=== PATIENT | female | born 1955 | race Caucasian/White ===

== ENCOUNTER 2019-01-17 05:46 | Outpatient (RCR) | payer MEDICARE, MEDICAID, SELFPAY | END 2019-01-20 00:01 | LOC: ONCMED 05:46 | PROVIDERS: Family Provider Nurse Practitioner; Visit Provider Internal Medicine Medical Oncology | DX: D59.1 Other autoimmune hemolytic anemias (principal); I10 Essential (primary) hypertension; E78.5 Hyperlipidemia, unspecified; E11.42 Type 2 diabetes mellitus with diabetic polyneuropathy; K21.9 Gastro-esophageal reflux disease without esophagitis; J44.9 Chronic obstructive pulmonary disease, unspecified; M19.90 Unspecified osteoarthritis, unspecified site; M06.9 Rheumatoid arthritis, unspecified; E05.20 Thyrotoxicosis with toxic multinodular goiter without thyrotoxic crisis or storm; Z79.4 Long term (current) use of insulin; Z79.891 Long term (current) use of opiate analgesic; Z90.81 Acquired absence of spleen; Z86.73 Personal history of transient ischemic attack (TIA), and cerebral infarction without residual deficits; Z85.528 Personal history of other malignant neoplasm of kidney; Z90.5 Acquired absence of kidney; Z92.25 Personal history of immunosuppression therapy | CPT/HCPCS: 36415; 36430; 85025; 86850; 86900; 86901; 86920 ×4; 86922 ×4; 96374; 99214; J1940; J7050; P9016 ×2 ==

== ENCOUNTER → 2019-02-26 10:10 | Outpatient (BNVA) | payer MEDICARE, MEDICAID, SELFPAY | PROVIDERS: Family Provider Nurse Practitioner; PCP Nurse Practitioner; Visit Provider Nurse Practitioner | DX: D59.1 Other autoimmune hemolytic anemias (principal) | CPT/HCPCS: 36415; 85025 ==

== ENCOUNTER 2019-02-27 10:26 | Outpatient (RCR) | payer MEDICARE, MEDICAID, SELFPAY ==
--- NOTE | 2019-03-05 10:40 | ONC FU_ITS ---
Dr. Carrero Patient Follow-Up Note Patient: Miya Narvaez Unit #: [id number]: [id number] Dicatated By: Shawn Carrero M.D.Date of Visit:Feb 27, 2019 Onc Med Follow-up/Prog Note Chief Complaint: Anemia. 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 On 02/13/2018 she presented to the emergency room with severe weakness. She was found to be significantly anemic with CBC showing her hemoglobin low at 7.1 g with hematocrit 20.4%. The red cell indices were macrocytic with MCV 112 and MCH 39. The white blood cell count was elevated at 20,500 and the platelet count was mildly elevated at 411,000. The differential showed 75% neutrophils, 16% lymphocytes, and 7% monocytes. The uncorrected reticulocyte count was 20.6%. Sedimentation rate was greater than 120 mm/hour. Chem profile showed significantly low sodium at 113 mmol/L. The total bilirubin was mildly elevated at 4.1 mg/dL with normal alkaline phosphatase. LDH was elevated at 321/214 U/L. She was transfused 2 units of PRBC. No abnormalities were reported on her type and crossmatch. Serum iron studies show slightly low transferrin saturation at 17.7%. B12 level was normal at 457 pg/mL and folate levels greater than 20.0 ng/mL. Methylmalonic acid level also was normal at 0.23 ???mol/L. Following the transfusion her hemoglobin stabilized at 9.2 g. At that point her sodium level was back up to 130 mmol/L, and she was discharged home. During subsequent follow-up, stool Hemoccult was negative ???3. Repeat CBC on 03/08/2018 showed hemoglobin up to 12.3 g with white blood cell count 8300 and platelet count 260,000. I had seen her initially on 03/28/2018. At that point her hemoglobin had dropped back down to 8.2 g with hematocrit 24%. The red cell indices were macrocytic with MCV 118 and MCH 40.1. The white blood cell count was 16,100 and the platelet count was 334,000. The uncorrected reticulocyte count was 22%. LDH was elevated 388/214 U/L. The total bilirubin was elevated at 3.4 mg/dL with direct bilirubin 0.4 mg/dL. Haptoglobin was low at 10 mg/dL. Sedimentation rate was elevated at 117 mm/h, and the RA titer was high at 599.0 IU/mL. The SELENA was positive for warm reacting IgG auto antibody. She then began steroid therapy with prednisone 40 mg twice a day. Her other medical illnesses include hypertension, hyperlipidemia, type II diabetes with peripheral neuropathy, GERD, COPD, degenerative disease of the spine, and rheumatoid arthritis. She has a history of multinodular goiter and she has had evidence of hyperthyroidism. She has a history of having undergone left nephrectomy for stage I renal cell carcinoma in 2008. She has a history of smoking for 46 years, previously up to 2 1/2 packs of cigarettes daily. Following her hospitalization in January she had cut down to 1 pack per day. INTERIM HISTORY: Her follow-up CBC on 04/04/2017 showed hemoglobin stable at 8.4 g with white blood cell count 15,700 and platelet count 385,000. The reticulocyte count was still significantly elevated at 19.6% and the haptoglobin was still low at 10 mg/dL. LDH level at that point was up to 461 U/L. She continued prednisone 40 mg twice a day. Her blood sugars had become significantly elevated on the prednisone, as expected, and she was started on Levemir 30 U twice a day along with regular insulin per sliding scale. As of 04/17/2018 her hemoglobin was up to 12.0 g and her prednisone dosage was decreased to 20 mg bid. At her followup visit on 04/26/2017 her hemoglobin was normal at 13.8 g. Her prednisone was decreased to 20 mg daily. As she was felt to be a poor candidate for long-term steroid therapy due to her diabetes and because of her underlying rheumatoid arthritis, she was given a 4-week course of treatment with rituximab from 05/09/2018 through 05/29/2018. She tolerated it very well. During subsequent follow-up, her hemoglobin remained adequate, though her laboratory studies did show evidence for ongoing hemolysis. However, during that time she also had increasing intolerance for the prednisone, and she insisted on tapering down the dosage. During subsequent follow-up, there was gradual decline in her hemoglobin/hematocrit levels, and became quite evident that her hemolytic anemia was not going to be controlled adequately with prednisone. I then made arrangements for laparoscopic splenectomy in [place]. She did receive the appropriate vaccinations. The laparoscopic splenectomy was performed in the early part of December. She had no complications with the procedure. During her subsequent follow-up, she had the expected increases in her white blood cell count and platelet count. There was no significant improvement, though, in her hemoglobin/hematocrit levels. As of 01/16/2019 the hemoglobin was stable at 8.3 g. She reported having significant fatigue and shortness of breath, and she also reported having some chest pain. Her repeat CBC with the typenex showed further decline in the hemoglobin to 7.8 g. She was then transfused 2 units PRBC and she restarted steroid therapy with prednisone, initially at 10 mg bid. She did have a good response to prednisone, and it was able to be tapered fairly quickly. Her hemoglobin stabilized at 11 g on prednisone at 10 mg daily. She is seen for a follow-up visit. Her energy is okay, though not as good as it was. She has been on antibiotic therapy for a respiratory infection. Her appetite is down a little due to the antibiotic. She has not had fever. She occasionally has sweating at night. She has not had sore mouth or throat. She still has coughing spells, but it is improving. She has cut down smoking from 2 packs per day to 1/2 pack per day. She has some shortness of breath, mainly with the coughing spells. She does not complain of chest pain. She has had some constipation since the surgery. She has no other GI or complaints. She says her arthritis has been giving her fits, and she also has been having more swelling. She has a little numbness/tingling in her hands. Medications: Acidophilus 1 Tablet Oral daily, Crestor 1 Tablet (of 10 mg) Oral daily, Daily Vitamin 1 Tablet Oral daily, Famotidine 1 Tablet (of 40 mg) Oral b.i.d. PRN, Ferrous Sulfate 1 Tablet (of 325 (65 fe) mg) Oral daily, Fish Oil 1 Capsule (of 1000 mg) Oral daily, Garlic 1 Capsule (of 1000 mg) Oral daily, HumuLIN R 1 (100 Units/mL) Injection t.i.d. PRN, Hydrocodone-Acetaminophen 1 Tablet (of 10-325 mg) Oral q 6 hours PRN, Imdur 1 Tablet (of 30 mg) Tablet SR 24 HR Oral daily, MetFORMIN HCl 1 Tablet (of 500 mg) Oral b.i.d., Metoprolol Succinate ER 1 Tablet (of 50 mg) Tablet SR 24 HR Oral daily, Norvasc 1 Tablet (of 5 mg) Oral daily, predniSONE 1 Tablet (of 5 mg) Oral b.i.d., traZODone HCl 2 Tablet (of 50 mg) Oral daily, Zonisamide 1 Tablet (of 50 mg) Capsule Oral b.i.d. Allergies: CeleBREX and Levemir. Review of Systems: Constitutional - Her energy is decent. She does all of her housework. She is able to do more at home and walk more. Her appetite is okay, but her weight is down. No fever, chills, hot flashes, She has some sweating at night. ECOG score is 1, ENMT - No sinus congestion/drainage. No mouth sores. No sore throat or difficulty swallowing, Hematologic/Lymphatic - She bruises easily, Respiratory - No shortness of breath. She has a cough. No pleuritic pain or hemoptysis, Cardiovascular - No angina pain. No palpitations, Gastrointestinal - No nausea or vomiting. She has occasional heartburn. She has constipation. No blood in the stool or black stools, Genitourinary (F) - No dysuria or hematuria. No urinary frequency. No urgency or incontinence, Musculoskeletal - She has had an increase of pain in her joints, especially in her right knee, Integumentary - No skin complications, Neurologic - No headache or dizziness. She has numbness and tingling in her hands, Psychiatric - No anxiety or depression. No insomnia. Vital Signs: Performed on Feb 27, 2019 10:58 Height - 67.00 in Weight - 174.4 lbs (LOW) BSA - 1.91 sq.m BMI - 27.32 Temperature - 98.2 F (LOW) Pulse - 80 /min Respiration - 22 /min BP - 150/64 mm(hg) (HIGH) O2 Sat - 99 % Pain - 5 Physical Examination: Constitutional - She looks pretty good generally, Eyes - Sclerae nonicteric. Conjunctivae clear, ENMT - No lesions noted in the oral cavity, Hematologic/Lymphatic - No cervical, clavicular, or axillary adenopathy, Respiratory - Lungs are clear with diminished air movement bilaterally, Cardiovascular - Heart rhythm is regular. There is a II/ systolic murmur. There is no gallop or rub noted, Abdomen - Soft. Liver is not enlarged. There is no abdominal mass or ascites noted and there is no inguinal adenopathy, Extremities - No edema, Neurologic - No focal neurologic deficits noted. Lab/Imaging: Her laboratory studies from 02/19/2019 included CBC showing hemoglobin 11.5 g, white blood cell count 19,200, and platelet count 700,000. The red cell indices were macrocytic. Impression: 1. 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 2. She has pre-existing rheumatoid arthritis. 3. She has multinodular goiter with hyperthyroidism. Her other medical illnesses include: 4. Hypertension. 5. Hyperlipidemia. 6. Type II diabetes with peripheral neuropathy. 7. GERD. 8. COPD. 9. Degenerative disease of the spine. 10. She has a history of prior stroke. 11. She underwent left nephrectomy for stage I renal cell carcinoma in 2008. She began steroid therapy with prednisone 40 mg twice a day on 03/29/2018. She has had a good response with her hemoglobin increasing to 12.0 g on 04/17/2018. Her prednisone was then decreased to 20 mg bid. As of her follow-up visit on 04/26/2018 there was further increase in the hemoglobin to 13.8 with haptoglobin normal at 158 mg/dL. Her prednisone was decreased to 20 mg daily. As she was felt to be a poor candidate for long-term steroid therapy and because of her underlying rheumatoid arthritis, she was then given a 4-week course of treatment with rituximab, which she completed on 05/29/2018. She tolerated it well. She had felt better following completion of the rituximab infusions, and her hemoglobin had initially remained stable at 12 g. However, her laboratory studies had shown evidence for ongoing hemolysis. During subsequent follow-up, she had increasing intolerance for the prednisone, and the dosage has been tapered to 5 mg daily. During follow-up there was a progressive decline in her hemoglobin/hematocrit levels, and it became quite evident that her hemolytic anemia was not going to be controlled adequately with a tolerable dose of steroid. She underwent laparoscopic splenectomy in the early part of December. She had no complications with the procedure. During subsequent follow-up there was expected increases in her white blood cell count and platelet count. Her hemoglobin/hematocrit levels, though, continued to decline. As of 01/17/2019 her hemoglobin had dropped to 7.8 g, and her studies were consistent with hemolysis. She was transfused 2 U PRBC and she restarted prednisone at 10 mg twice a day. She has had a good response with her hemoglobin stabilizing at 11 g on 10 mg of prednisone daily. She seems to tolerate that dosage of prednisone with acceptable side effects. Plan: She will continue prednisone 10 mg daily. She will continue her bowel regimen with senna/docusate. I will have her try increasing her trazodone dosage to 100 mg daily, if she continues to have significant issues with insomnia. She is due to have laboratory studies on the of this month. She will be scheduled for a follow-up visit in 5 weeks. Signed By: Shawn Carrero M.D. <<Signature on File>>
== END 2019-03-23 23:59 | disposition home or self-care (01) ==
LOC: ONCMED 10:26
PROVIDERS: Family Provider Nurse Practitioner; PCP Nurse Practitioner; Visit Provider Internal Medicine Medical Oncology
DX: D59.1 Other autoimmune hemolytic anemias (principal); I10 Essential (primary) hypertension; E78.5 Hyperlipidemia, unspecified; E11.42 Type 2 diabetes mellitus with diabetic polyneuropathy; K21.9 Gastro-esophageal reflux disease without esophagitis; J44.9 Chronic obstructive pulmonary disease, unspecified; M19.90 Unspecified osteoarthritis, unspecified site; M06.9 Rheumatoid arthritis, unspecified; F17.210 Nicotine dependence, cigarettes, uncomplicated; E05.00 Thyrotoxicosis with diffuse goiter without thyrotoxic crisis or storm; G47.00 Insomnia, unspecified; Z79.4 Long term (current) use of insulin; Z79.52 Long term (current) use of systemic steroids; Z85.528 Personal history of other malignant neoplasm of kidney; Z90.5 Acquired absence of kidney; Z90.81 Acquired absence of spleen
CPT/HCPCS: 99214

== ENCOUNTER → 2019-03-15 09:45 | Outpatient (BNVA) | payer MEDICARE, MEDICAID, SELFPAY | PROVIDERS: Family Provider Nurse Practitioner; PCP Nurse Practitioner; Visit Provider Nurse Practitioner | DX: E55.9 Vitamin D deficiency, unspecified; D59.1 Other autoimmune hemolytic anemias; I10 Essential (primary) hypertension; J44.9 Chronic obstructive pulmonary disease, unspecified; K57.90 Diverticulosis of intestine, part unspecified, without perforation or abscess without bleeding; E11.40 Type 2 diabetes mellitus with diabetic neuropathy, unspecified; M51.34 Other intervertebral disc degeneration, thoracic region; E11.22 Type 2 diabetes mellitus with diabetic chronic kidney disease | CPT/HCPCS: 80053; 80061; 81003; 82306; 82607; 83036; 83540; 84443; 85025 ==

== ENCOUNTER → 2019-04-02 08:45 | Outpatient (BNVA) | payer MEDICARE, MEDICAID, SELFPAY | PROVIDERS: Family Provider Nurse Practitioner; PCP Nurse Practitioner; Visit Provider Internal Medicine Medical Oncology | DX: D59.1 Other autoimmune hemolytic anemias (principal); D89.9 Disorder involving the immune mechanism, unspecified | CPT/HCPCS: 85025 ==

== ENCOUNTER 2019-04-03 05:52 | Outpatient (RCR) | payer MEDICARE, MEDICAID, SELFPAY ==
--- NOTE | 2019-04-03 19:27 | ONC FU_ITS ---
Dr. Carrero Patient Follow-Up Note Patient: Miya Narvaez Unit #: [id number]: [id number] Dicatated By: Shawn Carrero M.D.Date of Visit:Apr 03, 2019 Onc Med Follow-up/Prog Note Chief Complaint: Autoimmune hemolytic anemia. 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 She has longstanding rheumatoid arthritis. On 02/13/2018 she presented to the emergency room with severe weakness. She was found to be significantly anemic with CBC showing her hemoglobin low at 7.1 g with hematocrit 20.4%. The red cell indices were macrocytic with MCV 112 and MCH 39. The white blood cell count was elevated at 20,500 and the platelet count was mildly elevated at 411,000. The differential showed 75% neutrophils, 16% lymphocytes, and 7% monocytes. The uncorrected reticulocyte count was 20.6%. Sedimentation rate was greater than 120 mm/hour. Chem profile showed significantly low sodium at 113 mmol/L. The total bilirubin was mildly elevated at 4.1 mg/dL with normal alkaline phosphatase. LDH was elevated at 321/214 U/L. She was transfused 2 units of PRBC. No abnormalities were reported on her type and crossmatch. Serum iron studies show slightly low transferrin saturation at 17.7%. B12 level was normal at 457 pg/mL and folate levels greater than 20.0 ng/mL. Methylmalonic acid level also was normal at 0.23 ???mol/L. Following the transfusion her hemoglobin stabilized at 9.2 g. At that point her sodium level was back up to 130 mmol/L, and she was discharged home. During subsequent follow-up, stool Hemoccult was negative ???3. Repeat CBC on 03/08/2018 showed hemoglobin up to 12.3 g with white blood cell count 8300 and platelet count 260,000. I had seen her initially on 03/28/2018. At that point her hemoglobin had dropped back down to 8.2 g with hematocrit 24%. The red cell indices were macrocytic with MCV 118 and MCH 40.1. The white blood cell count was 16,100 and the platelet count was 334,000. The uncorrected reticulocyte count was 22%. LDH was elevated 388/214 U/L. The total bilirubin was elevated at 3.4 mg/dL with direct bilirubin 0.4 mg/dL. Haptoglobin was low at 10 mg/dL. Sedimentation rate was elevated at 117 mm/h, and the RA titer was high at 599.0 IU/mL. The SELENA was positive for warm reacting IgG auto antibody. She then began steroid therapy with prednisone 40 mg twice a day. Her follow-up CBC on 04/04/2017 showed hemoglobin stable at 8.4 g with white blood cell count 15,700 and platelet count 385,000. The reticulocyte count was still significantly elevated at 19.6% and the haptoglobin was still low at 10 mg/dL. LDH level at that point was up to 461 U/L. She continued prednisone 40 mg twice a day. Her blood sugars had become significantly elevated on the prednisone, as expected, and she was started on Levemir 30 U twice a day along with regular insulin per sliding scale. As of 04/17/2018 her hemoglobin was up to 12.0 g and her prednisone dosage was decreased to 20 mg bid. At her followup visit on 04/26/2017 her hemoglobin was normal at 13.8 g. Her prednisone was decreased to 20 mg daily. As she was felt to be a poor candidate for long-term steroid therapy due to her diabetes and because of her underlying rheumatoid arthritis, she was given a 4-week course of treatment with rituximab from 05/09/2018 through 05/29/2018. She tolerated it very well. During subsequent follow-up, her hemoglobin remained adequate, though her laboratory studies did show evidence for ongoing hemolysis. However, during that time she also had increasing intolerance for the prednisone, and she insisted on tapering down the dosage. During subsequent follow-up, there was gradual decline in her hemoglobin/hematocrit levels, and became quite evident that her hemolytic anemia was not going to be controlled adequately with prednisone. I then made arrangements for laparoscopic splenectomy in [place]. She did receive the appropriate vaccinations. The laparoscopic splenectomy was performed in the early part of December 2018. She had no complications with the procedure. During her subsequent follow-up, she had the expected increases in her white blood cell count and platelet count. There was no significant improvement, though, in her hemoglobin/hematocrit levels. As of 01/16/2019 the hemoglobin was stable at 8.3 g. She reported having significant fatigue and shortness of breath, and she also reported having some chest pain. Her repeat CBC with the typenex showed further decline in the hemoglobin to 7.8 g. She was then transfused 2 units PRBC and she restarted steroid therapy with prednisone, initially at 10 mg bid. She did have a good response to prednisone, and it was able to be tapered fairly quickly. Her hemoglobin stabilized at 11 g on prednisone at 10 mg daily. Her other medical illnesses include hypertension, hyperlipidemia, type II diabetes with peripheral neuropathy, GERD, COPD, degenerative disease of the spine, and rheumatoid arthritis. She has a history of multinodular goiter and she has had evidence of hyperthyroidism. She has a history of having undergone left nephrectomy for stage I renal cell carcinoma in 2008. She has a history of smoking for 46 years, previously up to 2 1/2 packs of cigarettes daily. Following her hospitalization in January 2018 she had cut down to 1 pack per day. INTERIM HISTORY: She is seen for a follow-up visit. She has been feeling okay. She says she is tired a lot, but her energy is better now than it was. Her ECOG score is 1. Her appetite is variable. Her sugar fluctuates significantly with the prednisone, and it does tend to get pretty high at times. She does not have fever or night sweats. She says her breathing tends to be rough in the mornings. She has chronic cough and she is still smoking 1 to 2 packs of cigarettes daily. She tends to get chest pain and heartburn when her blood sugar gets really high. She has ongoing problems with constipation, but some of that may just be related to her iron supplement. She has no complaints. Her joint pain has been controlled reasonably well on the low-dose prednisone, though she does have flareups of pain every now and then. She does not complain of headache or dizziness. She has numbness/tingling in her feet. Medications: Acidophilus 1 Tablet Oral daily, Crestor 1 Tablet (of 10 mg) Oral daily, Daily Vitamin 1 Tablet Oral daily, Famotidine 1 Tablet (of 40 mg) Oral b.i.d. PRN, Fish Oil 1 Capsule (of 1000 mg) Oral daily, Folic Acid 1 (1 mg) Tablet Oral daily, Garlic 1 Capsule (of 1000 mg) Oral daily, HumuLIN R 1 (100 Units/mL) Injection t.i.d. PRN, Hydrocodone-Acetaminophen 1 Tablet (of 10-325 mg) Oral q 6 hours PRN, Imdur 1 Tablet (of 30 mg) Tablet SR 24 HR Oral daily, MetFORMIN HCl 1 Tablet (of 500 mg) Oral b.i.d., Metoprolol Succinate ER 1 Tablet (of 50 mg) Tablet SR 24 HR Oral daily, Norvasc 1 Tablet (of 5 mg) Oral daily, predniSONE 1 Tablet (of 5 mg) Oral b.i.d., traZODone HCl 2 Tablet (of 50 mg) Oral daily, Zonisamide 1 Tablet (of 50 mg) Capsule Oral b.i.d. Allergies: CeleBREX and Levemir. Review of Systems: Constitutional - She is tired a lot, but her energy is better than it was. She does light work at home. Her appetite comes and goes, but her weight is stable. No fever, chills, hot flashes, or night sweats. ECOG score is 1, ENMT - No sinus congestion/drainage. No mouth sores. No sore throat or difficulty swallowing, Hematologic/Lymphatic - She bruises easily, Respiratory - She has shortness of breath with activity. She has a cough. No pleuritic pain or hemoptysis. She continues to smoke 1-2 packs a day, Cardiovascular - She has chest pain and heartburn if her blood sugar gets too high. No palpitations, Gastrointestinal - No nausea or vomiting. No diarrhea or constipation. No blood in the stool or black stools, Genitourinary (F) - No dysuria or hematuria. No urinary frequency. No urgency or incontinence, Musculoskeletal - She has had a couple episodes of severe pain, Integumentary - No skin complications, Neurologic - She has headaches when her blood sugar is high. No dizziness. No numbness/paresthesias or other focal neurologic symptoms, Psychiatric - No anxiety or depression. No insomnia. Vital Signs: Performed on Apr 03, 2019 10:30 Height - 67.00 in Weight - 174.8 lbs (HIGH) BSA - 1.91 sq.m BMI - 27.38 Temperature - 98.3 F (LOW) Pulse - 72 /min Respiration - 24 /min BP - 146/63 mm(hg) (HIGH) O2 Sat - 100 % Pain - 5 Physical Examination: Constitutional - She looks pretty good generally, Eyes - Sclerae nonicteric. Conjunctivae clear, ENMT - No lesions noted in the oral cavity, Hematologic/Lymphatic - No cervical, clavicular, or axillary adenopathy, Respiratory - Lungs are clear with diminished air movement bilaterally, Cardiovascular - Heart rhythm is regular. There is a II/ systolic murmur. There is no gallop or rub noted, Abdomen - Soft. There is mild tenderness in the epigastric area. Liver is not enlarged. There is no abdominal mass or ascites noted and there is no inguinal adenopathy, Extremities - No edema. There are scattered purpuric lesions on the arms, Neurologic - No focal neurologic deficits noted. Lab/Imaging: Test performed on Apr 02, 2019 08:45 WBC 14.3 10^9/L RBC 3.20 10^12/L HGB 11.3 g/dL HCT 33.7 % MCV 105.3 fl MCH 35.4 pg MCHC 33.6 g/dL RDW 15.4 % Platelet Count 515 10^9/L MPV 6.8 fL Neutrophils (Gran) 9.8 10^9/L Lymphocytes 4.0 10^9/L Monocytes 0.4 10^9/L Manual Lymphocytes 28.3 % Manual Monocytes 2.9 % Test performed on Mar 15, 2019 10:49 Iron, Total 68 mcg/dL TSH 0.01 uU/mL Hemoglobin A1C 4.0 % Test performed on Mar 15, 2019 10:42 Vitamin B12 353 pg/mL Cholesterol, Total 123 mg/dL Glucose 90 mg/dL Vitamin D (25-Hydroxy) 27 ng/mL BUN 11 mg/dL HDL Cholesterol 52 mg/dL Creatinine 0.7 mg/dL LDL Cholesterol 49 mg/dL Cr Clearance (Est) 110.87 mL/min VLDL Cholesterol 22 mg/dL Triglycerides 111 mg/dL Sodium 139 mmol/L Potassium 4.4 mmol/L Chloride 103 mmol/L CO2 24 mmol/L Calcium 11.0 mg/dL Protein, Total 6.2 g/dL Albumin 4.7 g/dL Globulin 1.5 g/dL Bilirubin, Total 2.1 mg/dL Alkaline Phosphatase 116 IU/L AST (SGOT) 23 IU/L ALT (SGPT) 15 IU/L Ua Color Yellow Ua Appearance Clear Ua Specific Arthur 1.015 Ua pH 5.5 Ua Protein Negative Ua Glucose Normal Ua Ketones Negative Ua Blood Negative Ua Leuk Esterase Negative Ua Nitrites Negative Ua Bilirubin Negative Ua Urobilinogen 0.2 Impression: 1. 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 2. She has pre-existing rheumatoid arthritis. 3. She has multinodular goiter with hyperthyroidism. Her other medical illnesses include: 4. Hypertension. 5. Hyperlipidemia. 6. Type II diabetes with peripheral neuropathy. 7. GERD. 8. COPD. 9. Degenerative disease of the spine. 10. She has a history of prior stroke. 11. She underwent left nephrectomy for stage I renal cell carcinoma in 2008. She began steroid therapy with prednisone 40 mg twice a day on 03/29/2018. She has had a good response with her hemoglobin increasing to 12.0 g on 04/17/2018. Her prednisone was then decreased to 20 mg bid. As of her follow-up visit on 04/26/2018 there was further increase in the hemoglobin to 13.8 with haptoglobin normal at 158 mg/dL. Her prednisone was decreased to 20 mg daily. As she was felt to be a poor candidate for long-term steroid therapy and because of her underlying rheumatoid arthritis, she was then given a 4-week course of treatment with rituximab, which she completed on 05/29/2018. She tolerated it well. She had felt better following completion of the rituximab infusions, and her hemoglobin had initially remained stable at 12 g. However, her laboratory studies had shown evidence for ongoing hemolysis. During subsequent follow-up, she had increasing intolerance for the prednisone, and the dosage has been tapered to 5 mg daily. During follow-up there was a progressive decline in her hemoglobin/hematocrit levels, and it became quite evident that her hemolytic anemia was not going to be controlled adequately with a tolerable dose of steroid. She underwent laparoscopic splenectomy in the early part of December 2018. She had no complications with the procedure. During subsequent follow-up there was expected increases in her white blood cell count and platelet count. Her hemoglobin/hematocrit levels, though, continued to decline. As of 01/17/2019 her hemoglobin had dropped to 7.8 g, and her studies were consistent with hemolysis. She was transfused 2 U PRBC and she restarted prednisone at 10 mg twice a day. She has had a good response with her hemoglobin stabilizing at 11 g on 10 mg of prednisone daily. During follow-up she has had some difficulty managing the diabetes with the steroid therapy. It appears almost certain that the hemolysis is affecting the hemoglobin A1c result, so that it is not accurately reflecting her diabetes control. Her rheumatoid arthritis seems to be managed adequately with the low-dose prednisone, and thus far her hemoglobin has remained adequate at 11 g, though she does have evidence of ongoing hemolysis. Plan: She will continue prednisone and I will now have her try tapering the dosage to 10 mg alternating with 5 mg daily. She is advised to stop her iron supplement, but she will continue folic acid 1 mg daily. Her blood counts will be monitored monthly. I will see her again in 3 months, or sooner as needed. Signed By: Shawn Carrero M.D. <<Signature on File>>
== END 2019-04-21 23:59 | disposition home or self-care (01) ==
LOC: ONCMED 05:52
PROVIDERS: Family Provider Nurse Practitioner; PCP Nurse Practitioner; Visit Provider Internal Medicine Medical Oncology
DX: D59.1 Other autoimmune hemolytic anemias (principal); M06.9 Rheumatoid arthritis, unspecified; I10 Essential (primary) hypertension; E78.5 Hyperlipidemia, unspecified; E11.42 Type 2 diabetes mellitus with diabetic polyneuropathy; K21.9 Gastro-esophageal reflux disease without esophagitis; J44.9 Chronic obstructive pulmonary disease, unspecified; M19.90 Unspecified osteoarthritis, unspecified site; F17.210 Nicotine dependence, cigarettes, uncomplicated; E04.2 Nontoxic multinodular goiter; Z79.891 Long term (current) use of opiate analgesic; Z79.84 Long term (current) use of oral hypoglycemic drugs; Z79.52 Long term (current) use of systemic steroids; Z79.899 Other long term (current) drug therapy; Z90.81 Acquired absence of spleen; Z85.528 Personal history of other malignant neoplasm of kidney; Z86.73 Personal history of transient ischemic attack (TIA), and cerebral infarction without residual deficits; Z90.5 Acquired absence of kidney
CPT/HCPCS: 99214

== ENCOUNTER → 2019-05-01 08:45 | Outpatient (BNVA) | payer MEDICARE, MEDICAID, SELFPAY | PROVIDERS: Family Provider Nurse Practitioner; PCP Nurse Practitioner; Visit Provider Internal Medicine Medical Oncology | DX: D59.1 Other autoimmune hemolytic anemias (principal); E03.8 Other specified hypothyroidism | CPT/HCPCS: 80053; 83010; 83540; 83550; 83615; 84439; 84443; 85025; 85045; 85651 ==

== ENCOUNTER 2019-05-07 15:07 | Outpatient (CLI) | payer MEDICARE, MEDICAID, SELFPAY ==
--- NOTE | 2019-05-11 15:02 | ONC FU_ITS ---
Dr. Carrero Patient Follow-Up Note Patient: Miya Narvaez Unit #: [id number]: 1955 Dicatated By: Shawn Carrero M.D.Date of Visit:May 07, 2019 Onc Med Follow-up/Prog Note Chief Complaint: Autoimmune hemolytic anemia. 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 She has longstanding rheumatoid arthritis. On 02/13/2018 she presented to the emergency room with severe weakness. She was found to be significantly anemic with CBC showing her hemoglobin low at 7.1 g with hematocrit 20.4%. The red cell indices were macrocytic with MCV 112 and MCH 39. The white blood cell count was elevated at 20,500 and the platelet count was mildly elevated at 411,000. The differential showed 75% neutrophils, 16% lymphocytes, and 7% monocytes. The uncorrected reticulocyte count was 20.6%. Sedimentation rate was greater than 120 mm/hour. Chem profile showed significantly low sodium at 113 mmol/L. The total bilirubin was mildly elevated at 4.1 mg/dL with normal alkaline phosphatase. LDH was elevated at 321/214 U/L. She was transfused 2 units of PRBC. No abnormalities were reported on her type and crossmatch. Serum iron studies show slightly low transferrin saturation at 17.7%. B12 level was normal at 457 pg/mL and folate levels greater than 20.0 ng/mL. Methylmalonic acid level also was normal at 0.23 ???mol/L. Following the transfusion her hemoglobin stabilized at 9.2 g. At that point her sodium level was back up to 130 mmol/L, and she was discharged home. During subsequent follow-up, stool Hemoccult was negative ???3. Repeat CBC on 03/08/2018 showed hemoglobin up to 12.3 g with white blood cell count 8300 and platelet count 260,000. I had seen her initially on 03/28/2018. At that point her hemoglobin had dropped back down to 8.2 g with hematocrit 24%. The red cell indices were macrocytic with MCV 118 and MCH 40.1. The white blood cell count was 16,100 and the platelet count was 334,000. The uncorrected reticulocyte count was 22%. LDH was elevated 388/214 U/L. The total bilirubin was elevated at 3.4 mg/dL with direct bilirubin 0.4 mg/dL. Haptoglobin was low at 10 mg/dL. Sedimentation rate was elevated at 117 mm/h, and the RA titer was high at 599.0 IU/mL. The SELENA was positive for warm reacting IgG auto antibody. She then began steroid therapy with prednisone 40 mg twice a day. Her follow-up CBC on 04/04/2017 showed hemoglobin stable at 8.4 g with white blood cell count 15,700 and platelet count 385,000. The reticulocyte count was still significantly elevated at 19.6% and the haptoglobin was still low at 10 mg/dL. LDH level at that point was up to 461 U/L. She continued prednisone 40 mg twice a day. Her blood sugars had become significantly elevated on the prednisone, as expected, and she was started on Levemir 30 U twice a day along with regular insulin per sliding scale. As of 04/17/2018 her hemoglobin was up to 12.0 g and her prednisone dosage was decreased to 20 mg bid. At her followup visit on 04/26/2017 her hemoglobin was normal at 13.8 g. Her prednisone was decreased to 20 mg daily. As she was felt to be a poor candidate for long-term steroid therapy due to her diabetes and because of her underlying rheumatoid arthritis, she was given a 4-week course of treatment with rituximab from 05/09/2018 through 05/29/2018. She tolerated it very well. During subsequent follow-up, her hemoglobin remained adequate, though her laboratory studies did show evidence for ongoing hemolysis. However, during that time she also had increasing intolerance for the prednisone, and she insisted on tapering down the dosage. During subsequent follow-up, there was gradual decline in her hemoglobin/hematocrit levels, and became quite evident that her hemolytic anemia was not going to be controlled adequately with prednisone. I then made arrangements for laparoscopic splenectomy in [place]. She did receive the appropriate vaccinations. The laparoscopic splenectomy was performed in the early part of December 2018. She had no complications with the procedure. During her subsequent follow-up, she had the expected increases in her white blood cell count and platelet count. There was no significant improvement, though, in her hemoglobin/hematocrit levels. As of 01/16/2019 the hemoglobin was stable at 8.3 g. She reported having significant fatigue and shortness of breath, and she also reported having some chest pain. Her repeat CBC with the typenex showed further decline in the hemoglobin to 7.8 g. She was then transfused 2 units PRBC and she restarted steroid therapy with prednisone, initially at 10 mg bid. She did have a good response to prednisone, and it was able to be tapered fairly quickly. Her hemoglobin stabilized at 11 g on prednisone at 10 mg daily. Her other medical illnesses include hypertension, hyperlipidemia, type II diabetes with peripheral neuropathy, GERD, COPD, degenerative disease of the spine, and rheumatoid arthritis. She has a history of multinodular goiter and she has had evidence of hyperthyroidism. She has a history of having undergone left nephrectomy for stage I renal cell carcinoma in 2008. She has a history of smoking for 46 years, previously up to 2 1/2 packs of cigarettes daily. Following her hospitalization in January 2018 she had cut down to 1 pack per day. INTERIM HISTORY: During subsequent follow-up, she had continued prednisone 10 mg. As of her visit on 04/03/2019 her hemoglobin was stable at 11.3 g, and at that point I had her try alternating 10 and 5 mg daily. She is seen for a follow-up visit. She says she feels like crap. She has no energy and no appetite. Her activity is very limited. ECOG score is 2. Her weight is down a couple of pounds. She has not had fever or night sweats. She says she feels cold all the time. She also complains that her legs hurt. She has some joint pain, but more off and on. She has shortness of breath with activity and she also ports having some cough. She does not complain of chest pain. She has a little bit of heartburn. Bowel function is better, but still off and on. She has frequent urination with urgency and with some incontinence. She does not complain of headache or dizziness. She has some numbness/tingling in her hands. Medications: Acidophilus 1 Tablet Oral daily, Crestor 1 Tablet (of 10 mg) Oral daily, Daily Vitamin 1 Tablet Oral daily, Famotidine 1 Tablet (of 40 mg) Oral b.i.d. PRN, Fish Oil 1 Capsule (of 1000 mg) Oral daily, Folic Acid 1 (1 mg) Tablet Oral daily, Garlic 1 Capsule (of 1000 mg) Oral daily, HumuLIN R 1 (100 Units/mL) Injection t.i.d. PRN, Hydrocodone-Acetaminophen 1 Tablet (of 10-325 mg) Oral q 6 hours PRN, Imdur 1 Tablet (of 30 mg) Tablet SR 24 HR Oral daily, MetFORMIN HCl 1 Tablet (of 500 mg) Oral b.i.d., Metoprolol Succinate ER 1 Tablet (of 50 mg) Tablet SR 24 HR Oral daily, Norvasc 1 Tablet (of 5 mg) Oral daily, predniSONE 1 Tablet (of 5 mg) Oral daily on Every Other Day, predniSONE 1 Tablet (of 5 mg) Oral b.i.d. on Every Other Day, traZODone HCl 1 Tablet (of 50 mg) Oral daily, Zonisamide 1 Tablet (of 50 mg) Capsule Oral b.i.d. Allergies: CeleBREX and Levemir. Review of Systems: Constitutional - She feels like crap. She has no energy and no appetite. Her weight is down a couple of pounds. No fever, chills, hot flashes, or night sweats. ECOG score is 1, ENMT - She has allergy related sinus symptoms. No mouth sores. No sore throat or difficulty swallowing, Hematologic/Lymphatic - She bruises easily, Respiratory - She has shortness of breath with activity. She has a cough. No pleuritic pain or hemoptysis, Cardiovascular - No angina pain. No palpitations, Gastrointestinal - No nausea or vomiting. She has a little bit of heartburn. Her bowels are off and on. No blood in the stool or black stools, Genitourinary (F) - No dysuria or hematuria. She has urinary frequency with urgency and with some incontinence, Musculoskeletal - She complains that her legs hurt and she has joint pain off and on, Integumentary - No skin complications, Neurologic - No headache or dizziness. She has numbness/tingling in her hands, Psychiatric - No anxiety or depression. She has difficulty sleeping. Vital Signs: Performed on May 07, 2019 15:17 Height - 67.00 in Weight - 172 lbs (LOW) BSA - 1.90 sq.m BMI - 26.94 Temperature - 98.3 F (LOW) Pulse - 91 /min Respiration - 16 /min BP - 149/66 mm(hg) (HIGH) O2 Sat - 98 % Pain - 5 Physical Examination: Constitutional - She does not appear acutely ill, Eyes - Sclerae nonicteric. Conjunctivae clear, ENMT - No lesions noted in the oral cavity, Neck - She has an obvious goiter, Hematologic/Lymphatic - No cervical, clavicular, or axillary adenopathy, Respiratory - Lungs are clear with diminished air movement bilaterally, Cardiovascular - Heart rhythm is regular. There is a II/ systolic murmur. There is no gallop or rub noted, Abdomen - Soft. Liver is not enlarged. There is no abdominal mass or ascites noted and there is no inguinal adenopathy, Extremities - No edema. There are scattered purpuric lesions on the arms, Neurologic - No focal neurologic deficits noted. Lab/Imaging: CBC shows hemoglobin 9.7 g, white blood cell count 17,100, and platelet count 666,000. The red cell indices are macrocytic with MCV 118 and MCH 36.7. The haptoglobin level is low at 10.0 mg/L. Total bilirubin is mildly elevated at 2.1 mg/dL and the LDH level is elevated at 366/214 U/L. Impression: 1. 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 2. She has pre-existing rheumatoid arthritis. 3. She has multinodular goiter with hyperthyroidism. Her other medical illnesses include: 4. Hypertension. 5. Hyperlipidemia. 6. Type II diabetes with peripheral neuropathy. 7. GERD. 8. COPD. 9. Degenerative disease of the spine. 10. She has a history of prior stroke. 11. She underwent left nephrectomy for stage I renal cell carcinoma in 2008. She began steroid therapy with prednisone 40 mg twice a day on 03/29/2018. She has had a good response with her hemoglobin increasing to 12.0 g on 04/17/2018. Her prednisone was then decreased to 20 mg bid. As of her follow-up visit on 04/26/2018 there was further increase in the hemoglobin to 13.8 with haptoglobin normal at 158 mg/dL. Her prednisone was decreased to 20 mg daily. As she was felt to be a poor candidate for long-term steroid therapy and because of her underlying rheumatoid arthritis, she was then given a 4-week course of treatment with rituximab, which she completed on 05/29/2018. She tolerated it well. She had felt better following completion of the rituximab infusions, and her hemoglobin had initially remained stable at 12 g. However, her laboratory studies had shown evidence for ongoing hemolysis. During subsequent follow-up, she had increasing intolerance for the prednisone, and the dosage has been tapered to 5 mg daily. During follow-up there was a progressive decline in her hemoglobin/hematocrit levels, and it became quite evident that her hemolytic anemia was not going to be controlled adequately with a tolerable dose of steroid. She underwent laparoscopic splenectomy in the early part of December 2018. She had no complications with the procedure. During subsequent follow-up there was expected increases in her white blood cell count and platelet count. Her hemoglobin/hematocrit levels, though, continued to decline. As of 01/17/2019 her hemoglobin had dropped to 7.8 g, and her studies were consistent with hemolysis. She was transfused 2 U PRBC and she restarted prednisone at 10 mg twice a day. She has had a good response with her hemoglobin stabilizing at 11 g on 10 mg of prednisone daily. During follow-up she has had some difficulty managing the diabetes with the steroid therapy. As of her followup visit on 04/03/2019 her hemoglobin had remained adequate at 11 g, though she still had evidence of ongoing hemolysis. At that point I had her try decreasing the prednisone dosage to 10 mg alternating with 5 mg daily. She has since then been feeling a lot worse, and her hemoglobin has dropped to 9.7 g. Plan: She will increase prednisone back up to 20 mg daily. I will see her back in 2 weeks. If she is responding, I will then try tapering the prednisone more gradually. I also may consider trying another course of rituximab, as it also would potentially benefit the rheumatoid arthritis. Signed By: Shawn Carrero M.D. <<Signature on File>>
== END 2019-05-07 15:08 | disposition home or self-care (01) ==
LOC: ONCMED 15:07
PROVIDERS: Family Provider Nurse Practitioner; PCP Nurse Practitioner; Visit Provider Internal Medicine Medical Oncology
DX: D59.1 Other autoimmune hemolytic anemias (principal); M06.9 Rheumatoid arthritis, unspecified; I10 Essential (primary) hypertension; E78.5 Hyperlipidemia, unspecified; E11.42 Type 2 diabetes mellitus with diabetic polyneuropathy; K21.9 Gastro-esophageal reflux disease without esophagitis; J44.9 Chronic obstructive pulmonary disease, unspecified; F17.210 Nicotine dependence, cigarettes, uncomplicated; E04.2 Nontoxic multinodular goiter; Z79.891 Long term (current) use of opiate analgesic; Z79.899 Other long term (current) drug therapy; Z79.84 Long term (current) use of oral hypoglycemic drugs; Z90.81 Acquired absence of spleen; Z90.5 Acquired absence of kidney; Z86.73 Personal history of transient ischemic attack (TIA), and cerebral infarction without residual deficits
CPT/HCPCS: 99214

== ENCOUNTER 2019-05-21 08:49 | Outpatient (CLI) | payer MEDICARE, MEDICAID, SELFPAY ==
[2019-05-21 09:15] LABS: Basophils % 0.1 %; Eosinophils # 0.1 10^3/uL (0.0-0.8); Eosinophils % 0.3 %; Hematocrit 37.2 % (37.0-47.0); Hemoglobin 12.1 g/dL (11.5-15.3); Lymphocytes # 2.6 10^3/uL (0.8-4.8); Lymphocytes % 17.6 %; Mean Corpuscular HGB Conc 32.5 g/dL (30.0-36.0); Mean Corpuscular Hemoglobin 37.3 pg (28.0-34.0); Mean Corpuscular Volume 114.8 fL (81-99); Mean Platelet Volume 9.1 fL (7.4-10.4); Monocytes # 1.2 10^3/uL (0.2-0.9); Monocytes % 8.2 %; Neutrophils % 73.1 %; Nucleated Red Blood Cells # 0.1 /100WBC; Nucleated Red Blood Cells % 0.5 %; Platelet Count 567 10^3/cmm (130-400); Red Blood Count 3.24 10^6/uL (4.1-5.3)
[2019-05-21 09:36] LABS: Alanine Aminotransferase 14 U/L (0-33); Albumin Level 4.6 g/dL (3.5-5.2); Alkaline Phosphatase 104 IU/L (35-105); Anion Gap 16.1 (5-19); Aspartate Amino Transferase 22 U/L (0-32); Blood Urea Nitrogen 13 mg/dL (8-23); Calcium 10.3 mg/dL (8.5-10.5); Carbon Dioxide 23 mmol/L (22-29); Chloride 100 mmol/L (98-107); Globulin 2.4 g/dL (1.3-4.6); Glomerular Filtration Rate 72.7 mL/min (90-130); Glucose 133 mg/dL (65-115); Lactate Dehydrogenase 312 U/L (135-214); Osmolality Calculated 278 mOsm/kg (285-295); Potassium 4.1 mmol/L (3.5-5.1); Sodium 135 mmol/L (136-145); Total Bilirubin 2.1 mg/dL (0.15-1.2)
--- NOTE | 2019-05-24 20:16 | ONC FU_ITS ---
Dr. Carrero Patient Follow-Up Note Patient: Miya Narvaez Unit #: [id number]: 1955 Dicatated By: Shawn Carrero M.D.Date of Visit:May 21, 2019 Onc Med Follow-up/Prog Note Chief Complaint: Autoimmune hemolytic anemia. 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 She has longstanding rheumatoid arthritis. On 02/13/2018 she presented to the emergency room with severe weakness. She was found to be significantly anemic with CBC showing her hemoglobin low at 7.1 g with hematocrit 20.4%. The red cell indices were macrocytic with MCV 112 and MCH 39. The white blood cell count was elevated at 20,500 and the platelet count was mildly elevated at 411,000. The differential showed 75% neutrophils, 16% lymphocytes, and 7% monocytes. The uncorrected reticulocyte count was 20.6%. Sedimentation rate was greater than 120 mm/hour. Chem profile showed significantly low sodium at 113 mmol/L. The total bilirubin was mildly elevated at 4.1 mg/dL with normal alkaline phosphatase. LDH was elevated at 321/214 U/L. She was transfused 2 units of PRBC. No abnormalities were reported on her type and crossmatch. Serum iron studies show slightly low transferrin saturation at 17.7%. B12 level was normal at 457 pg/mL and folate levels greater than 20.0 ng/mL. Methylmalonic acid level also was normal at 0.23 ???mol/L. Following the transfusion her hemoglobin stabilized at 9.2 g. At that point her sodium level was back up to 130 mmol/L, and she was discharged home. During subsequent follow-up, stool Hemoccult was negative ???3. Repeat CBC on 03/08/2018 showed hemoglobin up to 12.3 g with white blood cell count 8300 and platelet count 260,000. I had seen her initially on 03/28/2018. At that point her hemoglobin had dropped back down to 8.2 g with hematocrit 24%. The red cell indices were macrocytic with MCV 118 and MCH 40.1. The white blood cell count was 16,100 and the platelet count was 334,000. The uncorrected reticulocyte count was 22%. LDH was elevated 388/214 U/L. The total bilirubin was elevated at 3.4 mg/dL with direct bilirubin 0.4 mg/dL. Haptoglobin was low at 10 mg/dL. Sedimentation rate was elevated at 117 mm/h, and the RA titer was high at 599.0 IU/mL. The SELENA was positive for warm reacting IgG auto antibody. She then began steroid therapy with prednisone 40 mg twice a day. Her follow-up CBC on 04/04/2017 showed hemoglobin stable at 8.4 g with white blood cell count 15,700 and platelet count 385,000. The reticulocyte count was still significantly elevated at 19.6% and the haptoglobin was still low at 10 mg/dL. LDH level at that point was up to 461 U/L. She continued prednisone 40 mg twice a day. Her blood sugars had become significantly elevated on the prednisone, as expected, and she was started on Levemir 30 U twice a day along with regular insulin per sliding scale. As of 04/17/2018 her hemoglobin was up to 12.0 g and her prednisone dosage was decreased to 20 mg bid. At her followup visit on 04/26/2017 her hemoglobin was normal at 13.8 g. Her prednisone was decreased to 20 mg daily. As she was felt to be a poor candidate for long-term steroid therapy due to her diabetes and because of her underlying rheumatoid arthritis, she was given a 4-week course of treatment with rituximab from 05/09/2018 through 05/29/2018. She tolerated it very well. During subsequent follow-up, her hemoglobin remained adequate, though her laboratory studies did show evidence for ongoing hemolysis. However, during that time she also had increasing intolerance for the prednisone, and she insisted on tapering down the dosage. During subsequent follow-up, there was gradual decline in her hemoglobin/hematocrit levels, and became quite evident that her hemolytic anemia was not going to be controlled adequately with prednisone. I then made arrangements for laparoscopic splenectomy in [place]. She did receive the appropriate vaccinations. The laparoscopic splenectomy was performed in the early part of December 2018. She had no complications with the procedure. During her subsequent follow-up, she had the expected increases in her white blood cell count and platelet count. There was no significant improvement, though, in her hemoglobin/hematocrit levels. As of 01/16/2019 the hemoglobin was stable at 8.3 g. She reported having significant fatigue and shortness of breath, and she also reported having some chest pain. Her repeat CBC with the typenex showed further decline in the hemoglobin to 7.8 g. She was then transfused 2 units PRBC and she restarted steroid therapy with prednisone, initially at 10 mg bid. She did have a good response to prednisone, and it was able to be tapered fairly quickly. Her hemoglobin stabilized at 11 g on prednisone at 10 mg daily. Her other medical illnesses include hypertension, hyperlipidemia, type II diabetes with peripheral neuropathy, GERD, COPD, degenerative disease of the spine, and rheumatoid arthritis. She has a history of multinodular goiter and she has had evidence of hyperthyroidism. She has a history of having undergone left nephrectomy for stage I renal cell carcinoma in 2008. She has a history of smoking for 46 years, previously up to 2 1/2 packs of cigarettes daily. Following her hospitalization in January 2018 she had cut down to 1 pack per day. INTERIM HISTORY: She had then continued prednisone 10 mg. As of her visit on 04/03/2019 her hemoglobin was stable at 11.3 g, and at that point I had her try alternating 10 and 5 mg daily. However, as of her follow-up visit on 05/07/2019 her hemoglobin had dropped significantly, to 9.7 g. She was noticeably symptomatic with it. Her prednisone was increased to 20 mg daily. She is seen for a follow-up visit. She has been feeling better with the higher dose of prednisone, though she says her blood sugars have been crazy. She also complains that her rheumatoid arthritis is started to flareup again. She also has a lot of muscle aches. Her energy, though, is better. ECOG score is 1. She says her appetite is not very good. She has not had fever. She has had a little bit of night sweating this past week. She has been having a lot of allergy related sinus symptoms. She has some shortness of breath, but her breathing also is better. She has a morning cough. She has not been having chest pain. She has no GI or complaints other than frequent urination. She does not complain of headache or dizziness. She has some numbness/tingling in her hands. Medications: Acidophilus 1 Tablet Oral daily, Crestor 1 Tablet (of 10 mg) Oral daily, Daily Vitamin 1 Tablet Oral daily, Famotidine 1 Tablet (of 40 mg) Oral b.i.d. PRN, Fish Oil 1 Capsule (of 1000 mg) Oral daily, Folic Acid 1 (1 mg) Tablet Oral daily, Garlic 1 Capsule (of 1000 mg) Oral daily, HumuLIN R 1 (100 Units/mL) Injection t.i.d. PRN, Hydrocodone-Acetaminophen 1 Tablet (of 10-325 mg) Oral q 6 hours PRN, Imdur 1 Tablet (of 30 mg) Tablet SR 24 HR Oral daily, MetFORMIN HCl 1 Tablet (of 500 mg) Oral b.i.d., Metoprolol Succinate ER 1 Tablet (of 50 mg) Tablet SR 24 HR Oral daily, Norvasc 1 Tablet (of 5 mg) Oral daily, predniSONE 1 Tablet (of 20 mg) Oral b.i.d., traZODone HCl 1 Tablet (of 50 mg) Oral daily, Zonisamide 1 Tablet (of 50 mg) Capsule Oral b.i.d. Allergies: CeleBREX and Levemir. Review of Systems: Constitutional - Her energy level is low but she is able to do some light housework. Her appetite is poor but she is able to eat. Her weight is down a few pounds. No fever, chills, or hot flashes. She has had a few night sweats. ECOG score is 1, ENMT - She has chronic allergies. No mouth sores. No sore throat or difficulty swallowing, Hematologic/Lymphatic - No abnormal bruising or bleeding, Respiratory - No shortness of breath. No cough. No pleuritic pain or hemoptysis, Cardiovascular - No angina pain. No palpitations, Gastrointestinal - No nausea or vomiting. No heartburn or acid reflux. No diarrhea or constipation. No blood in the stool or black stools, Genitourinary (F) - No dysuria or hematuria. She has urinary frequency. No urgency or incontinence, Musculoskeletal - No joint or bone pain, Integumentary - No skin complicatins, Neurologic - No headache or dizziness. She is constant tingling to her hands, Psychiatric - No anxiety or depression. She has insomnia. Vital Signs: Performed on May 21, 2019 10:36 Height - 67.00 in Weight - 168.2 lbs (LOW) BSA - 1.88 sq.m BMI - 26.34 Temperature - 98.1 F (LOW) Pulse - 59 /min (LOW) Respiration - 20 /min BP - 146/60 mm(hg) (HIGH) O2 Sat - 100 % Pain - 5 Physical Examination: Constitutional - She looks pretty good generally, Eyes - Sclerae nonicteric. Conjunctivae clear, ENMT - No lesions noted in the oral cavity, Hematologic/Lymphatic - No cervical, clavicular, or axillary adenopathy, Respiratory - Lungs are clear with some decrease in air movement bilaterally, Cardiovascular - Heart rhythm is regular. There is a II/ systolic murmur. There is no gallop or rub noted, Abdomen - Soft. Liver is not enlarged. There is no abdominal mass or ascites noted and there is no inguinal adenopathy, Extremities - No edema, Neurologic - No focal neurologic deficits noted. Lab/Imaging: Test performed on May 21, 2019 08:55 LDH (Total) 312 U/L Sodium 135 mmol/L Potassium 4.1 mmol/L Chloride 100 mmol/L CO2 23 mmol/L Anion Gap 16.1 BUN 13 mg/dL Creatinine 0.8 mg/dL Cr Clearance (Est) 97.0100 mL/min eGFR 72.7 mL/min Glucose 133 mg/dL Calcium 10.3 mg/dL Protein, Total 7.0 g/dL Albumin 4.6 g/dL Globulin 2.4 g/dL Bilirubin, Total 2.1 mg/dL ALT (SGPT) 14 U/L AST (SGOT) 22 U/L Alkaline Phosphatase 104 IU/L WBC 15.0 10 3/uL RBC 3.24 10 6/uL HGB 12.1 g/dL HCT 37.2 % MCV 114.8 fL MCH 37.3 pg MCHC 32.5 g/dL RDW 16.0 % Platelet Count 567 10 3/cmm MPV 9.1 fL Neutrophils 11.0 10 3/uL Lymphocytes 2.6 10 3/uL Monocytes 1.2 10 3/uL Eosinophils 0.1 10 3/uL Basophils 0.0 10 3/uL Neutrophil % 73.1 % Lymphocyte % 17.6 % Monocyte % 8.2 % Eosinophil % 0.3 % Basophils % 0.1 % Impression: 1. 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 2. She has pre-existing rheumatoid arthritis. 3. She has multinodular goiter with hyperthyroidism. Her other medical illnesses include: 4. Hypertension. 5. Hyperlipidemia. 6. Type II diabetes with peripheral neuropathy. 7. GERD. 8. COPD. 9. Degenerative disease of the spine. 10. She has a history of prior stroke. 11. She underwent left nephrectomy for stage I renal cell carcinoma in 2008. She began steroid therapy with prednisone 40 mg twice a day on 03/29/2018. She has had a good response with her hemoglobin increasing to 12.0 g on 04/17/2018. Her prednisone was then decreased to 20 mg bid. As of her follow-up visit on 04/26/2018 there was further increase in the hemoglobin to 13.8 with haptoglobin normal at 158 mg/dL. Her prednisone was decreased to 20 mg daily. As she was felt to be a poor candidate for long-term steroid therapy and because of her underlying rheumatoid arthritis, she was then given a 4-week course of treatment with rituximab, which she completed on 05/29/2018. She tolerated it well. She had felt better following completion of the rituximab infusions, and her hemoglobin had initially remained stable at 12 g. However, her laboratory studies had shown evidence for ongoing hemolysis. During subsequent follow-up, she had increasing intolerance for the prednisone, and the dosage has been tapered to 5 mg daily. During follow-up there was a progressive decline in her hemoglobin/hematocrit levels, and it became quite evident that her hemolytic anemia was not going to be controlled adequately with a tolerable dose of steroid. She underwent laparoscopic splenectomy in the early part of December 2018. She had no complications with the procedure. During subsequent follow-up there was expected increases in her white blood cell count and platelet count. Her hemoglobin/hematocrit levels, though, continued to decline. As of 01/17/2019 her hemoglobin had dropped to 7.8 g, and her studies were consistent with hemolysis. She was transfused 2 U PRBC and she restarted prednisone at 10 mg twice a day. She has had a good response with her hemoglobin stabilizing at 11 g on 10 mg of prednisone daily. During follow-up she has had some difficulty managing the diabetes with the steroid therapy. As of her followup visit on 04/03/2019 her hemoglobin had remained adequate at 11 g, though she still had evidence of ongoing hemolysis. At that point I had her try decreasing the prednisone dosage to 10 mg alternating with 5 mg daily. At her follow-up visit on 05/07/2019 she was feeling a lot worse, and her hemoglobin had dropped to 9.7 g. She then increased her prednisone to 20 mg daily. She has had a good clinical response, but she does complain that her blood sugars have been going crazy. She also has been having more symptoms with her rheumatoid arthritis. Plan: She will reduce the prednisone to 10 mg daily. She will be given a prescription for loratadine for her allergy related sinus symptoms. I will now look into the possibility of retreating her with rituximab, as it is unlikely that her hemolysis will be controlled at a tolerable dose of prednisone. Signed By: Shawn Carrero M.D. <<Signature on File>>
== END 2019-05-21 08:50 | disposition home or self-care (01) ==
LOC: ONCMED 08:50
PROVIDERS: Family Provider Nurse Practitioner; PCP Nurse Practitioner; Visit Provider Internal Medicine Medical Oncology
DX: D59.1 Other autoimmune hemolytic anemias (principal); E11.42 Type 2 diabetes mellitus with diabetic polyneuropathy; M06.9 Rheumatoid arthritis, unspecified; E05.20 Thyrotoxicosis with toxic multinodular goiter without thyrotoxic crisis or storm; Z79.52 Long term (current) use of systemic steroids; I10 Essential (primary) hypertension; E78.5 Hyperlipidemia, unspecified; K21.9 Gastro-esophageal reflux disease without esophagitis; J44.9 Chronic obstructive pulmonary disease, unspecified; J30.89 Other allergic rhinitis; R68.89 Other general symptoms and signs; Z86.73 Personal history of transient ischemic attack (TIA), and cerebral infarction without residual deficits; Z85.528 Personal history of other malignant neoplasm of kidney; Z90.5 Acquired absence of kidney; Z90.81 Acquired absence of spleen; Z79.4 Long term (current) use of insulin
CPT/HCPCS: 36415; 80053; 83010; 83615; 85025; 85045; 99214

== ENCOUNTER 2019-06-21 06:47 | Outpatient (RCR) | payer MEDICARE, MEDICAID, SELFPAY ==
[2019-06-07] MEDS: acetaminophen 325 mg Tablet 650 MG PO (09:40)
[2019-06-07] MEDS: sodium chloride 0.9% 250 ML IV (09:40)
[2019-06-07 09:43] LABS: Basophils % 0.2 %; Eosinophils # 0.1 10^3/uL (0.0-0.8); Eosinophils % 0.4 %; Hematocrit 35.7 % (37.0-47.0); Lymphocytes # 5.5 10^3/uL (0.8-4.8); Lymphocytes % 32.5 %; Mean Corpuscular HGB Conc 33.6 g/dL (30.0-36.0); Mean Corpuscular Hemoglobin 36.9 pg (28.0-34.0); Mean Corpuscular Volume 109.8 fL (81-99); Mean Platelet Volume 8.9 fL (7.4-10.4); Monocytes # 1.6 10^3/uL (0.2-0.9); Monocytes % 9.3 %; Neutrophils # 9.6 10^3/uL (1.8-7.7); Neutrophils % 56.5 %; Nucleated Red Blood Cells # 0.2 /100WBC; Nucleated Red Blood Cells % 0.9 %; Platelet Count 574 10^3/cmm (130-400); Red Blood Count 3.25 10^6/uL (4.1-5.3); Red Cell Distribution Width 15.4 % (12.1-15.1)
[2019-06-07 09:59] LABS: Alanine Aminotransferase 7 U/L (0-33); Albumin Level 4.4 g/dL (3.5-5.2); Alkaline Phosphatase 100 IU/L (35-105); Aspartate Amino Transferase 22 U/L (0-32); Blood Urea Nitrogen 10 mg/dL (8-23); Calcium 10.8 mg/dL (8.5-10.5); Carbon Dioxide 22 mmol/L (22-29); Chloride 99 mmol/L (98-107); Globulin 3.1 g/dL (1.3-4.6); Glomerular Filtration Rate 101.3 mL/min (90-130); Glucose 109 mg/dL (65-115); Lactate Dehydrogenase 283 U/L (135-214); Osmolality Calculated 277 mOsm/kg (285-295); Sodium 135 mmol/L (136-145); Total Bilirubin 2.3 mg/dL (0.15-1.2); Total Protein 7.5 g/dL (6.6-8.7)
[2019-06-13 19:31] LABS: Basophils % 0.2 %; Eosinophils # 0.1 10^3/uL (0.0-0.8); Eosinophils % 0.4 %; Hematocrit 32.8 % (37.0-47.0); Hemoglobin 10.3 g/dL (11.5-15.3); Lymphocytes # 4.3 10^3/uL (0.8-4.8); Lymphocytes % 25.6 %; Mean Corpuscular HGB Conc 31.4 g/dL (30.0-36.0); Mean Corpuscular Hemoglobin 36.8 pg (28.0-34.0); Mean Corpuscular Volume 117.1 fL (81-99); Mean Platelet Volume 9.7 fL (7.4-10.4); Monocytes # 1.4 10^3/uL (0.2-0.9); Monocytes % 8.6 %; Neutrophils # 10.7 10^3/uL (1.8-7.7); Neutrophils % 64.1 %; Nucleated Red Blood Cells # 0.2 /100WBC; Nucleated Red Blood Cells % 1.1 %; Platelet Count 569 10^3/cmm (130-400); Red Cell Distribution Width 18.2 % (12.1-15.1); White Blood Count 16.6 10^3/uL (4.0-10.0)
[2019-06-13 20:05] LABS: Alanine Aminotransferase 10 U/L (0-33); Albumin Level 4.1 g/dL (3.5-5.2); Alkaline Phosphatase 104 IU/L (35-105); Anion Gap 17.9 (5-19); Aspartate Amino Transferase 24 U/L (0-32); Blood Urea Nitrogen 10 mg/dL (8-23); Calcium 10.2 mg/dL (8.5-10.5); Carbon Dioxide 22 mmol/L (22-29); Chloride 101 mmol/L (98-107); Globulin 2.9 g/dL (1.3-4.6); Glomerular Filtration Rate 72.7 mL/min (90-130); Glucose 72 mg/dL (65-115); Osmolality Calculated 279 mOsm/kg (285-295); Potassium 3.9 mmol/L (3.5-5.1); Sodium 137 mmol/L (136-145); Total Bilirubin 1.8 mg/dL (0.15-1.2)
[2019-06-14] MEDS: acetaminophen 325 mg Tablet 650 MG PO (08:30)
--- NOTE | 2019-06-16 08:34 | ONC FU_ITS ---
Dr. Carrero Patient Follow-Up Note Patient: Miya Narvaez Unit #: [id number]: [id number] Dicatated By: Shawn Carrero M.D.Date of Visit:Jun 14, 2019 Onc Med Follow-up/Prog Note Chief Complaint: Autoimmune hemolytic anemia. 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 She has longstanding rheumatoid arthritis. On 02/13/2018 she presented to the emergency room with severe weakness. She was found to be significantly anemic with CBC showing her hemoglobin low at 7.1 g with hematocrit 20.4%. The red cell indices were macrocytic with MCV 112 and MCH 39. The white blood cell count was elevated at 20,500 and the platelet count was mildly elevated at 411,000. The differential showed 75% neutrophils, 16% lymphocytes, and 7% monocytes. The uncorrected reticulocyte count was 20.6%. Sedimentation rate was greater than 120 mm/hour. Chem profile showed significantly low sodium at 113 mmol/L. The total bilirubin was mildly elevated at 4.1 mg/dL with normal alkaline phosphatase. LDH was elevated at 321/214 U/L. She was transfused 2 units of PRBC. No abnormalities were reported on her type and crossmatch. Serum iron studies show slightly low transferrin saturation at 17.7%. B12 level was normal at 457 pg/mL and folate levels greater than 20.0 ng/mL. Methylmalonic acid level also was normal at 0.23 ???mol/L. Following the transfusion her hemoglobin stabilized at 9.2 g. At that point her sodium level was back up to 130 mmol/L, and she was discharged home. During subsequent follow-up, stool Hemoccult was negative ???3. Repeat CBC on 03/08/2018 showed hemoglobin up to 12.3 g with white blood cell count 8300 and platelet count 260,000. I had seen her initially on 03/28/2018. At that point her hemoglobin had dropped back down to 8.2 g with hematocrit 24%. The red cell indices were macrocytic with MCV 118 and MCH 40.1. The white blood cell count was 16,100 and the platelet count was 334,000. The uncorrected reticulocyte count was 22%. LDH was elevated 388/214 U/L. The total bilirubin was elevated at 3.4 mg/dL with direct bilirubin 0.4 mg/dL. Haptoglobin was low at 10 mg/dL. Sedimentation rate was elevated at 117 mm/h, and the RA titer was high at 599.0 IU/mL. The SELENA was positive for warm reacting IgG auto antibody. She then began steroid therapy with prednisone 40 mg twice a day. Her follow-up CBC on 04/04/2017 showed hemoglobin stable at 8.4 g with white blood cell count 15,700 and platelet count 385,000. The reticulocyte count was still significantly elevated at 19.6% and the haptoglobin was still low at 10 mg/dL. LDH level at that point was up to 461 U/L. She continued prednisone 40 mg twice a day. Her blood sugars had become significantly elevated on the prednisone, as expected, and she was started on Levemir 30 U twice a day along with regular insulin per sliding scale. As of 04/17/2018 her hemoglobin was up to 12.0 g and her prednisone dosage was decreased to 20 mg bid. At her followup visit on 04/26/2017 her hemoglobin was normal at 13.8 g. Her prednisone was decreased to 20 mg daily. As she was felt to be a poor candidate for long-term steroid therapy due to her diabetes and because of her underlying rheumatoid arthritis, she was given a 4-week course of treatment with rituximab from 05/09/2018 through 05/29/2018. She tolerated it very well. During subsequent follow-up, her hemoglobin remained adequate, though her laboratory studies did show evidence for ongoing hemolysis. However, during that time she also had increasing intolerance for the prednisone, and she insisted on tapering down the dosage. During subsequent follow-up, there was gradual decline in her hemoglobin/hematocrit levels, and became quite evident that her hemolytic anemia was not going to be controlled adequately with prednisone. I then made arrangements for laparoscopic splenectomy in [place]. She did receive the appropriate vaccinations. The laparoscopic splenectomy was performed in the early part of December 2018. She had no complications with the procedure. During her subsequent follow-up, she had the expected increases in her white blood cell count and platelet count. There was no significant improvement, though, in her hemoglobin/hematocrit levels. As of 01/16/2019 the hemoglobin was stable at 8.3 g. She reported having significant fatigue and shortness of breath, and she also reported having some chest pain. Her repeat CBC with the typenex showed further decline in the hemoglobin to 7.8 g. She was then transfused 2 units PRBC and she restarted steroid therapy with prednisone, initially at 10 mg bid. She did have a good response to prednisone, and it was able to be tapered fairly quickly. Her hemoglobin stabilized at 11 g on prednisone at 10 mg daily. Her other medical illnesses include hypertension, hyperlipidemia, type II diabetes with peripheral neuropathy, GERD, COPD, degenerative disease of the spine, and rheumatoid arthritis. She has a history of multinodular goiter and she has had evidence of hyperthyroidism. She has a history of having undergone left nephrectomy for stage I renal cell carcinoma in 2008. She has a history of smoking for 46 years, previously up to 2 1/2 packs of cigarettes daily. Following her hospitalization in January 2018 she had cut down to 1 pack per day. INTERIM HISTORY: She had continued prednisone at 10 mg daily. As of her visit on 04/03/2019 her hemoglobin was stable at 11.3 g, and at that point I had her try alternating 10 and 5 mg daily. However, as of her follow-up visit on 05/07/2019 her hemoglobin had dropped significantly, to 9.7 g. She was noticeably symptomatic with it. Her prednisone was increased to 20 mg daily. She again did show response to the higher dose steroid. However, as it had become clear that she was not going to be able to tolerate long-term higher dose steroid therapy, I opted to retreat her with a 4-week course of rituximab. She began her week 1 treatment on 06/07/2019. She tolerated it without adverse effects. She is seen for a scheduled visit. She has been feeling pretty good generally. As noted, she had no adverse effects from the rituximab infusion last week. She did reduce her prednisone back to 10 mg daily. Her energy is somewhat variable, but she is still doing light work. ECOG score is 1. Her appetite is better than it was. She has not had fever. She does have some sweating at night. She has had no mouth sores. She is short of breath at times. She always has cough. She has occasional chest pain, mainly when her blood sugar gets real high. She still has a lot of heartburn. She has no other GI complaints. Her bladder function is better than it was, but she still has some pressure all the time. She says her joints have been doing really good lately. She does not complain of headache or dizziness. She has chronic neuropathy. Medications: Acidophilus 1 Tablet Oral daily, Crestor 1 Tablet (of 10 mg) Oral daily, Daily Vitamin 1 Tablet Oral daily, Famotidine 1 Tablet (of 40 mg) Oral b.i.d. PRN, Fish Oil 1 Capsule (of 1000 mg) Oral daily, Folic Acid 1 (1 mg) Tablet Oral daily, Garlic 1 Capsule (of 1000 mg) Oral daily, HumuLIN R 1 (100 Units/mL) Injection t.i.d. PRN, Hydrocodone-Acetaminophen 1 Tablet (of 10-325 mg) Oral q 6 hours PRN, Imdur 1 Tablet (of 30 mg) Tablet SR 24 HR Oral daily, MetFORMIN HCl 1 Tablet (of 500 mg) Oral b.i.d., Metoprolol Succinate ER 1 Tablet (of 50 mg) Tablet SR 24 HR Oral daily, Norvasc 1 Tablet (of 5 mg) Oral daily, predniSONE 1 Tablet (of 20 mg) Oral b.i.d., traZODone HCl 1 Tablet (of 50 mg) Oral daily, Zonisamide 1 Tablet (of 50 mg) Capsule Oral b.i.d. Allergies: CeleBREX and Levemir. Review of Systems: Constitutional - Her energy level is okay. Her appetite comes and goes. Her weight is stable. No fever or chills. She has hot flashes. No night sweats. ECOG score is 1, ENMT - No sinus congestion/drainage. No mouth sores. No sore throat or difficulty swallowing, Hematologic/Lymphatic - She bruises easily, Respiratory - She gets shortness of breath with activity. She has a chronic smokers cough. No pleuritic pain or hemoptysis, Cardiovascular - No angina pain. No palpitations, Gastrointestinal - No nausea or vomiting. Her heartburn is managed with famotidine. No diarrhea or constipation. No blood in the stool or black stools, Genitourinary (F) - No dysuria or hematuria. She was having urinary frequency with urgency, but now resolved. No incontinence, Musculoskeletal - Her joint pain has improved, Integumentary - No skin complications, Neurologic - No headache or dizziness. She has chronic numbness and tingling in her hands, unchanged, Psychiatric - Her anxiety or depression is adequately managed. No insomnia. Vital Signs: Performed on Jun 14, 2019 14:44 Height - 67.00 in Temperature - 97 F (LOW) Pulse - 84 /min Respiration - 18 /min BP - 148/78 mm(hg) (HIGH) O2 Sat - 98 % Pain - 0 Fatigue - 0 Performed on Jun 14, 2019 08:50 Height - 67.00 in Weight - 172.2 lbs (HIGH) BSA - 1.90 sq.m BMI - 26.97 Temperature - 98.4 F Pulse - 82 /min Respiration - 20 /min BP - 148/71 mm(hg) (HIGH) O2 Sat - 100 % Pain - 4 Physical Examination: Constitutional - She looks pretty good generally, Eyes - Sclerae nonicteric. Conjunctivae clear, ENMT - No lesions noted in the oral cavity, Hematologic/Lymphatic - No cervical, clavicular, or axillary adenopathy, Respiratory - Lungs are clear with some decrease in air movement bilaterally, Cardiovascular - Heart rhythm is regular. There is a II/ systolic murmur. There is no gallop or rub noted, Abdomen - Soft. Liver is not enlarged. There is no abdominal mass or ascites noted and there is no inguinal adenopathy, Extremities - No edema. There are scattered purpuric lesions, Neurologic - No focal neurologic deficits noted. Lab/Imaging: Test performed on Jun 13, 2019 13:44 Sodium 137 mmol/L Potassium 3.9 mmol/L Chloride 101 mmol/L CO2 22 mmol/L Anion Gap 17.9 BUN 10 mg/dL Creatinine 0.8 mg/dL Cr Clearance (Est) 87.8200 mL/min eGFR 72.7 mL/min Glucose 72 mg/dL Calcium 10.2 mg/dL Protein, Total 7.0 g/dL Albumin 4.1 g/dL Globulin 2.9 g/dL Bilirubin, Total 1.8 mg/dL ALT (SGPT) 10 U/L AST (SGOT) 24 U/L Alkaline Phosphatase 104 IU/L WBC 16.6 10 3/uL RBC 2.80 10 6/uL HGB 10.3 g/dL HCT 32.8 % MCV 117.1 fL MCH 36.8 pg MCHC 31.4 g/dL RDW 18.2 % Platelet Count 569 10 3/cmm MPV 9.7 fL Neutrophils 10.7 10 3/uL Lymphocytes 4.3 10 3/uL Monocytes 1.4 10 3/uL Eosinophils 0.1 10 3/uL Basophils 0.0 10 3/uL Neutrophil % 64.1 % Lymphocyte % 25.6 % Monocyte % 8.6 % Eosinophil % 0.4 % Basophils % 0.2 % Impression: 1. 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 2. She has pre-existing rheumatoid arthritis. 3. She has multinodular goiter with hyperthyroidism. Her other medical illnesses include: 4. Hypertension. 5. Hyperlipidemia. 6. Type II diabetes with peripheral neuropathy. 7. GERD. 8. COPD. 9. Degenerative disease of the spine. 10. She has a history of prior stroke. 11. She underwent left nephrectomy for stage I renal cell carcinoma in 2008. She began steroid therapy with prednisone 40 mg twice a day on 03/29/2018. She has had a good response with her hemoglobin increasing to 12.0 g on 04/17/2018. Her prednisone was then decreased to 20 mg bid. As of her follow-up visit on 04/26/2018 there was further increase in the hemoglobin to 13.8 with haptoglobin normal at 158 mg/dL. Her prednisone was decreased to 20 mg daily. As she was felt to be a poor candidate for long-term steroid therapy and because of her underlying rheumatoid arthritis, she was then given a 4-week course of treatment with rituximab, which she completed on 05/29/2018. She tolerated it well. She had felt better following completion of the rituximab infusions, and her hemoglobin had initially remained stable at 12 g. However, her laboratory studies had shown evidence for ongoing hemolysis. During subsequent follow-up, she had increasing intolerance for the prednisone, and the dosage has been tapered to 5 mg daily. During follow-up there was a progressive decline in her hemoglobin/hematocrit levels, and it became quite evident that her hemolytic anemia was not going to be controlled adequately with a tolerable dose of steroid. She underwent laparoscopic splenectomy in the early part of December 2018. She had no complications with the procedure. During subsequent follow-up there was expected increases in her white blood cell count and platelet count. Her hemoglobin/hematocrit levels, though, continued to decline. As of 01/17/2019 her hemoglobin had dropped to 7.8 g, and her studies were consistent with hemolysis. She was transfused 2 U PRBC and she restarted prednisone at 10 mg twice a day. She has had a good response with her hemoglobin stabilizing at 11 g on 10 mg of prednisone daily. During follow-up she has had some difficulty managing the diabetes with the steroid therapy. As of her followup visit on 04/03/2019 her hemoglobin had remained adequate at 11 g, though she still had evidence of ongoing hemolysis. At that point I had her try decreasing the prednisone dosage to 10 mg alternating with 5 mg daily. At her follow-up visit on 05/07/2019 she was feeling a lot worse, and her hemoglobin had dropped to 9.7 g. She then increased her prednisone to 20 mg daily. She has had a good clinical response, but she does complain that her blood sugars have been going crazy. She also has been having more symptoms with her rheumatoid arthritis. Plan: She will continue with her week 2 rituximab at 375 mg/m??? by IV infusion. She will continue prednisone 10 mg daily. She returns in 1 week. Signed By: Shawn Carrero M.D. <<Signature on File>>
[2019-06-21] MEDS: acetaminophen 325 mg Tablet 650 MG PO (08:30)
[2019-06-21] MEDS: sodium chloride 0.9% 250 ML IV (08:30)
[2019-06-21 08:32] LABS: Basophils % 0.3 %; Eosinophils % 0.2 %; Hematocrit 37.8 % (37.0-47.0); Hemoglobin 12.4 g/dL (11.5-15.3); Lymphocytes # 3.2 10^3/uL (0.8-4.8); Lymphocytes % 20.3 %; Mean Corpuscular HGB Conc 32.8 g/dL (30.0-36.0); Mean Corpuscular Hemoglobin 36.6 pg (28.0-34.0); Mean Corpuscular Volume 111.5 fL (81-99); Mean Platelet Volume 9.5 fL (7.4-10.4); Monocytes # 1.5 10^3/uL (0.2-0.9); Monocytes % 9.4 %; Neutrophils # 10.8 10^3/uL (1.8-7.7); Neutrophils % 68.7 %; Nucleated Red Blood Cells # 0.2 /100WBC; Nucleated Red Blood Cells % 1.3 %; Platelet Count 578 10^3/cmm (130-400); Red Blood Count 3.39 10^6/uL (4.1-5.3); Red Cell Distribution Width 17.1 % (12.1-15.1); White Blood Count 15.7 10^3/uL (4.0-10.0)
== END 2019-06-21 23:59 | disposition home or self-care (01) ==
LOC: ONCMED 06:47
PROVIDERS: Internal Medicine Hematology & Oncology; Family Provider Nurse Practitioner; PCP Nurse Practitioner; Visit Provider Internal Medicine Medical Oncology
DX: D59.1 Other autoimmune hemolytic anemias (principal); M06.9 Rheumatoid arthritis, unspecified; E11.42 Type 2 diabetes mellitus with diabetic polyneuropathy; K21.9 Gastro-esophageal reflux disease without esophagitis; J44.9 Chronic obstructive pulmonary disease, unspecified; E05.90 Thyrotoxicosis, unspecified without thyrotoxic crisis or storm; Z85.528 Personal history of other malignant neoplasm of kidney; Z90.5 Acquired absence of kidney; Z79.4 Long term (current) use of insulin; Z79.52 Long term (current) use of systemic steroids; Z79.899 Other long term (current) drug therapy
CPT/HCPCS: 80053; 83615; 85025; 96367; 96413; 96415; 99214; J1200; J7040; J7050; J9312

== ENCOUNTER 2019-06-28 06:42 | Outpatient (RCR) | payer MEDICARE, MEDICAID, SELFPAY ==
[2019-06-27 17:33] LABS: Basophils # 0.1 10^3/uL (0.0-0.1); Basophils % 0.3 %; Eosinophils # 0.1 10^3/uL (0.0-0.8); Eosinophils % 0.3 %; Hemoglobin 10.7 g/dL (11.5-15.3); Lymphocytes # 4.7 10^3/uL (0.8-4.8); Lymphocytes % 25.7 %; Mean Corpuscular HGB Conc 31.5 g/dL (30.0-36.0); Mean Corpuscular Hemoglobin 37.3 pg (28.0-34.0); Mean Corpuscular Volume 118.5 fL (81-99); Mean Platelet Volume 9.9 fL (7.4-10.4); Monocytes # 1.6 10^3/uL (0.2-0.9); Monocytes % 8.7 %; Neutrophils # 11.8 10^3/uL (1.8-7.7); Neutrophils % 63.9 %; Nucleated Red Blood Cells # 0.2 /100WBC; Nucleated Red Blood Cells % 1.3 %; Platelet Count 578 10^3/cmm (130-400); Red Blood Count 2.87 10^6/uL (4.1-5.3); Red Cell Distribution Width 18.5 % (12.1-15.1); White Blood Count 18.4 10^3/uL (4.0-10.0)
[2019-06-27 18:28] LABS: Slide Review Slide Review Perform
[2019-06-27 19:45] LABS: Alanine Aminotransferase 12 U/L (0-33); Albumin Level 4.1 g/dL (3.5-5.2); Alkaline Phosphatase 115 IU/L (35-105); Anion Gap 15.8 (5-19); Aspartate Amino Transferase 21 U/L (0-32); Blood Urea Nitrogen 12 mg/dL (8-23); Calcium 9.8 mg/dL (8.5-10.5); Carbon Dioxide 25 mmol/L (22-29); Chloride 99 mmol/L (98-107); Free T4 Free Thyroxine 1.47 ng/dL (0.82-1.77); Globulin 2.5 g/dL (1.3-4.6); Glomerular Filtration Rate 72.7 mL/min (90-130); Glucose 126 mg/dL (65-115); Lactate Dehydrogenase 345 U/L (135-214); Osmolality Calculated 280 mOsm/kg (285-295); Potassium 3.8 mmol/L (3.5-5.1); Sodium 136 mmol/L (136-145); Thyroid Stimulating Hormone 0.01 uIU/mL (0.27-4.20); Total Bilirubin 1.7 mg/dL (0.15-1.2); Total Protein 6.6 g/dL (6.6-8.7)
[2019-06-28] MEDS: acetaminophen 325 mg Tablet 650 MG PO (16:38)
[2019-06-28] MEDS: sodium chloride 0.9% 500 ML 75 ML IV (16:42)
--- NOTE | 2019-07-01 11:06 | ONC FU_ITS ---
Dr. Carrero Patient Follow-Up Note Patient: Miya Narvaez Unit #: [id number]: [id number] Dicatated By: Shawn Carrero M.D.Date of Visit:June 28, 2019 Onc Med Follow-up/Prog Note Chief Complaint: Autoimmune hemolytic anemia. 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 She has longstanding rheumatoid arthritis. On 02/13/2018 she presented to the emergency room with severe weakness. She was found to be significantly anemic with CBC showing her hemoglobin low at 7.1 g with hematocrit 20.4%. The red cell indices were macrocytic with MCV 112 and MCH 39. The white blood cell count was elevated at 20,500 and the platelet count was mildly elevated at 411,000. The differential showed 75% neutrophils, 16% lymphocytes, and 7% monocytes. The uncorrected reticulocyte count was 20.6%. Sedimentation rate was greater than 120 mm/hour. Chem profile showed significantly low sodium at 113 mmol/L. The total bilirubin was mildly elevated at 4.1 mg/dL with normal alkaline phosphatase. LDH was elevated at 321/214 U/L. She was transfused 2 units of PRBC. No abnormalities were reported on her type and crossmatch. Serum iron studies show slightly low transferrin saturation at 17.7%. B12 level was normal at 457 pg/mL and folate levels greater than 20.0 ng/mL. Methylmalonic acid level also was normal at 0.23 ???mol/L. Following the transfusion her hemoglobin stabilized at 9.2 g. At that point her sodium level was back up to 130 mmol/L, and she was discharged home. During subsequent follow-up, stool Hemoccult was negative ???3. Repeat CBC on 03/08/2018 showed hemoglobin up to 12.3 g with white blood cell count 8300 and platelet count 260,000. I had seen her initially on 03/28/2018. At that point her hemoglobin had dropped back down to 8.2 g with hematocrit 24%. The red cell indices were macrocytic with MCV 118 and MCH 40.1. The white blood cell count was 16,100 and the platelet count was 334,000. The uncorrected reticulocyte count was 22%. LDH was elevated 388/214 U/L. The total bilirubin was elevated at 3.4 mg/dL with direct bilirubin 0.4 mg/dL. Haptoglobin was low at 10 mg/dL. Sedimentation rate was elevated at 117 mm/h, and the RA titer was high at 599.0 IU/mL. The SELENA was positive for warm reacting IgG auto antibody. She then began steroid therapy with prednisone 40 mg twice a day. Her follow-up CBC on 04/04/2017 showed hemoglobin stable at 8.4 g with white blood cell count 15,700 and platelet count 385,000. The reticulocyte count was still significantly elevated at 19.6% and the haptoglobin was still low at 10 mg/dL. LDH level at that point was up to 461 U/L. She continued prednisone 40 mg twice a day. Her blood sugars had become significantly elevated on the prednisone, as expected, and she was started on Levemir 30 U twice a day along with regular insulin per sliding scale. As of 04/17/2018 her hemoglobin was up to 12.0 g and her prednisone dosage was decreased to 20 mg bid. At her followup visit on 04/26/2017 her hemoglobin was normal at 13.8 g. Her prednisone was decreased to 20 mg daily. As she was felt to be a poor candidate for long-term steroid therapy due to her diabetes and because of her underlying rheumatoid arthritis, she was given a 4-week course of treatment with rituximab from 05/09/2018 through 05/29/2018. She tolerated it very well. During subsequent follow-up, her hemoglobin remained adequate, though her laboratory studies did show evidence for ongoing hemolysis. However, during that time she also had increasing intolerance for the prednisone, and she insisted on tapering down the dosage. During subsequent follow-up, there was gradual decline in her hemoglobin/hematocrit levels, and became quite evident that her hemolytic anemia was not going to be controlled adequately with prednisone. I then made arrangements for laparoscopic splenectomy in [place]. She did receive the appropriate vaccinations. The laparoscopic splenectomy was performed in the early part of December 2018. She had no complications with the procedure. During her subsequent follow-up, she had the expected increases in her white blood cell count and platelet count. There was no significant improvement, though, in her hemoglobin/hematocrit levels. As of 01/16/2019 the hemoglobin was stable at 8.3 g. She reported having significant fatigue and shortness of breath, and she also reported having some chest pain. Her repeat CBC with the typenex showed further decline in the hemoglobin to 7.8 g. She was then transfused 2 units PRBC and she restarted steroid therapy with prednisone, initially at 10 mg bid. She did have a good response to prednisone, and it was able to be tapered fairly quickly. Her hemoglobin stabilized at 11 g on prednisone at 10 mg daily. Her other medical illnesses include hypertension, hyperlipidemia, type II diabetes with peripheral neuropathy, GERD, COPD, degenerative disease of the spine, and rheumatoid arthritis. She has a history of multinodular goiter and she has had evidence of hyperthyroidism. She has a history of having undergone left nephrectomy for stage I renal cell carcinoma in 2008. She has a history of smoking for 46 years, previously up to 2 1/2 packs of cigarettes daily. Following her hospitalization in January 2018 she had cut down to 1 pack per day. INTERIM HISTORY: She had continued prednisone at 10 mg daily. As of her visit on 04/03/2019 her hemoglobin was stable at 11.3 g, and at that point I had her try alternating 10 and 5 mg daily. However, as of her follow-up visit on 05/07/2019 her hemoglobin had dropped significantly, to 9.7 g. She was noticeably symptomatic with it. Her prednisone was increased to 20 mg daily. She again did show response to the higher dose steroid. However, as it had become clear that she was not going to be able to tolerate long-term higher dose steroid therapy, I opted to retreat her with a 4-week course of rituximab. She began her week 1 treatment on 06/07/2019. She tolerated it without adverse effects. She continued with week 2 rituximab on 06/14/2019 and with week 3 on 06/21/2019. She is seen for a scheduled visit. She has been feeling okay, though she continues to complain that she has no energy. She is able to do light work. ECOG score is 1. Appetite is variable. She has not had any fever and lately she has not been having night sweating. Her joint pain has improved since she started back on the Rituxan. She has shortness of breath at times, but her breathing is mostly pretty good. She does have chronic cough, and she continues to smoke. She has chest pain when her blood sugar is high. She has nausea occasionally. She has acid reflux symptoms on a daily basis, despite taking Pepcid. Her bowels are not as regular, but they are adequate. She has urinary frequency and urgency. Her neuropathy does not seem to be as bad lately. Medications: Acidophilus 1 Tablet Oral daily, Crestor 1 Tablet (of 10 mg) Oral daily, Daily Vitamin 1 Tablet Oral daily, Famotidine 1 Tablet (of 40 mg) Oral b.i.d. PRN, Fish Oil 1 Capsule (of 1000 mg) Oral daily, Folic Acid 1 (1 mg) Tablet Oral daily, Garlic 1 Capsule (of 1000 mg) Oral daily, HumuLIN R 1 (100 Units/mL) Injection t.i.d. PRN, Hydrocodone-Acetaminophen 1 Tablet (of 10-325 mg) Oral q 6 hours PRN, Imdur 1 Tablet (of 30 mg) Tablet SR 24 HR Oral daily, MetFORMIN HCl 1 Tablet (of 500 mg) Oral b.i.d., Metoprolol Succinate ER 1 Tablet (of 50 mg) Tablet SR 24 HR Oral daily, Norvasc 1 Tablet (of 5 mg) Oral daily, predniSONE 1 Tablet (of 20 mg) Oral b.i.d., traZODone HCl 1 Tablet (of 50 mg) Oral daily, Zonisamide 1 Tablet (of 50 mg) Capsule Oral b.i.d. Allergies: CeleBREX and Levemir. Review of Systems: Constitutional - She has generally been feeling okay. She has no energy. S he is doing light work around the house. Her appetite is good and weight is down a few pounds. No fever, chills, hot flashes, or night sweats. ECOG score is 1, ENMT - No sinus congestion/drainage. No mouth sores. No sore throat or difficulty swallowing, Hematologic/Lymphatic - She bruises easily, Respiratory - She gets short of breath with exertion. She has a chronic smokers cough. No pleuritic pain or hemoptysis, Cardiovascular - No angina pain. No palpitations, Gastrointestinal - No nausea or vomiting. She has heartburn daily despite taking Pepcid. No diarrhea or constipation. No blood in the stool or black stools, Genitourinary (F) - No dysuria or hematuria. She has urinary frequency with urgency. No incontinence, Musculoskeletal - Her joint pain has improved with the Rituxan, Integumentary - No skin complications, Neurologic - No headache or dizziness. Her neuropathy has improved somewhat, Psychiatric - No anxiety or depression. She does not sleep well. Vital Signs: Performed on June 28, 2019 08:00 Height - 67.00 in Weight - 168.9 lbs (LOW) BSA - 1.88 sq.m BMI - 26.45 Temperature - 97.5 F (LOW) Pulse - 96 /min Respiration - 18 /min BP - 178/64 mm(hg) (HIGH) O2 Sat - 97 % Pain - 4 Physical Examination: Constitutional - She looks pretty good generally, Eyes - Sclerae nonicteric. Conjunctivae clear, ENMT - No lesions noted in the oral cavity, Hematologic/Lymphatic - No cervical, clavicular, or axillary adenopathy, Respiratory - Lungs are clear with diminished air movement bilaterally, Cardiovascular - Heart rhythm is regular. There is a II/ systolic murmur. There is no gallop or rub noted, Abdomen - Soft. Liver is not enlarged. There is no abdominal mass or ascites noted and there is no inguinal adenopathy, Extremities - No edema, Neurologic - No focal neurologic deficits noted. Lab/Imaging: Test performed on June 27, 2019 13:40 LDH (Total) 345 U/L Sodium 136 mmol/L T3, Free 3.0 PG/ML T4, Free 1.47 ng/dL TSH 0.01 uIU/mL Potassium 3.8 mmol/L Chloride 99 mmol/L CO2 25 mmol/L Anion Gap 15.8 BUN 12 mg/dL Creatinine 0.8 mg/dL Cr Clearance (Est) 87.8200 mL/min eGFR 72.7 mL/min Glucose 126 mg/dL Calcium 9.8 mg/dL Protein, Total 6.6 g/dL Albumin 4.1 g/dL Globulin 2.5 g/dL Bilirubin, Total 1.7 mg/dL ALT (SGPT) 12 U/L AST (SGOT) 21 U/L Alkaline Phosphatase 115 IU/L WBC 18.4 10 3/uL RBC 2.87 10 6/uL HGB 10.7 g/dL HCT 34.0 % MCV 118.5 fL MCH 37.3 pg MCHC 31.5 g/dL RDW 18.5 % Platelet Count 578 10 3/cmm MPV 9.9 fL Neutrophils 11.8 10 3/uL Lymphocytes 4.7 10 3/uL Monocytes 1.6 10 3/uL Eosinophils 0.1 10 3/uL Basophils 0.1 10 3/uL Neutrophil % 63.9 % Lymphocyte % 25.7 % Monocyte % 8.7 % Eosinophil % 0.3 % Basophils % 0.3 % CBC Slide Review Slide Review Perform SLIDE REVIEW AGREES WITH AUTO DIFF. Impression: 1. 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 2. She has pre-existing rheumatoid arthritis. 3. She has multinodular goiter with hyperthyroidism. Her other medical illnesses include: 4. Hypertension. 5. Hyperlipidemia. 6. Type II diabetes with peripheral neuropathy. 7. GERD. 8. COPD. 9. Degenerative disease of the spine. 10. She has a history of prior stroke. 11. She underwent left nephrectomy for stage I renal cell carcinoma in 2008. She began steroid therapy with prednisone 40 mg twice a day on 03/29/2018. She has had a good response with her hemoglobin increasing to 12.0 g on 04/17/2018. Her prednisone was then decreased to 20 mg bid. As of her follow-up visit on 04/26/2018 there was further increase in the hemoglobin to 13.8 with haptoglobin normal at 158 mg/dL. Her prednisone was decreased to 20 mg daily. As she was felt to be a poor candidate for long-term steroid therapy and because of her underlying rheumatoid arthritis, she was then given a 4-week course of treatment with rituximab, which she completed on 05/29/2018. She tolerated it well. She had felt better following completion of the rituximab infusions, and her hemoglobin had initially remained stable at 12 g. However, her laboratory studies had shown evidence for ongoing hemolysis. During subsequent follow-up, she had increasing intolerance for the prednisone, and the dosage has been tapered to 5 mg daily. During follow-up there was a progressive decline in her hemoglobin/hematocrit levels, and it became quite evident that her hemolytic anemia was not going to be controlled adequately with a tolerable dose of steroid. She underwent laparoscopic splenectomy in the early part of December 2018. She had no complications with the procedure. During subsequent follow-up there was expected increases in her white blood cell count and platelet count. Her hemoglobin/hematocrit levels, though, continued to decline. As of 01/17/2019 her hemoglobin had dropped to 7.8 g, and her studies were consistent with hemolysis. She was transfused 2 U PRBC and she restarted prednisone at 10 mg twice a day. She has had a good response with her hemoglobin stabilizing at 11 g on 10 mg of prednisone daily. During follow-up she has had some difficulty managing the diabetes with the steroid therapy. As of her followup visit on 04/03/2019 her hemoglobin had remained adequate at 11 g, though she still had evidence of ongoing hemolysis. At that point I had her try decreasing the prednisone dosage to 10 mg alternating with 5 mg daily. At her follow-up visit on 05/07/2019 she was feeling a lot worse, and her hemoglobin had dropped to 9.7 g. She then increased her prednisone to 20 mg daily. She had a good clinical response, but she continued to tolerate the steroid therapy poorly due to the underlying diabetes. As such, I did opt to retreat her with rituximab beginning on 06/07/2019. She has been tolerating the treatment well, but thus far she does not appear to be showing a significant response. Plan: She will continue with her week 4 rituximab at 375 mg/m??? by IV infusion. She will continue prednisone 10 mg daily. She will be scheduled for a follow-up visit in 1 month. In the meantime, she will be given a prescription for Protonix 40 mg daily for the acid reflux. She will stop the Pepcid. Signed By: Shawn Carrero M.D. <<Signature on File>>
== END 2019-07-22 23:59 | disposition home or self-care (01) ==
LOC: ONCMED 06:42
PROVIDERS: PCP Nurse Practitioner; Visit Provider Internal Medicine Medical Oncology
DX: Z51.12 Encounter for antineoplastic immunotherapy (principal); D59.1 Other autoimmune hemolytic anemias; M06.9 Rheumatoid arthritis, unspecified; E05.20 Thyrotoxicosis with toxic multinodular goiter without thyrotoxic crisis or storm; I10 Essential (primary) hypertension; E78.5 Hyperlipidemia, unspecified; E11.42 Type 2 diabetes mellitus with diabetic polyneuropathy; K21.9 Gastro-esophageal reflux disease without esophagitis; J44.9 Chronic obstructive pulmonary disease, unspecified; G31.89 Other specified degenerative diseases of nervous system; Z86.73 Personal history of transient ischemic attack (TIA), and cerebral infarction without residual deficits; Z90.5 Acquired absence of kidney; Z79.52 Long term (current) use of systemic steroids; Z79.899 Other long term (current) drug therapy
CPT/HCPCS: 80053; 83010; 83615; 84439; 84443; 84481; 85025; 85045; 96375; 96413; 96415; 99214; J1200; J7040; J9312

== ENCOUNTER → 2019-07-18 10:21 | Outpatient (BNVA) | payer MEDICARE, MEDICAID, SELFPAY | PROVIDERS: PCP Nurse Practitioner; Visit Provider Internal Medicine Rheumatology | DX: M05.79 Rheumatoid arthritis with rheumatoid factor of multiple sites without organ or systems involvement (principal); Z79.899 Other long term (current) drug therapy; I10 Essential (primary) hypertension; D59.1 Other autoimmune hemolytic anemias; F17.210 Nicotine dependence, cigarettes, uncomplicated; Z79.52 Long term (current) use of systemic steroids; M15.9 Polyosteoarthritis, unspecified; J44.9 Chronic obstructive pulmonary disease, unspecified | CPT/HCPCS: 99214 ==

== ENCOUNTER → 2019-07-27 08:10 | Outpatient (BNVA) | payer MEDICARE, MEDICAID, SELFPAY | PROVIDERS: PCP Nurse Practitioner; Visit Provider Internal Medicine Medical Oncology | DX: D59.1 Other autoimmune hemolytic anemias (principal); D89.9 Disorder involving the immune mechanism, unspecified; E11.9 Type 2 diabetes mellitus without complications; I10 Essential (primary) hypertension; M05.79 Rheumatoid arthritis with rheumatoid factor of multiple sites without organ or systems involvement | CPT/HCPCS: 80053; 83010; 83615; 85025; 85045; 85651 ==

== ENCOUNTER 2019-07-31 07:20 | Outpatient (RCR) | payer MEDICARE, MEDICAID, SELFPAY ==
--- NOTE | 2019-08-04 09:40 | ONC FU_ITS ---
Dr. Carrero Patient Follow-Up Note Patient: Miya Narvaez Unit #: [id number]: 1955 Dicatated By: Shawn Carrero M.D.Date of Visit:Jul 31, 2019 Onc Med Follow-up/Prog Note Chief Complaint: Autoimmune hemolytic anemia. 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 She has longstanding rheumatoid arthritis. On 02/13/2018 she presented to the emergency room with severe weakness. She was found to be significantly anemic with CBC showing her hemoglobin low at 7.1 g with hematocrit 20.4%. The red cell indices were macrocytic with MCV 112 and MCH 39. The white blood cell count was elevated at 20,500 and the platelet count was mildly elevated at 411,000. The differential showed 75% neutrophils, 16% lymphocytes, and 7% monocytes. The uncorrected reticulocyte count was 20.6%. Sedimentation rate was greater than 120 mm/hour. Chem profile showed significantly low sodium at 113 mmol/L. The total bilirubin was mildly elevated at 4.1 mg/dL with normal alkaline phosphatase. LDH was elevated at 321/214 U/L. She was transfused 2 units of PRBC. No abnormalities were reported on her type and crossmatch. Serum iron studies show slightly low transferrin saturation at 17.7%. B12 level was normal at 457 pg/mL and folate levels greater than 20.0 ng/mL. Methylmalonic acid level also was normal at 0.23 ???mol/L. Following the transfusion her hemoglobin stabilized at 9.2 g. At that point her sodium level was back up to 130 mmol/L, and she was discharged home. During subsequent follow-up, stool Hemoccult was negative ???3. Repeat CBC on 03/08/2018 showed hemoglobin up to 12.3 g with white blood cell count 8300 and platelet count 260,000. I had seen her initially on 03/28/2018. At that point her hemoglobin had dropped back down to 8.2 g with hematocrit 24%. The red cell indices were macrocytic with MCV 118 and MCH 40.1. The white blood cell count was 16,100 and the platelet count was 334,000. The uncorrected reticulocyte count was 22%. LDH was elevated 388/214 U/L. The total bilirubin was elevated at 3.4 mg/dL with direct bilirubin 0.4 mg/dL. Haptoglobin was low at 10 mg/dL. Sedimentation rate was elevated at 117 mm/h, and the RA titer was high at 599.0 IU/mL. The SELENA was positive for warm reacting IgG auto antibody. She then began steroid therapy with prednisone 40 mg twice a day. Her follow-up CBC on 04/04/2017 showed hemoglobin stable at 8.4 g with white blood cell count 15,700 and platelet count 385,000. The reticulocyte count was still significantly elevated at 19.6% and the haptoglobin was still low at 10 mg/dL. LDH level at that point was up to 461 U/L. She continued prednisone 40 mg twice a day. Her blood sugars had become significantly elevated on the prednisone, as expected, and she was started on Levemir 30 U twice a day along with regular insulin per sliding scale. As of 04/17/2018 her hemoglobin was up to 12.0 g and her prednisone dosage was decreased to 20 mg bid. At her followup visit on 04/26/2017 her hemoglobin was normal at 13.8 g. Her prednisone was decreased to 20 mg daily. As she was felt to be a poor candidate for long-term steroid therapy due to her diabetes and because of her underlying rheumatoid arthritis, she was given a 4-week course of treatment with rituximab from 05/09/2018 through 05/29/2018. She tolerated it very well. During subsequent follow-up, her hemoglobin remained adequate, though her laboratory studies did show evidence for ongoing hemolysis. However, during that time she also had increasing intolerance for the prednisone, and she insisted on tapering down the dosage. During subsequent follow-up, there was gradual decline in her hemoglobin/hematocrit levels, and became quite evident that her hemolytic anemia was not going to be controlled adequately with prednisone. I then made arrangements for laparoscopic splenectomy in [place]. She did receive the appropriate vaccinations. The laparoscopic splenectomy was performed in the early part of December 2018. She had no complications with the procedure. During her subsequent follow-up, she had the expected increases in her white blood cell count and platelet count. There was no significant improvement, though, in her hemoglobin/hematocrit levels. As of 01/16/2019 the hemoglobin was stable at 8.3 g. She reported having significant fatigue and shortness of breath, and she also reported having some chest pain. Her repeat CBC with the typenex showed further decline in the hemoglobin to 7.8 g. She was then transfused 2 units PRBC and she restarted steroid therapy with prednisone, initially at 10 mg bid. She did have a good response to prednisone, and it was able to be tapered fairly quickly. Her hemoglobin stabilized at 11 g on prednisone at 10 mg daily. Her other medical illnesses include hypertension, hyperlipidemia, type II diabetes with peripheral neuropathy, GERD, COPD, degenerative disease of the spine, and rheumatoid arthritis. She has a history of multinodular goiter and she has had evidence of hyperthyroidism. She has a history of having undergone left nephrectomy for stage I renal cell carcinoma in 2008. She has a history of smoking for 46 years, previously up to 2 1/2 packs of cigarettes daily. Following her hospitalization in January 2018 she had cut down to 1 pack per day. INTERIM HISTORY: She had continued prednisone at 10 mg daily. As of her visit on 04/03/2019 her hemoglobin was stable at 11.3 g, and at that point I had her try alternating 10 and 5 mg daily. However, as of her follow-up visit on 05/07/2019 her hemoglobin had dropped significantly, to 9.7 g. She was noticeably symptomatic with it. Her prednisone was increased to 20 mg daily. She again did show response to the higher dose steroid. However, as it had become clear that she was not going to be able to tolerate long-term higher dose steroid therapy, I opted to retreat her with a 4-week course of rituximab. She began her week 1 treatment on 06/07/2019. She tolerated it without adverse effects. She continued with week 2 rituximab on 06/14/2019, with week 3 on 06/21/2019, and with week 4 on 06/28/2019. She tolerated it well. She is seen for a follow-up visit. She complains that she is tired and that she has no energy. She has still doing light work at home, and she also recently has been having to care for her grandchildren. Her ECOG score is 1. Her appetite is not good, and she says everything tastes like cardboard. Her weight, though, is up a few pounds. She does not have fever. She says her night sweating is better. Her main complaint is that her arthritis is giving her more problems, especially her left knee. Her breathing is not real good. She has chronic cough. She sometimes brings up clear sputum with it. She does not complain of chest pain. She has had some pain in her left lower quadrant area, which she attributes to gas. Her bowel function has been okay. She has no other GI complaints. She has some urinary frequency and urgency. She has had some headaches, which she attributes to stress. She tends to get dizzy when she is looking up. She has numbness/tingling in her hands. Medications: Acidophilus 1 Tablet Oral daily, Crestor 1 Tablet (of 10 mg) Oral daily, Daily Vitamin 1 Tablet Oral daily, Fish Oil 1 Capsule (of 1000 mg) Oral daily, Folic Acid 1 (1 mg) Tablet Oral daily, Garlic 1 Capsule (of 1000 mg) Oral daily, HumuLIN R 1 (100 Units/mL) Injection t.i.d. PRN, Hydrocodone-Acetaminophen 1 Tablet (of 10-325 mg) Oral q 6 hours PRN, Imdur 1 Tablet (of 30 mg) Tablet SR 24 HR Oral daily, MetFORMIN HCl 1 Tablet (of 500 mg) Oral b.i.d., Metoprolol Succinate ER 1 Tablet (of 50 mg) Tablet SR 24 HR Oral daily, Norvasc 1 Tablet (of 5 mg) Oral daily, predniSONE 1 Tablet (of 20 mg) Oral b.i.d., Protonix 1 Tablet (of 40 mg) Tablet, enteric coated Oral daily, traZODone HCl 1 Tablet (of 50 mg) Oral daily, Zonisamide 1 Tablet (of 50 mg) Capsule Oral b.i.d. Allergies: CeleBREX and Levemir. Review of Systems: Constitutional - She generally feels okay, though her energy is low. She does light housework and recently she has been having to care for her grandchildren. Her appetite has decreased, but her weight is up a few pounds. No fever, night sweats, or hot flashes. ECOG score is 1, ENMT - No sinus congestion/drainage. No mouth sores. No sore throat or difficulty swallowing, Hematologic/Lymphatic - She bruises easily, Respiratory - She has shortness of breath. She has chronic cough that occasional produces clear phlegm. No pleuritic pain or hemoptysis, Cardiovascular - No angina pain. No palpitations, Gastrointestinal - No nausea or vomiting. Her heartburn is better managed with Prilosec. No diarrhea or constipation. No blood in the stool or black stools, Genitourinary (F) - No dysuria or hematuria. She has urinary frequency with urgency. No incontinence, Musculoskeletal - She has an increase in her arthritis pain, especially in her left knee, Integumentary - No skin complications, Neurologic - She is having increased headaches, which she believes is stress related. She has occasional dizziness. She has chronic numbness and tingling in her hands. No other focal neurologic symptoms, Psychiatric - No anxiety or depression. She is sleeping better with the trazodone. Vital Signs: Performed on Jul 31, 2019 12:27 Height - 67.00 in Weight - 170.6 lbs (HIGH) BSA - 1.89 sq.m BMI - 26.72 Temperature - 98.2 F (LOW) Pulse - 78 /min Respiration - 24 /min BP - 156/70 mm(hg) (HIGH) O2 Sat - 98 % Pain - 8 Physical Examination: Constitutional - She looks pretty good generally, Eyes - Sclerae nonicteric. Conjunctivae clear, ENMT - No lesions noted in the oral cavity, Hematologic/Lymphatic - No cervical, clavicular, or axillary adenopathy, Respiratory - Lungs are clear with diminished air movement bilaterally, Cardiovascular - Heart rhythm is regular. There is a II/ systolic murmur. There is no gallop or rub noted, Abdomen - Soft. Liver is not enlarged. There is no abdominal mass or ascites noted and there is no inguinal adenopathy, Extremities - No edema. There is some mild swelling around the left knee joint, and it is a little warm to touch, Neurologic - No focal neurologic deficits noted. Lab/Imaging: CBC shows hemoglobin 11.7 g with hematocrit 37.1%. The red cell indices are macrocytic. The white blood cell count is 17,200 and the platelet count is 625,000. The uncorrected reticulocyte count is 10%. Comprehensive metabolic profile shows slightly elevated total bilirubin at 1.5 mg/dL. LDH is mildly elevated at 285/214 U/L. Haptoglobin is low at 10.0 mg/L. Sed rate is significantly elevated at 77 mm/hour. Impression: 1. 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 2. She has pre-existing rheumatoid arthritis. 3. She has multinodular goiter with hyperthyroidism. Her other medical illnesses include: 4. Hypertension. 5. Hyperlipidemia. 6. Type II diabetes with peripheral neuropathy. 7. GERD. 8. COPD. 9. Degenerative disease of the spine. 10. She has a history of prior stroke. 11. She underwent left nephrectomy for stage I renal cell carcinoma in 2008. She began steroid therapy with prednisone 40 mg twice a day on 03/29/2018. She has had a good response with her hemoglobin increasing to 12.0 g on 04/17/2018. Her prednisone was then decreased to 20 mg bid. As of her follow-up visit on 04/26/2018 there was further increase in the hemoglobin to 13.8 with haptoglobin normal at 158 mg/dL. Her prednisone was decreased to 20 mg daily. As she was felt to be a poor candidate for long-term steroid therapy and because of her underlying rheumatoid arthritis, she was then given a 4-week course of treatment with rituximab, which she completed on 05/29/2018. She tolerated it well. She had felt better following completion of the rituximab infusions, and her hemoglobin had initially remained stable at 12 g. However, her laboratory studies had shown evidence for ongoing hemolysis. During subsequent follow-up, she had increasing intolerance for the prednisone, and the dosage has been tapered to 5 mg daily. During follow-up there was a progressive decline in her hemoglobin/hematocrit levels, and it became quite evident that her hemolytic anemia was not going to be controlled adequately with a tolerable dose of steroid. She underwent laparoscopic splenectomy in the early part of December 2018. She had no complications with the procedure. During subsequent follow-up there was expected increases in her white blood cell count and platelet count. Her hemoglobin/hematocrit levels, though, continued to decline. As of 01/17/2019 her hemoglobin had dropped to 7.8 g, and her studies were consistent with hemolysis. She was transfused 2 U PRBC and she restarted prednisone at 10 mg twice a day. She has had a good response with her hemoglobin stabilizing at 11 g on 10 mg of prednisone daily. During follow-up she has had some difficulty managing the diabetes with the steroid therapy. As of her followup visit on 04/03/2019 her hemoglobin had remained adequate at 11 g, though she still had evidence of ongoing hemolysis. At that point I had her try decreasing the prednisone dosage to 10 mg alternating with 5 mg daily. At her follow-up visit on 05/07/2019 she was feeling a lot worse, and her hemoglobin had dropped to 9.7 g. She then increased her prednisone to 20 mg daily. She had a good clinical response, but she continued to tolerate the steroid therapy poorly due to the underlying diabetes. As such, she was given a second course of therapy with 4 weekly infusions of rituximab, which she completed on 06/28/2019. She tolerated it well. However, she does not appear to have had any significant response, as she continues to have laboratory evidence of hemolysis and she continues to require steroid therapy to maintain her hemoglobin/hematocrit levels. Plan: As long as her blood count remains adequate she will now just continue steroid therapy with prednisone 10 mg daily. I will see her again in 1 month. Signed By: Shawn Carrero M.D. <<Signature on File>>
== END 2019-08-21 23:59 | disposition home or self-care (01) ==
LOC: ONCMED 07:20
PROVIDERS: PCP Nurse Practitioner; Visit Provider Internal Medicine Medical Oncology
DX: D59.1 Other autoimmune hemolytic anemias (principal); M06.9 Rheumatoid arthritis, unspecified; E04.2 Nontoxic multinodular goiter; I10 Essential (primary) hypertension; E78.5 Hyperlipidemia, unspecified; E11.42 Type 2 diabetes mellitus with diabetic polyneuropathy; K21.9 Gastro-esophageal reflux disease without esophagitis; J44.9 Chronic obstructive pulmonary disease, unspecified; M47.9 Spondylosis, unspecified; Z86.73 Personal history of transient ischemic attack (TIA), and cerebral infarction without residual deficits; Z90.5 Acquired absence of kidney; Z79.52 Long term (current) use of systemic steroids
CPT/HCPCS: 99214

== ENCOUNTER → 2019-08-30 08:13 | Outpatient (BNVA) | payer MEDICARE, MEDICAID, SELFPAY | PROVIDERS: PCP Nurse Practitioner; Visit Provider Internal Medicine Medical Oncology | DX: M05.79 Rheumatoid arthritis with rheumatoid factor of multiple sites without organ or systems involvement (principal); L40.50 Arthropathic psoriasis, unspecified; D59.1 Other autoimmune hemolytic anemias | CPT/HCPCS: 80053; 83010; 83615; 85025; 85045; 85651; 86431 ==

== ENCOUNTER 2019-09-03 07:12 | Outpatient (RCR) | payer MEDICARE, MEDICAID, SELFPAY ==
--- NOTE | 2019-09-07 13:59 | ONC FU_ITS ---
Dr. Carrero Patient Follow-Up Note Patient: Miya Narvaez Unit #: [id number]: [id number] Dicatated By: Shawn Carrero M.D.Date of Visit:Sep 03, 2019 Onc Med Follow-up/Prog Note Chief Complaint: Autoimmune hemolytic anemia. 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 She has longstanding rheumatoid arthritis. On 02/13/2018 she presented to the emergency room with severe weakness. She was found to be significantly anemic with CBC showing her hemoglobin low at 7.1 g with hematocrit 20.4%. The red cell indices were macrocytic with MCV 112 and MCH 39. The white blood cell count was elevated at 20,500 and the platelet count was mildly elevated at 411,000. The differential showed 75% neutrophils, 16% lymphocytes, and 7% monocytes. The uncorrected reticulocyte count was 20.6%. Sedimentation rate was greater than 120 mm/hour. Chem profile showed significantly low sodium at 113 mmol/L. The total bilirubin was mildly elevated at 4.1 mg/dL with normal alkaline phosphatase. LDH was elevated at 321/214 U/L. She was transfused 2 units of PRBC. No abnormalities were reported on her type and crossmatch. Serum iron studies show slightly low transferrin saturation at 17.7%. B12 level was normal at 457 pg/mL and folate levels greater than 20.0 ng/mL. Methylmalonic acid level also was normal at 0.23 ???mol/L. Following the transfusion her hemoglobin stabilized at 9.2 g. At that point her sodium level was back up to 130 mmol/L, and she was discharged home. During subsequent follow-up, stool Hemoccult was negative ???3. Repeat CBC on 03/08/2018 showed hemoglobin up to 12.3 g with white blood cell count 8300 and platelet count 260,000. I had seen her initially on 03/28/2018. At that point her hemoglobin had dropped back down to 8.2 g with hematocrit 24%. The red cell indices were macrocytic with MCV 118 and MCH 40.1. The white blood cell count was 16,100 and the platelet count was 334,000. The uncorrected reticulocyte count was 22%. LDH was elevated 388/214 U/L. The total bilirubin was elevated at 3.4 mg/dL with direct bilirubin 0.4 mg/dL. Haptoglobin was low at 10 mg/dL. Sedimentation rate was elevated at 117 mm/h, and the RA titer was high at 599.0 IU/mL. The SELNEA was positive for warm reacting IgG auto antibody. She then began steroid therapy with prednisone 40 mg twice a day. Her follow-up CBC on 04/04/2017 showed hemoglobin stable at 8.4 g with white blood cell count 15,700 and platelet count 385,000. The reticulocyte count was still significantly elevated at 19.6% and the haptoglobin was still low at 10 mg/dL. LDH level at that point was up to 461 U/L. She continued prednisone 40 mg twice a day. Her blood sugars had become significantly elevated on the prednisone, as expected, and she was started on Levemir 30 U twice a day along with regular insulin per sliding scale. As of 04/17/2018 her hemoglobin was up to 12.0 g and her prednisone dosage was decreased to 20 mg bid. At her followup visit on 04/26/2017 her hemoglobin was normal at 13.8 g. Her prednisone was decreased to 20 mg daily. As she was felt to be a poor candidate for long-term steroid therapy due to her diabetes and because of her underlying rheumatoid arthritis, she was given a 4-week course of treatment with rituximab from 05/09/2018 through 05/29/2018. She tolerated it very well. During subsequent follow-up, her hemoglobin remained adequate, though her laboratory studies did show evidence for ongoing hemolysis. However, during that time she also had increasing intolerance for the prednisone, and she insisted on tapering down the dosage. During subsequent follow-up, there was gradual decline in her hemoglobin/hematocrit levels, and became quite evident that her hemolytic anemia was not going to be controlled adequately with prednisone. I then made arrangements for laparoscopic splenectomy in [place]. She did receive the appropriate vaccinations. The laparoscopic splenectomy was performed in the early part of December 2018. She had no complications with the procedure. During her subsequent follow-up, she had the expected increases in her white blood cell count and platelet count. There was no significant improvement, though, in her hemoglobin/hematocrit levels. As of 01/16/2019 the hemoglobin was stable at 8.3 g. She reported having significant fatigue and shortness of breath, and she also reported having some chest pain. Her repeat CBC with the typenex showed further decline in the hemoglobin to 7.8 g. She was then transfused 2 units PRBC and she restarted steroid therapy with prednisone, initially at 10 mg bid. She did have a good response to prednisone, and it was able to be tapered fairly quickly. Her hemoglobin stabilized at 11 g on prednisone at 10 mg daily. Her other medical illnesses include hypertension, hyperlipidemia, type II diabetes with peripheral neuropathy, GERD, COPD, degenerative disease of the spine, and rheumatoid arthritis. She has a history of multinodular goiter and she has had evidence of hyperthyroidism. She has a history of having undergone left nephrectomy for stage I renal cell carcinoma in 2008. She has a history of smoking for 46 years, previously up to 2 1/2 packs of cigarettes daily. Following her hospitalization in January 2018 she had cut down to 1 pack per day. INTERIM HISTORY: She had continued prednisone at 10 mg daily. As of her visit on 04/03/2019 her hemoglobin was stable at 11.3 g, and at that point I had her try alternating 10 and 5 mg daily. However, as of her follow-up visit on 05/07/2019 her hemoglobin had dropped significantly, to 9.7 g. She was noticeably symptomatic with it. Her prednisone was increased to 20 mg daily. She again did show response to the higher dose steroid. However, as it had become clear that she was not going to be able to tolerate long-term higher dose steroid therapy, I opted to retreat her with a 4-week course of rituximab. She began her week 1 treatment on 06/07/2019. She tolerated it without adverse effects. She continued with week 2 rituximab on 06/14/2019, with week 3 on 06/21/2019, and with week 4 on 06/28/2019. She tolerated it well. She then continued her prednisone at 10 mg daily. She is seen for a follow-up visit. She has been feeling pretty good generally. She says her energy is fair. She is doing light work. ECOG score is 1. Her appetite is variable. She has had gradual weight loss over the past year, but recently it has been stable. She does not have fever or night sweats. She says her breathing is been pretty good except for the hot weather. She always has cough. She does not complain of chest pain. She clearly has no GI or complaints. She says her acid reflux is better now. She still has joint pain with her rheumatoid arthritis, but it has improved somewhat with the rituximab. She has occasional headache. She does not complain of dizziness. She has some numbness/tingling in her hands. Medications: Acidophilus 1 Tablet Oral daily, Crestor 1 Tablet (of 10 mg) Oral daily, Daily Vitamin 1 Tablet Oral daily, Fish Oil 1 Capsule (of 1000 mg) Oral daily, Folic Acid 1 (1 mg) Tablet Oral daily, Garlic 1 Capsule (of 1000 mg) Oral daily, HumuLIN R 1 (100 Units/mL) Injection t.i.d. PRN, Hydrocodone-Acetaminophen 1 Tablet (of 10-325 mg) Oral q 6 hours PRN, Imdur 1 Tablet (of 30 mg) Tablet SR 24 HR Oral daily, MetFORMIN HCl 1 Tablet (of 500 mg) Oral b.i.d., Metoprolol Succinate ER 1 Tablet (of 50 mg) Tablet SR 24 HR Oral daily, Norvasc 1 Tablet (of 5 mg) Oral daily, predniSONE 1 Tablet (of 20 mg) Oral b.i.d., Protonix 1 Tablet (of 40 mg) Tablet, enteric coated Oral daily, traZODone HCl 1 Tablet (of 50 mg) Oral daily, Zonisamide 1 Tablet (of 50 mg) Capsule Oral b.i.d. Allergies: CeleBREX and Levemir. Review of Systems: Constitutional - Her energy is fair. She is doing light work. Appetite is variable. She has had weight loss over the past year, though recently it has been stable. No fever, night sweats, or hot flashes. ECOG score is 1, ENMT - No sinus congestion/drainage. No mouth sores. No sore throat or difficulty swallowing, Hematologic/Lymphatic - She has easy bruising, Respiratory - Breathing is pretty good except for the hot weather. She always has cough. No pleuritic pain or hemoptysis, Cardiovascular - No angina pain. No palpitations, Gastrointestinal - No nausea or vomiting. Her acid reflux is better. No diarrhea or constipation. No blood in the stool or black stools, Genitourinary (F) - No dysuria or hematuria. No urinary frequency. No urgency or incontinence, Musculoskeletal - He still has joint pain, but it has improved somewhat this past month, Integumentary - No skin rash, Neurologic - She occasionally has headache. No dizziness. She has numbness/tingling in her hands. No other focal neurologic symptoms, Psychiatric - No anxiety or depression. No insomnia. Vital Signs: Performed on Sep 03, 2019 13:31 Height - 67.00 in Weight - 170.0 lbs (LOW) BSA - 1.89 sq.m BMI - 26.63 Temperature - 98.6 F Pulse - 79 /min Respiration - 20 /min BP - 143/62 mm(hg) (HIGH) O2 Sat - 98 % Pain - 4 Physical Examination: Constitutional - She looks pretty good generally, Eyes - Sclerae nonicteric. Conjunctivae clear, ENMT - No lesions noted in the oral cavity, Hematologic/Lymphatic - No cervical, clavicular, or axillary adenopathy, Respiratory - Lungs are clear with diminished air movement bilaterally, Cardiovascular - Heart rhythm is regular. There is a II/ systolic murmur. There is no gallop or rub noted, Abdomen - Soft. Liver is not enlarged. There is no abdominal mass or ascites noted and there is no inguinal adenopathy, Extremities - No edema, Neurologic - No focal neurologic deficits noted. Lab/Imaging: CBC shows hemoglobin 12.2 g with hematocrit 38.1%. The red cell indices are macrocytic. The white blood cell count is 15,200 and the platelet count is 557,000. Sed rate is down to 10 mm/h. Haptoglobin is still low at 10.0 mg/L with total bilirubin 1.3 mg/dL and LDH level 258/214 U/L. Impression: 1. 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 2. She has pre-existing rheumatoid arthritis. 3. She has multinodular goiter with hyperthyroidism. Her other medical illnesses include: 4. Hypertension. 5. Hyperlipidemia. 6. Type II diabetes with peripheral neuropathy. 7. GERD. 8. COPD. 9. Degenerative disease of the spine. 10. She has a history of prior stroke. 11. She underwent left nephrectomy for stage I renal cell carcinoma in 2008. She began steroid therapy with prednisone 40 mg twice a day on 03/29/2018. She has had a good response with her hemoglobin increasing to 12.0 g on 04/17/2018. Her prednisone was then decreased to 20 mg bid. As of her follow-up visit on 04/26/2018 there was further increase in the hemoglobin to 13.8 with haptoglobin normal at 158 mg/dL. Her prednisone was decreased to 20 mg daily. As she was felt to be a poor candidate for long-term steroid therapy and because of her underlying rheumatoid arthritis, she was then given a 4-week course of treatment with rituximab, which she completed on 05/29/2018. She tolerated it well. She had felt better following completion of the rituximab infusions, and her hemoglobin had initially remained stable at 12 g. However, her laboratory studies had shown evidence for ongoing hemolysis. During subsequent follow-up, she had increasing intolerance for the prednisone, and the dosage has been tapered to 5 mg daily. During follow-up there was a progressive decline in her hemoglobin/hematocrit levels, and it became quite evident that her hemolytic anemia was not going to be controlled adequately with a tolerable dose of steroid. She underwent laparoscopic splenectomy in the early part of December 2018. She had no complications with the procedure. During subsequent follow-up there was expected increases in her white blood cell count and platelet count. Her hemoglobin/hematocrit levels, though, continued to decline. As of 01/17/2019 her hemoglobin had dropped to 7.8 g, and her studies were consistent with hemolysis. She was transfused 2 U PRBC and she restarted prednisone at 10 mg twice a day. She has had a good response with her hemoglobin stabilizing at 11 g on 10 mg of prednisone daily. During follow-up she has had some difficulty managing the diabetes with the steroid therapy. As of her followup visit on 04/03/2019 her hemoglobin had remained adequate at 11 g, though she still had evidence of ongoing hemolysis. At that point I had her try decreasing the prednisone dosage to 10 mg alternating with 5 mg daily. At her follow-up visit on 05/07/2019 she was feeling a lot worse, and her hemoglobin had dropped to 9.7 g. She then increased her prednisone to 20 mg daily. She had a good clinical response, but she continued to tolerate the steroid therapy poorly due to the underlying diabetes. As such, she was given a second course of treatment with 4 weekly infusions of rituximab, which she completed on 06/28/2019. She tolerated it well. Since then she has had some symptomatic improvement and there has been some increase in her hemoglobin/hematocrit levels, though she still has evidence of ongoing hemolysis on 10 mg of prednisone daily. Plan: She will continue prednisone 10 mg daily. Blood counts will be monitored monthly. I will see her again in 3 months, or sooner as needed. Signed By: Shawn Carrero M.D. <<Signature on File>>
== END 2019-09-21 23:59 | disposition home or self-care (01) ==
LOC: ONCMED 07:12
PROVIDERS: PCP Nurse Practitioner; Visit Provider Internal Medicine Medical Oncology
DX: D59.1 Other autoimmune hemolytic anemias (principal); J44.9 Chronic obstructive pulmonary disease, unspecified; K21.9 Gastro-esophageal reflux disease without esophagitis; E78.5 Hyperlipidemia, unspecified; I10 Essential (primary) hypertension; E05.90 Thyrotoxicosis, unspecified without thyrotoxic crisis or storm; E11.9 Type 2 diabetes mellitus without complications
CPT/HCPCS: 99214

== ENCOUNTER → 2019-10-09 08:12 | Outpatient (BNVA) | payer MEDICARE, MEDICAID, SELFPAY | PROVIDERS: PCP Nurse Practitioner; Visit Provider Internal Medicine Medical Oncology | DX: D59.1 Other autoimmune hemolytic anemias (principal) | CPT/HCPCS: 85007; 85025 ==

== ENCOUNTER → 2019-11-06 08:34 | Outpatient (BNVA) | payer MEDICARE, MEDICAID, SELFPAY | PROVIDERS: PCP Nurse Practitioner; Visit Provider Internal Medicine Medical Oncology | DX: D59.1 Other autoimmune hemolytic anemias (principal) | CPT/HCPCS: 85025 ==

== ENCOUNTER → 2019-12-10 08:39 | Outpatient (BNVA) | payer MEDICARE, MEDICAID, SELFPAY | PROVIDERS: PCP Nurse Practitioner; Visit Provider Internal Medicine Medical Oncology | DX: D89.9 Disorder involving the immune mechanism, unspecified (principal); D59.19 Other autoimmune hemolytic anemia | CPT/HCPCS: 80053; 83010; 83615; 85025; 85045; 85651 ==

== ENCOUNTER 2019-12-12 15:09 | Outpatient (CLI) | payer MEDICARE, MEDICAID, SELFPAY ==
--- NOTE | 2019-12-16 17:09 | ONC FU_ITS ---
Dr. Carrero Patient Follow-Up Note Patient: Miya Narvaez Unit #: [id number]: 1955 Dicatated By: Shawn Carrero M.D.Date of Visit:Dec 12, 2019 Onc Med Follow-up/Prog Note Chief Complaint: Autoimmune hemolytic anemia. 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 She has longstanding rheumatoid arthritis. On 02/13/2018 she presented to the emergency room with severe weakness. She was found to be significantly anemic with CBC showing her hemoglobin low at 7.1 g with hematocrit 20.4%. The red cell indices were macrocytic with MCV 112 and MCH 39. The white blood cell count was elevated at 20,500 and the platelet count was mildly elevated at 411,000. The differential showed 75% neutrophils, 16% lymphocytes, and 7% monocytes. The uncorrected reticulocyte count was 20.6%. Sedimentation rate was greater than 120 mm/hour. Chem profile showed significantly low sodium at 113 mmol/L. The total bilirubin was mildly elevated at 4.1 mg/dL with normal alkaline phosphatase. LDH was elevated at 321/214 U/L. She was transfused 2 units of PRBC. No abnormalities were reported on her type and crossmatch. Serum iron studies show slightly low transferrin saturation at 17.7%. B12 level was normal at 457 pg/mL and folate levels greater than 20.0 ng/mL. Methylmalonic acid level also was normal at 0.23 ???mol/L. Following the transfusion her hemoglobin stabilized at 9.2 g. At that point her sodium level was back up to 130 mmol/L, and she was discharged home. During subsequent follow-up, stool Hemoccult was negative ???3. Repeat CBC on 03/08/2018 showed hemoglobin up to 12.3 g with white blood cell count 8300 and platelet count 260,000. I had seen her initially on 03/28/2018. At that point her hemoglobin had dropped back down to 8.2 g with hematocrit 24%. The red cell indices were macrocytic with MCV 118 and MCH 40.1. The white blood cell count was 16,100 and the platelet count was 334,000. The uncorrected reticulocyte count was 22%. LDH was elevated 388/214 U/L. The total bilirubin was elevated at 3.4 mg/dL with direct bilirubin 0.4 mg/dL. Haptoglobin was low at 10 mg/dL. Sedimentation rate was elevated at 117 mm/h, and the RA titer was high at 599.0 IU/mL. The SELENA was positive for warm reacting IgG auto antibody. She then began steroid therapy with prednisone 40 mg twice a day. Her follow-up CBC on 04/04/2017 showed hemoglobin stable at 8.4 g with white blood cell count 15,700 and platelet count 385,000. The reticulocyte count was still significantly elevated at 19.6% and the haptoglobin was still low at 10 mg/dL. LDH level at that point was up to 461 U/L. She continued prednisone 40 mg twice a day. Her blood sugars had become significantly elevated on the prednisone, as expected, and she was started on Levemir 30 U twice a day along with regular insulin per sliding scale. As of 04/17/2018 her hemoglobin was up to 12.0 g and her prednisone dosage was decreased to 20 mg bid. At her followup visit on 04/26/2017 her hemoglobin was normal at 13.8 g. Her prednisone was decreased to 20 mg daily. As she was felt to be a poor candidate for long-term steroid therapy due to her diabetes and because of her underlying rheumatoid arthritis, she was given a 4-week course of treatment with rituximab from 05/09/2018 through 05/29/2018. She tolerated it very well. During subsequent follow-up, her hemoglobin remained adequate, though her laboratory studies did show evidence for ongoing hemolysis. However, during that time she also had increasing intolerance for the prednisone, and she insisted on tapering down the dosage. During subsequent follow-up, there was gradual decline in her hemoglobin/hematocrit levels, and became quite evident that her hemolytic anemia was not going to be controlled adequately with prednisone. I then made arrangements for laparoscopic splenectomy in [place]. She did receive the appropriate vaccinations. The laparoscopic splenectomy was performed in the early part of December 2018. She had no complications with the procedure. During her subsequent follow-up, she had the expected increases in her white blood cell count and platelet count. There was no significant improvement, though, in her hemoglobin/hematocrit levels. As of 01/16/2019 the hemoglobin was stable at 8.3 g. She reported having significant fatigue and shortness of breath, and she also reported having some chest pain. Her repeat CBC with the typenex showed further decline in the hemoglobin to 7.8 g. She was then transfused 2 units PRBC and she restarted steroid therapy with prednisone, initially at 10 mg bid. She did have a good response to prednisone, and it was able to be tapered fairly quickly. Her hemoglobin stabilized at 11 g on prednisone at 10 mg daily. Her other medical illnesses include hypertension, hyperlipidemia, type II diabetes with peripheral neuropathy, GERD, COPD, degenerative disease of the spine, and rheumatoid arthritis. She has a history of multinodular goiter and she has had evidence of hyperthyroidism. She has a history of having undergone left nephrectomy for stage I renal cell carcinoma in 2008. She has a history of smoking for 46 years, previously up to 2 1/2 packs of cigarettes daily. Following her hospitalization in January 2018 she had cut down to 1 pack per day. INTERIM HISTORY: She had continued prednisone at 10 mg daily. As of her visit on 04/03/2019 her hemoglobin was stable at 11.3 g, and at that point I had her try alternating 10 and 5 mg daily. However, as of her follow-up visit on 05/07/2019 her hemoglobin had dropped significantly, to 9.7 g. She was noticeably symptomatic with it. Her prednisone was increased to 20 mg daily. She again did show response to the higher dose steroid. However, as it had become clear that she was not going to be able to tolerate long-term higher dose steroid therapy, I opted to retreat her with a 4-week course of rituximab. She began her week 1 treatment on 06/07/2019. She tolerated it without adverse effects. She continued with week 2 rituximab on 06/14/2019, with week 3 on 06/21/2019, and with week 4 on 06/28/2019. She tolerated it well. She then continued her prednisone at 10 mg daily. She is seen for a follow-up visit. Is been feeling pretty good, though she still complains that she has no energy and she also complains that nothing tastes good. She is able to do light work. Her ECOG score is 1. Her weight is stable. She has no fever or night sweats. Her breathing has not been as good lately. She has chronic cough. She does not complain of chest pain. She has been having a lot of heartburn. She has frequent urination, and she has some urgency/incontinence. Her arthritis pain has not been bothering her as much lately. She has occasional headache. She has a little bit of numbness in her hands. Medications: Acidophilus 1 Tablet Oral daily, Crestor 1 Tablet (of 10 mg) Oral daily, Daily Vitamin 1 Tablet Oral daily, Fish Oil 1 Capsule (of 1000 mg) Oral daily, Folic Acid 1 (1 mg) Tablet Oral daily, Garlic 1 Capsule (of 1000 mg) Oral daily, HumuLIN R 1 (100 Units/mL) Injection t.i.d. PRN, Hydrocodone-Acetaminophen 1 Tablet (of 10-325 mg) Oral q 6 hours PRN, Imdur 1 Tablet (of 30 mg) Tablet SR 24 HR Oral daily, MetFORMIN HCl 1 Tablet (of 500 mg) Oral b.i.d., Metoprolol Succinate ER 1 Tablet (of 50 mg) Tablet SR 24 HR Oral daily, Norvasc 1 Tablet (of 5 mg) Oral daily, predniSONE 1 Tablet (of 20 mg) Oral b.i.d., Protonix 1 Tablet (of 40 mg) Tablet, enteric coated Oral daily, traZODone HCl 1 Tablet (of 50 mg) Oral daily, Zonisamide 1 Tablet (of 50 mg) Capsule Oral b.i.d. Allergies: CeleBREX and Levemir. Review of Systems: Constitutional - She complains that she has no energy. She is doing light work. Appetite is not good. She complains that nothing tastes good. Her weight is stable. She has no fever or night sweats. ECOG score is 1, ENMT - She recently has had sinus congestion/drainage. No mouth sores. No sore throat or difficulty swallowing, Hematologic/Lymphatic - She has easy bruising, Respiratory - She has shortness of breath. She has cough. No pleuritic pain or hemoptysis, Cardiovascular - No angina pain. No palpitations, Gastrointestinal - No nausea or vomiting. She has been having a lot of heartburn. No diarrhea or constipation. No blood in the stool or black stools, Genitourinary (F) - No dysuria or hematuria. She has urinary frequency and she has some urgency/incontinence, Musculoskeletal - Her arthritis pain has not been as bad lately, Integumentary - No skin rash, Neurologic - She occasionally has headache. She has dizziness when her blood pressure is low. She has a little bit of numbness in her hands. No other focal neurologic symptoms, Psychiatric - Her anxiety/depression is adequetely managed. She has difficulty sleeping. Vital Signs: Performed on Dec 12, 2019 15:17 Height - 67.00 in Weight - 169.8 lbs (LOW) BSA - 1.89 sq.m BMI - 26.59 Temperature - 98.6 F Pulse - 94 /min Respiration - 22 /min BP - 159/73 mm(hg) (HIGH) O2 Sat - 98 % Pain - 5 Physical Examination: Constitutional - She looks pretty good generally, Eyes - Sclerae nonicteric. Conjunctivae clear, ENMT - No lesions noted in the oral cavity, Hematologic/Lymphatic - No cervical, clavicular, or axillary adenopathy, Respiratory - Lungs are clear with diminished air movement bilaterally, Cardiovascular - Heart rhythm is regular. There is a II/ systolic murmur. There is no gallop or rub noted, Abdomen - Soft. Liver is not enlarged. There is no abdominal mass or ascites noted and there is no inguinal adenopathy, Extremities - No edema, Neurologic - No focal neurologic deficits noted. Lab/Imaging: Test performed on Dec 10, 2019 16:10 WBC 15.9 10^9/L RBC 3.54 10^12/L HGB 12.4 g/dL HCT 38 % MCV 107.3 fl MCH 35 pg MCHC 32.6 g/dL RDW 15 % Platelet Count 495 10^9/L Neutrophils (Gran) 10.5 10^9/L Lymphocytes 4 10^9/L Monocytes 1.2 10^9/L Eosinophils 0 10^9/L Basophils 0 10^9/L Impression: 1. 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 2. She has pre-existing rheumatoid arthritis. 3. She has multinodular goiter with hyperthyroidism. Her other medical illnesses include: 4. Hypertension. 5. Hyperlipidemia. 6. Type II diabetes with peripheral neuropathy. 7. GERD. 8. COPD. 9. Degenerative disease of the spine. 10. She has a history of prior stroke. 11. She underwent left nephrectomy for stage I renal cell carcinoma in 2008. She began steroid therapy with prednisone 40 mg twice a day on 03/29/2018. She has had a good response with her hemoglobin increasing to 12.0 g on 04/17/2018. Her prednisone was then decreased to 20 mg bid. As of her follow-up visit on 04/26/2018 there was further increase in the hemoglobin to 13.8 with haptoglobin normal at 158 mg/dL. Her prednisone was decreased to 20 mg daily. As she was felt to be a poor candidate for long-term steroid therapy and because of her underlying rheumatoid arthritis, she was then given a 4-week course of treatment with rituximab, which she completed on 05/29/2018. She tolerated it well. She had felt better following completion of the rituximab infusions, and her hemoglobin had initially remained stable at 12 g. However, her laboratory studies had shown evidence for ongoing hemolysis. During subsequent follow-up, she had increasing intolerance for the prednisone, and the dosage has been tapered to 5 mg daily. During follow-up there was a progressive decline in her hemoglobin/hematocrit levels, and it became quite evident that her hemolytic anemia was not going to be controlled adequately with a tolerable dose of steroid. She underwent laparoscopic splenectomy in the early part of December 2018. She had no complications with the procedure. During subsequent follow-up there was expected increases in her white blood cell count and platelet count. Her hemoglobin/hematocrit levels, though, continued to decline. As of 01/17/2019 her hemoglobin had dropped to 7.8 g, and her studies were consistent with hemolysis. She was transfused 2 U PRBC and she restarted prednisone at 10 mg twice a day. She has had a good response with her hemoglobin stabilizing at 11 g on 10 mg of prednisone daily. During follow-up she has had some difficulty managing the diabetes with the steroid therapy. As of her followup visit on 04/03/2019 her hemoglobin had remained adequate at 11 g, though she still had evidence of ongoing hemolysis. At that point I had her try decreasing the prednisone dosage to 10 mg alternating with 5 mg daily. At her follow-up visit on 05/07/2019 she was feeling a lot worse, and her hemoglobin had dropped to 9.7 g. She then increased her prednisone to 20 mg daily. She had a good clinical response, but she continued to tolerate the steroid therapy poorly due to the underlying diabetes. As such, she was given a second course of treatment with 4 weekly infusions of rituximab, which she completed on 06/28/2019. She tolerated it well. During follow-up she has continued to have significant fatigue. Her laboratory studies show evidence of ongoing hemolysis, but she is compensating adequately with the prednisone dose to 10 mg daily. Her rheumatoid arthritis pain also seems adequately managed, at least for the time being. Plan: She continue prednisones 10 mg daily. She will be given a flu shot. I will see her again in 3 months. Signed By: Shawn Carrero M.D. <<Signature on File>>
== END 2019-12-12 15:10 | disposition home or self-care (01) ==
LOC: ONCMED 15:14
PROVIDERS: PCP Nurse Practitioner; Visit Provider Internal Medicine Medical Oncology
DX: D59.11 Warm autoimmune hemolytic anemia (principal); M06.9 Rheumatoid arthritis, unspecified; E04.2 Nontoxic multinodular goiter; E05.90 Thyrotoxicosis, unspecified without thyrotoxic crisis or storm; I10 Essential (primary) hypertension; E78.5 Hyperlipidemia, unspecified; E11.42 Type 2 diabetes mellitus with diabetic polyneuropathy; K21.9 Gastro-esophageal reflux disease without esophagitis; J44.9 Chronic obstructive pulmonary disease, unspecified; M47.9 Spondylosis, unspecified; Z86.73 Personal history of transient ischemic attack (TIA), and cerebral infarction without residual deficits; Z90.5 Acquired absence of kidney; Z79.52 Long term (current) use of systemic steroids; Z23 Encounter for immunization
CPT/HCPCS: 90471; 90686; 99214

== ENCOUNTER → 2020-03-11 08:47 | Outpatient (BNVA) | payer MEDICARE, MEDICAID, SELFPAY | PROVIDERS: PCP Nurse Practitioner; Visit Provider Nurse Practitioner | DX: I10 Essential (primary) hypertension (principal); J44.9 Chronic obstructive pulmonary disease, unspecified; E11.22 Type 2 diabetes mellitus with diabetic chronic kidney disease; E11.40 Type 2 diabetes mellitus with diabetic neuropathy, unspecified; G47.00 Insomnia, unspecified; M51.34 Other intervertebral disc degeneration, thoracic region | CPT/HCPCS: 80053; 81000; 82043; 83010; 83615; 85025; 85045; 85651 ==

== ENCOUNTER 2020-03-12 11:03 | Outpatient (CLI) | payer MEDICARE, MEDICAID, SELFPAY ==
--- NOTE | 2020-03-12 14:29 | ONC FU_ITS ---
[facility] Patient Note Patient: Miya Narvaez Unit #: [id number]: 1955 Dictated By: Harsh HardingDate of Visit: Mar 12, 2020 Onc MED Follow-Up/Prog Note Chief Complaint: Autoimmune hemolytic anemia. 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 She has longstanding rheumatoid arthritis. On 02/13/2018 she presented to the emergency room with severe weakness. She was found to be significantly anemic with CBC showing her hemoglobin low at 7.1 g with hematocrit 20.4%. The red cell indices were macrocytic with MCV 112 and MCH 39. The white blood cell count was elevated at 20,500 and the platelet count was mildly elevated at 411,000. The differential showed 75% neutrophils, 16% lymphocytes, and 7% monocytes. The uncorrected reticulocyte count was 20.6%. Sedimentation rate was greater than 120 mm/hour. Chem profile showed significantly low sodium at 113 mmol/L. The total bilirubin was mildly elevated at 4.1 mg/dL with normal alkaline phosphatase. LDH was elevated at 321/214 U/L. She was transfused 2 units of PRBC. No abnormalities were reported on her type and crossmatch. Serum iron studies show slightly low transferrin saturation at 17.7%. B12 level was normal at 457 pg/mL and folate levels greater than 20.0 ng/mL. Methylmalonic acid level also was normal at 0.23 ???mol/L. Following the transfusion her hemoglobin stabilized at 9.2 g. At that point her sodium level was back up to 130 mmol/L, and she was discharged home. During subsequent follow-up, stool Hemoccult was negative ???3. Repeat CBC on 03/08/2018 showed hemoglobin up to 12.3 g with white blood cell count 8300 and platelet count 260,000. Dr Carrero had seen her initially on 03/28/2018. At that point her hemoglobin had dropped back down to 8.2 g with hematocrit 24%. The red cell indices were macrocytic with MCV 118 and MCH 40.1. The white blood cell count was 16,100 and the platelet count was 334,000. The uncorrected reticulocyte count was 22%. LDH was elevated 388/214 U/L. The total bilirubin was elevated at 3.4 mg/dL with direct bilirubin 0.4 mg/dL. Haptoglobin was low at 10 mg/dL. Sedimentation rate was elevated at 117 mm/h, and the RA titer was high at 599.0 IU/mL. The SELENA was positive for warm reacting IgG auto antibody. She then began steroid therapy with prednisone 40 mg twice a day. Her follow-up CBC on 04/04/2017 showed hemoglobin stable at 8.4 g with white blood cell count 15,700 and platelet count 385,000. The reticulocyte count was still significantly elevated at 19.6% and the haptoglobin was still low at 10 mg/dL. LDH level at that point was up to 461 U/L. She continued prednisone 40 mg twice a day. Her blood sugars had become significantly elevated on the prednisone, as expected, and she was started on Levemir 30 U twice a day along with regular insulin per sliding scale. As of 04/17/2018 her hemoglobin was up to 12.0 g and her prednisone dosage was decreased to 20 mg bid. At her followup visit on 04/26/2017 her hemoglobin was normal at 13.8 g. Her prednisone was decreased to 20 mg daily. As she was felt to be a poor candidate for long-term steroid therapy due to her diabetes and because of her underlying rheumatoid arthritis, she was given a 4-week course of treatment with rituximab from 05/09/2018 through 05/29/2018. She tolerated it very well. During subsequent follow-up, her hemoglobin remained adequate, though her laboratory studies did show evidence for ongoing hemolysis. However, during that time she also had increasing intolerance for the prednisone, and she insisted on tapering down the dosage. During subsequent follow-up, there was gradual decline in her hemoglobin/hematocrit levels, and became quite evident that her hemolytic anemia was not going to be controlled adequately with prednisone. Dr Carrero then made arrangements for laparoscopic splenectomy in [place]. She did receive the appropriate vaccinations. The laparoscopic splenectomy was performed in the early part of December 2018. She had no complications with the procedure. During her subsequent follow-up, she had the expected increases in her white blood cell count and platelet count. There was no significant improvement, though, in her hemoglobin/hematocrit levels. As of 01/16/2019 the hemoglobin was stable at 8.3 g. She reported having significant fatigue and shortness of breath, and she also reported having some chest pain. Her repeat CBC with the typenex showed further decline in the hemoglobin to 7.8 g. She was then transfused 2 units PRBC and she restarted steroid therapy with prednisone, initially at 10 mg bid. She did have a good response to prednisone, and it was able to be tapered fairly quickly. Her hemoglobin stabilized at 11 g on prednisone at 10 mg daily. Her other medical illnesses include hypertension, hyperlipidemia, type II diabetes with peripheral neuropathy, GERD, COPD, degenerative disease of the spine, and rheumatoid arthritis. She has a history of multinodular goiter and she has had evidence of hyperthyroidism. She has a history of having undergone left nephrectomy for stage I renal cell carcinoma in 2008. She has a history of smoking for 46 years, previously up to 2 1/2 packs of cigarettes daily. Following her hospitalization in January 2018 she had cut down to 1 pack per day. INTERIM HISTORY: She had continued prednisone at 10 mg daily. As of her visit on 04/03/2019 her hemoglobin was stable at 11.3 g, and at that point Dr Carrero had her try alternating 10 and 5 mg daily. However, as of her follow-up visit on 05/07/2019 her hemoglobin had dropped significantly, to 9.7 g. She was noticeably symptomatic with it. Her prednisone was increased to 20 mg daily. She again did show response to the higher dose steroid. However, as it had become clear that she was not going to be able to tolerate long-term higher dose steroid therapy, Dr Carrero opted to retreat her with a 4-week course of rituximab. She began her week 1 treatment on 06/07/2019. She tolerated it without adverse effects. She continued with week 2 rituximab on 06/14/2019, with week 3 on 06/21/2019, and with week 4 on 06/28/2019. She tolerated it well. She then continued her prednisone at 10 mg daily. Ms Narvaez is here today for followup. She states she feels good overall and is doing good . She states her joint/bone/muscle pain is stable on the Prednisone 10 mg daily. She denies any worsening fatigue. Her appetite is good and states her energy is stable overall. She denies any fever or chills or signs of infection. She denies any know COVID exposure or known disease or pending testing. She denies any shortness of breath, chest pain or palpitations. She has been active around her home. She denies any bowel or bladder concerns. She states she starting taking her Prednisone at bedtime with the stomach pill because her blood sugar was running too high during the day. She states that since changing the timing of her Prednisone and watching her diet, her blood sugar during the day has been really good and has been low at times . She is having some gastritis symptoms but states if she watches her diet and uses Tums/Rolaids occassionally and stays on her PPI twice daily, it is ok . She states she has tried different Stomach pills and they do not work as well as what I am on now . She does not want to change to dose. Our medication list states she is on Protonix 40 mg and she states she is taking it twice a day. Her ECOG is 0. We did discuss the COVID vaccine and she states she in not interested at this time given all the complications she has had with various medications and reactions. She did not have any obvious adverse reaction to her flu vaccine in November 2019. She states she will just wait and see how well it is tolerated in other patients. She was advised that we support her decision but would support her decision to pursue immunization if she desired. I agree with her concern for possible adverse reaction as she has had complications from severe medications in the past. She states if there is a possible unusual side effect, I usually see it . Past Medical History: Chronic obstructive pulmonary disease Degenerative disease of the spine Gastroesophageal reflux disease History of latent tuberculosis History of renal cancer Hyperlipidemia Hypertension Hyperthyroidism Peripheral neuropathy Rheumatoid arthritis Stroke Thyroid nodule Type II diabetes Past Surgical History: Hysterectomy without oophorectomy Splenectomy Tubal ligation LFlu Vaccine formula in 2019 Left radical nephrectomy for stage I renal cell carcinoma in 2008 Allergies: CeleBREX and Levemir. Medications: Acidophilus 1 Tablet Oral daily Crestor 1 Tablet (of 10 mg) Oral daily Daily Vitamin 1 Tablet Oral daily Fish Oil 1 Capsule (of 1000 mg) Oral daily Folic Acid 1 (1 mg) Tablet Oral daily Garlic 1 Capsule (of 1000 mg) Oral daily HumuLIN R 1 (100 Units/mL) Injection t.i.d. PRN Hydrocodone-Acetaminophen 1 Tablet (of 10-325 mg) Oral q 6 hours PRN Imdur 1 Tablet (of 30 mg) Tablet SR 24 HR Oral daily MetFORMIN HCl 1 Tablet (of 500 mg) Oral b.i.d. Metoprolol Succinate ER 1 Tablet (of 50 mg) Tablet SR 24 HR Oral daily Norvasc 1 Tablet (of 5 mg) Oral daily predniSONE 1 Tablet (of 10 mg) Oral daily Protonix 1 Tablet (of 40 mg) Tablet, enteric coated Oral daily traZODone HCl 2 Tablet (of 50 mg) Oral daily Zonisamide 1 Tablet (of 50 mg) Capsule Oral b.i.d. Family History: Ms. Narvaez's mother at age 76: Alzheimer's Disease. Ms. Narvaez's father at age 60: post operative complication. Ms. Narvaze has 2 brothers: 2 alive. Ms. Narvaez's first brother's hyperthyroidism. Another brother's oral cancer. She has 1 sister who is alive. Father had colon cancer and at age 60 with complications from cancer surgery. Mother with Alzheimer's dementia at age 76. Her maternal grandmother had breast cancer. A brother has been treated for oral cancer. Social History: Ms. Narvaez is single and she is a disabled. She is a daily smoker who has smoked 1.0 pack/day for 47 years. She has no history of drinking. She has indicated exposure to the following products: cigarettes. She has a history of smoking for 46 years, previously up to 2 1/2 packs of cigarettes daily. Since her recent hospitalization she has cut down to about 1 pack per day. She does not drink alcohol. Review Of Symptoms: Constitutional Denies fevers, chills, night sweats, excessive fatigue or weight loss. Allergic/Immunologic No reactions. Eyes Denies significant visual changes. No diplopia. No amaurosis. ENMT Denies changes in hearing, sore throat, mouth sores, difficulty or changes in swallowing ability. Hematologic/Lymphatic Denies new easy bruising or bleeding. She has chronic purpura due to Prednisone. The patient denies any tender or palpable lymph nodes. Respiratory Denies dyspnea on exertion, chest pain, or hemoptysis. Denies orthopnea. Cough as above. Cardiovascular Denies anginal chest pain, palpitations or orthopnea. Gastrointestinal Denies nausea, vomiting, diarrhea, GI bleeding, or constipation. Denies change in bowel habits and/or stool color, no heartburn or early satiety. Genitourinary (F) No hematuria, hesitancy, incontinence, vaginal bleeding, discharge or other problems with urination. Musculoskeletal Denies joint pain, swelling or redness. No decreased range of motion. Integumentary Denies chronic rashes, inflammation, ulcerations or skin changes. Neurologic Denies headache, blurred vision, and no areas of focal weakness or numbness. Normal gait. No sensory problems. Psychiatric Denies insomnia, depression, florence or mood swings. Vital Signs: Performed on Mar 12, 2020 11:24 Height - 67.00 in Weight - 170.8 lbs (HIGH) BSA - 1.89 sq.m BMI - 26.75 Temperature - 98.2 F (LOW) Pulse - 82 /min Respiration - 17 /min BP - 159/63 mm(hg) (HIGH) O2 Sat - 96 % Pain - 3,1 - No physically strenuous activity, but ambulatory and able to carry out light or sedentary work (e.g. office work, light house work). (ECOG) Physical Examination: Constitutional Alert, oriented, no acute distress. Skin pink, warm and dry. Head Normocephalic; atraumatic. Eyes Conjunctivae and sclerae are clear and without icterus. Pupils are reactive and equal. Neck Supple without masses or thyromegaly. No jugular venous distension. Hematologic/Lymphatic No petechiae or purpura. No tender or palpable lymph nodes in the cervical or supraclavicular areas. Respiratory Lungs are clear to auscultation without rhonchi or wheezing. Cardiovascular Regular rate and rhythm of heart without murmurs,clicks, gallops or rubs. Back/Spine Non-tender to palpation. Extremities No visible deformities, no cyanosis, clubbing or edema. Musculoskeletal No tenderness or swelling, normal range of motion without obvious weakness. Integumentary No rashes or lesions. Neurologic No sensory or motor deficits, normal cerebellar function, normal gait. Psychiatric Alert and oriented times three. Coherent speech. Verbalizes understanding of our discussions today. Laboratory:Test performed on Mar 11, 2020 08:47 Glucose 84 mg/dL LDH, Total 236 IU/L BUN 17 mg/dL Creatinine 0.7 mg/dL Cr Clearance (Est) 99.08 mL/min Sodium 139 mmol/L Potassium 4.3 mmol/L Chloride 102 mmol/L CO2 27 mmol/L Calcium 10.0 mg/dL Protein, Total 6.6 g/dL Albumin 4.2 g/dL Globulin 2.4 g/dL Bilirubin, Total 0.9 mg/dL Alkaline Phosphatase 119 IU/L AST (SGOT) 20 IU/L ALT (SGPT) 12 IU/L Haptoglobin 84.0 mg/dL Sed Rate 26 mm/hr Reticulocyte Count 5.5200 % WBC 16.6 10^9/L RBC 3.98 10^12/L HGB 13.8 g/dL HCT 40.9 % MCV 102.8 fl MCH 34.7 pg MCHC 33.7 g/dL RDW 15.2 % Platelet Count 445 10^9/L MPV 10.6 fL Neutrophils (Gran) 10.39 10^9/L Lymphocytes 4.5 10^9/L Monocytes 1.5 10^9/L Eosinophils 0.1 10^9/L Basophils 0.1 10^9/L Manual Lymphocytes 27.0 % Manual Monocytes 9.3 % Manual Eosinophils 0.4 % Manual Basophils 0.3 % Impression: 1. 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 2. She has pre-existing rheumatoid arthritis. 3. She has multinodular goiter with hyperthyroidism. Her other medical illnesses include: 4. Hypertension. 5. Hyperlipidemia. 6. Type II diabetes with peripheral neuropathy. 7. GERD. 8. COPD. 9. Degenerative disease of the spine. 10. She has a history of prior stroke. 11. She underwent left nephrectomy for stage I renal cell carcinoma in 2008. She began steroid therapy with prednisone 40 mg twice a day on 03/29/2018. She has had a good response with her hemoglobin increasing to 12.0 g on 04/17/2018. Her prednisone was then decreased to 20 mg bid. As of her follow-up visit on 04/26/2018 there was further increase in the hemoglobin to 13.8 with haptoglobin normal at 158 mg/dL. Her prednisone was decreased to 20 mg daily. As she was felt to be a poor candidate for long-term steroid therapy and because of her underlying rheumatoid arthritis, she was then given a 4-week course of treatment with rituximab, which she completed on 05/29/2018. She tolerated it well. She had felt better following completion of the rituximab infusions, and her hemoglobin had initially remained stable at 12 g. However, her laboratory studies had shown evidence for ongoing hemolysis. During subsequent follow-up, she had increasing intolerance for the prednisone, and the dosage has been tapered to 5 mg daily. During follow-up there was a progressive decline in her hemoglobin/hematocrit levels, and it became quite evident that her hemolytic anemia was not going to be controlled adequately with a tolerable dose of steroid. She underwent laparoscopic splenectomy in the early part of December 2018. She had no complications with the procedure. During subsequent follow-up there was expected increases in her white blood cell count and platelet count. Her hemoglobin/hematocrit levels, though, continued to decline. As of 01/17/2019 her hemoglobin had dropped to 7.8 g, and her studies were consistent with hemolysis. She was transfused 2 U PRBC and she restarted prednisone at 10 mg twice a day. She has had a good response with her hemoglobin stabilizing at 11 g on 10 mg of prednisone daily. During follow-up she has had some difficulty managing the diabetes with the steroid therapy. As of her followup visit on 04/03/2019 her hemoglobin had remained adequate at 11 g, though she still had evidence of ongoing hemolysis. At that point I had her try decreasing the prednisone dosage to 10 mg alternating with 5 mg daily. At her follow-up visit on 05/07/2019 she was feeling a lot worse, and her hemoglobin had dropped to 9.7 g. She then increased her prednisone to 20 mg daily. She had a good clinical response, but she continued to tolerate the steroid therapy poorly due to the underlying diabetes. As such, she was given a second course of treatment with 4 weekly infusions of rituximab, which she completed on 06/28/2019. She tolerated it well. During follow-up she has continued to have significant fatigue. Her laboratory studies show evidence of ongoing hemolysis, but she is compensating adequately with the prednisone dose to 10 mg daily. Her rheumatoid arthritis pain also seems adequately managed, at least for the time being. Plan: PROBLEMS ADDRESSED TODAY: 1. Autoimmune hemolytic anemia A. Continue Prednisone 10 mg daily, suggested to continue taking at hs with Protonix but adding a small snack to see if this will help with gastritis symptoms. B. Labs from 03/11/2020 were reviewed in detail and discussed with Ms Narvaez and a copy was given to her. WBC 16.6, HGB 13.8, platelets 445,000 and ANC 10,390. creatinine 0.7, LFTs normal, LDH 236. sed rate 26, haptoglobin 84 and retic count was 5.52 (0.5-3.0). Her retic % was 5.79 on 12/10/2019 and 14.65 on 05/11/2019. C. Plan for followup in 3 months with repeat CBC, CMP, retic, sed rate and haptoglobin. 2. Hyperthyroidism A. Continue current plan of care-observation B. recheck TSH in 3 months. 3. Vitamin D deficiency-prior history A. Continue OTC vitamin D replacement-she is unsure what she is taking. B. Vitamin D level at followup in 3 months. C. Consider dexa scan in future of monitoring of low term steroid use, vitamin D deficiency and degeneratvie disease of the spine and hx of hyperthyroidism. 4. Refill Prednisone and Folic Acid to [facility] today. 5. Ms Narvaez was instructed to call us in the interim if questions or problems arise. Signed By: Harsh Harding-, AOCNP Shawn Carrero MD <<Signature on File>>
== END 2020-03-12 11:04 | disposition home or self-care (01) ==
LOC: ONCMED 11:06
PROVIDERS: PCP Nurse Practitioner; Visit Provider Nurse Practitioner
DX: D59.10 Autoimmune hemolytic anemia, unspecified (principal); E55.9 Vitamin D deficiency, unspecified; F17.210 Nicotine dependence, cigarettes, uncomplicated; K29.70 Gastritis, unspecified, without bleeding; E05.90 Thyrotoxicosis, unspecified without thyrotoxic crisis or storm; Z79.52 Long term (current) use of systemic steroids
CPT/HCPCS: 99214

== ENCOUNTER → 2020-06-19 08:28 | Outpatient (BNVA) | payer MEDICARE, MEDICAID, SELFPAY | PROVIDERS: PCP Nurse Practitioner; Visit Provider Internal Medicine Medical Oncology | DX: M05.79 Rheumatoid arthritis with rheumatoid factor of multiple sites without organ or systems involvement (principal); E55.9 Vitamin D deficiency, unspecified; D89.9 Disorder involving the immune mechanism, unspecified; I10 Essential (primary) hypertension | CPT/HCPCS: 80053; 82306; 83010; 84443; 85025; 85045; 85651 ==

== ENCOUNTER 2020-06-24 14:10 | Outpatient (CLI) | payer MEDICARE, MEDICAID, SELFPAY ==
--- NOTE | 2020-06-28 10:49 | ONC FU_ITS ---
Dr. Carrero Patient Follow-Up Note Patient: Miya Narvaez Unit #: [id number]: 1955 Dicatated By: Shawn Carerro M.D.Date of Visit:June 24, 2020 Onc Med Follow-up/Prog Note Chief Complaint: Autoimmune hemolytic anemia. 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 She has longstanding rheumatoid arthritis. On 02/13/2018 she presented to the emergency room with severe weakness. She was found to be significantly anemic with CBC showing her hemoglobin low at 7.1 g with hematocrit 20.4%. The red cell indices were macrocytic with MCV 112 and MCH 39. The white blood cell count was elevated at 20,500 and the platelet count was mildly elevated at 411,000. The differential showed 75% neutrophils, 16% lymphocytes, and 7% monocytes. The uncorrected reticulocyte count was 20.6%. Sedimentation rate was greater than 120 mm/hour. Chem profile showed significantly low sodium at 113 mmol/L. The total bilirubin was mildly elevated at 4.1 mg/dL with normal alkaline phosphatase. LDH was elevated at 321/214 U/L. She was transfused 2 units of PRBC. No abnormalities were reported on her type and crossmatch. Serum iron studies show slightly low transferrin saturation at 17.7%. B12 level was normal at 457 pg/mL and folate levels greater than 20.0 ng/mL. Methylmalonic acid level also was normal at 0.23 ???mol/L. Following the transfusion her hemoglobin stabilized at 9.2 g. At that point her sodium level was back up to 130 mmol/L, and she was discharged home. During subsequent follow-up, stool Hemoccult was negative ???3. Repeat CBC on 03/08/2018 showed hemoglobin up to 12.3 g with white blood cell count 8300 and platelet count 260,000. I had seen her initially on 03/28/2018. At that point her hemoglobin had dropped back down to 8.2 g with hematocrit 24%. The red cell indices were macrocytic with MCV 118 and MCH 40.1. The white blood cell count was 16,100 and the platelet count was 334,000. The uncorrected reticulocyte count was 22%. LDH was elevated 388/214 U/L. The total bilirubin was elevated at 3.4 mg/dL with direct bilirubin 0.4 mg/dL. Haptoglobin was low at 10 mg/dL. Sedimentation rate was elevated at 117 mm/h, and the RA titer was high at 599.0 IU/mL. The SELENA was positive for warm reacting IgG auto antibody. She then began steroid therapy with prednisone 40 mg twice a day. Her follow-up CBC on 04/04/2017 showed hemoglobin stable at 8.4 g with white blood cell count 15,700 and platelet count 385,000. The reticulocyte count was still significantly elevated at 19.6% and the haptoglobin was still low at 10 mg/dL. LDH level at that point was up to 461 U/L. She continued prednisone 40 mg twice a day. Her blood sugars had become significantly elevated on the prednisone, as expected, and she was started on Levemir 30 U twice a day along with regular insulin per sliding scale. As of 04/17/2018 her hemoglobin was up to 12.0 g and her prednisone dosage was decreased to 20 mg bid. At her followup visit on 04/26/2017 her hemoglobin was normal at 13.8 g. Her prednisone was decreased to 20 mg daily. As she was felt to be a poor candidate for long-term steroid therapy due to her diabetes and because of her underlying rheumatoid arthritis, she was given a 4-week course of treatment with rituximab from 05/09/2018 through 05/29/2018. She tolerated it very well. During subsequent follow-up, her hemoglobin remained adequate, though her laboratory studies did show evidence for ongoing hemolysis. However, during that time she also had increasing intolerance for the prednisone, and she insisted on tapering down the dosage. During subsequent follow-up, there was gradual decline in her hemoglobin/hematocrit levels, and became quite evident that her hemolytic anemia was not going to be controlled adequately with prednisone. I then made arrangements for laparoscopic splenectomy in [place]. She did receive the appropriate vaccinations. The laparoscopic splenectomy was performed in the early part of December 2018. She had no complications with the procedure. During her subsequent follow-up, she had the expected increases in her white blood cell count and platelet count. There was no significant improvement, though, in her hemoglobin/hematocrit levels. As of 01/16/2019 the hemoglobin was stable at 8.3 g. She reported having significant fatigue and shortness of breath, and she also reported having some chest pain. Her repeat CBC with the typenex showed further decline in the hemoglobin to 7.8 g. She was then transfused 2 units PRBC and she restarted steroid therapy with prednisone, initially at 10 mg bid. She did have a good response to prednisone, and it was able to be tapered fairly quickly. Her hemoglobin stabilized at 11 g on prednisone at 10 mg daily. Her other medical illnesses include hypertension, hyperlipidemia, type II diabetes with peripheral neuropathy, GERD, COPD, degenerative disease of the spine, and rheumatoid arthritis. She has a history of multinodular goiter and she has had evidence of hyperthyroidism. She has a history of having undergone left nephrectomy for stage I renal cell carcinoma in 2008. She has a history of smoking for 46 years, previously up to 2 1/2 packs of cigarettes daily. Following her hospitalization in January 2018 she had cut down to 1 pack per day. INTERIM HISTORY: She had continued prednisone at 10 mg daily. As of her visit on 04/03/2019 her hemoglobin was stable at 11.3 g, and at that point I had her try alternating 10 and 5 mg daily. However, as of her follow-up visit on 05/07/2019 her hemoglobin had dropped significantly, to 9.7 g. She was noticeably symptomatic with it. Her prednisone was increased to 20 mg daily. She again did show response to the higher dose steroid. However, as it had become clear that she was not going to be able to tolerate long-term higher dose steroid therapy, I opted to retreat her with a 4-week course of rituximab. She began her week 1 treatment on 06/07/2019. She tolerated it without adverse effects. She continued with week 2 rituximab on 06/14/2019, with week 3 on 06/21/2019, and with week 4 on 06/28/2019. She tolerated it well. She then continued her prednisone at 10 mg daily. She is seen for a follow-up visit. She says she has been feeling awful tired lately. She is able to do light work. ECOG score is 1. She says her appetite is crappy and that she makes herself eat. Her weight, though, has been stable. Her blood sugar has been up and down. She had fever associated with a stomach bug a couple of weeks ago. She sometimes has sweating at night. She has allergy related sinus symptoms and she has chronic cough. She has shortness of breath with activity. She is still smoking 1 to `1-1/2 packs of cigarettes daily. She does not complain of chest pain. She has no GI complaints other than persistent heartburn/acid reflux. She has urinary frequency with some urgency/incontinence. Her joint pain has been worse lately with the rainy weather. She also complains of having a lot of muscle spasms. Recently she has been having some headaches in the afternoon. She has numbness/tingling in her hands. Medications: Acidophilus 1 Tablet Oral daily, Crestor 1 Tablet (of 10 mg) Oral daily, Daily Vitamin 1 Tablet Oral daily, Fish Oil 1 Capsule (of 1000 mg) Oral daily, Folic Acid 1 (1 mg) Tablet Oral daily, Garlic 1 Capsule (of 1000 mg) Oral daily, HumuLIN R 1 (100 Units/mL) Injection t.i.d. PRN, Hydrocodone-Acetaminophen 1 Tablet (of 10-325 mg) Oral q 6 hours PRN, Imdur 1 Tablet (of 30 mg) Tablet SR 24 HR Oral daily, MetFORMIN HCl 1 Tablet (of 500 mg) Oral b.i.d., Metoprolol Succinate ER 1 Tablet (of 50 mg) Tablet SR 24 HR Oral daily, Norvasc 1 Tablet (of 5 mg) Oral daily, predniSONE 1 Tablet (of 10 mg) Oral daily, Protonix 1 Tablet (of 40 mg) Tablet, enteric coated Oral daily, traZODone HCl 2 Tablet (of 50 mg) Oral daily, Zonisamide 1 Tablet (of 50 mg) Capsule Oral b.i.d. Allergies: CeleBREX and Levemir. Vital Signs: Performed on June 24, 2020 14:37 Height - 67.00 in Weight - 172 lbs (HIGH) BSA - 1.90 sq.m BMI - 26.94 Temperature - 98.9 F (HIGH) Pulse - 88 /min Respiration - 17 /min BP - 147/76 mm(hg) (HIGH) O2 Sat - 96 % Pain - 7 Physical Examination: Constitutional - She looks pretty good generally, Eyes - Sclerae nonicteric. Conjunctivae clear, ENMT - No lesions noted in the oral cavity, Hematologic/Lymphatic - No cervical, clavicular, or axillary adenopathy, Respiratory - Lungs are clear with diminished air movement bilaterally, Cardiovascular - Heart rhythm is regular. There is a II/ systolic murmur. There is no gallop or rub noted, Abdomen - Soft. Liver is not enlarged. There is no abdominal mass or ascites noted and there is no inguinal adenopathy, Extremities - No edema. She has extensive purpura, Neurologic - No focal neurologic deficits noted. Lab/Imaging: Test performed on Jun 19, 2020 08:28 Sodium 138 mmol/L TSH 0.01 uIU/mL Vitamin D (25-Hydroxy), Total 33 ng/mL Potassium 4.6 mmol/L Chloride 102 mmol/L CO2 25 mmol/L Anion Gap 15.6 BUN 18 mg/dL Creatinine 0.7 mg/dL Cr Clearance (Est) 99.08 mL/min eGFR 84.5 mL/min Glucose 99 mg/dL Osmolality - Calculated 288 mOsm/kg Calcium 9.9 mg/dL Protein, Total 6.1 g/dL Albumin 4.0 g/dL Globulin 2.1 g/dL Bilirubin, Total 0.5 mg/dL ALT (SGPT) 13 Units/L AST (SGOT) 17 Units/L Alkaline Phosphatase 116 IU/L ESR (Sed Rate) 62 mm/hr Haptoglobin 139.0 mg/dL Retic Count % 4.5 % WBC 18.7 10^3/uL RBC 4.14 10^6/uL HGB 13.9 g/dL HCT 420 % MCV 101.4 fl MCH 33.6 pg MCHC 33.1 g/dL RDW 15.3 % Platelet Count 565 10^3/uL MPV 10.1 fl Neutrophils 12.55 10^3/uL Lymphocytes 4.5 10^3/uL Monocytes 1.4 10^3/uL Eosinophils 0.1 10^3/uL Basophils 0.1 10^3/uL Neutrophil % 67.2 % Lymphocyte % 23.8 % Monocyte % 7.3 % Eosinophil % 0.3 % Basophils % 0.3 % NRBC 0.0 /100 WBC NRBC % 0.2 % Problem List: 1. Autoimmune hemolytic anemia due to a warm reacting IgG autoantibody. 2. She has pre-existing rheumatoid arthritis. 3. She has multinodular goiter with hyperthyroidism. 4. Hypertension. 5. Hyperlipidemia. 6. Type II diabetes with peripheral neuropathy. 7. GERD. 8. COPD. 9. Degenerative disease of the spine. 10. She has a history of prior stroke. 11. She underwent left nephrectomy for stage I renal cell carcinoma in 2008. 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 She initially had a good response to steroid therapy. As she was felt to be a poor candidate for long-term steroid therapy and because of her underlying rheumatoid arthritis, she was then given a 4-week course of treatment with rituximab, which she completed on 05/29/2018. She tolerated it well. She had felt better following completion of the rituximab infusions, and her hemoglobin had initially remained stable at 12 g. However, her laboratory studies had shown evidence for ongoing hemolysis. During follow-up, she had increasing intolerance for the prednisone, and she became overtly anemic again with the prednisone dosage tapered to 5 mg daily. She then underwent laparoscopic splenectomy in the early part of December 2018. She had no complications with the procedure. During subsequent follow-up there was expected increases in her white blood cell count and platelet count. Her hemoglobin/hematocrit levels, though, continued to decline. As of 01/17/2019 her hemoglobin had dropped to 7.8 g, and her studies were consistent with hemolysis. She was transfused 2 U PRBC and she restarted prednisone at 10 mg twice a day. She has had a good response with her hemoglobin stabilizing at 11 g on 10 mg of prednisone daily. She was worsening of her anemia with attempts to taper the dosage below 10 mg daily, and she was given a second course of treatment with 4 weekly infusions of rituximab, which she completed on 06/28/2019. She tolerated it well. During follow-up her hemoglobin has remained adequate with the prednisone continued at 10 mg daily. She has continued to complain of fatigue and she also has extensive steroid related purpura. Her overall clinical status, though, appears stable. At this point I will again have her try tapering the prednisone dosage to 10 mg alternating with 5 mg daily. Her blood count will be monitored monthly. I will see her again in 6 months, or sooner as needed. Signed By: Shawn Carrero M.D. <<Signature on File>>
== END 2020-06-24 14:11 | disposition home or self-care (01) ==
LOC: ONCMED 14:12
PROVIDERS: PCP Nurse Practitioner; Visit Provider Internal Medicine Medical Oncology
DX: D59.10 Autoimmune hemolytic anemia, unspecified (principal); M06.9 Rheumatoid arthritis, unspecified; E04.2 Nontoxic multinodular goiter; E05.00 Thyrotoxicosis with diffuse goiter without thyrotoxic crisis or storm; I10 Essential (primary) hypertension; E78.5 Hyperlipidemia, unspecified; E11.42 Type 2 diabetes mellitus with diabetic polyneuropathy; K21.9 Gastro-esophageal reflux disease without esophagitis; J44.9 Chronic obstructive pulmonary disease, unspecified; M47.9 Spondylosis, unspecified; Z86.73 Personal history of transient ischemic attack (TIA), and cerebral infarction without residual deficits; Z79.899 Other long term (current) drug therapy
CPT/HCPCS: 99214

== ENCOUNTER → 2020-08-08 09:07 | Outpatient (BNVA) | payer MEDICARE, MEDICAID, SELFPAY | PROVIDERS: PCP Nurse Practitioner; Visit Provider Nurse Practitioner | DX: D89.9 Disorder involving the immune mechanism, unspecified (principal); E05.90 Thyrotoxicosis, unspecified without thyrotoxic crisis or storm; J44.9 Chronic obstructive pulmonary disease, unspecified | CPT/HCPCS: 80053; 83735; 85025; 85651 ==

== ENCOUNTER → 2020-10-02 08:03 | Outpatient (BNVA) | payer MEDICARE, MEDICAID, SELFPAY | PROVIDERS: PCP Nurse Practitioner; Visit Provider Internal Medicine Medical Oncology | DX: D59.19 Other autoimmune hemolytic anemia (principal); E05.90 Thyrotoxicosis, unspecified without thyrotoxic crisis or storm; E55.9 Vitamin D deficiency, unspecified; I10 Essential (primary) hypertension; E11.9 Type 2 diabetes mellitus without complications | CPT/HCPCS: 80053; 80061; 82306; 83036; 84443; 85025 ==

== ENCOUNTER → 2020-12-26 08:13 | Outpatient (BNVA) | payer MEDICARE, MEDICAID, SELFPAY | PROVIDERS: PCP Nurse Practitioner; Visit Provider Nurse Practitioner | DX: E11.9 Type 2 diabetes mellitus without complications (principal); E05.90 Thyrotoxicosis, unspecified without thyrotoxic crisis or storm | CPT/HCPCS: 80053; 81000; 84443 ==

== ENCOUNTER 2021-01-07 12:15 | Outpatient (CLI) | payer MEDICARE, MEDICAID, SELFPAY ==
[2021-01-07 13:23] LABS: Basophils % 0.3 %; Eosinophils # 0.1 10^3/uL (0.0-0.8); Eosinophils % 0.6 %; Hematocrit 35.6 % (37.0-47.0); Hemoglobin 12.1 g/dL (11.5-15.3); Lymphocytes # 6.2 10^3/uL (0.8-4.8); Lymphocytes % 39.4 %; Mean Corpuscular Hemoglobin 34.9 pg (28.0-34.0); Mean Corpuscular Volume 102.6 fl (81-99); Monocytes # 1.5 10^3/uL (0.2-0.9); Monocytes % 9.7 %; Neutrophils # 7.81 10^3/uL (1.8-7.7); Neutrophils % 49.4 %; Nucleated Red Blood Cells % 0.1 %; Platelet Count 434 10^3/cmm (130-400); Red Blood Count 3.47 10^6/uL (4.1-5.3); Red Cell Distribution Width 15.4 % (12.1-15.1); Reticulocyte % 5.2 % (0.5-2.0); White Blood Count 15.8 10^3/uL (4.0-10.0)
[2021-01-07 13:39] LABS: Alanine Aminotransferase 10 U/L (0-33); Albumin Level 3.9 g/dL (3.5-5.2); Alkaline Phosphatase 103 IU/L (35-105); Anion Gap 15.4 (5-19); Aspartate Amino Transferase 16 U/L (0-32); Blood Urea Nitrogen 11 mg/dL (8-23); Calcium 8.9 mg/dL (8.5-10.5); Carbon Dioxide 24 mmol/L (22-29); Chloride 103 mmol/L (98-107); Globulin 2.6 g/dL (1.3-4.6); Glomerular Filtration Rate 84.2 mL/min (90-130); Glucose 74 mg/dL (65-115); Lactate Dehydrogenase 220 U/L (135-214); Osmolality Calculated 286 mOsm/kg (285-295); Potassium 3.4 mmol/L (3.5-5.1); Sodium 139 mmol/L (136-145); Total Protein 6.5 g/dL (6.6-8.7)
[2021-01-09 14:03] LABS: Erythrocyte Sedimentation Rate 29 mm/hr (0-15)
--- NOTE | 2021-01-10 16:43 | ONC FU_ITS ---
Dr. Carrero Patient Follow-Up Note Patient: Miya Narvaez Unit #: [id number]: 1955 Dicatated By: Shawn Carrero M.D.Date of Visit:Jan 07, 2021 Onc Med Follow-up/Prog Note Chief Complaint: Autoimmune hemolytic anemia. 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 She has longstanding rheumatoid arthritis. On 02/13/2018 she presented to the emergency room with severe weakness. She was found to be significantly anemic with CBC showing her hemoglobin low at 7.1 g with hematocrit 20.4%. The red cell indices were macrocytic with MCV 112 and MCH 39. The white blood cell count was elevated at 20,500 and the platelet count was mildly elevated at 411,000. The differential showed 75% neutrophils, 16% lymphocytes, and 7% monocytes. The uncorrected reticulocyte count was 20.6%. Sedimentation rate was greater than 120 mm/hour. Chem profile showed significantly low sodium at 113 mmol/L. The total bilirubin was mildly elevated at 4.1 mg/dL with normal alkaline phosphatase. LDH was elevated at 321/214 U/L. She was transfused 2 units of PRBC. No abnormalities were reported on her type and crossmatch. Serum iron studies show slightly low transferrin saturation at 17.7%. B12 level was normal at 457 pg/mL and folate levels greater than 20.0 ng/mL. Methylmalonic acid level also was normal at 0.23 ???mol/L. Following the transfusion her hemoglobin stabilized at 9.2 g. At that point her sodium level was back up to 130 mmol/L, and she was discharged home. During subsequent follow-up, stool Hemoccult was negative ???3. Repeat CBC on 03/08/2018 showed hemoglobin up to 12.3 g with white blood cell count 8300 and platelet count 260,000. I had seen her initially on 03/28/2018. At that point her hemoglobin had dropped back down to 8.2 g with hematocrit 24%. The red cell indices were macrocytic with MCV 118 and MCH 40.1. The white blood cell count was 16,100 and the platelet count was 334,000. The uncorrected reticulocyte count was 22%. LDH was elevated 388/214 U/L. The total bilirubin was elevated at 3.4 mg/dL with direct bilirubin 0.4 mg/dL. Haptoglobin was low at 10 mg/dL. Sedimentation rate was elevated at 117 mm/h, and the RA titer was high at 599.0 IU/mL. The SELENA was positive for warm reacting IgG auto antibody. She then began steroid therapy with prednisone 40 mg twice a day. Her follow-up CBC on 04/04/2017 showed hemoglobin stable at 8.4 g with white blood cell count 15,700 and platelet count 385,000. The reticulocyte count was still significantly elevated at 19.6% and the haptoglobin was still low at 10 mg/dL. LDH level at that point was up to 461 U/L. She continued prednisone 40 mg twice a day. Her blood sugars had become significantly elevated on the prednisone, as expected, and she was started on Levemir 30 U twice a day along with regular insulin per sliding scale. As of 04/17/2018 her hemoglobin was up to 12.0 g and her prednisone dosage was decreased to 20 mg bid. At her followup visit on 04/26/2017 her hemoglobin was normal at 13.8 g. Her prednisone was decreased to 20 mg daily. As she was felt to be a poor candidate for long-term steroid therapy due to her diabetes and because of her underlying rheumatoid arthritis, she was given a 4-week course of treatment with rituximab from 05/09/2018 through 05/29/2018. She tolerated it very well. During subsequent follow-up, her hemoglobin remained adequate, though her laboratory studies did show evidence for ongoing hemolysis. However, during that time she also had increasing intolerance for the prednisone, and she insisted on tapering down the dosage. During subsequent follow-up, there was gradual decline in her hemoglobin/hematocrit levels, and became quite evident that her hemolytic anemia was not going to be controlled adequately with prednisone. I then made arrangements for laparoscopic splenectomy in [place]. She did receive the appropriate vaccinations. The laparoscopic splenectomy was performed in the early part of December 2018. She had no complications with the procedure. During her subsequent follow-up, she had the expected increases in her white blood cell count and platelet count. There was no significant improvement, though, in her hemoglobin/hematocrit levels. As of 01/16/2019 the hemoglobin was stable at 8.3 g. She reported having significant fatigue and shortness of breath, and she also reported having some chest pain. Her repeat CBC with the typenex showed further decline in the hemoglobin to 7.8 g. She was then transfused 2 units PRBC and she restarted steroid therapy with prednisone, initially at 10 mg bid. She did have a good response to prednisone, and it was able to be tapered fairly quickly. Her hemoglobin stabilized at 11 g on prednisone at 10 mg daily. As of her visit on 04/03/2019 her hemoglobin was stable at 11.3 g, and at that point I had her try alternating 10 and 5 mg daily. However, as of her follow-up visit on 05/07/2019 her hemoglobin had dropped significantly, to 9.7 g. She was noticeably symptomatic with it. Her prednisone was increased to 20 mg daily. She again did show response to the higher dose steroid. However, as it had become clear that she was not going to be able to tolerate long-term higher dose steroid therapy, I opted to retreat her with a 4-week course of rituximab. She began her week 1 treatment on 06/07/2019. She tolerated it without adverse effects. She continued with week 2 rituximab on 06/14/2019, with week 3 on 06/21/2019, and with week 4 on 06/28/2019. She tolerated it well. She then continued her prednisone at 10 mg daily. Her other medical illnesses include hypertension, hyperlipidemia, type II diabetes with peripheral neuropathy, GERD, COPD, degenerative disease of the spine, and rheumatoid arthritis. She has a history of multinodular goiter and she has had evidence of hyperthyroidism. She has a history of having undergone left nephrectomy for stage I renal cell carcinoma in 2008. She has a history of smoking for 46 years, previously up to 2 1/2 packs of cigarettes daily. Following her hospitalization in January 2018 she had cut down to 1 pack per day. INTERIM HISTORY: As of her follow-up visit on 06/24/2020 her hemoglobin her hemoglobin was up to 13 g. We discussed the possibility of tapering her prednisone again, but she opted to continue at 10 mg daily. As of 10/02/2020 her hemoglobin remained adequate at 11.9 g. She is seen for a follow-up visit. She continues to complain that she does not have energy, though some days she does feel pretty good. She is able to do light work. ECOG score is 1. She also complains that nothing tastes good, but she has gained weight. She does not have fever or night sweats. Her other main complaint is that her arthritis has been giving her a lot of trouble. She indicates that it did get better for a while after her last course of rituximab. She has some shortness of breath, but she says her breathing is not bad. She always has cough. She does not complain of chest pain. She does have some acid reflux. Bowel function has been fairly good. She has frequent urination. She does not complain of headache. She does tend to have lightheadedness with changes in her blood sugar. She has no numbness/paresthesia or other focal neurologic symptoms. Medications: Acidophilus 1 Tablet Oral daily, Crestor 1 Tablet (of 10 mg) Oral daily, Daily Vitamin 1 Tablet Oral daily, Fish Oil 1 Capsule (of 1000 mg) Oral daily, Folic Acid 1 (1 mg) Tablet Oral daily, Garlic 1 Capsule (of 1000 mg) Oral daily, HumuLIN R 1 (100 Units/mL) Injection t.i.d. PRN, Hydrocodone-Acetaminophen 1 Tablet (of 10-325 mg) Oral q 6 hours PRN, Imdur 1 Tablet (of 30 mg) Tablet SR 24 HR Oral daily, MetFORMIN HCl 1 Tablet (of 500 mg) Oral b.i.d., Metoprolol Succinate ER 1 Tablet (of 50 mg) Tablet SR 24 HR Oral daily, Norvasc 1 Tablet (of 5 mg) Oral daily, predniSONE 1 Tablet (of 10 mg) Oral daily, Protonix 1 Tablet (of 40 mg) Tablet, enteric coated Oral daily, traZODone HCl 2 Tablet (of 50 mg) Oral daily, Zonisamide 1 Tablet (of 50 mg) Capsule Oral b.i.d. Allergies: CeleBREX and Levemir. Vital Signs: Performed on Jan 07, 2021 14:55 Height - 67.00 in Weight - 180 lbs (HIGH) BSA - 1.93 sq.m BMI - 28.19 Temperature - 98.6 F Pulse - 53 /min (LOW) Respiration - 18 /min BP - 153/73 mm(hg) (HIGH) O2 Sat - 97 % Pain - 5 Fatigue - 8 Physical Examination: Constitutional - She looks pretty good generally, Eyes - Sclerae nonicteric. Conjunctivae clear, ENMT - No lesions noted in the oral cavity, Hematologic/Lymphatic - No cervical, clavicular, or axillary adenopathy, Respiratory - Lungs are clear with diminished air movement bilaterally, Cardiovascular - Heart rhythm is regular. There is a II/ systolic murmur. There is no gallop or rub noted, Abdomen - Soft. Liver is not enlarged. There is no abdominal mass or ascites noted and there is no inguinal adenopathy, Extremities - No edema. She has extensive purpura, Neurologic - No focal neurologic deficits noted. Lab/Imaging: Test performed on Jan 07, 2021 12:36 LDH (Total) 220 U/L Sodium 139 mmol/L Potassium 3.4 mmol/L Chloride 103 mmol/L CO2 24 mmol/L Anion Gap 15.4 BUN 11 mg/dL Creatinine 0.7 mg/dL Cr Clearance (Est) 104.65 mL/min eGFR 84.2 mL/min Glucose 74 mg/dL Osmolality - Calculated 286 mOsm/kg Calcium 8.9 mg/dL Protein, Total 6.5 g/dL Albumin 3.9 g/dL Globulin 2.6 g/dL Bilirubin, Total 1.0 mg/dL ALT (SGPT) 10 U/L AST (SGOT) 16 U/L Alkaline Phosphatase 103 IU/L ESR (Sed Rate) 29 mm/hr Retic Count % 5.2 % WBC 15.8 10 3/uL RBC 3.47 10 6/uL HGB 12.1 g/dL HCT 35.6 % MCV 102.6 fl MCH 34.9 pg MCHC 34.0 g/dL RDW 15.4 % Platelet Count 434 10 3/cmm MPV 10.0 fL Neutrophils 7.81 10 3/uL Lymphocytes 6.2 10 3/uL Monocytes 1.5 10 3/uL Eosinophils 0.1 10 3/uL Basophils 0.0 10 3/uL Neutrophil % 49.4 % Lymphocyte % 39.4 % Monocyte % 9.7 % Eosinophil % 0.6 % Basophils % 0.3 % NRBC % 0.1 % Problem List: 1. Autoimmune hemolytic anemia due to a warm reacting IgG autoantibody. 2. She has pre-existing rheumatoid arthritis. 3. She has multinodular goiter with hyperthyroidism. 4. Hypertension. 5. Hyperlipidemia. 6. Type II diabetes with peripheral neuropathy. 7. GERD. 8. COPD. 9. Degenerative disease of the spine. 10. She has a history of prior stroke. 11. She underwent left nephrectomy for stage I renal cell carcinoma in 2008. 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 She initially had a good response to steroid therapy. As she was felt to be a poor candidate for long-term steroid therapy and because of her underlying rheumatoid arthritis, she was then given a 4-week course of treatment with rituximab, which she completed on 05/29/2018. She tolerated it well. She had felt better following completion of the rituximab infusions, and her hemoglobin had initially remained stable at 12 g. However, her laboratory studies had shown evidence for ongoing hemolysis. During follow-up, she had increasing intolerance for the prednisone, and she became overtly anemic again with the prednisone dosage tapered to 5 mg daily. She then underwent laparoscopic splenectomy in the early part of December 2018. She had no complications with the procedure. During subsequent follow-up there was expected increases in her white blood cell count and platelet count. Her hemoglobin/hematocrit levels, though, continued to decline. As of 01/17/2019 her hemoglobin had dropped to 7.8 g, and her studies were consistent with hemolysis. She was transfused 2 U PRBC and she restarted prednisone at 10 mg twice a day. She has had a good response with her hemoglobin stabilizing at 11 g on 10 mg of prednisone daily. She had worsening of her anemia with attempts to taper the prednisone dosage below 10 mg daily, and she was given a second course of treatment with 4 weekly infusions of rituximab, which she completed on 06/28/2019. She tolerated it well. Her hemoglobin then remained adequate with the prednisone continued at 10 mg daily. Thus far during follow-up her hemoglobin has remained adequate, currently at 12.1 g. She continues to complain that she has no energy, and she has significant purpura associated with the steroid therapy. Since her last visit, she has had significant worsening of her rheumatoid arthritis pain. As she noted improvement in her RA following her course of rituximab in 2019, she is given the option to have further immunosuppressive therapy with Truxima per the standard RA protocol, but that will be subject to verification of insurance coverage. She will, in any case, continue the prednisone at 10 mg daily, and she will be scheduled for 6-month interval follow-up. Signed By: Shawn Carrero M.D. <<Signature on File>>
== END 2021-01-07 12:16 | disposition home or self-care (01) ==
LOC: ONCMED 12:16
PROVIDERS: PCP Nurse Practitioner; Visit Provider Internal Medicine Medical Oncology
DX: D59.19 Other autoimmune hemolytic anemia (principal); M06.9 Rheumatoid arthritis, unspecified; E04.2 Nontoxic multinodular goiter; E05.00 Thyrotoxicosis with diffuse goiter without thyrotoxic crisis or storm; I10 Essential (primary) hypertension; E78.5 Hyperlipidemia, unspecified; E11.42 Type 2 diabetes mellitus with diabetic polyneuropathy; K21.9 Gastro-esophageal reflux disease without esophagitis; E11.59 Type 2 diabetes mellitus with other circulatory complications; I25.10 Atherosclerotic heart disease of native coronary artery without angina pectoris; M47.9 Spondylosis, unspecified; Z86.73 Personal history of transient ischemic attack (TIA), and cerebral infarction without residual deficits; Z85.528 Personal history of other malignant neoplasm of kidney; Z90.5 Acquired absence of kidney
CPT/HCPCS: 36415; 80053; 83010; 83615; 85025; 85045; 85651; 99214

== ENCOUNTER 2021-01-20 08:49 | Outpatient (CLI) | payer MEDICARE, MEDICAID, SELFPAY ==
[2021-01-20] MEDS: sodium chloride 0.9% 500 ML 75 ML IV (09:35)
[2021-01-20] MEDS: acetaminophen 325 mg Tablet 650 MG PO (09:35)
[2021-01-20] MEDS: diphenhydrAMINE 50 mg/mL SDV 1mL 25 MG IVP (09:37)
== END 2021-01-20 08:50 | disposition home or self-care (01) ==
PROVIDERS: PCP Nurse Practitioner; Visit Provider Internal Medicine Medical Oncology
DX: Z51.12 Encounter for antineoplastic immunotherapy (principal); D59.10 Autoimmune hemolytic anemia, unspecified
CPT/HCPCS: 96375; 96413; 96415; J1200; J2930; J7040; Q5115

== ENCOUNTER 2021-02-03 08:52 | Outpatient (CLI) | payer MEDICARE, MEDICAID, SELFPAY ==
[2021-02-03] MEDS: sodium chloride 0.9% 500 ML 100 ML IV (09:25)
[2021-02-03] MEDS: acetaminophen 325 mg Tablet 650 MG PO (09:25)
[2021-02-03] MEDS: diphenhydrAMINE 50 mg/mL SDV 1mL 25 MG IVP (09:30)
== END 2021-02-03 08:53 | disposition home or self-care (01) ==
LOC: ONCMED 08:54
PROVIDERS: PCP Nurse Practitioner; Visit Provider Nurse Practitioner
DX: Z51.12 Encounter for antineoplastic immunotherapy (principal); D59.10 Autoimmune hemolytic anemia, unspecified; J44.9 Chronic obstructive pulmonary disease, unspecified; E11.9 Type 2 diabetes mellitus without complications; I10 Essential (primary) hypertension; E55.9 Vitamin D deficiency, unspecified; E05.90 Thyrotoxicosis, unspecified without thyrotoxic crisis or storm; Z79.899 Other long term (current) drug therapy
CPT/HCPCS: 96375; 96413; 96415; J1200; J2930; J7040; Q5115

== ENCOUNTER → 2021-04-13 08:19 | Outpatient (BNVA) | payer MEDICARE, MEDICAID, SELFPAY | PROVIDERS: PCP Nurse Practitioner; Visit Provider Internal Medicine Medical Oncology | DX: E05.90 Thyrotoxicosis, unspecified without thyrotoxic crisis or storm (principal); I10 Essential (primary) hypertension; E11.9 Type 2 diabetes mellitus without complications | CPT/HCPCS: 80053; 80061; 83010; 83615; 84443; 85025; 85045 ==

== ENCOUNTER 2021-04-24 10:13 | Outpatient (CLI) | payer MEDICARE, MEDICAID, SELFPAY | END 2021-04-24 10:14 | disposition home or self-care (01) | LOC: ONCMED 04-29 09:27 | PROVIDERS: PCP Nurse Practitioner; Visit Provider Internal Medicine Medical Oncology | DX: D59.11 Warm autoimmune hemolytic anemia (principal); J44.9 Chronic obstructive pulmonary disease, unspecified; K21.9 Gastro-esophageal reflux disease without esophagitis; E78.5 Hyperlipidemia, unspecified; I10 Essential (primary) hypertension; E05.90 Thyrotoxicosis, unspecified without thyrotoxic crisis or storm; E11.9 Type 2 diabetes mellitus without complications; Z79.899 Other long term (current) drug therapy; Z86.73 Personal history of transient ischemic attack (TIA), and cerebral infarction without residual deficits; Z85.528 Personal history of other malignant neoplasm of kidney | CPT/HCPCS: 99214 ==

== ENCOUNTER 2021-08-11 11:17 | Oncology outpatient (recurring) (ONCR) | payer MEDICARE, MEDICAID, SELFPAY ==
[2021-07-29 10:13] VITALS: BMI 27.2
[2021-07-29 10:59] LABS: Alanine Aminotransferase 12 U/L (0-33); Alkaline Phosphatase 117 IU/L (35-105); Anion Gap 14.3 (5-19); Aspartate Amino Transferase 20 U/L (0-32); Basophils % 0.3 %; Blood Urea Nitrogen 9 mg/dL (8-23); Calcium 9.2 mg/dL (8.5-10.5); Carbon Dioxide 20 mmol/L (22-29); Chloride 106 mmol/L (98-107); Eosinophils # 0.1 10^3/uL (0.0-0.8); Eosinophils % 0.7 %; Globulin 2.8 g/dL (1.3-4.6); Glomerular Filtration Rate 100.3 mL/min (90-130); Glucose 138 mg/dL (65-115); Hematocrit 37.5 % (37.0-47.0); Lactate Dehydrogenase 216 U/L (135-214); Lymphocytes # 3.8 10^3/uL (0.8-4.8); Lymphocytes % 31.6 %; Mean Corpuscular HGB Conc 34.7 g/dL (30.0-36.0); Mean Corpuscular Hemoglobin 33.3 pg (28.0-34.0); Mean Corpuscular Volume 96.2 fl (81-99); Mean Platelet Volume 10.1 fL (7.4-10.4); Monocytes # 1.9 10^3/uL (0.2-0.9); Monocytes % 15.8 %; Neutrophils # 6.18 10^3/uL (1.8-7.7); Neutrophils % 51.1 %; Nucleated Red Blood Cells % 0.2 %; Osmolality Calculated 285 mOsm/kg (285-295); Platelet Count 410 10^3/cmm (130-400); Potassium 3.3 mmol/L (3.5-5.1); Red Cell Distribution Width 15.8 % (12.1-15.1); Sodium 137 mmol/L (136-145); Thyroid Stimulating Hormone 1.46 uIU/mL (0.27-4.20); Total Bilirubin 0.9 mg/dL (0.15-1.2); Total Protein 6.8 g/dL (6.6-8.7); White Blood Count 12.1 10^3/uL (4.0-10.0)
[2021-07-29 11:05] LABS: Erythrocyte Sedimentation Rate 10 mm/hr (0-15)
[2021-07-29] MEDS: sodium chloride 0.9% 250 ML 75 ML IV (12:39)
[2021-07-29] MEDS: acetaminophen 325 mg Tablet 650 MG PO (12:46)
[2021-07-29] MEDS: diphenhydrAMINE 50 mg/mL SDV 1mL 25 MG IVP (12:48)
[2021-07-29] MEDS: rituximab-abbs 1,000 MG in sodium chloride 0.9% 500 ML 60 MG IV (13:03)
[2021-07-29 13:09] VITALS: BP 155/71; PULSE 73; RESP 16; TEMP 36.3
[2021-07-29 13:39] VITALS: BP 133/66; PULSE 70; RESP 16; TEMP 36.4
[2021-07-29 14:09] VITALS: BP 145/65; PULSE 74; RESP 16; TEMP 36.1; O2SAT 98
[2021-07-29 16:36] VITALS: BP 176/81; PULSE 78; RESP 18; TEMP 36.3; O2SAT 98
[2021-08-11 09:18] VITALS: BMI 27.1
[2021-08-11] MEDS: sodium chloride 0.9% 250 ML 75 ML IV (09:56)
[2021-08-11 10:00] VITALS: BMI 27.1
[2021-08-11] MEDS: acetaminophen 325 mg Tablet 650 MG PO (10:01)
[2021-08-11] MEDS: diphenhydrAMINE 50 mg/mL SDV 1mL 25 MG IVP (10:02)
[2021-08-11 10:45] VITALS: BP 129/57; PULSE 75; RESP 18; TEMP 36.2; O2SAT 92
[2021-08-11] MEDS: rituximab-abbs 1,000 MG in sodium chloride 0.9% 500 ML 60 MG IV (10:45)
[2021-08-11 11:15] VITALS: BP 122/64; PULSE 77; RESP 18; TEMP 36.2; O2SAT 93
[2021-08-11 11:50] VITALS: BP 144/70; PULSE 69; RESP 18; TEMP 36.7; O2SAT 93
[2021-08-11 12:23] VITALS: BP 147/74; PULSE 66; RESP 18; TEMP 36.1; O2SAT 96
[2021-08-11 14:25] VITALS: BP 154/66; PULSE 72; RESP 18; TEMP 36.6; O2SAT 96
== END 2021-08-20 23:59 | disposition home or self-care (01) ==
PROVIDERS: Internal Medicine Medical Oncology; PCP Nurse Practitioner; Visit Provider Nurse Practitioner Family
DX: M05.79 Rheumatoid arthritis with rheumatoid factor of multiple sites without organ or systems involvement (principal)
CPT/HCPCS: 80053; 83010; 83615; 84443; 85025; 85651; 96365; 96366; 96375; 96413; 96415; 99214; J1200; J2920; J7040; J7050; Q5115

== ENCOUNTER → 2021-11-16 08:05 | Outpatient (BNVA) | payer MEDICARE, MEDICAID, SELFPAY | PROVIDERS: PCP Nurse Practitioner; Visit Provider Internal Medicine Medical Oncology | DX: M05.79 Rheumatoid arthritis with rheumatoid factor of multiple sites without organ or systems involvement (principal) | CPT/HCPCS: 80053; 85025 ==

== ENCOUNTER 2021-11-17 14:05 | Oncology outpatient (recurring) (ONCR) | payer MEDICARE, MEDICAID, SELFPAY | END 2021-11-20 23:59 | disposition home or self-care (01) | PROVIDERS: PCP Nurse Practitioner; Visit Provider Nurse Practitioner Family | DX: D59.11 Warm autoimmune hemolytic anemia; M05.79 Rheumatoid arthritis with rheumatoid factor of multiple sites without organ or systems involvement; F17.210 Nicotine dependence, cigarettes, uncomplicated; Z79.52 Long term (current) use of systemic steroids; Z79.899 Other long term (current) drug therapy | CPT/HCPCS: 99214 ==

== ENCOUNTER 2021-12-08 12:16 | Outpatient (CLI) | payer MEDICARE, MEDICAID, SELFPAY ==
--- NOTE | 2021-12-08 13:00 | XR_ITS ---
WS: [id number] SCREENING DEXA SCAN [facility] CLINICAL INFORMATION: Surveillance COMPARISON: None. FINDINGS: The L1-L4 bone mineral density measures 1.220 g/cm2. This corresponds to a T score score of 0.3 and Z score of 1.4. Left femoral neck bone mineral density measures 0.950 g/cm2. This corresponds to a T score of -0.5 an d Z score of 0.4. Right femoral neck bone mineral density measures 0.940 g/cm2. This corresponds to a T score -0.5of an d Z score of 0.3. Mean femoral neck bone mineral density measures 0.945 g/cm2. This corresponds to a T score of -0.5 an d Z score of 0.3. XR/XR DEXA axial skeleton* [id number] IMPRESSION: Normal bone mineralization. Patient's FRAX calculated 10 year probability for major osteoporotic fracture i s 32.9 % and osteoporotic hip fracture is 9.7%.
== END 2021-12-08 12:17 | disposition home or self-care (01) ==
LOC: RAD 12:17
PROVIDERS: PCP Nurse Practitioner; Visit Provider Internal Medicine Medical Oncology
DX: Z79.899 Other long term (current) drug therapy (principal); Z79.52 Long term (current) use of systemic steroids
CPT/HCPCS: 77080

== ENCOUNTER → 2022-01-19 08:46 | Outpatient (BNVA) | payer MEDICARE, MEDICAID, SELFPAY | PROVIDERS: PCP Nurse Practitioner; Visit Provider Nurse Practitioner | DX: E11.40 Type 2 diabetes mellitus with diabetic neuropathy, unspecified (principal); E05.90 Thyrotoxicosis, unspecified without thyrotoxic crisis or storm | CPT/HCPCS: 80053; 80061; 83036; 84443 ==

== ENCOUNTER 2022-03-12 11:58 | Emergency (ER) | payer MEDICARE, MEDICAID, SELFPAY ==
[2022-03-12 12:03] VITALS: BP 218/86; PULSE 90; RESP 18; TEMP 36.7; O2SAT 95
--- NOTE | 2022-03-12 12:10 | W.ED.GENADLT ---
HPI - General Adult General: Chief complaint: General Medical Stated complaint: High bloodpressure Time Seen by Provider: 03/12/22 12:10 History of Present Illness: Ms. Narvaez is a 66-year-old lady with history of hypertension, hyperlipidemia, thyroid disorder, COPD, RA, diabetes presenting to the emergency department due to high blood pressure. She reports a history of high blood pressure and has been dealing with increasing blood pressure over the number of months for unclear reason. She has been compliant with her medication regimen and follows with PCP. She has had increase of her medications and despite this has noticed increased blood pressure. With her high blood pressure she occasionally notices headaches and chest discomfort as well as generalized malaise. Intensity symptoms is mild to moderate when present and intermittent in consistency. Denies any increased stress, caffeine intake, [id number] medications, or other known provoking factors. No other specific changes in health, exacerbating, or alleviating factors identified. Onset (ago): week(s) Location: head Severity: mild and moderate Quality: aching Relieving factors: none Exacerbating factors: none Associated symptoms: Reports headache(s) and malaise Review of Systems General: Reports: 10 or more systems reviewed and unremarkable except in HPI and below Const: Reports: malaise Neuro: Reports: headache(s) PFS ED PFSH: Medical History Autoimmune hemolytic anemia CKD (chronic kidney disease) stage 2, GFR 60-89 ml/min COPD, moderate Degenerative joint disease of spine Diverticulosis Dyslipidemia Essential (primary) hypertension GERD (gastroesophageal reflux disease) High risk medication use Hyperthyroidism Insomnia Latent tuberculosis by blood test Neuropathy, diabetic Osteoarthritis Peripheral arterial disease Personal history of nicotine dependence Seropositive rheumatoid arthritis of multiple joints Type 2 diabetes mellitus Vitamin D deficiency Surgical History H/O total hysterectomy without BSO History of colonoscopy 2018 [facility] [place] History of left radical nephrectomy stage I renal cell carcinoma 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, 2018 at [place], [place] History of tubal ligation Family History Father Cancer Diabetes Hyperlipidemia Hypertension Grandmother Diabetes Hyperlipidemia Brother Thyroid disease Denies family history of Rheumatoid arthritis Lupus Social History Smoking and tobacco status: current every day smoker Smoking risk assessment/counseling performed?: No Alcohol intake: unknown Desire information about alcohol rehabilitation?: No Counseling given: No Desire information about substance/drug rehabilitation?: No Counseling given: No Adopted: No Caregiver/support person: No Lives independently: Yes Household members: other Housing: House Marital status: Single Number of children: 4 service: No Current occupational status: unemployed History of recent travel: No Current gender identity: Female Physical Exam Const: COMMON NORMALS: alert GENERAL APPEARANCE: cooperative and well developed HENMT: COMMON NORMALS: normocephalic and atraumatic HEAD & SCALP: normocephalic and atraumatic Eye: COMMON NORMALS: conjunctivae normal CONJUNCTIVA: Yes conjunctivae normal SCLERA: sclerae normal Neck/C-Spine: COMMON NORMALS: supple GENERAL: Yes trachea midline Resp: COMMON NORMALS: clear to auscultation bilaterally EFFORT & INSPECTION: Yes able to speak in complete sentences AUSCULTATION: clear to auscultation bilaterally Cardio: COMMON NORMALS: regular rate and regular rhythm RATE: regular rate RHYTHM: regular rhythm GI: COMMON NORMALS: Soft to palpation PALPATION: Yes Soft to palpation and No Tenderness to palpation present (GI) Extremity: GENERAL: Yes normal exam except as noted and No edema Neuro: COMMON NORMALS: moves all extremities SENSORIUM/ORIENTATION: Yes alert and No Orientation impaired Psych: COMMON NORMALS: mental status grossly normal and Normal thought process present THOUGHT PROCESS: Normal thought process present Course Vital Signs: Vital signs: Vital Signs Temperature 98.1 F 03/12/22 12:03 Pulse Rate 81 03/12/22 14:59 Respiratory Rate 14 03/12/22 14:59 Blood Pressure 167/85 03/12/22 14:59 Pulse Oximetry 98 03/12/22 14:59 Oxygen Delivery Me thod 03/12/22 14:59 MDM - General Adult Medical Decision Making 66-year-old lady presenting due to high blood pressure. No evidence of significant endorgan dysfunction on clinical exam. Patient is nontoxic in appearance EKG notable for sinus rhythm with left axis deviation and right bundle branch block, no STEMI. Similar repeat during ED course Labs with leukocytosis which appears chronic for the patient, normal hemoglobin and platelet count. No significant metabolic abnormalities or evidence of end organ dysfunction. Negative range 2-hour delta troponin. Possible UTI however in the absence of symptoms this is more likely asymptomatic bacteriuria. Chest x-ray with no lobar consolidation, mild increased pulmonary vascularity, no pneumothorax. Patient treated with potassium replenishment and medications with improvement in blood pressure. Plan to adjust patient's blood pressure medication in the outpatient setting and refer for strict follow-up. Most likely etiology of patient's symptoms is hypertension uncontrolled with underlying hypertension. The results of ED evaluation were discussed with the patient including prescriptions and/or symptomatic cares (if applicable) including appropriate and responsible use, followup plan, and return precautions. The patient verbalized understanding and felt safe for discharge. Medical Records I reviewed the patient's medical records. Lab Data I reviewed the patient's lab results. 03/12/22 12:47 03/12/22 12:47 Radiology Impressions Chest X-Ray 03/12/22 12:24 IMPRESSION: Increased pulmonary markings. Likely related to mild fluid overload or pneumonitis. Laboratory Results WBC 16.7 10^3/uL (4.0-10.0) H 03/12/22 12:47 RBC 4.40 10^6/uL (4.1-5.3) 03/12/22 12:47 Hgb 14.4 g/dL (11.5-15.3) 03/12/22 12:47 Hct 42.3 % (37.0-47.0) 03/12/22 12:47 MCV 96.1 fl (81-99) 03/12/22 12:47 MCH 32.7 pg (28.0-34.0) 03/12/22 12:47 MCHC 34.0 g/dL (30.0-36.0) 03/12/22 12:47 RDW 14.4 % (12.1-15.1) 03/12/22 12:47 Plt Count 355 10^3/cmm (130-400) 03/12/22 12:47 MPV 9.6 fL (7.4-10.4) 03/12/22 12:47 Neut % (Auto) 57.0 % 03/12/22 12:47 Lymph % (Auto) 33.8 % 03/12/22 12:47 Andrews % (Auto) 7.8 % 03/12/22 12:47 Eos % (Auto) 0.8 % 03/12/22 12:47 Baso % (Auto) 0.2 % 03/12/22 12:47 Neut # (Auto) 9.53 10^3/uL (1.8-7.7) H 03/12/22 12:47 Lymph # (Auto) 5.6 10^3/uL (0.8-4.8) H 03/12/22 12:47 Andrews # (Auto) 1.3 10^3/uL (0.2-0.9) H 03/12/22 12:47 Eos # (Auto) 0.1 10^3/uL (0.0-0.8) 03/12/22 12:47 Baso # (Auto) 0.0 10^3/uL (0.0-0.1) 03/12/22 12:47 Nucleated RBC % (auto) 0 % 03/12/22 12:47 Nucleated RBCs # 0.0 /100WBC 03/12/22 12:47 Sodium 138 mmol/L (136-145) 03/12/22 12:47 Potassium 3.4 mmol/L (3.5-5.1) L 03/12/22 12:47 Chloride 103 mmol/L (98-107) 03/12/22 12:47 Carbon Dioxide 23 mmol/L (22-29) 03/12/22 12:47 Anion Gap 15.4 (5-19) 03/12/22 12:47 BUN 13 mg/dL (8-23) 03/12/22 12:47 Creatinine 0.8 mg/dL (0.5-0.9) 03/12/22 12:47 GFR Calculation 72.0 mL/min (90-130) L 03/12/22 12:47 Glucose 105 mg/dL (65-115) 03/12/22 12:47 Calculated Osmolality 286 mOsm/kg (285-295) 03/12/22 12:47 Calcium 9.9 mg/dL (8.5-10.5) 03/12/22 12:47 Total Bilirubin 0.7 mg/dL (0.15-1.2) 03/12/22 12:47 AST 16 U/L (0-32) 03/12/22 12:47 ALT 11 U/L (0-33) 03/12/22 12:47 Alkaline Phosphatase 110 U/L (35-105) H 03/12/22 12:47 Troponin T Baseline 9 ng/L (0-10) 03/12/22 12:47 Troponin T 120 Minute 10.25 ng/L (0-10) H 03/12/22 14:37 Delta Troponin T 1.25 ABS# (0-10) 03/12/22 14:37 NT-Pro-B Natriuret Pep 88 pg/mL (0-125) 03/12/22 12:47 Total Protein 7.2 g/dL (6.6-8.7) 03/12/22 12:47 Albumin 4.2 g/dL (3.5-5.2) 03/12/22 12:47 Globulin 3.0 g/dL (1.3-4.6) 03/12/22 12:47 TSH 2.94 uIU/mL (0.27-4.20) 03/12/22 12:47 Urine Color Yellow (Yellow) 03/12/22 15:54 Urine Appearance Cloudy (CLEAR) A 03/12/22 15:54 Urine pH 6 (5-7) 03/12/22 15:54 Ur Specific [place] 1.010 (1.005-1.030) 03/12/22 15:54 Urine Protein Neg (Negative) 03/12/22 15:54 Urine Glucose (UA) Norm (Normal) 03/12/22 15:54 Urine Ketones Negative (Negative) 03/12/22 15:54 Urine Blood 2+ (Negative) H 03/12/22 15:54 Urine Nitrate Negative (Negative) 03/12/22 15:54 Urine Bilirubin Neg (Negative) 03/12/22 15:54 Urine Urobilinogen Norm mg/dL (Negative) 03/12/22 15:54 Ur Leukocyte Esterase 2+ (Negative) H 03/12/22 15:54 Urine RBC 15-25 /hpf (0-2) H 03/12/22 15:54 Urine WBC 25-40 /hpf (0-5) H 03/12/22 15:54 Ur Squamous Epith Cells 0-4 /hpf (0-5) H 03/12/22 15:54 Amorphous Sediment Not Reportable 03/12/22 15:54 Urine Bacteria 1+ /hpf (NONE) H 03/12/22 15:54 Discharge Plan Discharge Patient Disposition: Home Clinical Impression: Hypertension Condition: Stable Prescriptions: Discontinued amlodipine [Norvasc] 5 mg tablet 5 mg PO QDAY Qty: 30 1RF valsartan [Diovan] 80 mg tablet 80 mg PO DAILY Qty: 30 1RF No Action hydrocodone-acetaminophen 10-325 mg tablet 1 tab PO Q6H PRN (Reason: Pain) (DME) OneTouch Ultra Blue Test Strip Strip See Rx Instructions .ROUTE .MEDSUPPLY Qty: 100 5RF Rx Instructions: check 2 times day (DME) insulin syringe-needle U-100 0.3 mL 31 gauge x 5/16 syringe See Rx Instructions .ROUTE .MEDSUPPLY Qty: 100 5RF Rx Instructions: As directed folic acid 1 mg tablet 1 mg PO DAILY olopatadine [Pataday Once Daily Relief] 0.2 % drops 1 drp ophthalmic (eye) DAILY PRN (Reason: itching) Qty: 2.5 2RF valsartan-hydrochlorothiazide [Diovan HCT] 320-12.5 mg tablet 1 tab PO DAILY Qty: 30 0RF amlodipine 10 mg tablet 10 mg PO .at bedtime Qty: 30 0RF methimazole 5 mg tablet 5 mg PO DAILY Qty: 30 2RF metformin 500 mg tablet extended release 24 hr 1,000 mg PO DAILY Qty: 60 2RF isosorbide mononitrate 30 mg tablet extended release 24 hr 30 mg PO QDAY Qty: 30 2RF albuterol sulfate [ProAir HFA] 90 mcg/actuation HFA aerosol inhaler 2 inh INHALATION Q6H PRN (Reason: shortness of breath or wheezing) Qty: 18 2RF metoprolol succinate 50 mg tablet extended release 24 hr 50 mg PO QDAY Qty: 30 2RF pantoprazole [Protonix] 40 mg tablet,delayed release (DR/EC) 40 mg PO DAILY Qty: 30 2RF Crestor 10 mg tablet 10 mg PO QPM Qty: 30 2RF trazodone 100 mg tablet 100 mg PO BEDTIME Qty: 30 2RF zonisamide 50 mg capsule 50 mg PO BID Qty: 60 2RF amoxicillin 500 mg capsule 500 mg PO TID prednisone 5 mg tablet 5 mg PO EVERY OTHER DAY Fish Oil 1,000 mg (120 mg-180 mg) Capsule 1 cap PO DAILY prednisone 5 mg tablet 10 mg PO EVERY OTHER DAY Humulin R Regular U-100 Insuln 100 unit/mL solution See Rx Instructions SUBCUT TID PRN (Reason: BLOOD SUGAR) Rx Instructions: 5-20 units SUBCUT three times daily; garlic 500 mg Capsule 500 mg PO DAILY [place] Women[facility] Mature 8 mg iron-400 mcg-300 mcg Tablet 1 tab PO DAILY Discharge Orders: Discharge ED (Routine); Ordered 03/12/22 Ordered By: Reno Paiz Referrals: Juan Marino, CLIENT TECHNICAL PROFESSIONAL-C [Primary Care Provider] - Discharge Diet: Usual diet Discharge Activity: Increase activity as tolerated Patient Instructions: Hypertension (ED) Activity Restrictions/Additional Instructions: Thank you for visiting the emergency department. You were seen and evaluated for high blood pressure and associated symptoms. We are pleased that you had improvement in treatment. I will adjust your medication as discussed and refer you for cardiology follow-up. Return to the emergency department for uncontrolled symptoms or anything else that you are concerned about a feel needs emergency department evaluation. Coding Level of Care Code ED Fourdrinier Operator for Giulia Fwd Exam Comprehensive
--- NOTE | 2022-03-12 12:24 | XR_ITS ---
WS: [id number] PORTABLE CHEST HISTORY: cp, htn COMPARISON: 07/27/2018 Hyperinflated lungs with changes of emphysema. Increase in the reticulations in the mid and lower magdiel g manjarrez. No dense consolidation. No pleural effusion or pneumothorax. Cardiac size: Normal. Mediastinum/Aorta: Mild atherosclerosis aorta. Osteopenia. XR/XR chest 1V portable 40630 IMPRESSION: Increased pulmonary markings. Likely related to mild fluid overload or pneumoni tis.
--- NOTE | 2022-03-12 12:24 | ECG_ITS ---
[facility] Test Date: 2022-03-12 Pat Name: Maria Dolores Narvaez Department: Room: Gender: Female Transport Coordinator: : 1955 Requested By: Reno Paiz Order Number: [id number] Tamara MD: Michel Lincoln M.D. Measurements Intervals [place] Rate: 75 P: 52 VA: 181 QRS: -29 QRSD: 137 T: 42 QT: 417 QTc: 466 Interpretive Statements SINUS RHYTHM RIGHT BUNDLE BRANCH BLOCK [120+ ms QRS DURATION, UPRIGHT V1, 40+ ms S IN I/aVL/V4/V5/V6] PROBABLE SEPTAL MYOCARDIAL INFARCTION , OF INDETERMINATE AGE [35 ms Q WAVE IN V1/V2] Compared to ECG 07/27/2018 12:01:51 Myocardial infarct finding now present Sinus tachycardia no longer present Electronically Signed On 03-12-2022 14:37:39 PSYCHOLOGIST PRIVATE PRACTICE by Michel Lincoln M.D. [id number]
[2022-03-12 13:00] LABS: Basophils % 0.2 %; Eosinophils # 0.1 10^3/uL (0.0-0.8); Eosinophils % 0.8 %; Hematocrit 42.3 % (37.0-47.0); Hemoglobin 14.4 g/dL (11.5-15.3); Lymphocytes # 5.6 10^3/uL (0.8-4.8); Lymphocytes % 33.8 %; Mean Corpuscular Hemoglobin 32.7 pg (28.0-34.0); Mean Corpuscular Volume 96.1 fl (81-99); Mean Platelet Volume 9.6 fL (7.4-10.4); Monocytes # 1.3 10^3/uL (0.2-0.9); Monocytes % 7.8 %; Neutrophils # 9.53 10^3/uL (1.8-7.7); Nucleated Red Blood Cells % 0 %; Platelet Count 355 10^3/cmm (130-400); Red Cell Distribution Width 14.4 % (12.1-15.1); White Blood Count 16.7 10^3/uL (4.0-10.0)
[2022-03-12 13:24] LABS: Troponin(5th) Baseline 9 ng/L (0-10)
[2022-03-12 13:33] LABS: Alanine Aminotransferase 11 U/L (0-33); Albumin Level 4.2 g/dL (3.5-5.2); Alkaline Phosphatase 110 U/L (35-105); Anion Gap 15.4 (5-19); Aspartate Amino Transferase 16 U/L (0-32); Blood Urea Nitrogen 13 mg/dL (8-23); Calcium 9.9 mg/dL (8.5-10.5); Carbon Dioxide 23 mmol/L (22-29); Chloride 103 mmol/L (98-107); Glucose 105 mg/dL (65-115); NT Pro B Type Natriuretic Pept 88 pg/mL (0-125); Osmolality Calculated 286 mOsm/kg (285-295); Potassium 3.4 mmol/L (3.5-5.1); Sodium 138 mmol/L (136-145); Thyroid Stimulating Hormone 2.94 uIU/mL (0.27-4.20); Total Bilirubin 0.7 mg/dL (0.15-1.2); Total Protein 7.2 g/dL (6.6-8.7)
[2022-03-12] MEDS: labetalol 5 mg/mL SDV 20mL 10 MG IVP (13:37)
[2022-03-12 14:04] VITALS: BP 161/93; PULSE 78; RESP 16; O2SAT 97
--- NOTE | 2022-03-12 14:24 | ECG_ITS ---
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 Measurements Intervals [place] Rate: 71 P: 53 [place]: 170 QRS: -23 QRSD: 144 T: 44 QT: 423 QTc: 460 Interpretive Statements SINUS RHYTHM RIGHT BUNDLE BRANCH BLOCK [120+ ms QRS DURATION, UPRIGHT V1, 40+ ms S IN I/aVL/V4/V5/V6] SEPTAL MYOCARDIAL INFARCTION , OF INDETERMINATE AGE [40+ ms Q WAVE IN V1/V2] Compared to ECG 03/12/2022 12:36:53 No significant changes Electronically Signed On 03-12-2022 14:40:29 INSPECTOR PACKER by Michel Lincoln M.D. [id number]
[2022-03-12] MEDS: potassium chloride ER 20 mEq Tablet 40 MEQ PO (14:25)
[2022-03-12 14:59] VITALS: BP 167/85; PULSE 81; RESP 14; O2SAT 98
[2022-03-12 15:10] LABS: Troponin 5 2HR 10.25 ng/L (0-10)
[2022-03-12 15:11] LABS: Troponin 5 2HR Delta 1.25 ABS# (0-10)
[2022-03-12] MEDS: amlodipine 5 mg Tablet PO (16:14)
[2022-03-12 17:04] LABS: Glucose Urine UA Norm (Normal); Ketones Urine Negative (Negative); Protein Urine Neg (Negative); Urine Appearance Cloudy (CLEAR); Urine Color Yellow (Yellow); pH Urine 6 (5-7)
[2022-03-12 17:05] LABS: Add Urine Microscopic? YES; Bilirubin Urine Neg (Negative); Blood Urine 2+ (Negative); Leukocyte Esterase Urine 2+ (Negative); Nitrate Urine Negative (Negative); Urobilinogen Urine Norm (Negative)
[2022-03-12 17:07] LABS: Bacteria Urine 1+ /hpf; RBC Urine 15-25 /hpf (0-2); Squamous Epithelial Cell Urine 0-4 /hpf (0-5); WBC Urine 25-40 /hpf (0-5)
[2022-03-12 17:08] LABS: Add Urine Culture? Yes
--- NOTE | 2022-03-15 11:10 | DCPLANNER ---
Addendum entered by Luz Cisneros 05/04/22 17:39: this appointment was rescheduled Addendum entered by Luz Cisneros 03/18/22 11:41: Patient has a follow up appointment scheduled for Saturday, April 23, 2022 at 10:[address] Javed at [facility]. Clinic will call patient with appointment information. Original Note: it risk and assurance senior manager had message to schedule a follow up appointment for patient with cardiology. it risk and assurance senior manager sent patients information to the front office staff at [facility]. Patients information will be printed and reviewed. Clinic will call patient with appointment information.
== END 2022-03-12 16:20 | disposition home or self-care (01) ==
PROVIDERS: Emergency Provider Emergency Medicine; PCP Nurse Practitioner
DX: I12.9 Hypertensive chronic kidney disease with stage 1 through stage 4 chronic kidney disease, or unspecified chronic kidney disease (principal); Z79.4 Long term (current) use of insulin; F17.210 Nicotine dependence, cigarettes, uncomplicated; Z90.5 Acquired absence of kidney; E11.22 Type 2 diabetes mellitus with diabetic chronic kidney disease; N18.2 Chronic kidney disease, stage 2 (mild); J44.9 Chronic obstructive pulmonary disease, unspecified; E78.5 Hyperlipidemia, unspecified
CPT/HCPCS: 71045; 80053; 81001; 83880; 84443; 84484; 85025; 87086; 93005; 96374; 99285; J3490

== ENCOUNTER → 2022-03-15 11:48 | Outpatient (BNVA) | payer MEDICARE, MEDICAID, SELFPAY | PROVIDERS: PCP Nurse Practitioner; Visit Provider Nurse Practitioner | DX: I10 Essential (primary) hypertension (principal) | CPT/HCPCS: 80053; 84443 ==

== ENCOUNTER → 2022-05-25 13:54 | Outpatient (BNVA) | payer MEDICARE, MEDICAID, SELFPAY | PROVIDERS: PCP Nurse Practitioner; Visit Provider Nurse Practitioner | DX: J44.9 Chronic obstructive pulmonary disease, unspecified (principal); I10 Essential (primary) hypertension; E11.9 Type 2 diabetes mellitus without complications; E05.90 Thyrotoxicosis, unspecified without thyrotoxic crisis or storm; D89.9 Disorder involving the immune mechanism, unspecified; E78.5 Hyperlipidemia, unspecified; G47.00 Insomnia, unspecified; M51.34 Other intervertebral disc degeneration, thoracic region | CPT/HCPCS: 80053; 83010; 83615; 84443; 85025; 85045; 85651 ==

== ENCOUNTER → 2022-05-31 10:42 | Outpatient (BNVA) | payer MEDICARE, MEDICAID, SELFPAY | PROVIDERS: PCP Nurse Practitioner; Visit Provider Internal Medicine Cardiovascular Disease | DX: I10 Essential (primary) hypertension (principal); Z79.52 Long term (current) use of systemic steroids; E78.5 Hyperlipidemia, unspecified; E11.9 Type 2 diabetes mellitus without complications; E05.90 Thyrotoxicosis, unspecified without thyrotoxic crisis or storm; F17.200 Nicotine dependence, unspecified, uncomplicated; Z79.4 Long term (current) use of insulin | CPT/HCPCS: 99204 ==

== ENCOUNTER 2022-06-21 08:07 | Outpatient (CLI) | payer MEDICARE, MEDICAID, SELFPAY ==
--- NOTE | 2022-06-21 08:15 | USCV_ITS ---
Maria Dolores Narvaez Age: 66 Gender: F : 1955 Exam Date: 06/21/2022 08:47 Ordering Phys: Nara Cantu MD ([email or web address]) Technologist: CT Exam Location: [facility] [place] Indication: Aortic Velocity @ SMA (cm/s) 125 RIGHT KIDNEY LEFT KIDNEY Velocity (cm/s) Velocity (cm/s) Sys/Lockett Sys/Lockett Resistive Index Resistive Index 228.4 / 59.3 0.74 Proximal Renal Artery / 129.7 / 28.4 0.78 Mid Renal Artery / 94.6 / 25.9 0.73 Distal Renal Artery / 207.9 / 34.7 0.83 Hilar / 84.6 / 29.1 0.66 Upper Pole / 50.8 / 14.6 0.71 Mid Pole / 43.1 / 17.4 0.60 Lower Pole / 1.80 Renal Aortic Ratio Accleration Index (cm/sec2) 2388.0 Hilar 0 1016.0 Upper Pole 0 759.00 Mid Pole 758.00 Lower Pole FINDINGS No prior study for comparison. Prior CT 07/27/18 reviewed Left nephrectomy. Right kidney normal size. Moderate elevation of velocity origin right renal artery with increased diastolic velocity also. Normal upstroke of waveform. CONCLUSIONS Recommend CTA renal arteries to evauate elevated right renal artery velocity. Left nephrectomy. Dr. Diane Mckee DO (Electronically Signed) Final Date: 21 Jun 2022 12:45 S
== END 2022-06-21 08:08 | disposition home or self-care (01) ==
LOC: RAD 08:10
PROVIDERS: PCP Nurse Practitioner; Visit Provider Internal Medicine Cardiovascular Disease
DX: I10 Essential (primary) hypertension (principal); Z90.5 Acquired absence of kidney
CPT/HCPCS: 93975; 99204

== ENCOUNTER 2022-07-01 09:17 | Emergency (ER) | payer MEDICARE, MEDICAID, SELFPAY ==
[2022-07-01 09:19] VITALS: BP 185/68; PULSE 84; RESP 18; TEMP 36.7; O2SAT 95
--- NOTE | 2022-07-01 09:28 | XR_ITS ---
WS: [id number] Chest with left rib detail, 3 views, 07/01/2022 Clinical Data: rib pain after fall Comparison: Portable chest, 03/12/2022 Findings: The lungs show no nodules, masses, or effusions. The heart is normal. No pneumonia or pneumothorax is seen. The aortic arch shows mild calcification. The ribs are intact. No rib fractures seen. No subcutaneous emphysema is present. There are surgical clips in the left upper quadrant. XR/XR ribs LT mn 3V w CXR1V [id number] Impression: Negative chest with left rib detail.
[2022-07-01 09:29] VITALS: BP 181/82; PULSE 74; RESP 16; O2SAT 97
--- NOTE | 2022-07-01 09:29 | ECG_ITS ---
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 Measurements Intervals [place] Rate: 71 P: 59 AL: 176 QRS: 14 QRSD: 130 T: 46 QT: 398 QTc: 435 Interpretive Statements SINUS RHYTHM RIGHT BUNDLE BRANCH BLOCK [120+ ms QRS DURATION, UPRIGHT V1, 40+ ms S IN I/aVL/V4/V5/V6] Compared to ECG 03/12/2022 14:29:20 Myocardial infarct finding no longer present Electronically Signed On 07-01-2022 14:02:05 CDT by Doug Byers M.D. [id number]
--- NOTE | 2022-07-01 09:39 | ED_ITS ---
HPI - Fall General: Chief Complaint: Fall Stated Complaint: fall, rib pain Time Seen by Provider: 07/01/22 09:39 Source: patient Mode of arrival: ambulatory History of Present Illness: 66-year-old female comes in complaining of anterior rib pain. She fell 5 days ago landed on her left anterior chest wall had rib pain there she is been coughing frequently since then has moderate productive sputum. She has not had any hemoptysis. When she gets a coughing fit she gets short of breath lightheaded and dizzy. As she has been coughing more the rib pain seems to be extending now it is affecting both sides of her chest. She has pain when she takes a deep breath and she moves in with palpation. No radiation of pain to the neck or arms. MD complaint: fall Fall from: standing Place fall occurred: home Loss of consciousness: None Prolonged down time: no Context: tripped/slipped Location of injury: chest Associated symptoms-after fall: Denies abdominal pain or chest pain Review of Systems Const: Denies: fever(s), chills, body aches, change in appetite, fatigue or malaise ENMT: Denies: throat pain, ear or mastoid pain, nasal discharge or nasal congestion Card: Denies: chest pain, edema, dyspnea on exertion or orthopnea Resp: Denies: dyspnea, productive cough or non-productive cough GI: Denies: abdominal pain, nausea, vomiting, hematemesis, coffee ground emesis, diarrhea, constipation, bloating, hematochezia or melena : Denies: flank pain, difficulty voiding, dysuria, urinary frequency or urinary urgency Skin/Breast: Denies: rash or pruritus PFSH ED PFSH: Medical History Autoimmune hemolytic anemia CKD (chronic kidney disease) stage 2, GFR 60-89 ml/min COPD, moderate Degenerative joint disease of spine Diverticulosis Dyslipidemia Essential (primary) hypertension GERD (gastroesophageal reflux disease) High risk medication use Hyperthyroidism Insomnia Latent tuberculosis by blood test Neuropathy, diabetic Osteoarthritis Peripheral arterial disease Personal history of nicotine dependence Seropositive rheumatoid arthritis of multiple joints Type 2 diabetes mellitus Vitamin D deficiency Surgical History H/O total hysterectomy without BSO History of colonoscopy 2019 [facility] [place] History of left radical nephrectomy stage I renal cell carcinoma 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, 2018 at [place], [place] History of tubal ligation Family History Father Cancer Diabetes Hyperlipidemia Hypertension Grandmother Diabetes Hyperlipidemia Brother Thyroid disease Denies family history of Rheumatoid arthritis Lupus Social History Smoking and tobacco status: current every day smoker Smoking risk assessment/counseling performed?: No Alcohol intake: unknown Desire information about alcohol rehabilitation?: No Counseling given: No Substance/Drug Use: unknown Desire information about substance/drug rehabilitation?: No Counseling given: No Adopted: No Caregiver/support person: No Lives independently: Yes Household members: other Housing: House Marital status: Single Number of children: 4 service: No Current occupational status: unemployed Do you think of yourself as: Straight/Heterosexual Current gender identity: Female Physical Exam Const: GENERAL APPEARANCE: cooperative and comfortable ORIENTATION/CONSCIOUSNESS: Yes awake, Yes oriented to person, Yes oriented to place and Yes oriented to time HENMT: COMMON NORMALS: normocephalic, atraumatic and hearing grossly normal bilaterally HEAD & SCALP: normocephalic and atraumatic Resp: COMMON NORMALS: normal respiratory effort, No retractions, No use of accessory muscles and clear to auscultation bilaterally AUSCULTATION: clear to auscultation bilaterally Cardio: COMMON NORMALS: regular rate, regular rhythm and No murmurs present (Cardio) RATE: regular rate RHYTHM: regular rhythm GI: COMMON NORMALS: Soft to palpation and No hepatosplenomegaly present AUSCULTATION: Yes normoactive bowel sounds PALPATION: Yes Soft to palpation, No Tenderness to palpation present (GI), No Guarding due to palpation present (GI) and Yes No hepatosplenomegaly present Extremity: COMMON NORMALS: normal to inspection, capillary refill normal, no clubbing, cyanosis or edema, no calf tenderness and no pedal edema Neuro: SENSORIUM/ORIENTATION: Yes oriented to person, Yes oriented to place and Yes oriented to time Skin: COMMON NORMALS: no rashes or lesions noted GENERAL SKIN EXAM: no rashes or lesions noted Course Vital Signs: Vital signs: Vital Signs Temperature 98.0 F 07/01/22 09:19 Pulse Rate 63 07/01/22 12:42 Respiratory Rate 14 07/01/22 12:42 Blood Pressure 139/66 07/01/22 12:42 Pulse Oximetry 94 07/01/22 12:42 Oxygen Delivery Me thod Nasal Cannula 07/01/22 12:42 Oxygen Flow Rate 2 07/01/22 12:42 MDM - Fall Medical Decision Making Has been musculoskeletal in nature from the fall I think this is also complicated her COPD we will discharge her home on steroids anti-inflammatories aggressive use of albuterol and recheck with primary care doctor if not improving Medical Records I reviewed the patient's medical records. Lab Data I reviewed the patient's lab results. 07/01/22 11:17 07/01/22 11:17 Radiology Impressions Ribs X-Ray 07/01/22 09:28 Impression: Negative chest with left rib detail. Laboratory Results WBC 15.0 10^3/uL (4.0-10.0) H 07/01/22 11:17 RBC 4.18 10^6/uL (4.1-5.3) 07/01/22 11:17 Hgb 13.6 g/dL (11.5-15.3) 07/01/22 11:17 Hct 41.1 % (37.0-47.0) 07/01/22 11:17 MCV 98.3 fl (81-99) 07/01/22 11:17 MCH 32.5 pg (28.0-34.0) 07/01/22 11:17 MCHC 33.1 g/dL (30.0-36.0) 07/01/22 11:17 RDW 14.8 % (12.1-15.1) 07/01/22 11:17 Plt Count 371 10^3/cmm (130-400) 07/01/22 11:17 MPV 10.1 fL (7.4-10.4) 07/01/22 11:17 Neut % (Auto) 61.7 % 07/01/22 11:17 Lymph % (Auto) 27.2 % 07/01/22 11:17 [place] % (Auto) 9.2 % 07/01/22 11:17 Eos % (Auto) 1.1 % 07/01/22 11:17 Baso % (Auto) 0.3 % 07/01/22 11:17 Neut # (Auto) 9.28 10^3/uL (1.8-7.7) H 07/01/22 11:17 Lymph # (Auto) 4.1 10^3/uL (0.8-4.8) 07/01/22 11:17 [place] # (Auto) 1.4 10^3/uL (0.2-0.9) H 07/01/22 11:17 Eos # (Auto) 0.2 10^3/uL (0.0-0.8) 07/01/22 11:17 Baso # (Auto) 0.0 10^3/uL (0.0-0.1) 07/01/22 11:17 Nucleated RBC % (auto) 0 % 07/01/22 11:17 Nucleated RBCs # 0.0 /100WBC 07/01/22 11:17 Sodium 132 mmol/L (136-145) L 07/01/22 11:17 Potassium 3.6 mmol/L (3.5-5.1) 07/01/22 11:17 Chloride 96 mmol/L (98-107) L 07/01/22 11:17 Carbon Dioxide 23 mmol/L (22-29) 07/01/22 11:17 Anion Gap 16.6 (5-19) 07/01/22 11:17 BUN 12 mg/dL (8-23) 07/01/22 11:17 Creatinine 0.7 mg/dL (0.5-0.9) 07/01/22 11:17 GFR Calculation 84.0 mL/min (90-130) L 07/01/22 11:17 Glucose 191 mg/dL (65-115) H 07/01/22 11:17 Calculated Osmolality 279 mOsm/kg (285-295) L 07/01/22 11:17 Calcium 9.3 mg/dL (8.5-10.5) 07/01/22 11:17 Total Bilirubin 0.6 mg/dL (0.15-1.2) 07/01/22 11:17 AST 16 U/L (0-32) 07/01/22 11:17 ALT 8 U/L (0-33) 07/01/22 11:17 Alkaline Phosphatase 91 U/L (35-105) 07/01/22 11:17 Total Protein 6.8 g/dL (6.6-8.7) 07/01/22 11:17 Albumin 4.0 g/dL (3.5-5.2) 07/01/22 11:17 Globulin 2.8 g/dL (1.3-4.6) 07/01/22 11:17 Urine Color Colorless (Yellow) 07/01/22 11:20 Urine Appearance Clear (CLEAR) 07/01/22 11:20 Urine pH 5 (5-7) 07/01/22 11:20 Ur Specific [place] 1.015 (1.005-1.030) 07/01/22 11:20 Urine Protein Neg (Negative) 07/01/22 11:20 Urine Glucose (UA) Norm (Normal) 07/01/22 11:20 Urine Ketones Negative (Negative) 07/01/22 11:20 Urine Blood Neg (Negative) 07/01/22 11:20 Urine Nitrate Negative (Negative) 07/01/22 11:20 Urine Bilirubin Neg (Negative) 07/01/22 11:20 Urine Urobilinogen Neg mg/dL (Negative) 07/01/22 11:20 Ur Leukocyte Esterase Negative (Negative) 07/01/22 11:20 Discharge Plan Discharge Patient Disposition: Home Clinical Impression: Chest wall pain, COPD exacerbation Condition: Stable Prescriptions: New prednisone 20 mg tablet 20 mg PO TID Qty: 15 0RF Rx Instructions: 1 p.o. 3 times daily x3 days, 1 p.o. twice daily x2 days, 1 p.o. daily x2 days diclofenac sodium 75 mg tablet,delayed release (DR/EC) 75 mg PO Q12H PRN (Reason: pain) Qty: 20 0RF albuterol sulfate 90 mcg/actuation HFA aerosol inhaler 2 inh INHALATION Q4H PRN (Reason: shortness of breath or wheezing) Qty: 18 0RF Held prednisone 5 mg tablet 5 mg PO EVERY OTHER DAY Qty: 30 3RF No Action hydrocodone-acetaminophen 10-325 mg tablet 1 tab PO Q6H PRN (Reason: Pain) (DME) OneTouch Ultra Blue Test Strip Strip See Rx Instructions .ROUTE .MEDSUPPLY Qty: 100 5RF Rx Instructions: check 2 times day (DME) insulin syringe-needle U-100 0.3 mL 31 gauge x 5/16 syringe See Rx Instructions .ROUTE .MEDSUPPLY Qty: 100 5RF Rx Instructions: As directed folic acid 1 mg tablet 1 mg PO DAILY olopatadine [Pataday Once Daily Relief] 0.2 % drops 1 drp ophthalmic (eye) DAILY PRN (Reason: itching) Qty: 2.5 2RF isosorbide dinitrate 30 mg tablet 30 mg PO BID Qty: 90 3RF Rx Instructions: allow nitrate-free interval of 12-14 hrs per 24-hr period albuterol sulfate [ProAir HFA] 90 mcg/actuation HFA aerosol inhaler 2 inh INHALATION Q6H PRN (Reason: shortness of breath or wheezing) Qty: 18 2RF methimazole 5 mg tablet 5 mg PO DAILY Qty: 30 2RF pantoprazole [Protonix] 40 mg tablet,delayed release (DR/EC) 40 mg PO DAILY Qty: 30 2RF Crestor 10 mg tablet 10 mg PO QPM Qty: 30 2RF trazodone 100 mg tablet 100 mg PO BEDTIME Qty: 30 2RF valsartan-hydrochlorothiazide [Diovan HCT] 320-12.5 mg tablet 1 tab PO DAILY Qty: 30 2RF zonisamide 50 mg capsule 50 mg PO BID Qty: 60 2RF prednisone 5 mg tablet 10 mg PO EVERY OTHER DAY Qty: 30 3RF omega 7-bzz-yma-fish oil [Fish Oil] 1,000 mg (120 mg-180 mg) Capsule 1 cap PO DAILY Humulin R Regular U-100 Insuln 100 unit/mL solution See Rx Instructions SUBCUT TID PRN (Reason: BLOOD SUGAR) Rx Instructions: 5-20 units SUBCUT three times daily; garlic 500 mg Capsule 500 mg PO DAILY [place] [facility] Mature 8 mg iron-400 mcg-300 mcg Tablet 1 tab PO DAILY metoprolol succinate 100 mg tablet extended release 24 hr 100 mg PO DAILY amlodipine 10 mg tablet 10 mg PO BEDTIME metformin 500 mg tablet extended release 24 hr 500 mg PO BID Discharge Orders: Discharge ED (Routine); Ordered 07/01/22 Ordered By: S[place]ail [place] Referrals: Juan Marino, GARRICKC [Primary Care Provider] - Patient Instructions: Opioid Safety, Pain Management Activity Restrictions/Additional Instructions: You are seen today for acute chest wall pain and exacerbation of your COPD recommend use diclofenac as needed steroid taper and aggressive use of albuterol 2 puffs every 4-6 hours as needed if not improving follow-up with primary care doctor. Coding Level of Care Code ED Inpatient Pharmacist for Giulia Read
[2022-07-01 10:05] VITALS: RESP 14; O2SAT 95
[2022-07-01] MEDS: ondansetron 2 mg/ML SDV 2 mL 4 MG IVP (10:05)
[2022-07-01] MEDS: FUROsemide 10 mg/mL SDV 4mL 40 MG IVP (10:05)
[2022-07-01] MEDS: morphine 4 mg/mL SDV 1 mL IVP (10:05)
[2022-07-01 11:22] LABS: Basophils % 0.3 %; Eosinophils # 0.2 10^3/uL (0.0-0.8); Eosinophils % 1.1 %; Hematocrit 41.1 % (37.0-47.0); Hemoglobin 13.6 g/dL (11.5-15.3); Lymphocytes # 4.1 10^3/uL (0.8-4.8); Lymphocytes % 27.2 %; Mean Corpuscular HGB Conc 33.1 g/dL (30.0-36.0); Mean Corpuscular Hemoglobin 32.5 pg (28.0-34.0); Mean Corpuscular Volume 98.3 fl (81-99); Mean Platelet Volume 10.1 fL (7.4-10.4); Monocytes # 1.4 10^3/uL (0.2-0.9); Monocytes % 9.2 %; Neutrophils # 9.28 10^3/uL (1.8-7.7); Neutrophils % 61.7 %; Nucleated Red Blood Cells % 0 %; Platelet Count 371 10^3/cmm (130-400); Red Blood Count 4.18 10^6/uL (4.1-5.3); Red Cell Distribution Width 14.8 % (12.1-15.1)
[2022-07-01 11:36] LABS: Add Urine Microscopic? NO; Charge for UA Resulting for Rev
[2022-07-01 11:39] LABS: Alanine Aminotransferase 8 U/L (0-33); Alkaline Phosphatase 91 U/L (35-105); Aspartate Amino Transferase 16 U/L (0-32); Blood Urea Nitrogen 12 mg/dL (8-23); Calcium 9.3 mg/dL (8.5-10.5); Carbon Dioxide 23 mmol/L (22-29); Chloride 96 mmol/L (98-107); Globulin 2.8 g/dL (1.3-4.6); Glucose 191 mg/dL (65-115); Osmolality Calculated 279 mOsm/kg (285-295); Sodium 132 mmol/L (136-145); Total Bilirubin 0.6 mg/dL (0.15-1.2); Total Protein 6.8 g/dL (6.6-8.7)
[2022-07-01 11:46] LABS: Anion Gap 16.6 (5-19); Potassium 3.6 mmol/L (3.5-5.1)
[2022-07-01 12:15] LABS: Bilirubin Urine Neg (Negative); Blood Urine Neg (Negative); Glucose Urine UA Norm (Normal); Ketones Urine Negative (Negative); Leukocyte Esterase Urine Negative (Negative); Nitrate Urine Negative (Negative); Protein Urine Neg (Negative); Specific Gravity, Urine 1.015 (1.005-1.030); Urine Appearance Clear (CLEAR); Urine Color Colorless (Yellow); Urobilinogen Urine Neg (Negative); pH Urine 5 (5-7)
[2022-07-01 12:42] VITALS: BP 139/66; PULSE 63; RESP 14; O2SAT 94
== END 2022-07-01 13:30 | disposition home or self-care (01) ==
PROVIDERS: Emergency Provider Family Medicine; PCP Nurse Practitioner
DX: R07.89 Other chest pain (principal); J44.1 Chronic obstructive pulmonary disease with (acute) exacerbation; Z79.84 Long term (current) use of oral hypoglycemic drugs; Z79.4 Long term (current) use of insulin; F17.210 Nicotine dependence, cigarettes, uncomplicated; I12.9 Hypertensive chronic kidney disease with stage 1 through stage 4 chronic kidney disease, or unspecified chronic kidney disease; E11.22 Type 2 diabetes mellitus with diabetic chronic kidney disease; N18.2 Chronic kidney disease, stage 2 (mild); E78.5 Hyperlipidemia, unspecified
CPT/HCPCS: 71101; 80053; 81003; 85025; 93005; 96374; 96375; 99285; J1940; J2270; J2405

== ENCOUNTER 2022-07-22 10:03 | Outpatient (CLI) | payer MEDICARE, MEDICAID, SELFPAY ==
--- NOTE | 2022-07-22 10:19 | MM_ITS ---
WS: [id number] BILATERAL SCREENING DIGITAL TOMOSYNTHESIS MAMMOGRAM WITH CAD HISTORY: Z12.39 - Encounter for other screening for malignant neoplasm... COMPARISON: None available. Bilateral CC and MLO views with tomosynthesis and synthetic mammography submitted. Computer aided det ection analyzed. Breast composition: There are scattered areas of fibroglandular density. No suspicious masses, microc alcifications or architectural distortion. Benign calcifications in each breast. MM/[id number] IMPRESSION: BI-RADS: 2-Benign FOLLOW UP: 1 Year Follow-up
== END 2022-07-22 10:04 | disposition home or self-care (01) ==
PROVIDERS: PCP Nurse Practitioner; Visit Provider Nurse Practitioner
DX: Z12.31 Encounter for screening mammogram for malignant neoplasm of breast (principal)
CPT/HCPCS: 77063; 77067

== ENCOUNTER → 2022-09-02 08:31 | Outpatient (BNVA) | payer MEDICARE, MEDICAID, SELFPAY | PROVIDERS: PCP Nurse Practitioner; Visit Provider Internal Medicine Medical Oncology | DX: E05.90 Thyrotoxicosis, unspecified without thyrotoxic crisis or storm (principal); D59.19 Other autoimmune hemolytic anemia | CPT/HCPCS: 80053; 83010; 83615; 84443; 85025; 85651 ==

== ENCOUNTER 2022-09-06 14:29 | Oncology outpatient (recurring) (ONCR) | payer MEDICARE, MEDICAID, SELFPAY | END 2022-09-20 23:59 | disposition home or self-care (01) | PROVIDERS: PCP Nurse Practitioner; Visit Provider Internal Medicine Medical Oncology | DX: M05.79 Rheumatoid arthritis with rheumatoid factor of multiple sites without organ or systems involvement (principal); D59.10 Autoimmune hemolytic anemia, unspecified | CPT/HCPCS: 99214 ==

== ENCOUNTER → 2022-12-06 07:57 | Outpatient (BNVA) | payer MEDICARE, MEDICAID, SELFPAY | PROVIDERS: PCP Nurse Practitioner; Visit Provider Nurse Practitioner | DX: E11.9 Type 2 diabetes mellitus without complications (principal); E05.90 Thyrotoxicosis, unspecified without thyrotoxic crisis or storm | CPT/HCPCS: 80053; 83036; 83615; 84443; 85025 ==

== ENCOUNTER 2022-12-09 09:19 | Oncology outpatient (recurring) (ONCR) | payer MEDICARE, MEDICAID, SELFPAY ==
[2022-12-09] MEDS: sodium chloride 0.9% 1,000 ML 999 ML IV (10:46)
[2022-12-09 10:56] LABS: Basophils % 0.2 %; Eosinophils % 0.2 %; Hematocrit 32.2 % (36-47); Lymphocytes # 2.7 10^3/uL (0.8-4.8); Lymphocytes % 15.8 %; Mean Corpuscular Hemoglobin 32.6 pg (27-33); Mean Corpuscular Volume 90.4 fl (85-98); Mean Platelet Volume 9.3 fL (7.4-10.4); Monocytes # 1.6 10^3/uL (0.2-0.9); Monocytes % 9.3 %; Neutrophils # 12.82 10^3/uL (1.8-7.7); Neutrophils % 73.8 %; Nucleated Red Blood Cells % 0 %; Platelet Count 369 10^3/cmm (157-399); Red Blood Count 3.56 10^6/uL (3.85-5.65); Red Cell Distribution Width 12.9 % (12.1-15.1); White Blood Count 17.37 10^3/uL (3.29-11.43)
[2022-12-09 11:15] LABS: Alanine Aminotransferase 8 U/L (0-33); Albumin Level 4.3 g/dL (3.5-5.2); Alkaline Phosphatase 86 U/L (35-105); Anion Gap 18.3 (5-19); Aspartate Amino Transferase 16 U/L (0-32); Blood Urea Nitrogen 33 mg/dL (8-23); Calcium 9.6 mg/dL (8.5-10.5); Carbon Dioxide 21 mmol/L (22-29); Chloride 88 mmol/L (98-107); Globulin 2.6 g/dL (1.3-4.6); Glomerular Filtration Rate 26.4 mL/min (90-130); Glucose 120 mg/dL (65-115); Osmolality Calculated 264 mOsm/kg (285-295); Potassium 4.3 mmol/L (3.5-5.1); Sodium 123 mmol/L (136-145); Total Bilirubin 1.1 mg/dL (0.15-1.2); Total Protein 6.9 g/dL (6.6-8.7)
[2022-12-09 13:02] VITALS: BP 162/65; PULSE 82; RESP 16; TEMP 37.2; O2SAT 97
--- NOTE | 2022-12-09 13:50 | PC.NURSE ---
report called to Zulema on med surg @ [id number]. pt escorted to main registration
== END 2022-12-21 23:59 | disposition home or self-care (01) ==
PROVIDERS: PCP Nurse Practitioner; Visit Provider Internal Medicine Medical Oncology
DX: D59.10 Autoimmune hemolytic anemia, unspecified (principal); M05.79 Rheumatoid arthritis with rheumatoid factor of multiple sites without organ or systems involvement; R19.7 Diarrhea, unspecified; Z79.899 Other long term (current) drug therapy
CPT/HCPCS: 80053; 85025; 96360; 96361; 99214; J7030

== ENCOUNTER 2022-12-09 13:13 | Inpatient (IN) | payer MEDICARE, MEDICAID, SELFPAY ==
--- NOTE | 2022-12-09 13:19 | XR_ITS ---
WS: [id number] Portable AP upright chest, 12/09/2022 Clinical Data: leukocytosis Comparison: PA chest, 07/01/2022 Findings: No nodules, masses or effusions are seen. The heart is normal. The pulmonary vascularity is not increased. No pneumonia or pneumothorax is seen. The aortic arch and descending thoracic aorta s hows mild tortuosity. Impression: Atherosclerosis.
--- NOTE | 2022-12-09 13:19 | PM.HP ---
Documented by User: Xochitl Blair 12/09/22 14:27 Providers/Chief Complaint Admitting Physician: Dain Hunter MD Primary Care Provider: BELINDA Castro Chief Complaint: 264 / Cancer / Renal Failure History of Present Illness Maria Dolores Narvaez is a 67 year old female who was admitted from her appointment with Dr. Carrero for treatment of her rheumatoid arthritis and concominant autoimmune hemolytic anemia. These are currently being managed with rituximab treatments (was not received today) and low dose prednisone, which is alternated with 10 mg one day and 5 mg the next. She was admitted to the floor due to significant diarrhea for 2 months, which she describes as voluminous, watery stools 6-10 times per day. She also reportedly passed out last night, which was not witnessed by anyone. She has been trying to use Imodium for diarrhea, but it helps minimally. No recent medications have been added to her regimen, and the only changes that have been made in the last few months are increases in her antihypertensives. She also endorses muscle spasms in her legs, but no pain associated. Pt also reports nausea and vomiting, but this does not occur everyday. Her appetite has also been low but has not noticed any significant weight changes at this time. She has no recent illnesses or sick contacts, no fevers, no chest pain or palpitations, no blood in stool. Pt has some shortness of breath at times secondary to her COPD. She states she has smoked for approximately 50 years, around 1.5 ppd, and was able to quit once for 5 years before starting again after her passed. Currently, she lives alone. During her appointment with Dr. Carrero, he did not seem to think she was in active hemolysis per his note as her Hct/Hgb labs are stable and LDH/bilirubin were normal. She was given an IV fluid bolus prior to transfer. Labs were drawn and she was found to have worsening kidney function and low sodium of 123. Review of Systems General: Reports: 10 or more systems reviewed and unremarkable except in HPI and below Const: Reports: change in appetite (decreased appetite. ); Denies: fever(s), chills or change in weight Card: Denies: chest pain, palpitations or swelling of feet/ankles Resp: Reports: dyspnea GI: Reports: nausea, vomiting and diarrhea; Denies: abdominal pain, hematemesis or hematochezia : Reports: difficulty voiding (difficulty initiating urination) and oliguria; Denies: dysuria Skin/Breast: Denies: rash Neuro: Denies: headache(s) Medications/Allergies Home Medications Medication Instructions Recorded Confirmed Last Taken Type hydrocodone 10 mg-acetaminophen 1 tab PO Q6H PRN Pain 03/15/19 12/09/22 07/01/22 History 325 mg tablet folic acid 1 mg tablet 1 mg PO DAILY 09/10/19 12/09/22 07/01/22 History blood sugar diagnostic #100 ea 12/26/20 12/09/22 Unknown Rx insulin syringe-needle U-100 0.3 #100 ea 07/06/21 12/09/22 Unknown Rx mL 31 gauge x 07/06 olopatadine 0.2 % eye drops 1 drp ophthalmic (eye) DAILY PRN 01/19/22 12/09/22 03/10/22 Rx (Pataday Once Daily Relief) itching #2.5 mL garlic 500 mg capsule 500 mg PO DAILY 03/12/22 12/09/22 07/01/22 History [id number]-[id number]-[id number] 8 mg-folic 400 1 tab PO DAILY 03/12/22 12/09/22 07/01/22 History mcg-K 50 mcg-lutein 300 mcg tablet ([facility] Mature) omega 8-bvo-jwi-fish oil 1,000 mg 1 cap PO DAILY 03/12/22 12/09/22 07/01/22 History (120 mg-180 mg) capsule (Fish Oil) insulin regular human 100 unit/mL See Rx Instructions SUBCUT TID PRN 08/17/22 12/09/22 Unknown Rx injection solution (Humulin R BLOOD SUGAR #10 mL Regular U-100 Insulin) isosorbide dinitrate 30 mg tablet 30 mg PO BID #90 tabs 10/27/22 12/09/22 Unknown Rx prednisone 5 mg tablet See Rx Instructions .Route 10/27/22 12/09/22 Unknown Rx .COMPLEX #45 tabs albuterol sulfate 90 mcg/actuation 2 inh inhalation Q6H PRN shortness 11/10/22 12/09/22 Unknown Rx aerosol inhaler (ProAir HFA) of breath or wheezing #18 grams amlodipine 10 mg tablet 10 mg PO BEDTIME #30 tabs 11/10/22 12/09/22 Unknown Rx metformin 500 mg tablet,extended 500 mg PO BID #60 tabs 11/10/22 12/09/22 Unknown Rx release 24 hr methimazole 5 mg tablet 5 mg PO DAILY #30 tabs 11/10/22 12/09/22 Unknown Rx metoprolol succinate 100 mg 100 mg PO DAILY #30 tabs 11/10/22 12/09/22 Unknown Rx tablet,extended release 24 hr pantoprazole 40 mg tablet,delayed 40 mg PO DAILY #30 tabs 11/10/22 12/09/22 Unknown Rx release (Protonix) rosuvastatin 10 mg tablet (Crestor) 10 mg PO QPM #30 tabs 11/10/22 12/09/22 Unknown Rx trazodone 100 mg tablet 100 mg PO BEDTIME #30 tabs 11/10/22 12/09/22 Unknown Rx valsartan 320 1 tab PO DAILY #30 tabs 11/10/22 12/09/22 Unknown Rx mg-hydrochlorothiazide 12.5 mg tablet (Diovan HCT) zonisamide 50 mg capsule 50 mg PO BID #60 caps 11/10/22 12/09/22 Unknown Rx Allergies Allergy/AdvReac Type Severity Reaction Status Date / Time celecoxib [From Celebrex] Allergy Unknown Verified 12/09/22 09:58 insulin detemir Allergy RASH Verified 12/09/22 09:58 [From Levemir U-100 Insulin] PFSH Acute PFSH: Medical History (Updated 12/09/22 @ 14:17 by Dain Hunter MD) Autoimmune hemolytic anemia CKD (chronic kidney disease) stage 2, GFR 60-89 ml/min COPD, moderate Degenerative joint disease of spine Diverticulosis Dyslipidemia Essential (primary) hypertension GERD (gastroesophageal reflux disease) High risk medication use Hyperthyroidism Insomnia Latent tuberculosis by blood test Neuropathy, diabetic Osteoarthritis Peripheral arterial disease Personal history of nicotine dependence Seropositive rheumatoid arthritis of multiple joints Type 2 diabetes mellitus Vitamin D deficiency Surgical History (Updated 12/09/22 @ 13:36 by Dain Hunter MD) H/O total hysterectomy without BSO History of colonoscopy 2018 [facility] History of left radical nephrectomy stage I renal cell carcinoma 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, [place] History of tubal ligation Family History Father Cancer Diabetes Hyperlipidemia Hypertension Grandmother Diabetes Hyperlipidemia Brother Thyroid disease Denies family history of Rheumatoid arthritis Lupus Social History Smoking and tobacco/nicotine status: current every day tobacco/nicotine user cigarettes Packs smoked per day: 1.5 Years cigarettes smoked: 50 [ Other cigarette details: between 1 to 2 packs daily] Alcohol intake: never Substance/Drug Use: never Adopted: No Caregiver/support person: No Lives independently: Yes Household members: other Housing: House Marital status: Single Number of children: 4 service: No Current occupational status: unemployed Do you think of yourself as: Straight/Heterosexual Current gender identity: Female Physical Exam Narrative: General: pt is an alert, cooperative, conversant pt breathing comfortably on room air. HEENT: atraumatic, normocephalic. Neck: supple, goiter present, no lymphadenopathy. Cardiac: regular rate, rhythm. No murmurs appreciated at this time. Respiratory: wheezing best heard in lung bases bilaterally. Equal chest rise. Abdomen: normoactive bowel sounds in all 4 quadrants. Mild tenderness to palpation in lower abdomen. : deferred. Extremities: 2+ pulses bilaterally in upper and lower extremities. No edema. Skin: no bruising, cyanosis, rash on visible skin. Neuro: CN intact. No focal neuro deficits appreciated. Data Other Labs: Magnesium low at 1.6 CK ordered. TSH from 12/06/22 normal. Protein/albumin normal. LFTs normal C. diff PCR ordered. Stool cultures ordered. UA ordered CXR ordered. CT abdomen/pelvis ordered. Monitor count 17.37, hemoglobin 11.6, platelet count 3 69,000. Sodium 123, potassium 4.3, chloride 88, bicarb 21, BUN 33, creatinine 1.9, glucose 120 A&P Assessment and plan (1) Hyponatremia: Pt given IV bolus in heme/onc clinic. Will start maintenence fluids. Pt with sodium of 123 in clinic. Will recheck sodium after fluids are began. Recheck Na+ every four hours. BMP daily. (2) Acute kidney injury: Pt with worsened kidney function possibly secondary to dehydration. UA ordered. CK ordered. CT abdomen/pelvis ordered. Will start on fluids. Hold medications contributing to kidney dysfunction. BMP daily. (3) Diarrhea: Pt with significant watery, large volume stools for 2 months. Will start fluids to treat any dehydration associated. C. difficile cultures ordered as pt is high risk for infection secondary to immunosuppression with prednisone therapy. Stool cultures ordered. CT abdomen/pelvis ordered to assess for other contributing factor causing diarrhea. Monitor electrolytes with BMP daily. (4) Seropositive rheumatoid arthritis of multiple joints: Pt currently receives alternating doses of prednisone. 10 mg one day, 5 the next. Continue regimen while in hospital. (5) Autoimmune hemolytic anemia: See problem 4 for rheumatoid arthritis. (6) Type 2 diabetes mellitus: Pt currently receives metformin for DM. Will hold as it can contribute to diarrhea and secondary to worsening kidney function. Can start sliding scale insulin and daily insulin at lower dose secondary to kidney dysfunction. (7) Hyperthyroidism: Continue methimazole therapy for hyperthyroidism. TSH on 12/06 showed TSH of 1.77. (8) History of total splenectomy: Pt at higher risk for infection secondary to splenectomy. (9) COPD, moderate: Continue at home therapies for COPD. (10) Hypomagnesemia: Pt to receive IVFs. Supplement magnesium as this may contribute to muscle aches. Coding Level of Care Code 68632 Diagnoses Hyponatremia E87.1 Acute kidney injury N17.9 Diarrhea R19.7 Seropositive rheumatoid arthritis of multiple joints M05.79 Autoimmune hemolytic anemia D59.1 Type 2 diabetes mellitus E11.9 Hyperthyroidism E05.90 History of total splenectomy Z90.81 COPD, moderate J44.9 Hypomagnesemia E83.42 Time Spent (min) 51 Documented by User: Dain Hunter MD 12/09/22 14:34 Providers/Chief Complaint Chief Complaint: 264 / Cancer / Renal Failure History of Present Illness Mraia Dolores Narvaez is a 67 year old female who was admitted from her appointment with Dr. Carrero for treatment of her rheumatoid arthritis and concominant autoimmune hemolytic anemia. These are currently being managed with rituximab treatments (was not received today) and low dose prednisone, which is alternated with 10 mg one day and 5 mg the next. She was admitted to the floor due to significant diarrhea for 2 months, which she describes as voluminous, watery stools 6-10 times per day. She also reportedly passed out last night, which was not witnessed by anyone. She has been trying to use Imodium for diarrhea, but it helps minimally. No recent medications have been added to her regimen, and the only changes that have been made in the last few months are increases in her antihypertensives. She also endorses muscle spasms in her legs, but no pain associated. Pt also reports nausea and vomiting, but this does not occur everyday. Her appetite has also been low but has not noticed any significant weight changes at this time. She has no recent illnesses or sick contacts, no fevers, no chest pain or palpitations, no blood in stool. Pt has some shortness of breath at times secondary to her COPD. She states she has smoked for approximately 50 years, around 1.5 ppd, and was able to quit once for 5 years before starting again after her passed. Currently, she lives alone. During her appointment with Dr. Carrero, he did not seem to think she was in active hemolysis per his note as her Hct/Hgb labs are stable and LDH/bilirubin were normal. She was given an IV fluid bolus prior to transfer. Labs were drawn and she was found to have worsening kidney function and low sodium of 123. Patient was seen in conjunction with medical student and documentation performed this way as well. Patient has only 1 kidney. Medications/Allergies Home Medications Medication Instructions Recorded Confirmed Last Taken Type hydrocodone 10 mg-acetaminophen 1 tab PO Q6H PRN Pain 03/15/19 12/09/22 07/01/22 History 325 mg tablet folic acid 1 mg tablet 1 mg PO DAILY 09/10/19 12/09/22 07/01/22 History blood sugar diagnostic #100 ea 12/26/20 12/09/22 Unknown Rx insulin syringe-needle U-100 0.3 #100 ea 07/06/21 12/09/22 Unknown Rx mL 31 gauge x 07/06 olopatadine 0.2 % eye drops 1 drp ophthalmic (eye) DAILY PRN 01/19/22 12/09/22 03/10/22 Rx (Pataday Once Daily Relief) itching #2.5 mL garlic 500 mg capsule 500 mg PO DAILY 03/12/22 12/09/2223 History xhemguwq-emkz-xbrc 8 mg-folic 400 1 tab PO DAILY 03/12/22 12/09/22 07/01/22 History mcg-K 50 mcg-lutein 300 mcg tablet ([employer] Mature) omega 6-wtp-rwa-fish oil 1,000 mg 1 cap PO DAILY 03/12/22 12/09/22 07/01/22 History (120 mg-180 mg) capsule (Fish Oil) insulin regular human 100 unit/mL See Rx Instructions SUBCUT TID PRN 08/17/22 12/09/22 Unknown Rx injection solution (Humulin R BLOOD SUGAR #10 mL Regular U-100 Insulin) isosorbide dinitrate 30 mg tablet 30 mg PO BID #90 tabs 10/27/22 12/09/22 Unknown Rx prednisone 5 mg tablet See Rx Instructions .Route 10/27/22 12/09/22 Unknown Rx .COMPLEX #45 tabs albuterol sulfate 90 mcg/actuation 2 inh inhalation Q6H PRN shortness 11/10/22 12/09/22 Unknown Rx aerosol inhaler (ProAir HFA) of breath or wheezing #18 grams amlodipine 10 mg tablet 10 mg PO BEDTIME #30 tabs 11/10/22 12/09/22 Unknown Rx metformin 500 mg tablet,extended 500 mg PO BID #60 tabs 11/10/22 12/09/22 Unknown Rx release 24 hr methimazole 5 mg tablet 5 mg PO DAILY #30 tabs 11/10/22 12/09/22 Unknown Rx metoprolol succinate 100 mg 100 mg PO DAILY #30 tabs 11/10/22 12/09/22 Unknown Rx tablet,extended release 24 hr pantoprazole 40 mg tablet,delayed 40 mg PO DAILY #30 tabs 11/10/22 12/09/22 Unknown Rx release (Protonix) rosuvastatin 10 mg tablet (Crestor) 10 mg PO QPM #30 tabs 11/10/22 12/09/22 Unknown Rx trazodone 100 mg tablet 100 mg PO BEDTIME #30 tabs 11/10/22 12/09/22 Unknown Rx valsartan 320 1 tab PO DAILY #30 tabs 11/10/22 12/09/22 Unknown Rx mg-hydrochlorothiazide 12.5 mg tablet (Diovan HCT) zonisamide 50 mg capsule 50 mg PO BID #60 caps 11/10/22 12/09/22 Unknown Rx Allergies Allergy/AdvReac Type Severity Reaction Status Date / Time celecoxib [From Celebrex] Allergy Unknown Verified 12/09/22 09:58 insulin detemir Allergy RASH Verified 12/09/22 09:58 [From Levemir U-100 Insulin] PFSH Acute PFSH: Medical History (Updated 12/09/22 @ 14:17 by Dain Hunter MD) Autoimmune hemolytic anemia CKD (chronic kidney disease) stage 2, GFR 60-89 ml/min COPD, moderate Degenerative joint disease of spine Diverticulosis Dyslipidemia Essential (primary) hypertension GERD (gastroesophageal reflux disease) High risk medication use Hyperthyroidism Insomnia Latent tuberculosis by blood test Neuropathy, diabetic Osteoarthritis Peripheral arterial disease Personal history of nicotine dependence Seropositive rheumatoid arthritis of multiple joints Type 2 diabetes mellitus Vitamin D deficiency Surgical History (Updated 12/09/22 @ 13:36 by Dain Hunter MD) H/O total hysterectomy without BSO [place] [facility] [place] of left radical nephrectomy stage I renal cell carcinoma 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, 2018 at [place], [place] History of tubal ligation Family History Father Cancer Diabetes Hyperlipidemia Hypertension Grandmother Diabetes Hyperlipidemia Brother Thyroid disease Denies family history of Rheumatoid arthritis Lupus Social History Smoking and tobacco/nicotine status: current every day tobacco/nicotine user cigarettes Packs smoked per day: 1.5 Years cigarettes smoked: 50 [ Other cigarette details: between 1 to 2 packs daily] Alcohol intake: never Substance/Drug Use: never Adopted: No Caregiver/support person: No Lives independently: Yes Household members: other Housing: House Marital status: Single Number of children: 4 service: No Current occupational status: unemployed Do you think of yourself as: Straight/Heterosexual Current gender identity: Female Data Other Labs: Magnesium pending CK ordered. TSH from 12/06/22 normal. Protein/albumin normal. LFTs normal C. diff PCR ordered. Stool cultures ordered. UA ordered CXR ordered by my read demonstrates some interstitial markings in the lower lobes, normal cardiac silhouette CT abdomen/pelvis ordered. Monitor count 17.37, hemoglobin 11.6, platelet count 3 69,000. Sodium 123, potassium 4.3, chloride 88, bicarb 21, BUN 33, creatinine 1.9, glucose 120 A&P Assessment and plan (1) Hyponatremia: Pt given IV bolus in heme/onc clinic. Will start maintenence fluids. Pt with sodium of 123 in clinic. Will recheck sodium after fluids are began. Recheck Na+ every four hours after IV fluids been initiated BMP daily. Random cortisol ordered, and normal (2) Acute kidney injury: Pt with worsened kidney function possibly secondary to dehydration. UA ordered. CK ordered. CT abdomen/pelvis ordered. Will start on fluids. Hold medications contributing to kidney dysfunction. BMP daily. Bladder scan while awaiting testing (3) Diarrhea: Pt with significant watery, large volume stools for 2 months. Will start fluids to treat any dehydration associated. C. difficile cultures ordered as pt is high risk for infection secondary to immunosuppression with prednisone therapy. Stool cultures ordered. CT abdomen/pelvis ordered to assess for other contributing factor causing diarrhea. She does have some discomfort in her lower abdomen Monitor electrolytes with BMP daily. Check urinalysis with micro, culture if appropriate (4) Seropositive rheumatoid arthritis of multiple joints: Pt currently receives alternating doses of prednisone. 10 mg one day, 5 the next. While in the hospital increase prednisone to 10 mg twice daily (5) Autoimmune hemolytic anemia: (6) Type 2 diabetes mellitus: (7) Hyperthyroidism: (8) History of total splenectomy: Pt at higher risk for infection secondary to splenectomy. Low threshold to draw blood cultures, and start antibiotics if any evidence of bacterial infection is noted (9) COPD, moderate: (10) Hypomagnesemia: IV magnesium will be administered. This could have contributed to the patient's muscle cramps. Plan Patient reported an episode of syncope to us. We will place her on telemetry, although this is likely secondary to dehydration. Other medical problems as outlined in past medical history SCDs for DVT prophylaxis along with heparin Full code Attestations Medical Necessity Statement*: Will require greater than 2 midnight stays for significant hyponatremia requiring close monitoring, exploration of diarrhea, treatment of acute kidney injury. She will need intensive electrolyte monitoring while on IV fluids secondary to her significant hyponatremia. Diagnoses Hyponatremia E87.1 Acute kidney injury N17.9 Diarrhea R19.7 Seropositive rheumatoid arthritis of multiple joints M05.79 Autoimmune hemolytic anemia D59.1 Type 2 diabetes mellitus E11.9 Hyperthyroidism E05.90 History of total splenectomy Z90.81 COPD, moderate J44.9 Hypomagnesemia E83.42 Time Spent (min) 51
--- NOTE | 2022-12-09 13:53 | CTR_ITS ---
PROCEDURE INFORMATION: Exam: CT Abdomen And Pelvis Without Contrast Exam date and time: 12/09/2022 5:55 PM Age: 67 years old Clinical indication: Abdominal pain; Generalized; Prior surgery; Surgery date: 6+ months; Surgery type: Nephrectomy. Hysterectomy; Patient HX: Diffuse abd pain with diarrhea. History of renal cancer. ; Additional info: Abdominal pain, diarrhea TECHNIQUE: Imaging protocol: Computed tomography of the abdomen and pelvis without contrast. Radiation optimization: All CT scans at this facility use at least one of these dose optimization techniques: automated exposure control; mA and/or kV adjustment per patient size (includes targeted exams where dose is matched to clinical indication); or iterative reconstruction. REPORTING DATA: Count of CT and Cardiac NM exams in prior 12 months: This patient has received 0 known CTs and 0 known cardiac nuclear medicine studies in the 12 months prior to the current study. COMPARISON: CT abdomen pelvis w con* [id number] 07/27/2018 11:38 AM RADIATION DOSE METRICS: Total DLP (mGy-cm): 792.13 FINDINGS: Lungs: Emphysematous changes. Liver: Normal. No mass. Gallbladder and bile ducts: Normal. No calcified stones. No ductal dilation. Pancreas: Normal. No ductal dilation. Spleen: Normal. No splenomegaly. Adrenal glands: Normal. No mass. Kidneys and ureters: Left kidney is absent. Stomach and bowel: Diverticulosis without diverticulitis. Mildly prominent fluid in the small bowel and colon may reflect an enterocolitis. Appendix: No evidence of appendicitis. Intraperitoneal space: Unremarkable. No free air. No significant fluid collection. Vasculature: Fusiform infrarenal abdominal aortic aneurysm measuring approximately 2.1 cm with calcified atherosclerotic plaque. Lymph nodes: Unremarkable. No enlarged lymph nodes. Urinary bladder: Unremarkable as visualized. Reproductive: Unremarkable as visualized. Bones/joints: Unremarkable. No acute fracture. Soft tissues: Unremarkable. CT/CT abdomen pelvis wo con [id number] IMPRESSION: 1. Negative for acute inflammatory process in the abdomen or pelvis. 2. Emphysematous changes. 3. Left kidney is absent. 4. Diverticulosis without diverticulitis. 5. Mildly prominent fluid in the small bowel and colon may reflect an enterocolitis. 6. Fusiform infrarenal abdominal aortic aneurysm measuring approximately 2.1 cm with calcified atherosclerotic plaque.
[2022-12-09 14:04] LABS: Cortisol Random 19.25 ug/dL (2.47-19.5); Creatine Phosphokinase 65 U/L (26-192); Magnesium 1.6 mg/dL (1.7-2.3)
[2022-12-09 15:13] VITALS: BMI 28.0
[2022-12-09 15:43] VITALS: BP 152/63; PULSE 69; RESP 16; TEMP 36.6; O2SAT 96
[2022-12-09] MEDS: magnesium sulfate premix 2 GM/50 ML PIGGYBACK IV (15:58)
[2022-12-09] MEDS: sodium chloride 0.9% 1,000 ML 100 ML IV (16:06)
[2022-12-09 16:22] VITALS: PULSE 69; RESP 17; O2SAT 94
[2022-12-09 16:58] LABS: Glucose Point of Care 161 mg/dL (70-110)
[2022-12-09] MEDS: insulin lispro 100 unit/1 mL SUBCUT (18:38)
[2022-12-09] MEDS: pantoprazole DR 40 mg Tablet PO (18:39)
[2022-12-09] MEDS: predniSONE 10 mg Tablet PO (18:39)
[2022-12-09] MEDS: isosorbide dinitrate 20 mg Tablet 30 MG PO (18:39)
[2022-12-09 19:17] LABS: Add Urine Microscopic? NO; Charge for UA Resulting for Rev
[2022-12-09 19:19] LABS: Urine Appearance Clear (CLEAR); Urine Color Yellow (Yellow); pH Urine 6 (5-7)
[2022-12-09 19:20] LABS: Bilirubin Urine Neg (Negative); Blood Urine Neg (Negative); Glucose Urine UA 2+ (Normal); Ketones Urine Negative (Negative); Leukocyte Esterase Urine Negative (Negative); Nitrate Urine Negative (Negative); Protein Urine Neg (Negative); Urobilinogen Urine Norm (Negative)
[2022-12-09 19:52] LABS: Anion Gap 14.1 (5-19); Blood Urea Nitrogen 31 mg/dL (8-23); Calcium 9.7 mg/dL (8.5-10.5); Carbon Dioxide 22 mmol/L (22-29); Chloride 93 mmol/L (98-107); Glomerular Filtration Rate 30.1 mL/min (90-130); Glucose 130 mg/dL (65-115); Osmolality Calculated 268 mOsm/kg (285-295); Potassium 4.1 mmol/L (3.5-5.1); Sodium 125 mmol/L (136-145)
[2022-12-09 20:35] VITALS: BP 134/62; PULSE 73; RESP 19; TEMP 36.8; O2SAT 93
[2022-12-09] MEDS: trazodone 100 mg Tablet PO (20:59)
[2022-12-09 21:00] VITALS: PULSE 68; RESP 18; O2SAT 96
[2022-12-09] MEDS: ipratropium-albuterol 3 mL Neb INHALATION (21:03)
[2022-12-09] MEDS: budesonide 0.5 mg/2 mL Neb INHALATION (21:03)
[2022-12-09 21:09] VITALS: PULSE 72
[2022-12-09 21:16] LABS: Glucose Point of Care 135 mg/dL (70-110)
[2022-12-09 22:00] VITALS: PULSE 67
[2022-12-10] VITALS (14 sets, daily range): BP systolic 138–189; BP diastolic 52–75; PULSE 64–89; RESP 15–18; TEMP 36.5–36.7; O2SAT 95–98
[2022-12-10 00:13] LABS: Anion Gap 16.7 (5-19); Blood Urea Nitrogen 33 mg/dL (8-23); Calcium 9.1 mg/dL (8.5-10.5); Carbon Dioxide 20 mmol/L (22-29); Chloride 94 mmol/L (98-107); Glomerular Filtration Rate 28.2 mL/min (90-130); Glucose 142 mg/dL (65-115); Osmolality Calculated 272 mOsm/kg (285-295); Potassium 4.7 mmol/L (3.5-5.1); Sodium 126 mmol/L (136-145)
[2022-12-10] MEDS: sodium chloride 0.9% 1,000 ML 100 ML IV ×2 (02:29→15:15)
[2022-12-10 05:23] LABS: Basophils % 0.1 %; Hematocrit 31.1 % (36-47); Lymphocytes # 2.1 10^3/uL (0.8-4.8); Lymphocytes % 15.2 %; Mean Corpuscular Hemoglobin 32.2 pg (27-33); Mean Corpuscular Volume 91.7 fl (85-98); Mean Platelet Volume 9.2 fL (7.4-10.4); Monocytes # 1.5 10^3/uL (0.2-0.9); Monocytes % 10.4 %; Neutrophils # 10.41 10^3/uL (1.8-7.7); Neutrophils % 73.7 %; Nucleated Red Blood Cells % 0 %; Platelet Count 378 10^3/cmm (157-399); Red Blood Count 3.39 10^6/uL (3.85-5.65); Red Cell Distribution Width 12.8 % (12.1-15.1)
[2022-12-10 05:42] LABS: Alanine Aminotransferase 9 U/L (0-33); Albumin Level 3.9 g/dL (3.5-5.2); Alkaline Phosphatase 111 U/L (35-105); Anion Gap 15.7 (5-19); Aspartate Amino Transferase 14 U/L (0-32); Blood Urea Nitrogen 29 mg/dL (8-23); Calcium 9.5 mg/dL (8.5-10.5); Carbon Dioxide 21 mmol/L (22-29); Chloride 98 mmol/L (98-107); Globulin 2.5 g/dL (1.3-4.6); Glomerular Filtration Rate 34.7 mL/min (90-130); Glucose 106 mg/dL (65-115); Osmolality Calculated 276 mOsm/kg (285-295); Potassium 4.7 mmol/L (3.5-5.1); Sodium 130 mmol/L (136-145); Total Protein 6.4 g/dL (6.6-8.7)
[2022-12-10 05:43] LABS: Creatinine Clr Calc Pharmacy 40.4407
[2022-12-10 06:43] LABS: Glucose Point of Care 99 mg/dL (70-110)
[2022-12-10 08:35] LABS: Magnesium 2.1 mg/dL (1.7-2.3)
--- NOTE | 2022-12-10 08:40 | PM.PN ---
Subjective Subjective: Maria Dolores reports she feels little bit better. She would like a nicotine patch. No abdominal pain. Still having some loose stool. C. difficile is pending. Medications: Reviewed: Yes Vitals/I&O/Wt Last Vital Signs Temp 97.7 F 12/10/22 07:43 Pulse 70 12/10/22 07:43 Resp 16 12/10/22 07:43 BP 189/63 12/10/22 07:43 Pulse Ox 97 12/10/22 07:43 O2 Del Method Room Air 12/10/22 07:43 12/09/22 12/10/22 12/10/22 22:59 06:59 14:59 Intake Total 290 / 290 1000 / 1290 Balance 290 / 290 1000 / 1290 Weight last 48 hrs Weight 81.193 kg Physical Exam Narrative: General no distress Neck: supple, goiter present, no lymphadenopathy. Cardiac: regular rate, rhythm. No murmurs appreciated at this time. Respiratory: wheezing best heard in lung bases bilaterally. Equal chest rise. Good air movement Abdomen: Soft with positive bowel sounds n. Extremities: 2+ pulses bilaterally in upper and lower extremities. No edema. Data 12/10/22 05:15 12/10/22 05:15 A&P Assessment and plan (1) Hyponatremia: Sodium has improved from 1 23-1 30 with IV fluids. Reduce IV fluids, recheck sodium tomorrow BMP daily. Random cortisol was normal, TSH recently normal (2) Acute kidney injury: Pt with worsened kidney function possibly secondary to dehydration. UA without any concerns CK normal CT abdomen pelvis demonstrated no obstruction. This was done without contrast. There was a little bit of fluid in the bowel. She has improved with IV fluids Note that she only has 1 kidney Avoid renal toxic medications BMP daily. Renal function is improving (3) Diarrhea: Pt with significant watery, large volume stools for 2 months. C. difficile and stool cultures are pending Initiate Lomotil, C. difficile is thought to be low likelihood. CT was not enlightening Rituxan is currently being held, metformin discontinued (4) Seropositive rheumatoid arthritis of multiple joints: Pt currently receives alternating doses of prednisone. 10 mg one day, 5 the next. While in the hospital this was increased to prednisone to 10 mg twice daily (5) Autoimmune hemolytic anemia: See problem 4 for rheumatoid arthritis. (6) Type 2 diabetes mellitus: Pt currently receives metformin for DM. Will hold as it can contribute to diarrhea and secondary to worsening kidney function. Continue sliding scale insulin (7) Hyperthyroidism: Continue methimazole therapy for hyperthyroidism. TSH on 12/06 showed TSH of 1.77. (8) History of total splenectomy: Pt at higher risk for infection secondary to splenectomy. Low threshold to draw blood cultures, and start antibiotics if any evidence of bacterial infection is noted. No antibiotics have been started at this time. (9) COPD, moderate: Continue at home therapies for COPD. (10) Hypomagnesemia: IV magnesium will be administered. This could have contributed to the patient's muscle cramps. Repeat magnesium level today. This was done and 2.1, normal Plan Patient reported an episode of syncope to us. We will place her on telemetry, although this is likely secondary to dehydration. Currently no evidence of arrhythmia Hypertension. Add amlodipine back Other medical problems as outlined in past medical history SCDs for DVT prophylaxis along with heparin Full code Attestations Medical Necessity Statement*: Needs continued hospital stay for close monitoring of acute kidney injury, hyponatremia, diarrhea with pending C. difficile. Possible discharge tomorrow. Diagnoses Hyponatremia E87.1 Acute kidney injury N17.9 Diarrhea R19.7 Seropositive rheumatoid arthritis of multiple joints M05.79 Autoimmune hemolytic anemia D59.1 Type 2 diabetes mellitus E11.9 Hyperthyroidism E05.90 History of total splenectomy Z90.81 COPD, moderate J44.9 Hypomagnesemia E83.42 Time Spent (min) 24
[2022-12-10] MEDS: budesonide 0.5 mg/2 mL Neb INHALATION ×2 (08:58→20:33)
[2022-12-10] MEDS: isosorbide dinitrate 20 mg Tablet 30 MG PO ×2 (09:09→17:15)
[2022-12-10] MEDS: diphenoxylate/atropine Tablet 1 TAB PO (09:10)
[2022-12-10] MEDS: pantoprazole DR 40 mg Tablet PO ×2 (09:10→17:13)
[2022-12-10] MEDS: methIMAzole 5 MG Tablet PO (09:11)
[2022-12-10] MEDS: amlodipine 10 mg Tablet PO (09:11)
[2022-12-10] MEDS: predniSONE 10 mg Tablet PO ×2 (09:16→17:13)
[2022-12-10] MEDS: nicotine 21 mg Patch 1 PATCH TRANSDERMA (09:18)
--- NOTE | 2022-12-10 09:26 | PC.CHAP ---
Pastoral Care Encounter/Spiritual Assessment Type of Contact [] Declined pharmacy operations manager visit [] Patient/Family/Request visit [] Outpatient visit [] Follow-up visit [] Physician referral [] Code/Alert [x] Routine visit [] Staff referral [] Actively dying [] Patient sleeping [] Family support [] [] Out of room [] Palliative care [] [] Receiving care in room [] Pre-surgical visit [] Trauma [] Long length of stay [] ICU visit [] Other: Relational/Emotional Strength [x] Patient feels connected with others/family/visitors/staff [] Distress [] Loneliness/isolation [] Abandonment Spirituality of Patient [x] Person of Estrella [] Attends Taoist of their Estrella [x] Believes in Prayer [] Reads Bible or Mandaen materials [] There are Spiritual issues to be addressed [place] Interventions [x] Prayer [x] Active listening [] Non-anxious presence [x] Spiritual/emotional support [] Crisis/trauma care [] Spiritual counseling [] Bereavement support [] Provided bereavement packet [] Provided Bible/devotional materials [] Provided toy/stuffed animal, coloring book to patient or family member [] Provided Communion [] Anointing/[place] [] Salvation [x] Completed spiritual assessment [] Other: Impact on Illness or Injury [] Angry [] Fearful [] Anxious [] Often cries [] Exhaustion [] Unable to work [] Unable to attend caodaism [] Unable to walk/stand [] Unable to read [] Unable to drive [] Unable to eat/drink [] Unable to sleep [] Unable to be with family [] Patient intubated [] Other: Summary Time spent with patient 5 min
[2022-12-10] MEDS: metoprolol succinate ER (24 HR) 100 mg Tablet PO (09:39)
[2022-12-10 11:41] LABS: Glucose Point of Care 132 mg/dL (70-110)
--- NOTE | 2022-12-10 13:02 | PC.SOCIAL ---
Pg 2 IMM Explained to pt Pg 2 IMM. No questions voiced. Provided pt a copy. Initialed, dated, & timed a copy & placed in chart.
[2022-12-10 16:54] LABS: Glucose Point of Care 140 mg/dL (70-110)
[2022-12-10] MEDS: trazodone 100 mg Tablet PO (20:03)
[2022-12-10 20:42] LABS: Glucose Point of Care 166 mg/dL (70-110)
[2022-12-10] MEDS: insulin lispro 100 unit/1 mL SUBCUT (20:59)
[2022-12-11] VITALS (14 sets, daily range): BP systolic 152–191; BP diastolic 63–89; PULSE 59–73; RESP 15–18; TEMP 36.4–36.7; O2SAT 95–98
--- NOTE | 2022-12-11 01:32 | PC.NURSE ---
Addendum entered by Alma Rosa Lundberg RN 12/11/22 01:34: Notified that c-diff is still pending. Original Note: Dr. Lindsey notified that patient received one time dose of Lomotil during day shift and that patient states it helped temporarily. Patient states she has had 7 BMs so far during my shift and states she can't sleep because of it. Lomotil x1 ordered.
[2022-12-11 04:35] LABS: Basophils % 0.1 %; Eosinophils % 0.1 %; Hematocrit 29.9 % (36-47); Lymphocytes # 2.8 10^3/uL (0.8-4.8); Lymphocytes % 20.6 %; Mean Corpuscular HGB Conc 33.1 g/dL (30-55); Mean Corpuscular Hemoglobin 31.4 pg (27-33); Mean Corpuscular Volume 94.9 fl (85-98); Mean Platelet Volume 9.6 fL (7.4-10.4); Monocytes # 2.1 10^3/uL (0.2-0.9); Monocytes % 15.1 %; Neutrophils # 8.69 10^3/uL (1.8-7.7); Neutrophils % 63.7 %; Nucleated Red Blood Cells % 0 %; Platelet Count 379 10^3/cmm (157-399); Red Blood Count 3.15 10^6/uL (3.85-5.65); Red Cell Distribution Width 13.2 % (12.1-15.1); White Blood Count 13.67 10^3/uL (3.29-11.43)
[2022-12-11 05:06] LABS: Alanine Aminotransferase 7 U/L (0-33); Albumin Level 3.5 g/dL (3.5-5.2); Alkaline Phosphatase 121 U/L (35-105); Anion Gap 12.7 (5-19); Aspartate Amino Transferase 13 U/L (0-32); Blood Urea Nitrogen 26 mg/dL (8-23); Calcium 9.2 mg/dL (8.5-10.5); Carbon Dioxide 22 mmol/L (22-29); Chloride 101 mmol/L (98-107); Globulin 2.6 g/dL (1.3-4.6); Glomerular Filtration Rate 37.6 mL/min (90-130); Glucose 124 mg/dL (65-115); Magnesium 1.8 mg/dL (1.7-2.3); Osmolality Calculated 278 mOsm/kg (285-295); Potassium 4.7 mmol/L (3.5-5.1); Sodium 131 mmol/L (136-145); Total Bilirubin 0.5 mg/dL (0.15-1.2); Total Protein 6.1 g/dL (6.6-8.7)
[2022-12-11 06:45] LABS: Glucose Point of Care 107 mg/dL (70-110)
--- NOTE | 2022-12-11 08:10 | P.DS_ITS ---
Discharge Providers Date of Admission: 12/09/22 13:13 Date of Discharge: December 11, 2022 Attending Provider at Admission: Dain Hunter MD Attending Provider at Discharge: Dain Hunter MD Primary Care Provider: BELINDA Castro Diagnoses at Discharge Discharge Diagnosis (1) Hyponatremia: Status: Acute (2) Acute kidney injury: Status: Acute (3) Diarrhea: Status: Acute (4) Seropositive rheumatoid arthritis of multiple joints: Status: Acute (5) Autoimmune hemolytic anemia: Status: Chronic (6) Type 2 diabetes mellitus: Status: Acute (7) Hyperthyroidism: Status: Acute (8) History of total splenectomy: Status: Acute Permanent problem details: December 28, 2018 at [place], [place] (9) COPD, moderate: Status: Chronic (10) Hypomagnesemia: Status: Acute Reason for Visit Reason for Visit: 264 / Cancer / Renal Failure Discharge Data Studies Completed and Pending Completed Studies During Hospitalization Category Date Time Status CT abdomen pelvis wo con [id number] Routine Cat Scan 12/09/22 13:53 Completed XR chest 1V portable [id number] Routine Exams 12/09/22 13:19 Completed Pending at discharge Category Date Time Status Clostridium Difficile PCR Routine Lab 12/09/22 18:00 Received Stool Culture - Enteric [Salmonella / Shigella / Campy] Lab 12/09/22 18:00 Received Routine Radiology Impressions Abdomen/Pelvis CT 12/09/22 13:53 IMPRESSION: 1. Negative for acute inflammatory process in the abdomen or pelvis. 2. Emphysematous changes. 3. Left kidney is absent. 4. Diverticulosis without diverticulitis. 5. Mildly prominent fluid in the small bowel and colon may reflect an enterocolitis. 6. Fusiform infrarenal abdominal aortic aneurysm measuring approximately 2.1 cm with calcified atherosclerotic plaque. Laboratory Results WBC 13.67 10^3/uL (3.29-11.43) H 12/11/22 04:10 RBC 3.15 10^6/uL (3.85-5.65) L 12/11/22 04:10 Hgb 9.90 g/dL (11.27-16.99) L 12/11/22 04:10 Hct 29.9 % (36-47) L 12/11/22 04:10 MCV 94.9 fl (85-98) 12/11/22 04:10 MCH 31.4 pg (27-33) 12/11/22 04:10 MCHC 33.1 g/dL (30-55) D 12/11/22 04:10 RDW 13.2 % (12.1-15.1) 12/11/22 04:10 Plt Count 379 10^3/cmm (157-399) 12/11/22 04:10 MPV 9.6 fL (7.4-10.4) 12/11/22 04:10 Neut % (Auto) 63.7 % 12/11/22 04:10 Lymph % (Auto) 20.6 % 12/11/22 04:10 [place] % (Auto) 15.1 % 12/11/22 04:10 Eos % (Auto) 0.1 % 12/11/22 04:10 Baso % (Auto) 0.1 % 12/11/22 04:10 Neut # (Auto) 8.69 10^3/uL (1.8-7.7) H 12/11/22 04:10 Lymph # (Auto) 2.8 10^3/uL (0.8-4.8) 12/11/22 04:10 [place] # (Auto) 2.1 10^3/uL (0.2-0.9) H 12/11/22 04:10 Eos # (Auto) 0.0 10^3/uL (0.0-0.8) 12/11/22 04:10 Baso # (Auto) 0.0 10^3/uL (0.0-0.1) 12/11/22 04:10 Nucleated RBC % (auto) 0 % 12/11/22 04:10 Nucleated RBCs # 0.0 /100WBC 12/11/22 04:10 Sodium 131 mmol/L (136-145) L 12/11/22 04:10 Potassium 4.7 mmol/L (3.5-5.1) 12/11/22 04:10 Chloride 101 mmol/L (98-107) 12/11/22 04:10 Carbon Dioxide 22 mmol/L (22-29) 12/11/22 04:10 Anion Gap 12.7 (5-19) 12/11/22 04:10 BUN 26 mg/dL (8-23) H 12/11/22 04:10 Creatinine 1.4 mg/dL (0.5-0.9) H 12/11/22 04:10 GFR Calculation 37.6 mL/min (90-130) L 12/11/22 04:10 Glucose 124 mg/dL (65-115) H 12/11/22 04:10 POC Glucose 107 mg/dL (70-110) 12/11/22 06:35 Calculated Osmolality 278 mOsm/kg (285-295) L 12/11/22 04:10 Calcium 9.2 mg/dL (8.5-10.5) 12/11/22 04:10 Magnesium 1.8 mg/dL (1.7-2.3) 12/11/22 04:10 Total Bilirubin 0.5 mg/dL (0.15-1.2) 12/11/22 04:10 AST 13 U/L (0-32) 12/11/22 04:10 ALT 7 U/L (0-33) 12/11/22 04:10 Alkaline Phosphatase 121 U/L (35-105) H 12/11/22 04:10 Creatine Kinase 65 U/L (26-192) 12/09/22 10:48 Creatine Kinase Cancelled 12/09/22 10:48 Total Protein 6.1 g/dL (6.6-8.7) L 12/11/22 04:10 Albumin 3.5 g/dL (3.5-5.2) 12/11/22 04:10 Globulin 2.6 g/dL (1.3-4.6) 12/11/22 04:10 Random Cortisol 19.25 ug/dL (2.47-19.5) 12/09/22 10:48 Urine Color Yellow (Yellow) 12/09/22 18:00 Urine Appearance Clear (CLEAR) 12/09/22 18:00 Urine pH 6 (5-7) 12/09/22 18:00 Ur Specific [place] 1.010 (1.005-1.030) 12/09/22 18:00 Urine Protein Neg (Negative) 12/09/22 18:00 Urine Glucose (UA) 2+ (Normal) H 12/09/22 18:00 Urine Ketones Negative (Negative) 12/09/22 18:00 Urine Blood Neg (Negative) 12/09/22 18:00 Urine Nitrate Negative (Negative) 12/09/22 18:00 Urine Bilirubin Neg (Negative) 12/09/22 18:00 Urine Urobilinogen Norm mg/dL (Negative) 12/09/22 18:00 Ur Leukocyte Esterase Negative (Negative) 12/09/22 18:00 Vitals Last Vital Signs Temp 97.5 F L 12/11/22 07:45 Pulse 63 12/11/22 07:45 Resp 17 12/11/22 07:45 BP 170/63 12/11/22 07:45 Pulse Ox 96 12/11/22 07:45 O2 Del Method Room Air 12/11/22 07:45 Discharge Plan Discharge Patient Disposition: Home Condition: Stable Prescriptions: No Action hydrocodone-acetaminophen 10-325 mg tablet 1 tab PO Q6H PRN (Reason: Pain) (DME) OneTouch Ultra Blue Test Strip Strip See Rx Instructions .ROUTE .MEDSUPPLY Qty: 100 5RF Rx Instructions: check 2 times day (DME) insulin syringe-needle U-100 0.3 mL 31 gauge x 5/16 syringe See Rx Instructions .ROUTE .MEDSUPPLY Qty: 100 5RF Rx Instructions: As directed folic acid 1 mg tablet 1 mg PO DAILY Humulin R Regular U-100 Insuln 100 unit/mL solution See Rx Instructions SUBCUT TID PRN (Reason: BLOOD SUGAR) Qty: 10 0RF Rx Instructions: 5-20 units SUBCUT three times daily; albuterol sulfate [ProAir HFA] 90 mcg/actuation HFA aerosol inhaler 2 inh INHALATION Q6H PRN (Reason: shortness of breath or wheezing) Qty: 18 2RF amlodipine 10 mg tablet 10 mg PO BEDTIME Qty: 30 2RF metformin 500 mg tablet extended release 24 hr 500 mg PO BID Qty: 60 2RF methimazole 5 mg tablet 5 mg PO DAILY Qty: 30 2RF metoprolol succinate 100 mg tablet extended release 24 hr 100 mg PO DAILY Qty: 30 2RF pantoprazole [Protonix] 40 mg tablet,delayed release (DR/EC) 40 mg PO DAILY Qty: 30 2RF Crestor 10 mg tablet 10 mg PO QPM Qty: 30 2RF trazodone 100 mg tablet 100 mg PO BEDTIME Qty: 30 2RF valsartan-hydrochlorothiazide [Diovan HCT] 320-12.5 mg tablet 1 tab PO DAILY Qty: 30 2RF zonisamide 50 mg capsule 50 mg PO BID Qty: 60 2RF prednisone 5 mg tablet See Rx Instructions .ROUTE .COMPLEX Qty: 45 2RF Dose Instruction: TAKE ONE TABLET BY MOUTH EVERY OTHER DAY, THEN TAKE TWO TABLETS ON OPPOSITE DAYS Rx Instructions: TAKE ONE TABLET BY MOUTH EVERY OTHER DAY, THEN TAKE TWO TABLETS ON OPPOSITE DAYS isosorbide dinitrate 30 mg tablet 30 mg PO BID Qty: 90 3RF Rx Instructions: allow nitrate-free interval of 12-14 hrs per 24-hr period omega 6-dzt-lmp-fish oil [Fish Oil] 1,000 mg (120 mg-180 mg) Capsule 1 cap PO DAILY garlic 500 mg Capsule 500 mg PO DAILY [place] [facility] Mature 8 mg iron-400 mcg-300 mcg Tablet 1 tab PO DAILY Patient Instructions: Opioid Safety Coding Level of Care Code Acute Code for Chg Fwd Diagnoses Hyponatremia E87.1 Acute kidney injury N17.9 Diarrhea R19.7 Seropositive rheumatoid arthritis of multiple joints M05.79 Autoimmune hemolytic anemia D59.1 Type 2 diabetes mellitus E11.9 Hyperthyroidism E05.90 History of total splenectomy Z90.81 COPD, moderate J44.9 Hypomagnesemia E83.42
[2022-12-11] MEDS: methIMAzole 5 MG Tablet PO (08:28)
[2022-12-11] MEDS: isosorbide dinitrate 20 mg Tablet 30 MG PO ×2 (08:28→17:47)
[2022-12-11] MEDS: pantoprazole DR 40 mg Tablet PO ×2 (08:28→17:47)
[2022-12-11] MEDS: nicotine 21 mg Patch 1 PATCH TRANSDERMA (08:28)
[2022-12-11] MEDS: amlodipine 10 mg Tablet PO (08:28)
[2022-12-11] MEDS: metoprolol succinate ER (24 HR) 100 mg Tablet PO (08:28)
[2022-12-11] MEDS: predniSONE 10 mg Tablet PO ×2 (08:28→17:47)
[2022-12-11] MEDS: budesonide 0.5 mg/2 mL Neb INHALATION ×2 (08:44→19:55)
--- NOTE | 2022-12-11 11:10 | P.PN_ITS ---
Subjective Subjective: Patient had 5-6 episodes of loose stools overnight C. difficile panel is pending No fever no worsening leukocytosis She was asking if she could be discharged home I did convey my concerns related to dehydration hyponatremia and active diarrhea she is willing to stay until she feels better No diarrhea since midnight Vitals/I&O/Wt Last Vital Signs Temp 97.5 F L 12/11/22 07:45 Pulse 68 12/11/22 08:51 Resp 18 12/11/22 08:44 BP 170/63 12/11/22 07:45 Pulse Ox 97 12/11/22 08:44 O2 Del Method Room Air 12/11/22 08:44 12/10/22 12/11/22 12/11/22 22:59 06:59 14:59 Intake Total 240 / 1840 700 / 2540 360 / 360 Balance 240 / 1840 700 / 2540 360 / 360 Weight last 48 hrs Weight 81.193 kg Physical Exam Narrative: Signs of dehydration improving Abdomen soft Pleasant and cooperative Currently on room air Anxious appearing Nonfocal neuro exam GCS 15 S1, S2 Data 12/11/22 04:10 12/11/22 04:10 A&P Assessment and plan (1) Hypomagnesemia: (2) Type 2 diabetes mellitus: (3) Diarrhea: (4) Acute kidney injury: (5) Hyponatremia: (6) Accelerated hypertension: (7) Vitamin D deficiency: (8) Immunosuppression: (9) Essential (primary) hypertension: (10) Controlled diabetes mellitus: Qualifiers: Diabetes mellitus type: type 2 Diabetes mellitus custodial insulin use: without intermodal owner operator truck driver use (11) COPD, moderate: (12) Autoimmune hemolytic anemia: Plan Hypovolemic hyponatremia Continue IV fluids Sodium improving Cdiff panel is pending Had 5 episodes of diarrhea last night no diarrhea since midnight Dehydration: Continue IV fluid hydration HEATHER: Improving with IV fluid hydration Hypomagnesemia: Replenished Potassium is 4.7 today Autoimmune hemolytic anemia continue steroids and continue rituximab at discharge Hemoglobin stable Persistent leukocytosis, no acute worsening Syncope: Sinus rhythm, Continue methimazole for hyperthyroidism Type 2 diabetes, patient wants to have diet Coke which is okay with her consistent carb diet Patient is stating her hemoglobin has been around 5.2 she does not need metformin at this point Disposition: Home within next 24 to 48 hours Attestations Medical Necessity Statement*: Continue medical management Diagnoses Hypomagnesemia E83.42 Type 2 diabetes mellitus E11.9 Diarrhea R19.7 Acute kidney injury N17.9 Hyponatremia E87.1 Accelerated hypertension I10 Vitamin D deficiency E55.9 Immunosuppression D89.9 Essential (primary) hypertension I10 Controlled diabetes mellitus E11.9 Diabetes mellitus type: type 2 Diabetes mellitus custodial insulin use: without custodial use COPD, moderate J44.9 Autoimmune hemolytic anemia D59.1
[2022-12-11 11:17] LABS: Glucose Point of Care 120 mg/dL (70-110)
[2022-12-11] MEDS: sodium chloride 0.9% 1,000 ML 50 ML IV (13:24)
[2022-12-11 16:57] LABS: Glucose Point of Care 113 mg/dL (70-110)
[2022-12-11] MEDS: ipratropium-albuterol 3 mL Neb INHALATION (19:55)
[2022-12-11 20:55] LABS: Glucose Point of Care 159 mg/dL (70-110)
[2022-12-11] MEDS: insulin lispro 100 unit/1 mL SUBCUT (21:35)
[2022-12-11] MEDS: trazodone 100 mg Tablet PO (21:35)
[2022-12-12] VITALS (9 sets, daily range): BP systolic 144–180; BP diastolic 60–80; PULSE 59–71; RESP 16–19; TEMP 36.2–36.5; O2SAT 92–97
[2022-12-12 06:45] LABS: Glucose Point of Care 97 mg/dL (70-110)
[2022-12-12] MEDS: amlodipine 10 mg Tablet PO (10:17)
[2022-12-12] MEDS: metoprolol succinate ER (24 HR) 100 mg Tablet PO (10:17)
[2022-12-12] MEDS: pantoprazole DR 40 mg Tablet PO ×2 (10:17→18:01)
[2022-12-12] MEDS: methIMAzole 5 MG Tablet PO (10:17)
[2022-12-12] MEDS: isosorbide dinitrate 20 mg Tablet 30 MG PO ×2 (10:17→18:01)
[2022-12-12] MEDS: predniSONE 10 mg Tablet PO ×2 (10:17→18:01)
[2022-12-12] MEDS: nicotine 21 mg Patch 1 PATCH TRANSDERMA (10:18)
[2022-12-12] MEDS: sodium chloride 0.9% 1,000 ML 50 ML IV (10:19)
[2022-12-12 11:26] LABS: Glucose Point of Care 94 mg/dL (70-110)
--- NOTE | 2022-12-12 14:41 | PM.PN ---
Subjective Subjective: Reports that she is feeling some better today. She denies any problems overnight. Says that the diarrhea has improved, and she is eating and drinking okay. States that she is having a lot more gas. Vitals/I&O/Wt Last Vital Signs Temp 97.3 F L 12/12/22 12:58 Pulse 62 12/12/22 12:58 Resp 18 12/12/22 12:58 BP 154/73 12/12/22 12:58 Pulse Ox 96 12/12/22 12:58 O2 Del Method Room Air 12/12/22 12:58 12/11/22 12/12/22 12/12/22 22:59 06:59 14:59 Intake Total 240 / 1460 1720 / 1720 Balance 240 / 1460 1720 / 1720 Physical Exam Narrative: General: Cooperative patient in no apparent distress. Well developed. HEENT: Normocephalic, Atraumatic. External ears normal. Nasal passages patent without drainage. MMM. Heart: RRR. Resp: LCTA. No respiratory distress, no use of accessory muscles. Abd: Soft, non-tender. Non-distended. Extremities: No edema. Skin: No rash or lesions on exposed areas. Data 12/11/22 04:10 12/11/22 04:10 A&P Assessment and plan (1) Hypomagnesemia: (2) Type 2 diabetes mellitus: (3) Diarrhea: (4) Acute kidney injury: (5) Hyponatremia: (6) Accelerated hypertension: (7) Vitamin D deficiency: (8) Immunosuppression: (9) Essential (primary) hypertension: (10) Controlled diabetes mellitus: Qualifiers: Diabetes mellitus type: type 2 Diabetes mellitus technician terminal and repeater insulin use: without assisted use (11) COPD, moderate: (12) Autoimmune hemolytic anemia: Plan 67 y/o F admitted for hyponatremia, Diarrhea, Dehydration. Continue inpatient monitoring. Na has improved to 131. Continue IV fluids and plan to recheck in a.m. C-Diff is pending. Will treat as indicated. She is tolerating oral intake well. Dehydration is improving. HEATHER: Improving with IV fluid hydration Autoimmune hemolytic anemia continue steroids and continue rituximab at discharge Hemoglobin stable Continue methimazole for hyperthyroidism Will recheck A.M. labs. If Na is improved, her diarrhea remains controlled and C-diff lab has resulted, anticipate that she may discharge tomorrow. Code Status: Full IVF: NS @ 50ml/hr DVT PPx: SCD's GI PPx: Protonix ABx: None Diet: Cardiac CC Discharge plan: Home when able, likely tomorrow. Attestations Medical Necessity Statement*: Continue medical management Coding Level of Care Code Acute Code for Chg Fwd Straight Forward/Low MDM includes number and complexity of problems actively addressed during encounter, amount and/or complexity of data reviewed/ordered and described risk of complication, morbidity or mortality of management as documented Diagnoses Hypomagnesemia E83.42 Type 2 diabetes mellitus E11.9 Diarrhea R19.7 Acute kidney injury N17.9 Hyponatremia E87.1 Accelerated hypertension I10 Vitamin D deficiency E55.9 Immunosuppression D89.9 Essential (primary) hypertension I10 Controlled diabetes mellitus E11.9 Diabetes mellitus type: type 2 Diabetes mellitus assisted insulin use: without technician terminal and repeater use COPD, moderate J44.9 Autoimmune hemolytic anemia D59.1
[2022-12-12 17:17] LABS: Glucose Point of Care 175 mg/dL (70-110)
[2022-12-12] MEDS: insulin lispro 100 unit/1 mL SUBCUT (18:01)
[2022-12-12] MEDS: lanolin oint 7 gm 1 APPLIC TOPICAL (18:04)
[2022-12-12] MEDS: acetaminophen 325 mg Tablet 650 MG PO (18:04)
[2022-12-12] MEDS: trazodone 100 mg Tablet PO (20:37)
[2022-12-12] MEDS: budesonide 0.5 mg/2 mL Neb INHALATION (20:40)
[2022-12-12 21:00] LABS: Glucose Point of Care 126 mg/dL (70-110)
[2022-12-12] MEDS: HYDROcodone-acetaminophen 10-325 mg Tablet 1 TAB PO (21:21)
[2022-12-13] VITALS (7 sets, daily range): BP systolic 152–187; BP diastolic 62–69; PULSE 54–66; RESP 14–18; TEMP 36.3–36.6; O2SAT 94–98
[2022-12-13 04:48] LABS: Basophils % 0.2 %; Eosinophils % 0.1 %; Hematocrit 29.3 % (36-47); Lymphocytes # 3.6 10^3/uL (0.8-4.8); Lymphocytes % 25.8 %; Mean Corpuscular HGB Conc 33.8 g/dL (30-55); Mean Corpuscular Hemoglobin 31.8 pg (27-33); Mean Corpuscular Volume 94.2 fl (85-98); Mean Platelet Volume 10.4 fL (7.4-10.4); Monocytes # 1.4 10^3/uL (0.2-0.9); Monocytes % 10.4 %; Neutrophils # 8.34 10^3/uL (1.8-7.7); Neutrophils % 60.5 %; Nucleated Red Blood Cells # 0.1 /100WBC; Nucleated Red Blood Cells % 0.4 %; Platelet Count 331 10^3/cmm (157-399); Red Blood Count 3.11 10^6/uL (3.85-5.65); Red Cell Distribution Width 13.2 % (12.1-15.1); White Blood Count 13.81 10^3/uL (3.29-11.43)
[2022-12-13 05:06] LABS: Alanine Aminotransferase 7 U/L (0-33); Albumin Level 3.5 g/dL (3.5-5.2); Alkaline Phosphatase 98 U/L (35-105); Anion Gap 12.4 (5-19); Aspartate Amino Transferase 18 U/L (0-32); Blood Urea Nitrogen 27 mg/dL (8-23); Calcium 8.9 mg/dL (8.5-10.5); Carbon Dioxide 24 mmol/L (22-29); Chloride 103 mmol/L (98-107); Globulin 2.5 g/dL (1.3-4.6); Glomerular Filtration Rate 37.6 mL/min (90-130); Glucose 121 mg/dL (65-115); Osmolality Calculated 286 mOsm/kg (285-295); Potassium 4.4 mmol/L (3.5-5.1); Sodium 135 mmol/L (136-145); Total Bilirubin 0.3 mg/dL (0.15-1.2)
[2022-12-13 06:38] LABS: Glucose Point of Care 115 mg/dL (70-110)
[2022-12-13] MEDS: budesonide 0.5 mg/2 mL Neb INHALATION (07:16)
[2022-12-13] MEDS: ipratropium-albuterol 3 mL Neb INHALATION (07:16)
[2022-12-13] MEDS: predniSONE 10 mg Tablet PO (08:53)
[2022-12-13] MEDS: pantoprazole DR 40 mg Tablet PO (08:53)
[2022-12-13] MEDS: isosorbide dinitrate 20 mg Tablet 30 MG PO (08:53)
[2022-12-13] MEDS: metoprolol succinate ER (24 HR) 100 mg Tablet PO (08:54)
[2022-12-13] MEDS: sodium chloride 0.9% 1,000 ML 50 ML IV (08:54)
[2022-12-13] MEDS: amlodipine 10 mg Tablet PO (08:54)
[2022-12-13] MEDS: methIMAzole 5 MG Tablet PO (08:54)
[2022-12-13] MEDS: nicotine 21 mg Patch 1 PATCH TRANSDERMA (08:54)
--- NOTE | 2022-12-13 11:18 | P.DS_ITS ---
Discharge Providers Date of Admission: 12/09/22 13:13 Date of Discharge: December 13, 2022 Attending Provider at Admission: Dain Hunter MD Attending Provider at Discharge: Jasson Carlton MD Primary Care Provider: BELINDA Castro Diagnoses at Discharge Discharge Diagnosis (1) Hypomagnesemia: Status: Acute (2) Type 2 diabetes mellitus: Status: Acute (3) Diarrhea: Status: Acute (4) Acute kidney injury: Status: Acute (5) Hyponatremia: Status: Acute (6) Accelerated hypertension: Status: Acute (7) Vitamin D deficiency: Status: Chronic (8) Immunosuppression: Status: Chronic (9) Essential (primary) hypertension: Status: Chronic (10) Controlled diabetes mellitus: Status: Chronic Qualifiers: Diabetes mellitus type: type 2 Diabetes mellitus prison insulin use: without prison use (11) COPD, moderate: Status: Chronic (12) Autoimmune hemolytic anemia: Status: Chronic Reason for Visit Reason for Visit: 264 / Cancer / Renal Failure Hospital Course Hospital Course 67-year-old female with history of hemic anemia take rituximab, takes metformin for diabetes, no recent use of antibiotics, she was admitted for management evaluation of syncope which was related to dehydration and orthostasis, CT abdomen pelvis consistent with enterocolitis, patient was given IV fluids which improved her hyponatremia and HEATHER. Patient is stating that she drinks a lot of water without adding sodium extubated. Considering her HEATHER her antihypertensive regimen was changed to hydralazine amlodipine losartan hydrochlorothiazide combination discontinued at discharge. I have asked patient to hold her metformin for now C. difficile panel still pending after 5 days I have asked leather case finisher to follow-up on that and let me know if it is positive This was conveyed to the patient as well Physical Exam Narrative: Awake and alert GCS 15 S1, S2 Abdomen soft Pleasant and cooperative Discharge Data Studies Completed and Pending Completed Studies During Hospitalization Category Date Time Status CT abdomen pelvis wo con [id number] Routine Cat Scan 12/09/22 13:53 Completed XR chest 1V portable [id number] Routine Exams 12/09/22 13:19 Completed Pending at discharge Category Date Time Status Clostridium Difficile PCR Routine Lab 12/09/22 18:00 Received Stool Culture - Enteric [Salmonella / Shigella / Campy] Lab 12/09/22 18:00 Received Routine Radiology Impressions Abdomen/Pelvis CT 12/09/22 13:53 IMPRESSION: 1. Negative for acute inflammatory process in the abdomen or pelvis. 2. Emphysematous changes. 3. Left kidney is absent. 4. Diverticulosis without diverticulitis. 5. Mildly prominent fluid in the small bowel and colon may reflect an enterocolitis. 6. Fusiform infrarenal abdominal aortic aneurysm measuring approximately 2.1 cm with calcified atherosclerotic plaque. Laboratory Results WBC 13.81 10^3/uL (3.29-11.43) H 12/13/22 03:11 RBC 3.11 10^6/uL (3.85-5.65) L 12/13/22 03:11 Hgb 9.90 g/dL (11.27-16.99) L 12/13/22 03:11 Hct 29.3 % (36-47) L 12/13/22 03:11 MCV 94.2 fl (85-98) 12/13/22 03:11 MCH 31.8 pg (27-33) 12/13/22 03:11 MCHC 33.8 g/dL (30-55) 12/13/22 03:11 RDW 13.2 % (12.1-15.1) 12/13/22 03:11 Plt Count 331 10^3/cmm (157-399) 12/13/22 03:11 MPV 10.4 fL (7.4-10.4) 12/13/22 03:11 Neut % (Auto) 60.5 % 12/13/22 03:11 Lymph % (Auto) 25.8 % 12/13/22 03:11 [place] % (Auto) 10.4 % 12/13/22 03:11 Eos % (Auto) 0.1 % 12/13/22 03:11 Baso % (Auto) 0.2 % 12/13/22 03:11 Neut # (Auto) 8.34 10^3/uL (1.8-7.7) H 12/13/22 03:11 Lymph # (Auto) 3.6 10^3/uL (0.8-4.8) 12/13/22 03:11 [place] # (Auto) 1.4 10^3/uL (0.2-0.9) H 12/13/22 03:11 Eos # (Auto) 0.0 10^3/uL (0.0-0.8) 12/13/22 03:11 Baso # (Auto) 0.0 10^3/uL (0.0-0.1) 12/13/22 03:11 Nucleated RBC % (auto) 0.4 % 12/13/22 03:11 Nucleated RBCs # 0.1 /100WBC 12/13/22 03:11 Sodium 135 mmol/L (136-145) L 12/13/22 03:11 Potassium 4.4 mmol/L (3.5-5.1) 12/13/22 03:11 Chloride 103 mmol/L (98-107) 12/13/22 03:11 Carbon Dioxide 24 mmol/L (22-29) 12/13/22 03:11 Anion Gap 12.4 (5-19) 12/13/22 03:11 BUN 27 mg/dL (8-23) H 12/13/22 03:11 Creatinine 1.4 mg/dL (0.5-0.9) H 12/13/22 03:11 GFR Calculation 37.6 mL/min (90-130) L 12/13/22 03:11 Glucose 121 mg/dL (65-115) H 12/13/22 03:11 POC Glucose 115 mg/dL (70-110) H 12/13/22 06:26 Calculated Osmolality 286 mOsm/kg (285-295) 12/13/22 03:11 Calcium 8.9 mg/dL (8.5-10.5) 12/13/22 03:11 Magnesium 1.8 mg/dL (1.7-2.3) 12/11/22 04:10 Total Bilirubin 0.3 mg/dL (0.15-1.2) 12/13/22 03:11 AST 18 U/L (0-32) 12/13/22 03:11 ALT 7 U/L (0-33) 12/13/22 03:11 Alkaline Phosphatase 98 U/L (35-105) 12/13/22 03:11 Creatine Kinase 65 U/L (26-192) 12/09/22 10:48 Creatine Kinase Cancelled 12/09/22 10:48 Total Protein 6.0 g/dL (6.6-8.7) L 12/13/22 03:11 Albumin 3.5 g/dL (3.5-5.2) 12/13/22 03:11 Globulin 2.5 g/dL (1.3-4.6) 12/13/22 03:11 Random Cortisol 19.25 ug/dL (2.47-19.5) 12/09/22 10:48 Urine Color Yellow (Yellow) 12/09/22 18:00 Urine Appearance Clear (CLEAR) 12/09/22 18:00 Urine pH 6 (5-7) 12/09/22 18:00 Ur Specific [place] 1.010 (1.005-1.030) 12/09/22 18:00 Urine Protein Neg (Negative) 12/09/22 18:00 Urine Glucose (UA) 2+ (Normal) H 12/09/22 18:00 Urine Ketones Negative (Negative) 12/09/22 18:00 Urine Blood Neg (Negative) 12/09/22 18:00 Urine Nitrate Negative (Negative) 12/09/22 18:00 Urine Bilirubin Neg (Negative) 12/09/22 18:00 Urine Urobilinogen Norm mg/dL (Negative) 12/09/22 18:00 Ur Leukocyte Esterase Negative (Negative) 12/09/22 18:00 Vitals Last Vital Signs Temp 97.4 F L 12/13/22 08:00 Pulse 66 12/13/22 08:00 Resp 18 12/13/22 08:00 BP 187/62 12/13/22 08:00 Pulse Ox 94 12/13/22 08:00 O2 Del Method Room Air 12/13/22 07:21 Discharge Plan Discharge Patient Disposition: Home Condition: Stable Prescriptions: New amlodipine 10 mg Tablet 10 mg PO DAILY Qty: 90 0RF hydralazine 50 mg tablet 50 mg PO BID Qty: 60 5RF Continued hydrocodone-acetaminophen 10-325 mg tablet 1 tab PO Q6H PRN (Reason: Pain) (DME) OneTouch Ultra Blue Test Strip Strip See Rx Instructions .ROUTE .MEDSUPPLY Qty: 100 5RF Rx Instructions: check 2 times day (DME) insulin syringe-needle U-100 0.3 mL 31 gauge x 16 syringe See Rx Instructions .ROUTE .MEDSUPPLY Qty: 100 5RF Rx Instructions: As directed folic acid 1 mg tablet 1 mg PO DAILY Humulin R Regular U-100 Insuln 100 unit/mL solution See Rx Instructions SUBCUT TID PRN (Reason: BLOOD SUGAR) Qty: 10 0RF Rx Instructions: 5-20 units SUBCUT three times daily; albuterol sulfate [ProAir HFA] 90 mcg/actuation HFA aerosol inhaler 2 inh INHALATION Q6H PRN (Reason: shortness of breath or wheezing) Qty: 18 2RF amlodipine 10 mg tablet 10 mg PO BEDTIME Qty: 30 2RF methimazole 5 mg tablet 5 mg PO DAILY Qty: 30 2RF metoprolol succinate 100 mg tablet extended release 24 hr 100 mg PO DAILY Qty: 30 2RF pantoprazole [Protonix] 40 mg tablet,delayed release (DR/EC) 40 mg PO DAILY Qty: 30 2RF Crestor 10 mg tablet 10 mg PO QPM Qty: 30 2RF trazodone 100 mg tablet 100 mg PO BEDTIME Qty: 30 2RF zonisamide 50 mg capsule 50 mg PO BID Qty: 60 2RF prednisone 5 mg tablet See Rx Instructions .ROUTE .COMPLEX Qty: 45 2RF Dose Instruction: TAKE ONE TABLET BY MOUTH EVERY OTHER DAY, THEN TAKE TWO TABLETS ON OPPOSITE DAYS Rx Instructions: TAKE ONE TABLET BY MOUTH EVERY OTHER DAY, THEN TAKE TWO TABLETS ON OPPOSITE DAYS isosorbide dinitrate 30 mg tablet 30 mg PO BID Qty: 90 3RF Rx Instructions: allow nitrate-free interval of 12-14 hrs per 24-hr period omega 5-ypm-stp-fish oil [Fish Oil] 1,000 mg (120 mg-180 mg) Capsule 1 cap PO DAILY garlic 500 mg Capsule 500 mg PO DAILY [facility] Women's Mature 8 mg iron-400 mcg-300 mcg Tablet 1 tab PO DAILY Held metformin 500 mg tablet extended release 24 hr 500 mg PO BID Qty: 60 2RF Hold Instructions: Resume on 12/15/22. Discontinued valsartan-hydrochlorothiazide [Diovan HCT] 320-12.5 mg tablet 1 tab PO DAILY Qty: 30 2RF Discharge Orders: Discharge Order (Routine); Ordered 12/13/22 Ordered By: Jasson Carlton Referrals: Juan Marino FNP-C [Primary Care Provider] - 12/22/22 1:40 pm Discharge Activity: Increase activity as tolerated Patient Instructions: Hydralazine (By mouth), Amlodipine (By mouth), Dehydration (GEN), Opioid Safety Discharge Attestations Time Spent in Discharge Care*: greater than 30 min Quality Metrics Clinical Quality Measures [ No reported AMI, CVA or VTE this stay] Coding Level of Care Code Acute Code for Chg Fwd Diagnoses Hypomagnesemia E83.42 Type 2 diabetes mellitus E11.9 Diarrhea R19.7 Acute kidney injury N17.9 Hyponatremia E87.1 Accelerated hypertension I10 Vitamin D deficiency E55.9 Immunosuppression D89.9 Essential (primary) hypertension I10 Controlled diabetes mellitus E11.9 Diabetes mellitus type: type 2 Diabetes mellitus prison insulin use: without technician terminal and repeater use COPD, moderate J44.9 Autoimmune hemolytic anemia D59.1
--- NOTE | 2022-12-13 12:24 | PC.SOCIAL ---
IMM Update pg 2 of IMM updated and reviewed w/ patient. Copy provided and copy in chart dated, and initialed.
[2022-12-14 14:29] LABS: Clostridium Difficile PCR NOT DETECTED (NOT DETECTED)
== END 2022-12-13 11:56 | disposition home or self-care (01) | DRG 683 ==
PROVIDERS: Family Medicine; Admitting Provider Internal Medicine; PCP Nurse Practitioner; Visit Provider Internal Medicine
DX: N17.9 Acute kidney failure, unspecified (principal); D59.10 Autoimmune hemolytic anemia, unspecified; E87.1 Hypo-osmolality and hyponatremia; D84.821 Immunodeficiency due to drugs; K52.9 Noninfective gastroenteritis and colitis, unspecified; E86.0 Dehydration; R55 Syncope and collapse; Z79.899 Other long term (current) drug therapy; E11.22 Type 2 diabetes mellitus with diabetic chronic kidney disease; I12.9 Hypertensive chronic kidney disease with stage 1 through stage 4 chronic kidney disease, or unspecified chronic kidney disease; E11.40 Type 2 diabetes mellitus with diabetic neuropathy, unspecified; E11.51 Type 2 diabetes mellitus with diabetic peripheral angiopathy without gangrene; N18.2 Chronic kidney disease, stage 2 (mild); Z90.5 Acquired absence of kidney; I71.43 Infrarenal abdominal aortic aneurysm, without rupture; Z79.891 Long term (current) use of opiate analgesic; Z79.4 Long term (current) use of insulin; Z79.52 Long term (current) use of systemic steroids; J44.9 Chronic obstructive pulmonary disease, unspecified; Z79.69 Long term (current) use of other immunomodulators and immunosuppressants; M05.89 Other rheumatoid arthritis with rheumatoid factor of multiple sites; M62.838 Other muscle spasm; E83.42 Hypomagnesemia; E05.90 Thyrotoxicosis, unspecified without thyrotoxic crisis or storm; Z90.81 Acquired absence of spleen; Z85.528 Personal history of other malignant neoplasm of kidney; Z22.7 Latent tuberculosis; K21.9 Gastro-esophageal reflux disease without esophagitis; E78.5 Hyperlipidemia, unspecified; F17.210 Nicotine dependence, cigarettes, uncomplicated
CPT/HCPCS: 36415; 36416; 51798; 71045; 74176; 80048; 80053; 81003; 82533; 82550; 82962; 83036; 83615; 83735; 84443; 85025; 87045; 87427; 87449; 87493; 94640; 96372; J1815; J3475; J7030; J7512; J7626

== ENCOUNTER → 2022-12-21 09:00 | Outpatient (BNVA) | payer MEDICARE, MEDICAID, SELFPAY | PROVIDERS: PCP Nurse Practitioner; Visit Provider Nurse Practitioner | DX: E05.90 Thyrotoxicosis, unspecified without thyrotoxic crisis or storm (principal); K52.9 Noninfective gastroenteritis and colitis, unspecified | CPT/HCPCS: 80053; 84443; 85025; 85651; 86140 ==

== ENCOUNTER → 2022-12-22 15:23 | Outpatient (BNVA) | payer MEDICAID, SELFPAY | PROVIDERS: PCP Nurse Practitioner; Visit Provider Nurse Practitioner | DX: K52.9 Noninfective gastroenteritis and colitis, unspecified (principal); A04.5 Campylobacter enteritis | CPT/HCPCS: 83630; 87177; 87209 ==

== ENCOUNTER 2023-01-07 14:44 | Emergency (ER) | payer MEDICARE, MEDICAID, SELFPAY ==
[2023-01-07] VITALS (10 sets, daily range): BP systolic 161–214; BP diastolic 64–109; PULSE 85–89; RESP 16; TEMP 36.5; O2SAT 91–99; BMI 28.1
--- NOTE | 2023-01-07 15:16 | ECG_ITS ---
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 Measurements Intervals Justice Rate: 73 P: 56 OK: 178 QRS: -9 QRSD: 124 T: 39 QT: 360 QTc: 399 Interpretive Statements SINUS RHYTHM RIGHT BUNDLE BRANCH BLOCK [120+ ms QRS DURATION, UPRIGHT V1, 40+ ms S IN I/aVL/V4/V5/V6] Compared to ECG 07/01/2022 09:38:54 No significant changes Electronically Signed On 01-08-2023 15:14:08 DENTAL PRACTICE MANAGER by Nara Cantu M.D. [email or web address] Attorney Groupcleveland clinic [id number]
[2023-01-07] MEDS: cloNIDine 0.1 mg Tablet PO ×2 (15:18→17:56)
--- NOTE | 2023-01-07 16:21 | XRR_ITS ---
PROCEDURE INFORMATION: Exam: XR Chest Exam date and time: 01/07/2023 4:31 PM Age: 67 years old Clinical indication: Other: Hypertension; Additional info: HTN, edema TECHNIQUE: Imaging protocol: Radiologic exam of the chest. Views: 1 view. COMPARISON: CR XR chest 1V portable [id number] 12/09/2022 1:39 PM FINDINGS: Lungs: Unremarkable. No consolidation. Pleural spaces: Unremarkable. No pleural effusion. No pneumothorax. Heart/Mediastinum: Unremarkable. No cardiomegaly. Bones/joints: Unremarkable. XR/XR chest 1V portable [id number] IMPRESSION: No acute findings.
[2023-01-07] MEDS: morphine 4 mg/mL SDV 1 mL 2 MG IVP (16:36)
[2023-01-07] MEDS: ondansetron 2 mg/ML SDV 2 mL 4 MG IVP (16:37)
[2023-01-07 17:13] LABS: Anion Gap 13.6 (5-19); Blood Urea Nitrogen 15 mg/dL (8-23); Calcium 9.5 mg/dL (8.5-10.5); Carbon Dioxide 26 mmol/L (22-29); Chloride 106 mmol/L (98-107); Glomerular Filtration Rate 62.6 mL/min (90-130); Glucose 126 mg/dL (65-115); Osmolality Calculated 296 mOsm/kg (285-295); Potassium 3.6 mmol/L (3.5-5.1); Sodium 142 mmol/L (136-145)
--- NOTE | 2023-01-07 17:34 | ED_ITS ---
HPI - Headache General: Chief Complaint: Headache Stated Complaint: hypertension Time Seen by Provider: 01/07/23 14:48 History of Present Illness: This patient is a 67-year-old white female who presents to the emergency department complaining of blood pressure problems and headaches. Patient states her blood pressure has been volatile for about 6 months. She states she has been diagnosed with a narrow renal artery and she only has 1 kidney. She has been having headaches for the past 2 to 3 weeks associated with high blood pressure. No chest pain or shortness of breath. She has had some occasional nausea. Past medical history also includes chronic kidney disease, COPD, p eripheral arterial disease and diabetes. Review of Systems General: Reports: 10 or more systems reviewed and unremarkable except in HPI and below PFSH ED PFSH: Medical History (Updated 01/07/23 @ 17:29 by Eulalio Nelson MD) Accelerated hypertension Acute kidney injury Autoimmune hemolytic anemia CKD (chronic kidney disease) stage 2, GFR 60-89 ml/min Controlled diabetes mellitus COPD, moderate Degenerative joint disease of spine Diarrhea Diverticulosis Dyslipidemia Essential (primary) hypertension GERD (gastroesophageal reflux disease) High risk medication use Hyperthyroidism Hypomagnesemia Hyponatremia Immunosuppression Insomnia Latent tuberculosis by blood test Neuropathy, diabetic Osteoarthritis Peripheral arterial disease Personal history of nicotine dependence Seropositive rheumatoid arthritis of multiple joints Type 2 diabetes mellitus Vitamin D deficiency Surgical History H/O total hysterectomy without BSO History [place] [facility] [place] of left radical nephrectomy stage I renal cell carcinoma 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, 2018 at [place], [place] History of tubal ligation Family History Father Cancer Diabetes Hyperlipidemia Hypertension Grandmother Diabetes Hyperlipidemia Brother Thyroid disease Denies family history of Rheumatoid arthritis Lupus Social History Smoking and tobacco/nicotine status: current every day tobacco/nicotine user cigarettes Packs smoked per day: 1.5 Years cigarettes smoked: 50 [ Other cigarette details: between 1 to 2 packs daily] Alcohol intake: never Substance/Drug Use: never Adopted: No Caregiver/support person: No Lives independently: Yes Household members: other Housing: House Marital status: Single Number of children: 4 service: No Current occupational status: unemployed Do you think of yourself as: Straight/Heterosexual Current gender identity: Female Physical Exam Const: COMMON NORMALS: no acute distress, patient oriented x3 and no limitations GENERAL APPEARANCE: cooperative and comfortable HENMT: COMMON NORMALS: normocephalic, atraumatic, Normal nasal mucous membranes and turbinates present, moist oral mucous membranes and oropharynx normal HEAD & SCALP: normal to inspection, normocephalic and atraumatic FACE & SINUS: normal facial exam NOSE: Normal nasal mucous membranes and turbinates present Eye: COMMON NORMALS: Equal, round and reactive pupils present, EOMs intact bilaterally and conjunctivae normal GENERAL EYE: appearance normal, both eyes and all related structures CONJUNCTIVA: Yes conjunctivae normal PUPIL: Yes Equal, round and reactive pupils present Neck/C-Spine: COMMON NORMALS: supple and no JVD Chest: COMMONS NORMALS: normal inspection of the chest Resp: COMMON NORMALS: normal respiratory effort and clear to auscultation bilaterally AUSCULTATION: clear to auscultation bilaterally Cardio: COMMON NORMALS: no JVD, regular rate, regular rhythm, No gallops present (Cardio), No murmurs present (Cardio) and No rub (Cardio) RATE: regular rate RHYTHM: regular rhythm GI: COMMON NORMALS: Normal to inspection, nondistended, normoactive bowel sounds present, Soft to palpation and non-tender AUSCULTATION: Yes normoactive bowel sounds PALPATION: Yes Soft to palpation : COMMON NORMALS: Yes no CVA tenderness BLADDER/KIDNEY EXAM: Yes no CVA tenderness Back/Pelvis: COMMON NORMALS: no CVA tenderness and thoracic and lumbar spine normal to inspection Extremity: COMMON NORMALS: normal to inspection Neuro: COMMON NORMALS: patient oriented x3 and CN's II-XII intact bilaterally Psych: COMMON NORMALS: mental status grossly normal, Normal thought process present and cooperative THOUGHT PROCESS: Normal thought process present Skin: COMMON NORMALS: no rashes or lesions noted, turgor normal and no jaund ice GENERAL SKIN EXAM: no rashes or lesions noted and turgor normal Course Vital Signs: Vital signs: Vital Signs Temperature 97.7 F 01/07/23 14:46 Pulse Rate 85 01/07/23 16:39 Respiratory Rate 16 01/07/23 16:39 Blood Pressure 187/97 01/07/23 15:18 Pulse Oximetry 91 01/07/23 16:39 Oxygen Delivery Me thod Room Air 01/07/23 16:18 MDM - Headache Medical Decision Making EKG revealed sinus rhythm with no ST segment abnormalities. Chest x-ray was normal. BMP was normal. Patient was given 0.1 mg of clonidine p.o. Blood pressure came down nicely from a systolic of 214 down to a systolic in the 150s. She was also given 2 mg of morphine and 4 mg of Zofran for her headache. I did review all of her blood pressure medications. I think the best course of action at this time is to prescribe clonidine 0.1 mg tablets to be used as needed with no more than 0.3 mg in a 24-hour period. Recommended she follow-up with her primary care provider next week for ongoing management of her blood pressure. She was discharged in stable condition. Lab Data 01/07/23 16:30 Radiology Impressions Chest X-Ray 01/07/23 16:21 IMPRESSION: No acute findings. Laboratory Results Sodium 142 mmol/L (136-145) 01/07/23 16:30 Potassium 3.6 mmol/L (3.5-5.1) 01/07/23 16:30 Chloride 106 mmol/L (98-107) 01/07/23 16:30 Carbon Dioxide 26 mmol/L (22-29) 01/07/23 16:30 Anion Gap 13.6 (5-19) 01/07/23 16:30 BUN 15 mg/dL (8-23) 01/07/23 16:30 Creatinine 0.9 mg/dL (0.5-0.9) 01/07/23 16:30 GFR Calculation 62.6 mL/min (90-130) L 01/07/23 16:30 Glucose 126 mg/dL (65-115) H 01/07/23 16:30 Calculated Osmolality 296 mOsm/kg (285-295) H 01/07/23 16:30 Calcium 9.5 mg/dL (8.5-10.5) 01/07/23 16:30 All radiology interpretation(s) finalized by discharge Discharge Plan Discharge Patient Disposition: Home Clinical Impression: HTN (hypertension), Headache Condition: Stable Prescriptions: New clonidine HCl 0.1 mg tablet 0.1 mg PO Q8H MDD 0.3 PRN (Reason: hypertensive emergency) Qty: 30 0RF No Action hydrocodone-acetaminophen 10-325 mg tablet 1 tab PO Q6H PRN (Reason: Pain) (DME) blood sugar diagnostic Strip See Rx Instructions .ROUTE .MEDSUPPLY Qty: 100 5RF Rx Instructions: check 2 times day (DME) insulin syringe-needle U-100 0.3 mL 31 gauge x 5/16 syringe See Rx Instructions .ROUTE .MEDSUPPLY Qty: 100 5RF Rx Instructions: As directed folic acid 1 mg tablet 1 mg PO DAILY Humulin R Regular U-100 Insuln 100 unit/mL solution See Rx Instructions SUBCUT TID PRN (Reason: BLOOD SUGAR) Qty: 10 0RF Rx Instructions: 5-20 units SUBCUT three times daily; Questran Light 4 gram powder 4 g PO TID Qty: 210 0RF Rx Instructions: administer w/meal; avoid other meds within 1hr before or 4-6hr after dose albuterol sulfate [ProAir HFA] 90 mcg/actuation HFA aerosol inhaler 2 inh INHALATION Q6H PRN (Reason: shortness of breath or wheezing) Qty: 18 2RF amlodipine 10 mg tablet 10 mg PO BEDTIME Qty: 30 2RF metformin 500 mg tablet extended release 24 hr 500 mg PO BID Qty: 60 2RF Hold Instructions: Resume on 12/15/22. methimazole 5 mg tablet 5 mg PO DAILY Qty: 30 2RF metoprolol succinate 100 mg tablet extended release 24 hr 100 mg PO DAILY Qty: 30 2RF pantoprazole [Protonix] 40 mg tablet,delayed release (DR/EC) 40 mg PO DAILY Qty: 30 2RF Crestor 10 mg tablet 10 mg PO QPM Qty: 30 2RF trazodone 100 mg tablet 100 mg PO BEDTIME Qty: 30 2RF zonisamide 50 mg capsule 50 mg PO BID Qty: 60 2RF azithromycin [Zithromax] 500 mg tablet 500 mg PO DAILY 3 Days Qty: 3 0RF prednisone 5 mg tablet See Rx Instructions .ROUTE .COMPLEX Qty: 45 2RF Dose Instruction: TAKE ONE TABLET BY MOUTH EVERY OTHER DAY, THEN TAKE TWO TABLETS ON OPPOSITE DAYS Rx Instructions: TAKE ONE TABLET BY MOUTH EVERY OTHER DAY, THEN TAKE TWO TABLETS ON OPPOSITE DAYS isosorbide dinitrate 30 mg tablet 30 mg PO BID Qty: 90 3RF Rx Instructions: allow nitrate-free interval of 12-14 hrs per 24-hr period omega 8-uar-rar-fish oil [Fish Oil] 1,000 mg (120 mg-180 mg) Capsule 1 cap PO DAILY garlic 500 mg Capsule 500 mg PO DAILY [facility] Women's Mature 8 mg iron-400 mcg-300 mcg Tablet 1 tab PO DAILY hydralazine 50 mg tablet 50 mg PO BID Qty: 60 5RF Discharge Orders: Discharge ED (Routine); Ordered 01/07/23 Ordered By: Eulalio Nelson Referrals: Juan Marino, [facility] [Primary Care Provider] - Patient Instructions: Hypertension (ED) Coding Level of Care Code ED Slip Cover Estimator for Giulia Read
--- NOTE | 2023-01-07 18:34 | PC.NURSE ---
Report taken from Melissa Jerez RN.
--- NOTE | 2023-01-07 18:58 | PC.NURSE ---
Dr Beltran notified of last BP and stated that vitals were WNL to discharge from ED. Patient left with all paperwork and belongings, had no IV present.
== END 2023-01-07 18:58 | disposition home or self-care (01) ==
PROVIDERS: Emergency Provider Emergency Medicine; PCP Nurse Practitioner
DX: R51.9 Headache, unspecified (principal); Z79.4 Long term (current) use of insulin; Z79.84 Long term (current) use of oral hypoglycemic drugs; F17.210 Nicotine dependence, cigarettes, uncomplicated; E11.22 Type 2 diabetes mellitus with diabetic chronic kidney disease; I12.9 Hypertensive chronic kidney disease with stage 1 through stage 4 chronic kidney disease, or unspecified chronic kidney disease; N18.2 Chronic kidney disease, stage 2 (mild); J44.9 Chronic obstructive pulmonary disease, unspecified; E78.5 Hyperlipidemia, unspecified; E11.40 Type 2 diabetes mellitus with diabetic neuropathy, unspecified; Z85.528 Personal history of other malignant neoplasm of kidney; Z90.5 Acquired absence of kidney
CPT/HCPCS: 36415; 71045; 80048; 93005; 96374; 96375; 99285; J2270; J2405

== ENCOUNTER → 2023-02-02 09:11 | Outpatient (BNVA) | payer MEDICARE, MEDICAID, SELFPAY | PROVIDERS: PCP Nurse Practitioner; Visit Provider Nurse Practitioner | DX: I10 Essential (primary) hypertension (principal); E05.90 Thyrotoxicosis, unspecified without thyrotoxic crisis or storm; D89.9 Disorder involving the immune mechanism, unspecified; E78.5 Hyperlipidemia, unspecified; G47.00 Insomnia, unspecified; M51.34 Other intervertebral disc degeneration, thoracic region; E11.9 Type 2 diabetes mellitus without complications; Z79.52 Long term (current) use of systemic steroids; A04.5 Campylobacter enteritis; E55.9 Vitamin D deficiency, unspecified | CPT/HCPCS: 80053; 80061; 82306; 82310; 82607; 83010; 83615; 83970; 84439; 84443; 84481; 85025; 85045; 85651 ==

== ENCOUNTER 2023-02-23 10:30 | Oncology outpatient (recurring) (ONCR) | payer MEDICARE, MEDICAID, SELFPAY | END 2023-03-23 23:59 | disposition home or self-care (01) | PROVIDERS: PCP Nurse Practitioner; Visit Provider Internal Medicine Medical Oncology | DX: D59.10 Autoimmune hemolytic anemia, unspecified (principal); M05.79 Rheumatoid arthritis with rheumatoid factor of multiple sites without organ or systems involvement; R19.7 Diarrhea, unspecified; Z79.899 Other long term (current) drug therapy | CPT/HCPCS: 83630; 87177; 87209; 99214 ==

== ENCOUNTER 2023-03-06 12:39 | Inpatient (IN) | payer MEDICARE, MEDICAID, SELFPAY ==
[2023-03-06] VITALS (28 sets, daily range): BP systolic 124–220; BP diastolic 52–109; PULSE 59–94; RESP 11–30; TEMP 36.4–37.1; O2SAT 91–100; BMI 28.8; BMI 29.3
--- NOTE | 2023-03-06 13:32 | ED_ITS ---
Documented by User: ROBEL Montana 03/06/23 17:47 HPI - General Adult 2 General: Chief complaint: General Medical Stated complaint: BP Time Seen by Provider: 03/06/23 13:08 Source: patient Mode of arrival: ambulatory Limitations: no limitations History of Present Illness: Patient is a 67-year-old female with an extensive past medical history including right renal artery stenosis and subsequent difficult to manage chronic hypertension, history of left nephrectomy, hypothyroidism, COPD, type 2 diabetes, autoimmune hemolytic anemia for which she sees Dr. Carrero rheumatoid arthritis here for complaints of hypertension. Patient states she has had difficulty manage hypertension for about 6 to 8 months now. She states over the last 2 months or so she has been getting headaches and has noticed that her systolic readings are often over 200s and states they rarely ever go below this . Patient states she has been on multiple medication adjustments recently for treatment of this. She states her amlodipine was lowered to 5 Mg as she did not tolerate the 10 Mg dose. She has been placed on clonidine patches. She was recently placed on hydralazine. She also thinks she is taking a few other medications as well. She reportedly has been referred to nephrology twice but for some reason has never been called to schedule an appointment. Onset (ago): month(s) Severity: moderate Pain Consistency: intermittent Relieving factors: none Exacerbating factors: none Associated symptoms: Reports no associated symptoms and headache(s); Deny chest pain, dyspnea, nausea, rash, palpitations, syncope or vomiting Treatments prior to arrival: none Review of Systems 2 Card: Denies: chest pain, palpitations, irregular heart rhythm, edema, swelling of feet/ankles, lightheadedness, syncope or pre-syncope Resp: Denies: dyspnea, productive cough, non-productive cough or chest congestion GI: Denies: abdominal pain, nausea, vomiting or diarrhea : Denies: flank pain, difficulty voiding, dysuria, urinary frequency, urinary urgency or urinary hesitancy Musc: Denies: neck pain, back pain, extremity pain, extremity swelling or joint pain Skin/Breast: Denies: rash Neuro: Reports: headache(s); Denies: numbness in extremities, weakness in extremities, sensory changes or dizziness PFS ED 2 PFSH: Medical History Seropositive rheumatoid arthritis of multiple joints Autoimmune hemolytic anemia COPD, moderate Controlled diabetes mellitus Hypomagnesemia Diarrhea Acute kidney injury Hyponatremia Accelerated hypertension Hyperthyroidism GERD (gastroesophageal reflux disease) Degenerative joint disease of spine Peripheral arterial disease Personal history of nicotine dependence Insomnia High risk medication use Osteoarthritis Vitamin D deficiency Neuropathy, diabetic Latent tuberculosis by blood test Immunosuppression Essential (primary) hypertension Dyslipidemia Diverticulosis CKD (chronic kidney disease) stage 2, GFR 60-89 ml/min Surgical History History of tubal ligation History of colonoscopy 2018 [facility] History of left radical nephrectomy stage I renal cell carcinoma 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, 2018 at [place], [place] H/O total hysterectomy without BSO Family History Father Cancer Diabetes Hyperlipidemia Hypertension Grandmother Diabetes Hyperlipidemia Brother Thyroid disease Denies family history of Rheumatoid arthritis Lupus Social History Smoking and tobacco/nicotine status: current every day tobacco/nicotine user cigarettes Packs smoked per day: 1.5 Years cigarettes smoked: 50 [ Other cigarette details: between 1 to 2 packs daily] Quit status (tobacco/nicotine): has quit using Year quit tobacco: 2022 Former quit date comment: tobacco use 50 years Alcohol intake: never Substance/Drug Use: never Adopted: No Caregiver/support person: No Lives independently: Yes Household members: other Housing: House Marital status: Single Number of children: 4 service: No Current occupational status: unemployed Do you think of yourself as: Straight/Heterosexual Current gender identity: Female Physical Exam 2 Const: COMMON NORMALS: no acute distress, patient oriented x3, no limitations, healthy appearing, alert and well nourished GENERAL APPEARANCE: cooperative ORIENTATION/CONSCIOUSNESS: Yes awake, Yes oriented to person, Yes oriented to place and Yes oriented to time HENMT: COMMON NORMALS: normocephalic and atraumatic HEAD & SCALP: normal to inspection, normocephalic and atraumatic Eye: GENERAL EYE: appearance normal, both eyes and all related structures and normal light reflex DIRECT OPHTHALMOSCOPY: Yes normal light reflex Neck/C-Spine: GENERAL: Yes normal visual inspection Chest: COMMONS NORMALS: normal inspection of the chest and normal palpation of entire chest wall Resp: COMMON NORMALS: normal respiratory effort and clear to auscultation bilaterally AUSCULTATION: clear to auscultation bilaterally Cardio: COMMON NORMALS: regular rate and regular rhythm RATE: regular rate RHYTHM: regular rhythm GI: COMMON NORMALS: Normal to inspection, nondistended, normoactive bowel sounds present, Soft to palpation, non-tender, No hepatosplenomegaly present and no masses PALPATION: Yes Soft to palpation and Yes No hepatosplenomegaly present Back/Pelvis: COMMON NORMALS: thoracic and lumbar spine normal to inspection Extremity: COMMON NORMALS: normal to inspection GENERAL: Yes normal exam except as noted Neuro: KATIE COMA SCALE: document GCS findings Katie coma scale eye opening: Spontaneous [place] coma scale verbal response: Orientated [place] coma scale motor response: Obey commands Katie coma scale total score: 15 COMMON NORMALS: patient oriented x3, moves all extremities, no focal motor deficits and no sensory deficits noted SENSORIUM/ORIENTATION: Yes alert, Yes oriented to person, Yes oriented to place and Yes oriented to time Skin: COMMON NORMALS: no rashes or lesions noted GENERAL SKIN EXAM: no rashes or lesions noted Course 2 Vital Signs: Vital signs: Vital Signs Temperature 98.7 F 03/06/23 12:48 Pulse Rate 66 03/06/23 17:02 Respiratory Rate 17 03/06/23 17:02 Blood Pressure 185/93 03/06/23 17:02 Pulse Oximetry 98 03/06/23 17:02 Oxygen Delivery Me thod Room Air 03/06/23 17:02 [facility] - General Adult Medical Decision Making Patient is a 67-year-old female here for complaints of severely elevated blood pressure readings resistant to all of her hypertensive medications. Patient states she has been having systolic blood pressures over 200s for approximately 2 months now. She is now having headaches. Patient states she is on amlodipine, clonidine, hydralazine, metoprolol, and valsartan all of which are not controlling her hypertension. Patient is status post left nephrectomy. She has been told she has a history of right renal artery stenosis. Looking at previous documentation it looks like she had an ultrasound performed back in June which showed increased velocity in her right renal artery. CTA was recommended however this has not been completed. I had originally spoken to hospitalist Dr. Carlton who was concerned that patient may need transferred for vascular however after speaking to [facility] and then speaking to their vascular surgeon they stated there was nothing from a vascular standpoint that would be done emergently. I spoke to Dr. Carlton again who is then agreeable to admit patient here. Chart reviewed and patient discussed with midlevel. Agree with assessment and plan. Lab Data 03/06/23 13:11 03/06/23 13:[address] 03/06/23 15:57 IMPRESSION: No acute intracranial findings. Chest X-Ray 03/06/23 16:35 IMPRESSION: Lung findings may represent pulmonary edema, pneumonitis or atypical/viral infection. Laboratory Results WBC 16.16 10^3/uL (3.29-11.43) H 03/06/23 13:11 RBC 4.11 10^6/uL (3.85-5.65) 03/06/23 13:11 Hgb 13.10 g/dL (11.27-16.99) 03/06/23 13:11 Hct 39.1 % (36-47) 03/06/23 13:11 MCV 95.1 fl (85-98) 03/06/23 13:11 MCH 31.9 pg (27-33) 03/06/23 13:11 MCHC 33.5 g/dL (30-55) 03/06/23 13:11 RDW 12.9 % (12.1-15.1) 03/06/23 13:11 Plt Count 308 10^3/cmm (157-399) 03/06/23 13:11 MPV 10.5 fL (7.4-10.4) H 03/06/23 13:11 Neut % (Auto) 61.4 % 03/06/23 13:11 Lymph % (Auto) 28.2 % 03/06/23 13:11 [place] % (Auto) 8.8 % 03/06/23 13:11 Eos % (Auto) 0.9 % 03/06/23 13:11 Baso % (Auto) 0.3 % 03/06/23 13:11 Neut # (Auto) 9.91 10^3/uL (1.8-7.7) H 03/06/23 13:11 Lymph # (Auto) 4.6 10^3/uL (0.8-4.8) 03/06/23 13:11 [place] # (Auto) 1.4 10^3/uL (0.2-0.9) H 03/06/23 13:11 Eos # (Auto) 0.1 10^3/uL (0.0-0.8) 03/06/23 13:11 Baso # (Auto) 0.1 10^3/uL (0.0-0.1) 03/06/23 13:11 Nucleated RBC % (auto) 0 % 03/06/23 13:11 Nucleated RBCs # 0.0 /100WBC 03/06/23 13:11 Sodium 132 mmol/L (136-145) L 03/06/23 13:11 Potassium 4.0 mmol/L (3.5-5.1) 03/06/23 13:11 Chloride 98 mmol/L (98-107) 03/06/23 13:11 Carbon Dioxide 25 mmol/L (22-29) 03/06/23 13:11 Anion Gap 13.0 (5-19) 03/06/23 13:11 BUN 32 mg/dL (8-23) H 03/06/23 13:11 Creatinine 1.6 mg/dL (0.5-0.9) H 03/06/23 13:11 GFR Calculation 32.2 mL/min (90-130) L 03/06/23 13:11 Glucose 122 mg/dL (65-115) H 03/06/23 13:11 POC Glucose 93 mg/dL (70-110) 03/06/23 16:36 Calculated Osmolality 282 mOsm/kg (285-295) L 03/06/23 13:11 Calcium 9.9 mg/dL (8.5-10.5) 03/06/23 13:11 Total Bilirubin 0.5 mg/dL (0.15-1.2) 03/06/23 13:11 AST 15 U/L (0-32) 03/06/23 13:11 ALT < 5 U/L (0-33) 03/06/23 13:11 Alkaline Phosphatase 113 U/L (35-105) H 03/06/23 13:11 Troponin T Baseline 16 ng/L (0-10) H 03/06/23 16:57 NT-Pro-B Natriuret Pep 581 pg/mL (0-125) H 03/06/23 13:11 Total Protein 7.3 g/dL (6.6-8.7) 03/06/23 13:11 Albumin 4.1 g/dL (3.5-5.2) 03/06/23 13:11 Globulin 3.2 g/dL (1.3-4.6) 03/06/23 13:11 Urine Color Colorless (Yellow) 03/06/23 13:24 Urine Appearance Clear (CLEAR) 03/06/23 13:24 Urine pH 7 (5-7) 03/06/23 13:24 Ur Specific [place] 1.000 (1.005-1.030) L 03/06/23 13:24 Urine Protein Neg (Negative) 03/06/23 13:24 Urine Glucose (UA) 1+ (Normal) H 03/06/23 13:24 Urine Ketones Negative (Negative) 03/06/23 13:24 Urine Blood Neg (Negative) 03/06/23 13:24 Urine Nitrate Negative (Negative) 03/06/23 13:24 Urine Bilirubin Neg (Negative) 03/06/23 13:24 Urine Urobilinogen Norm mg/dL (Negative) 03/06/23 13:24 Ur Leukocyte Esterase Negative (Negative) 03/06/23 13:24 Discharge Plan Discharge Patient Disposition: Admitted As Inpatient Clinical Impression: Solitary kidney, acquired, Hypertensive emergency, Acute renal failure Condition: Stable Prescriptions: No Action hydrocodone-acetaminophen 10-325 mg tablet 1 tab PO Q6H PRN (Reason: Pain) (DME) blood sugar diagnostic Strip See Rx Instructions .ROUTE .MEDSUPPLY Qty: 100 5RF Rx Instructions: check 2 times day (DME) insulin syringe-needle U-100 0.3 mL 31 gauge x 5/16 syringe See Rx Instructions .ROUTE .MEDSUPPLY Qty: 100 5RF Rx Instructions: As directed folic acid 1 mg tablet 1 mg PO DAILY Humulin R Regular U-100 Insuln 100 unit/mL solution See Rx Instructions SUBCUT TID PRN (Reason: BLOOD SUGAR) Qty: 10 0RF Rx Instructions: 5-20 units SUBCUT three times daily; valsartan 160 mg tablet 160 mg PO DAILY Qty: 30 1RF hydralazine 25 mg tablet 25 mg PO TID Qty: 90 0RF isosorbide dinitrate 40 mg tablet 40 mg PO BID Qty: 60 1RF albuterol sulfate [ProAir HFA] 90 mcg/actuation HFA aerosol inhaler 2 inh INHALATION Q6H PRN (Reason: shortness of breath or wheezing) Qty: 18 2RF metformin 500 mg tablet extended release 24 hr 500 mg PO BID Qty: 60 2RF Hold Instructions: Resume on 12/15/22. clonidine 0.2 mg/24 hr patch weekly 1 patch topical .weekly Qty: 4 2RF amlodipine 5 mg tablet 5 mg PO BEDTIME Qty: 30 2RF methimazole 5 mg tablet 5 mg PO DAILY Qty: 30 2RF metoprolol succinate 100 mg tablet extended release 24 hr 100 mg PO DAILY Qty: 30 2RF pantoprazole [Protonix] 40 mg tablet,delayed release (DR/EC) 40 mg PO DAILY Qty: 30 2RF Crestor 10 mg tablet 10 mg PO QPM Qty: 30 2RF trazodone 100 mg tablet 100 mg PO BEDTIME Qty: 30 2RF zonisamide 50 mg capsule 50 mg PO BID Qty: 60 2RF clonidine HCl 0.1 mg tablet 0.1 mg PO BID PRN Patient Comments: in addtion to clonidine patch prednisone 5 mg tablet See Rx Instructions .ROUTE .COMPLEX Qty: 45 2RF Dose Instruction: TAKE ONE TABLET BY MOUTH EVERY OTHER DAY, THEN TAKE TWO TABLETS ON OPPOSITE DAYS Rx Instructions: TAKE ONE TABLET BY MOUTH EVERY OTHER DAY, THEN TAKE TWO TABLETS ON OPPOSITE DAYS omega 6-[id number]-[id number]-fish oil [Fish Oil] 1,000 mg (120 mg-180 mg) Capsule 1 cap PO DAILY garlic 500 mg Capsule 500 mg PO DAILY [place] Women's Mature 8 mg iron-400 mcg-300 mcg Tablet 1 tab PO DAILY Referrals: Juan Marino, [facility] ATTENDANT-C [Primary Care Provider] - Coding Level of Care Code ED Agricultural Economics Teacher for Chg Fwd Documented by User: Sohail aPrk DO 03/06/23 17:35 HPI - General Adult 2 General: Chief complaint: General Medical Stated complaint: BP Time Seen by Provider: 03/06/23 13:08 [facility] ED 2 PFS: Medical History Seropositive rheumatoid arthritis of multiple joints Autoimmune hemolytic anemia COPD, moderate Controlled diabetes mellitus Hypomagnesemia Diarrhea Acute kidney injury Hyponatremia Accelerated hypertension Hyperthyroidism GERD (gastroesophageal reflux disease) Degenerative joint disease of spine Peripheral arterial disease Personal history of nicotine dependence Insomnia High risk medication use Osteoarthritis Vitamin D deficiency Neuropathy, diabetic Latent tuberculosis by blood test Immunosuppression Essential (primary) hypertension Dyslipidemia Diverticulosis CKD (chronic kidney disease) stage 2, GFR 60-89 ml/min Surgical History History of tubal ligation History of colonoscopy 2018 [facility] History of left radical nephrectomy stage I renal cell carcinoma 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, 2018 at [place], [place] H/O total hysterectomy without BSO Family History Father Cancer Diabetes Hyperlipidemia Hypertension Grandmother Diabetes Hyperlipidemia Brother Thyroid disease Denies family history of Rheumatoid arthritis Lupus Social History Smoking and tobacco/nicotine status: current every day tobacco/nicotine user cigarettes Packs smoked per day: 1.5 Years cigarettes smoked: 50 [ Other cigarette details: between 1 to 2 packs daily] Quit status (tobacco/nicotine): has quit using Year quit tobacco: 2022 Former quit date comment: tobacco use 50 years Alcohol intake: never Substance/Drug Use: never Adopted: No Caregiver/support person: No Lives independently: Yes Household members: other Housing: House Marital status: Single Number of children: 4 service: No Current occupational status: unemployed Do you think of yourself as: Straight/Heterosexual Current gender identity: Female Physical Exam 2 Neuro: KATIE COMA SCALE: document GCS findings [place] coma scale total score: 15 Course 2 Vital Signs: Vital signs: Vital Signs Temperature 98.7 F 03/06/23 12:48 Pulse Rate 66 03/06/23 17:02 Respiratory Rate 17 03/06/23 17:02 Blood Pressure 185/93 03/06/23 17:02 Pulse Oximetry 98 03/06/23 17:02 Oxygen Delivery Me thod Room Air 03/06/23 17:02 MDM - General Adult Medical Decision Making Patient is a 67-year-old female here for complaints of severely elevated blood pressure readings resistant to all of her hypertensive medications. Patient states she has been having systolic blood pressures over 200s for approximately 2 months now. She is now having headaches. Patient states she is on amlodipine, clonidine, hydralazine, metoprolol, and valsartan all of which are not controlling her hypertension. Patient is status post left nephrectomy. She has been told she has a history of right renal artery stenosis. Looking at previous documentation it looks like she had an ultrasound performed back in June which showed increased velocity in her right renal artery. CTA was recommended however this has not been completed. Chart reviewed and patient discussed with midlevel. Agree with assessment and plan. Lab Data 03/06/23 13:11 03/06/23 13:[address] 03/06/23 15:57 IMPRESSION: No acute intracranial findings. Chest X-Ray 03/06/23 16:35 IMPRESSION: Lung findings may represent pulmonary edema, pneumonitis or atypical/viral infection. Laboratory Results WBC 16.16 10^3/uL (3.29-11.43) H 03/06/23 13:11 RBC 4.11 10^6/uL (3.85-5.65) 03/06/23 13:11 Hgb 13.10 g/dL (11.27-16.99) 03/06/23 13:11 Hct 39.1 % (36-47) 03/06/23 13:11 MCV 95.1 fl (85-98) 03/06/23 13:11 MCH 31.9 pg (27-33) 03/06/23 13:11 MCHC 33.5 g/dL (30-55) 03/06/23 13:11 RDW 12.9 % (12.1-15.1) 03/06/23 13:11 Plt Count 308 10^3/cmm (157-399) 03/06/23 13:11 MPV 10.5 fL (7.4-10.4) H 03/06/23 13:11 Neut % (Auto) 61.4 % 03/06/23 13:11 Lymph % (Auto) 28.2 % 03/06/23 13:11 [place] % (Auto) 8.8 % 03/06/23 13:11 Eos % (Auto) 0.9 % 03/06/23 13:11 Baso % (Auto) 0.3 % 03/06/23 13:11 Neut # (Auto) 9.91 10^3/uL (1.8-7.7) H 03/06/23 13:11 Lymph # (Auto) 4.6 10^3/uL (0.8-4.8) 03/06/23 13:11 [place] # (Auto) 1.4 10^3/uL (0.2-0.9) H 03/06/23 13:11 Eos # (Auto) 0.1 10^3/uL (0.0-0.8) 03/06/23 13:11 Baso # (Auto) 0.1 10^3/uL (0.0-0.1) 03/06/23 13:11 Nucleated RBC % (auto) 0 % 03/06/23 13:11 Nucleated RBCs # 0.0 /100WBC 03/06/23 13:11 Sodium 132 mmol/L (136-145) L 03/06/23 13:11 Potassium 4.0 mmol/L (3.5-5.1) 03/06/23 13:11 Chloride 98 mmol/L (98-107) 03/06/23 13:11 Carbon Dioxide 25 mmol/L (22-29) 03/06/23 13:11 Anion Gap 13.0 (5-19) 03/06/23 13:11 BUN 32 mg/dL (8-23) H 03/06/23 13:11 Creatinine 1.6 mg/dL (0.5-0.9) H 03/06/23 13:11 GFR Calculation 32.2 mL/min (90-130) L 03/06/23 13:11 Glucose 122 mg/dL (65-115) H 03/06/23 13:11 POC Glucose 93 mg/dL (70-110) 03/06/23 16:36 Calculated Osmolality 282 mOsm/kg (285-295) L 03/06/23 13:11 Calcium 9.9 mg/dL (8.5-10.5) 03/06/23 13:11 Total Bilirubin 0.5 mg/dL (0.15-1.2) 03/06/23 13:11 AST 15 U/L (0-32) 03/06/23 13:11 ALT < 5 U/L (0-33) 03/06/23 13:11 Alkaline Phosphatase 113 U/L (35-105) H 03/06/23 13:11 Troponin T Baseline 16 ng/L (0-10) H 03/06/23 16:57 NT-Pro-B Natriuret Pep 581 pg/mL (0-125) H 03/06/23 13:11 Total Protein 7.3 g/dL (6.6-8.7) 03/06/23 13:11 Albumin 4.1 g/dL (3.5-5.2) 03/06/23 13:11 Globulin 3.2 g/dL (1.3-4.6) 03/06/23 13:11 Urine Color Colorless (Yellow) 03/06/23 13:24 Urine Appearance Clear (CLEAR) 03/06/23 13:24 Urine pH 7 (5-7) 03/06/23 13:24 Ur Specific [place] 1.000 (1.005-1.030) L 03/06/23 13:24 Urine Protein Neg (Negative) 03/06/23 13:24 Urine Glucose (UA) 1+ (Normal) H 03/06/23 13:24 Urine Ketones Negative (Negative) 03/06/23 13:24 Urine Blood Neg (Negative) 03/06/23 13:24 Urine Nitrate Negative (Negative) 03/06/23 13:24 Urine Bilirubin Neg (Negative) 03/06/23 13:24 Urine Urobilinogen Norm mg/dL (Negative) 03/06/23 13:24 Ur Leukocyte Esterase Negative (Negative) 03/06/23 13:24 All radiology interpretation(s) finalized by discharge Discharge Plan Discharge Patient Disposition: Admitted As Inpatient Clinical Impression: Solitary kidney, acquired, Hypertensive emergency, Acute renal failure Condition: Stable Prescriptions: No Action hydrocodone-acetaminophen 10-325 mg tablet 1 tab PO Q6H PRN (Reason: Pain) (DME) blood sugar diagnostic Strip See Rx Instructions .ROUTE .MEDSUPPLY Qty: 100 5RF Rx Instructions: check 2 times day (DME) insulin syringe-needle U-100 0.3 mL 31 gauge x 5/16 syringe See Rx Instructions .ROUTE .MEDSUPPLY Qty: 100 5RF Rx Instructions: As directed folic acid 1 mg tablet 1 mg PO DAILY Humulin R Regular U-100 Insuln 100 unit/mL solution See Rx Instructions SUBCUT TID PRN (Reason: BLOOD SUGAR) Qty: 10 0RF Rx Instructions: 5-20 units SUBCUT three times daily; valsartan 160 mg tablet 160 mg PO DAILY Qty: 30 1RF hydralazine 25 mg tablet 25 mg PO TID Qty: 90 0RF isosorbide dinitrate 40 mg tablet 40 mg PO BID Qty: 60 1RF albuterol sulfate [ProAir HFA] 90 mcg/actuation HFA aerosol inhaler 2 inh INHALATION Q6H PRN (Reason: shortness of breath or wheezing) Qty: 18 2RF metformin 500 mg tablet extended release 24 hr 500 mg PO BID Qty: 60 2RF Hold Instructions: Resume on 12/15/22. clonidine 0.2 mg/24 hr patch weekly 1 patch topical .weekly Qty: 4 2RF amlodipine 5 mg tablet 5 mg PO BEDTIME Qty: 30 2RF methimazole 5 mg tablet 5 mg PO DAILY Qty: 30 2RF metoprolol succinate 100 mg tablet extended release 24 hr 100 mg PO DAILY Qty: 30 2RF pantoprazole [Protonix] 40 mg tablet,delayed release (DR/EC) 40 mg PO DAILY Qty: 30 2RF Crestor 10 mg tablet 10 mg PO QPM Qty: 30 2RF trazodone 100 mg tablet 100 mg PO BEDTIME Qty: 30 2RF zonisamide 50 mg capsule 50 mg PO BID Qty: 60 2RF clonidine HCl 0.1 mg tablet 0.1 mg PO BID PRN Patient Comments: in addtion to clonidine patch prednisone 5 mg tablet See Rx Instructions .ROUTE .COMPLEX Qty: 45 2RF Dose Instruction: TAKE ONE TABLET BY MOUTH EVERY OTHER DAY, THEN TAKE TWO TABLETS ON OPPOSITE DAYS Rx Instructions: TAKE ONE TABLET BY MOUTH EVERY OTHER DAY, THEN TAKE TWO TABLETS ON OPPOSITE DAYS omega 8-eez-bso-fish oil [Fish Oil] 1,000 mg (120 mg-180 mg) Capsule 1 cap PO DAILY garlic 500 mg Capsule 500 mg PO DAILY [place] Women's Mature 8 mg iron-400 mcg-300 mcg Tablet 1 tab PO DAILY Referrals: Juan Marino, [facility] ATTENDANT-C [Primary Care Provider] - Coding Level of Care Code ED Agricultural Economics Teacher for Chg Fwd
[2023-03-06 13:38] LABS: Basophils # 0.1 10^3/uL (0.0-0.1); Basophils % 0.3 %; Eosinophils # 0.1 10^3/uL (0.0-0.8); Eosinophils % 0.9 %; Hematocrit 39.1 % (36-47); Lymphocytes # 4.6 10^3/uL (0.8-4.8); Lymphocytes % 28.2 %; Mean Corpuscular HGB Conc 33.5 g/dL (30-55); Mean Corpuscular Hemoglobin 31.9 pg (27-33); Mean Corpuscular Volume 95.1 fl (85-98); Mean Platelet Volume 10.5 fL (7.4-10.4); Monocytes # 1.4 10^3/uL (0.2-0.9); Monocytes % 8.8 %; Neutrophils # 9.91 10^3/uL (1.8-7.7); Neutrophils % 61.4 %; Nucleated Red Blood Cells % 0 %; Platelet Count 308 10^3/cmm (157-399); Red Blood Count 4.11 10^6/uL (3.85-5.65); Red Cell Distribution Width 12.9 % (12.1-15.1); White Blood Count 16.16 10^3/uL (3.29-11.43)
[2023-03-06 14:00] LABS: Alanine Aminotransferase < 5 U/L (0-33); Albumin Level 4.1 g/dL (3.5-5.2); Alkaline Phosphatase 113 U/L (35-105); Aspartate Amino Transferase 15 U/L (0-32); Blood Urea Nitrogen 32 mg/dL (8-23); Calcium 9.9 mg/dL (8.5-10.5); Carbon Dioxide 25 mmol/L (22-29); Chloride 98 mmol/L (98-107); Globulin 3.2 g/dL (1.3-4.6); Glomerular Filtration Rate 32.2 mL/min (90-130); Glucose 122 mg/dL (65-115); Osmolality Calculated 282 mOsm/kg (285-295); Sodium 132 mmol/L (136-145); Total Bilirubin 0.5 mg/dL (0.15-1.2); Total Protein 7.3 g/dL (6.6-8.7)
[2023-03-06] MEDS: hyDRALAzine 20 mg/mL INJ 1 mL 10 MG IVP ×2 (14:14→14:54)
[2023-03-06 14:24] LABS: Add Urine Microscopic? NO; Charge for UA Resulting for Rev
[2023-03-06 14:30] LABS: Protein Urine Neg (Negative); Urine Appearance Clear (CLEAR); Urine Color Colorless (Yellow); pH Urine 7 (5-7)
[2023-03-06 14:31] LABS: Bilirubin Urine Neg (Negative); Blood Urine Neg (Negative); Glucose Urine UA 1+ (Normal); Ketones Urine Negative (Negative); Leukocyte Esterase Urine Negative (Negative); Nitrate Urine Negative (Negative); Urobilinogen Urine Norm (Negative)
[2023-03-06] MEDS: acetaminophen 500 mg Tablet 1000 MG PO (14:53)
[2023-03-06] MEDS: sodium chloride 0.9% 1,000 ML 999 ML IV (14:53)
[2023-03-06] MEDS: nicardipine 20 MG/200 ML PREMIX 50 MG IV (15:37)
--- NOTE | 2023-03-06 15:57 | CTR_ITS ---
PROCEDURE INFORMATION: Exam: CT Head Without Contrast Exam date and time: 03/06/2023 4:16 PM Age: 67 years old Clinical indication: Pain; Headache; Additional info: HTN, headache TECHNIQUE: Imaging protocol: Computed tomography of the head without contrast. Radiation optimization: All CT scans at this facility use at least one of these dose optimization techniques: automated exposure control; mA and/or kV adjustment per patient size (includes targeted exams where dose is matched to clinical indication); or iterative reconstruction. COMPARISON: No relevant prior studies available. RADIATION DOSE METRICS: Total DLP (mGy-cm): 1031.78 FINDINGS: Brain: Mild cerebral atrophy, consistent with patient's age. No hemorrhage. Preserved wynn-white matter differentiation. Mild cerebral white matter hypoattenuation likely on the basis of chronic microvascular ischemic change. No mass effect. Cerebral ventricles: Ventricles are in proportion to the degree of atrophy. Paranasal sinuses: Visualized sinuses are unremarkable. No fluid levels. Mastoid air cells: Visualized mastoid air cells are well aerated. Bones/joints: Unremarkable. No acute fracture. Soft tissues: Unremarkable. Vasculature: Bilateral ICA calcifications. CT/CT head wo con* [id number] IMPRESSION: No acute intracranial findings.
--- NOTE | 2023-03-06 16:09 | ECG_ITS ---
[facility] Test Date: 2023-03-06 Pat Name: Maria Dolores Narvaez Department: Room: Gender: Female Manager Corporate Marketing: : 1955 Requested By: Xochitl Krishnamurthy Order Number: [id number] Tamara MD: Michel Lincoln M.D. Measurements Intervals [place] Rate: 73 P: 0 NE: 0 QRS: 15 QRSD: 128 T: 59 QT: 403 QTc: 445 Interpretive Statements SUPRAVENTRICULAR RHYTHM POSSIBLE RIGHT VENTRICULAR CONDUCTION DELAY [RSR (QR) IN V1/V2] SEPTAL MYOCARDIAL INFARCTION , OF INDETERMINATE AGE [40+ ms Q WAVE IN V1/V2] Compared to ECG 01/07/2023 15:16:10 Myocardial infarct finding now present Sinus rhythm no longer present Right bundle-branch block no longer present Electronically Signed On 03-07-2023 8:02:54 PRORATION CLERK by Michel Lincoln M.D. [id number]
--- NOTE | 2023-03-06 16:31 | ECG_ITS ---
[facility] Test Date: 2023-03-06 Pat Name: Maria Dolores Narvaez Department: Room: Gender: Female Gaggerman: : 1955 Requested By: Xochitl Krishnamurthy Order Number: [id number] Tamara MD: Michel Lincoln M.D. Measurements Intervals [place] Rate: 78 P: 0 VA: 0 QRS: -6 QRSD: 134 T: 104 QT: 402 QTc: 459 Interpretive Statements ATRIAL FIBRILLATION RIGHT BUNDLE BRANCH BLOCK [120+ ms QRS DURATION, UPRIGHT V1, 40+ ms S IN I/aVL/V4/V5/V6] SEPTAL MYOCARDIAL INFARCTION , OF INDETERMINATE AGE [40+ ms Q WAVE IN V1/V2] INTERPRETATION BASED ON A DEFAULT AGE OF 40 YEARS Compared to ECG 03/06/2023 16:09:15 Right bundle-branch block now present Myocardial infarct finding still present Electronically Signed On 03-07-2023 7:54:25 HIDE SALTER by Michel Lincoln M.D. [id number]
--- NOTE | 2023-03-06 16:35 | XRR_ITS ---
PROCEDURE INFORMATION: Exam: XR Chest Exam date and time: 03/06/2023 4:44 PM Age: 67 years old Clinical indication: Shortness of breath; Additional info: SOB TECHNIQUE: Imaging protocol: Radiologic exam of the chest. Views: 1 view. COMPARISON: CR XR chest 1V portable [id number] 01/07/2023 4:31 PM FINDINGS: Lungs: Pulmonary vascular congestion. Increased central and lower lung reticular lung markings. No consolidation. Pleural spaces: No substantial pleural effusion or pneumothorax. Heart/Mediastinum: Unremarkable. No cardiomegaly. Vasculature: Aortic arch atherosclerotic calcification. Bones/joints: Mild degenerative changes along the spine and acromioclavicular joints. XR/XR chest 1V portable [id number] IMPRESSION: Lung findings may represent pulmonary edema, pneumonitis or atypical/viral infection.
[2023-03-06 16:40] LABS: Glucose Point of Care 93 mg/dL (70-110)
--- NOTE | 2023-03-06 16:43 | PC.NURSE ---
Provider ordered to start cardene drip @ 1.25 mg/hr.
--- NOTE | 2023-03-06 17:04 | PC.NURSE ---
Provider notified of pt BP of 185/93, provider said to keep the cardene drip @1.25 mg /hr.
[2023-03-06 17:21] LABS: Troponin(5th) Baseline 16 ng/L (0-10)
--- NOTE | 2023-03-06 17:22 | PC.NURSE ---
Provider said to up cardene to infuse @ 2.5 mg/hr.
[2023-03-06 17:41] LABS: NT Pro B Type Natriuretic Pept 581 pg/mL (0-125)
--- NOTE | 2023-03-06 17:49 | P.HP_ITS ---
Providers/Chief Complaint 2 Admitting Physician: Jasson Carlton MD Primary Care Provider: Juan Marino, CASINO ACCOUNTANT-C Chief Complaint: BP History of Present Illness Maria Dolores Narvaez is a 67 year old female who carries history of able to take anemia, takes Zyrtec female, follows up with Dr. Carrero, has history of nephrectomy, solitary kidney, concern for renal artery stenosis with high velocity, presented today with chief complaint of hypertension. Patient is stating that her blood pressure was fine until today which really concern her because she only has 1 kidney and she does not want to end up on dialysis. She has not complained any chest pain recent fever or diarrhea but stating that she recently had recovered from stomach flu. She has not noticed any significant shortness of breath but started experiencing mild discomfort in the ER. We requested EKG troponin and chest x-ray. At the time of my evaluation she is on Cardene drip at 5 she is still hypertensive no active chest pain or shortness of breath. She is on room air We did discussed with [place] vascular surgeon who did not recommend transfer at this point and recommended medical management for her hypertension They did not recommend intervention for renal artery stenosis Review of Systems 2 Const: Denies: fever(s) Eyes: Denies: change in vision ENMT: Denies: throat pain Card: Denies: chest pain Resp: Reports: dyspnea GI: Denies: abdominal pain Medications/Allergies Home Medications Medication Instructions Recorded Confirmed Last Taken Type hydrocodone 10 mg-acetaminophen 1 tab PO Q6H PRN Pain 03/15/19 03/03/23 07/01/22 History 325 mg tablet folic acid 1 mg tablet 1 mg PO DAILY 09/10/19 03/03/23 07/01/22 History blood sugar diagnostic #100 ea 12/26/20 03/03/23 Unknown Rx insulin syringe-needle U-100 0.3 #100 ea 07/06/21 03/03/23 Unknown Rx mL 31 gauge x 07/06 garlic 500 mg capsule 500 mg PO DAILY 03/12/22 03/03/23 07/01/22 History utkklmpe-qoki-jktc 8 mg-folic 400 1 tab PO DAILY 03/12/22 03/03/23 07/01/22 History mcg-K 50 mcg-lutein 300 mcg tablet ([facility]) omega 5-rlq-iul-fish oil 1,000 mg 1 cap PO DAILY 03/12/22 03/03/23 07/01/22 History (120 mg-180 mg) capsule (Fish Oil) insulin regular human 100 unit/mL See Rx Instructions SUBCUT TID PRN 08/17/22 03/03/23 Unknown Rx injection solution (Humulin R BLOOD SUGAR #10 mL Regular U-100 Insulin) albuterol sulfate 90 mcg/actuation 2 inh inhalation Q6H PRN shortness 11/10/22 03/03/23 Unknown Rx aerosol inhaler (ProAir HFA) of breath or wheezing #18 grams metformin 500 mg tablet,extended 500 mg PO BID #60 tabs 11/10/22 03/03/23 Unknown Rx release 24 hr prednisone 5 mg tablet See Rx Instructions .Route 01/17/23 03/03/23 Unknown Rx .COMPLEX #45 tabs amlodipine 5 mg tablet 5 mg PO BEDTIME #30 tabs 02/02/23 03/03/23 Unknown Rx clonidine 0.2 mg/24 hr weekly 1 patch topical .weekly #4 ea 02/02/23 03/03/23 Unknown Rx transdermal patch methimazole 5 mg tablet 5 mg PO DAILY #30 tabs 02/02/23 03/03/23 Unknown Rx metoprolol succinate 100 mg 100 mg PO DAILY #30 tabs 02/02/23 03/03/23 Unknown Rx tablet,extended release 24 hr pantoprazole 40 mg tablet,delayed 40 mg PO DAILY #30 tabs 02/02/23 03/03/23 Unknown Rx release (Protonix) rosuvastatin 10 mg tablet (Crestor) 10 mg PO QPM #30 tabs 02/02/23 03/03/23 Unknown Rx trazodone 100 mg tablet 100 mg PO BEDTIME #30 tabs 02/02/23 03/03/23 Unknown Rx zonisamide 50 mg capsule 50 mg PO BID #60 caps 02/02/23 03/03/23 Unknown Rx clonidine HCl 0.1 mg tablet 0.1 mg PO BID PRN 02/23/23 03/03/23 Unknown History hydralazine 25 mg tablet 25 mg PO TID #90 tabs 03/03/23 03/03/23 Unknown Rx isosorbide dinitrate 40 mg tablet 40 mg PO BID #60 tabs 03/03/23 03/03/23 Unknown Rx valsartan 160 mg tablet 160 mg PO DAILY #30 tabs 03/03/23 03/03/23 Unknown Rx Allergies Allergy/AdvReac Type Severity Reaction Status Date / Time celecoxib [From Celebrex] Allergy Unknown Verified 03/03/23 10:37 insulin detemir Allergy RASH Verified 03/03/23 10:37 [From Levemir U-100 Insulin] PFSH Acute 2 PFSH: Medical History Seropositive rheumatoid arthritis of multiple joints Autoimmune hemolytic anemia COPD, moderate Controlled diabetes mellitus Hypomagnesemia Diarrhea Acute kidney injury Hyponatremia Accelerated hypertension Hyperthyroidism GERD (gastroesophageal reflux disease) Degenerative joint disease of spine Peripheral arterial disease Personal history of nicotine dependence Insomnia High risk medication use Osteoarthritis Vitamin D deficiency Neuropathy, diabetic Latent tuberculosis by blood test Immunosuppression Essential (primary) hypertension Dyslipidemia Diverticulosis CKD (chronic kidney disease) stage 2, GFR 60-89 ml/min Surgical History History of tubal ligation History of colonoscopy 2018 [facility] [place] History of left radical nephrectomy stage I renal cell carcinoma 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, 2018 at [place], [place] H/O total hysterectomy without BSO Family History Father Cancer Diabetes Hyperlipidemia Hypertension Grandmother Diabetes Hyperlipidemia Brother Thyroid disease Denies family history of Rheumatoid arthritis Lupus Social History Smoking and tobacco/nicotine status: current every day tobacco/nicotine user cigarettes Packs smoked per day: 1.5 Years cigarettes smoked: 50 [ Other cigarette details: between 1 to 2 packs daily] Quit status (tobacco/nicotine): has quit using Year quit tobacco: 2022 Former quit date comment: tobacco use 50 years Alcohol intake: never Substance/Drug Use: never Adopted: No Caregiver/support person: No Lives independently: Yes Household members: other Housing: House Marital status: Single Number of children: 4 service: No Current occupational status: unemployed Do you think of yourself as: Straight/Heterosexual Current gender identity: Female Vitals/I&O/Wt Last Vital Signs Temp 98.7 F 03/06/23 12:48 Pulse 66 03/06/23 17:02 Resp 17 03/06/23 17:02 BP 185/93 03/06/23 17:02 Pulse Ox 98 03/06/23 17:02 O2 Del Method Room Air 03/06/23 17:02 03/06/23 03/06/23 03/06/23 06:59 14:59 22:59 Intake Total 23.125 / 23.125 Balance 23.125 / 23.125 Weight last 48 hrs Weight 83.461 kg Physical Exam 2 Narrative: Patient is awake and alert Currently on room air Nonfocal neuroexam Euvolemic Pleasant and cooperative GCS 15 Hypertensive Data 03/06/23 13:11 03/06/23 13:11 A&P Assessment and plan (1) Hypertensive emergency: (2) High risk medication use: (3) Controlled diabetes mellitus: Qualifiers: Diabetes mellitus type: type 2 Diabetes mellitus intermediate frame tender insulin use: without intermediate frame tender use Diabetes mellitus complication status: with kidney complications Diabetes mellitus complication detail: with chronic kidney disease Chronic kidney disease stage: stage 3 (moderate) Qualified Code(s): E 11.22 - Type 2 diabetes mellitus with diabetic chronic kidney disease; N18.30 - Chronic kidney disease, stage 3 unspecified (4) Hyperthyroidism: (5) Chronic diarrhea: (6) Acute renal failure: Qualifiers: Acute renal failure type: unspecified Qualified Code(s): N17.9 - Acute kidney failure, unspecified (7) Solitary kidney, acquired: (8) Autoimmune hemolytic anemia: Plan Hypertensive emergency Currently on Cardene drip at 5 Solitary kidney Acute on chronic kidney disease Discontinue valsartan, I would increase the dose of hydralazine, she may benefit from propranolol considering history of hypothyroidism She takes methimazole which I would continue Optimize antihypertensive regimen Patient clinically looks extremely dehydrated I will give her IV fluids, patient stating that she gets bad edema secondary to amlodipine Cardiac diet Consistent carb along insulin sliding scale Patient is stating that she does not want chest compressions defibrillation or intubation, she is not sure about dialysis either Admit to ICU She already has a clonidine patch she declined n.p.o. medication on as-needed basis She is taking prednisone 5 mg with alternating 10 mg dose Rituximab every 6 months for hemolytic anemia I would avoid DVT prophylaxis Attestations 2 Medical Necessity Statement*: More than 2 midnights anticipated for management evaluation of hypertensive emergency Diagnoses Hypertensive emergency I16.1 High risk medication use Z79.899 Controlled type 2 diabetes mellitus with stage 3 chronic kidney disease, without long-term current use of insulin E11.22; N18.30 Diabetes mellitus type: type 2 Diabetes mellitus [facility] insulin use: without [facility] use Diabetes mellitus complication status: with kidney complications Diabetes mellitus complication detail: with chronic kidney disease Chronic kidney disease stage: stage 3 (moderate) Hyperthyroidism E05.90 Chronic diarrhea K52.9 Acute renal failure N17.9 Acute renal failure type: unspecified Solitary kidney, acquired Z90.5 Autoimmune hemolytic anemia D59.1
--- NOTE | 2023-03-06 17:50 | PC.NURSE ---
Provider gave verbal order to increase Cardene to 3.75 mg/hr.
--- NOTE | 2023-03-06 18:02 | PC.NURSE ---
Cardene increased to 5 mg/hr per provider order.
[2023-03-06 19:28] LABS: Troponin 5 2HR 19.86 ng/L (0-10); Troponin 5 2HR Delta 3.86 ABS# (0-10)
[2023-03-06] MEDS: FUROsemide 10 mg/mL SDV 10mL 60 MG IVP (19:39)
[2023-03-06 19:59] LABS: Glucose Point of Care 124 mg/dL (70-110)
[2023-03-06] MEDS: nicardipine 20 MG/200 ML PREMIX 75 MG IV (20:28)
[2023-03-06] MEDS: hyDRALAzine 25 mg Tablet 50 MG PO (20:55)
[2023-03-06] MEDS: amlodipine 5 mg Tablet PO (20:56)
[2023-03-06] MEDS: propranolol 20 mg Tablet 10 MG PO (21:08)
[2023-03-06] MEDS: isosorbide dinitrate 20 mg Tablet 40 MG PO (21:08)
[2023-03-06] MEDS: sodium chloride 0.9% 1,000 ML 75 ML IV (21:12)
--- NOTE | 2023-03-06 22:35 | ECG_ITS ---
[facility] Test Date: 2023-03-07 Pat Name: Maria Dolores Narvaez Department: Room: Gender: Female Eyeglass Maker: : 1955 Requested By: Xochitl Krishnamurthy Order Number: [id number] Tamara MD: Michel Lincoln M.D. Measurements Intervals [place] Rate: 68 P: 54 [place]: 172 QRS: 16 QRSD: 122 T: 46 QT: 412 QTc: 439 Interpretive Statements SINUS RHYTHM RIGHT BUNDLE BRANCH BLOCK [120+ ms QRS DURATION, UPRIGHT V1, 40+ ms S IN I/aVL/V4/V5/V6] SEPTAL MYOCARDIAL INFARCTION , PROBABLY OLD [40+ ms Q WAVE IN V1/V2] Compared to ECG 03/06/2023 16:31:45 Atrial fibrillation no longer present Myocardial infarct finding still present Electronically Signed On 03-07-2023 7:59:50 RETAIL PHARMACY TECHNICIAN by Michel Lincoln M.D. [id number]
--- NOTE | 2023-03-06 23:00 | PC.NURSE ---
Physician Communication Patient requesting home dose of trazodone 100 mg PO for bedtime as well as her 5 mg prednisone PO for this evening. Dr. Barnett contacted; order received to start her home trazodone 100 mg PO for bedtime PRN for insomnia as well as start prednisone 5 mg PO every other day with 10 mg prednisone PO alternating. See MAR for details.
[2023-03-06 23:05] LABS: Troponin 5 6HR 31.99 ng/L (0-10)
[2023-03-06 23:07] LABS: Troponin 5 6HR Delta 15.99 ng/L (0-12)
[2023-03-06] MEDS: nicardipine 20 MG/200 ML PREMIX 30 MG IV (23:35)
[2023-03-07] VITALS (90 sets, daily range): BP systolic 122–199; BP diastolic 52–157; PULSE 60–93; RESP 12–31; TEMP 36.4–36.6; O2SAT 86–96; BMI 29.8
[2023-03-07] MEDS: trazodone 100 mg Tablet PO (00:03)
[2023-03-07] MEDS: predniSONE 5 mg Tablet PO (00:03)
--- NOTE | 2023-03-07 01:47 | PC.NURSE ---
Nausea/Vomiting Patient nauseous and dry heaving. Dr. Barnett notified and order received for 4 mg zofran IVP Q6H. See MAR for details.
[2023-03-07] MEDS: ondansetron 2 mg/ML SDV 2 mL 4 MG IVP (02:47)
[2023-03-07] MEDS: nicardipine 20 MG/200 ML PREMIX 50 MG IV (04:07)
[2023-03-07 04:10] LABS: Basophils # 0.1 10^3/uL (0.0-0.1); Basophils % 0.4 %; Eosinophils # 0.2 10^3/uL (0.0-0.8); Eosinophils % 1.1 %; Hematocrit 35.4 % (36-47); Lymphocytes # 2.7 10^3/uL (0.8-4.8); Lymphocytes % 19.4 %; Mean Corpuscular HGB Conc 33.6 g/dL (30-55); Mean Corpuscular Hemoglobin 31.2 pg (27-33); Mean Corpuscular Volume 92.9 fl (85-98); Monocytes # 1.3 10^3/uL (0.2-0.9); Neutrophils % 69.7 %; Nucleated Red Blood Cells % 0 %; Platelet Count 318 10^3/cmm (157-399); Red Blood Count 3.81 10^6/uL (3.85-5.65); Red Cell Distribution Width 12.9 % (12.1-15.1); White Blood Count 14.06 10^3/uL (3.29-11.43)
[2023-03-07 04:40] LABS: Blood Urea Nitrogen 33 mg/dL (8-23); Calcium 9.3 mg/dL (8.5-10.5); Carbon Dioxide 21 mmol/L (22-29); Chloride 100 mmol/L (98-107); Glomerular Filtration Rate 26.4 mL/min (90-130); Glucose 168 mg/dL (65-115); Magnesium 1.5 mg/dL (1.7-2.3); Osmolality Calculated 291 mOsm/kg (285-295); Sodium 135 mmol/L (136-145)
[2023-03-07 09:05] LABS: Glucose Point of Care 159 mg/dL (70-110)
[2023-03-07] MEDS: cloNIDine 0.2 mg/24 hr Patch 1 PATCH TOPICAL (09:28)
[2023-03-07] MEDS: methIMAzole 5 MG Tablet PO (09:29)
[2023-03-07] MEDS: metoprolol succinate ER (24 HR) 100 mg Tablet PO (09:29)
[2023-03-07] MEDS: propranolol 20 mg Tablet 10 MG PO ×3 (09:29→20:09)
[2023-03-07] MEDS: isosorbide dinitrate 20 mg Tablet 40 MG PO ×2 (09:29→17:53)
[2023-03-07] MEDS: insulin lispro 100 unit/1 mL SUBCUT (09:29)
[2023-03-07] MEDS: hyDRALAzine 25 mg Tablet 50 MG PO (09:29)
[2023-03-07] MEDS: sennosides-docusate Tablet 1 TAB PO (09:37)
[2023-03-07] MEDS: nicardipine 20 MG/200 ML PREMIX 55 MG IV (09:39)
[2023-03-07] MEDS: sodium chloride 0.9% 1,000 ML 75 ML IV (09:39)
--- NOTE | 2023-03-07 10:50 | USCV_ITS ---
Maria Dolores Narvaez Age: 67 Gender: F : 1955 Exam Date: 03/07/2023 12:16 Ordering Phys: Deb De Oliveira MD Technologist: Moncho Tellez Exam Location: [facility] [place] Indication: uncontrolled Htn hx of renal stenosis lt kidney removed Aortic Velocity @ SMA (cm/s) 96.7 RIGHT KIDNEY LEFT KIDNEY Velocity (cm/s) Velocity (cm/s) Sys/Lockett Sys/Lockett Resistive Index Resistive Index 214.8 / 45.7 0.79 Proximal Renal Artery / 169.1 / 37.4 0.78 Mid Renal Artery / 170.5 / 40.2 0.76 Distal Renal Artery / 134.5 / 33.3 0.75 Hilar / 77.6 / 18.0 0.77 Upper Pole / 98.4 / 19.4 0.80 Mid Pole / 91.5 / 16.6 0.82 Lower Pole / 2.20 Renal Aortic Ratio Accleration Index (cm/sec2) 866.00 Hilar 518.00 Upper Pole 649.00 Mid Pole 488.00 Lower Pole 120.1 Kidney Length (mm) FINDINGS rt side renal stenosis abnormal acceleration times on rt kidney lt kidney removed CONCLUSIONS Increased systolic flow velocities (>180cm/s) noted in the proximal right renal artery, suggesting hemodynamically significant (>60% ) renal artery stenosis. Turbulent flow and spectral broadening distal to stenosis. Consider CTA in further evaluation. Prior LEFT nephrectomy RIGHT kidney measures 12.1cm Prateek Tripathi MD (Electronically Signed) Final Date: 07 March 2023 16:41 S
--- NOTE | 2023-03-07 11:01 | P.PN_ITS ---
Subjective 2 Subjective: .D-dimer is high Creatinine worsened Patient is still hypertensive Nephro consulted Patient is eating breakfast at the time of my evaluation No active chest pain or shortness of breath Currently on room air Vitals/I&O/Wt Last Vital Signs Temp 97.9 F 03/07/23 04:00 Pulse 79 03/07/23 09:28 Resp 16 03/07/23 09:04 BP 171/121 03/07/23 09:28 Pulse Ox 94 03/07/23 09:04 O2 Del Method Room Air 03/07/23 09:04 O2 Flow Rate 2 03/07/23 06:15 03/06/23 03/07/23 03/07/23 22:59 06:59 14:59 Intake Total 326.250 / 326.250 360.083 / 151.392 7957.083 / 1047.083 Balance 326.250 / 326.250 360.083 / 119.621 5164.083 / 1047.083 Weight last 48 hrs Weight 86.455 kg Weight 84.958 kg Weight 83.461 kg Physical Exam 2 Narrative: Euvolemic S1, S2 Currently on room air Pleasant and calm Hypertensive Edema to face No active chest pain or shortness of breath I do not appreciate any wheezing or crackles on lung auscultation Data 03/07/23 02:46 03/07/23 02:46 A&P Assessment and plan (1) Hypertensive emergency: (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: (3) Chronic diarrhea: (4) Solitary kidney, acquired: (5) Acute renal failure: Qualifiers: Acute renal failure type: unspecified Qualified Code(s): N17.9 - Acute kidney failure, unspecified (6) Autoimmune hemolytic anemia: Plan Acute on chronic kidney disease Creatinine worsening Nephro consulted Concern for renal artery stenosis Clinical signs of dehydration: Improved Discontinue IV fluids Optimize antihypertensive regimen Continue clonidine patch Dose of hydralazine increased Continuing propranolol, discontinue metoprolol history of hypothyroidism, check free T4 Full code Cardiac consistent carb diet Sliding scale DuoNeb Currently on room air Attestations 2 Medical Necessity Statement*: Continue medical management She is needing ICU because of Cardene drip Diagnoses Hypertensive emergency I16.1 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
--- NOTE | 2023-03-07 12:23 | P.CONIM_ITS ---
Providers/Reason For Consult 2 Consulting Physician/Specialty*: [facility]/Nephrology Reason for Consult*: HEATHER , Attending Physician: Jasson Carlton MD Primary Care Provider: BELINDA Castro History of Present Illness History of Present Illness Maria Dolores Narvaez is a 67 year old female with past medical history of hypertension, diabetes,Hemolytic anemia, history of left nephrectomy in the past and now has solitary right kidney with concern for renal artery stenosis on previous ultrasound. Patient presented to the emergency department due to elevated blood pressures at home. Patient is on 5 antihypertensive agents at home and despite taking the medications she noted blood pressures being high. In the ER blood pressure was 240/80 highest, and was placed on Cardene drip. Home blood pressure meds were restarted and current blood pressures were in the 140s range. Patient's creatinine at baseline is around 0.7 to 1.0 range but had an episode of HEATHER in the past with a creatinine up to 1.9 in November 2022. Patient does not follow with nephrology and PCP manages her hypertension. Creatinine was 1.1 on presentation worsened to 1.9 currently Review of Systems 2 Narrative: other ros negative Medications/Allergies Home Medications Medication Instructions Recorded Confirmed Last Taken Type folic acid 1 mg tablet 1 mg PO DAILY 09/10/19 03/07/23 07/01/22 History blood sugar diagnostic #100 ea 12/26/20 03/07/23 Unknown Rx insulin syringe-needle U-100 0.3 #100 ea 07/06/21 03/07/23 Unknown Rx mL 31 gauge x 07/06 garlic 500 mg capsule 500 mg PO DAILY 03/12/22 03/07/23 07/01/22 History lqvwgkik-ajfb-lypk 8 mg-folic 400 1 tab PO DAILY 03/12/22 03/07/23 07/01/22 History mcg-K 50 mcg-lutein 300 mcg tablet ([facility]) omega 4-yhy-glv-fish oil 1,000 mg 1 cap PO DAILY 03/12/22 03/07/23 07/01/22 History (120 mg-180 mg) capsule (Fish Oil) albuterol sulfate 90 mcg/actuation 2 inh inhalation Q6H PRN shortness 11/10/22 03/07/23 Unknown Rx aerosol inhaler (ProAir HFA) of breath or wheezing #18 grams metformin 500 mg tablet,extended 500 mg PO BID #60 tabs 11/10/22 03/07/23 Unknown Rx release 24 hr prednisone 5 mg tablet See Rx Instructions .Route 01/17/23 03/07/23 Unknown Rx .COMPLEX #45 tabs amlodipine 5 mg tablet 5 mg PO BEDTIME #30 tabs 02/02/23 03/07/23 Unknown Rx clonidine 0.2 mg/24 hr weekly 1 patch topical .weekly #4 ea 02/02/23 03/07/23 Unknown Rx transdermal patch methimazole 5 mg tablet 5 mg PO DAILY #30 tabs 02/02/23 03/07/23 Unknown Rx metoprolol succinate 100 mg 100 mg PO DAILY #30 tabs 02/02/23 03/07/23 Unknown Rx tablet,extended release 24 hr pantoprazole 40 mg tablet,delayed 40 mg PO DAILY #30 tabs 02/02/23 03/07/23 Unknown Rx release (Protonix) rosuvastatin 10 mg tablet (Crestor) 10 mg PO QPM #30 tabs 02/02/23 03/07/23 Unknown Rx trazodone 100 mg tablet 100 mg PO BEDTIME #30 tabs 02/02/23 03/07/23 Unknown Rx zonisamide 50 mg capsule 50 mg PO BID #60 caps 02/02/23 03/07/23 Unknown Rx hydralazine 25 mg tablet 25 mg PO TID #90 tabs 03/03/23 03/07/23 Unknown Rx valsartan 160 mg tablet 160 mg PO DAILY #30 tabs 03/03/23 03/07/23 Unknown Rx isosorbide dinitrate 20 mg tablet 40 mg PO BID 03/07/23 03/07/23 Unknown History valsartan 80 mg tablet 80 mg PO DAILY 03/07/23 03/07/23 Unknown History Allergies Allergy/AdvReac Type Severity Reaction Status Date / Time celecoxib [From Celebrex] Allergy Unknown Verified 03/03/23 10:37 insulin detemir Allergy RASH Verified 03/03/23 10:37 [From Levemir U-100 Insulin] Current Medications Generic Name Dose Route Start Last Admin Trade Name Freq PRN Reason Stop Dose Admin Clonidine HCl 1 patch 03/07/23 08:00 03/07/23 09:28 Clonidine 0.2 Mg/24 Hr Patch TOPICAL 1 patch Q7D ALEX Administration Furosemide 60 mg 03/06/23 18:30 03/06/23 19:39 Furosemide 10 Mg/Ml Sdv 10ml IVP 60 mg Q24H ALEX Administration Nicardipine/Sodium Chloride 20 mg in 200 mls @ 0 mls/hr 03/06/23 15:15 03/07/23 11:10 Cardene IV 0 mg/hr .Q0M ALEX 0 mls/hr Titration Protocol Per Protocol Insulin Human Lispro 0 unit 03/06/23 18:30 03/07/23 09:29 Insulin Lispro 100 Unit/1 Ml SUBCUT 1 unit TIDWM ALEX Administration Protocol Isosorbide Dinitrate 40 mg 03/06/23 18:30 03/07/23 09:29 Isosorbide Dinitrate 20 Mg Tablet PO 40 mg BID ALEX Administration Methimazole 5 mg 03/07/23 09:00 03/07/23 09:29 Methimazole 5 Mg Tablet PO 5 mg DAILY ALEX Administration Non-Formulary Medication 50 mg 03/06/23 18:30 03/07/23 09:46 Zonisamide PO Not Given BID [facility] Ondansetron HCl 4 mg 03/07/23 01:43 03/07/23 02:47 Ondansetron 2 Mg/Ml Sdv 2 Ml IVP 4 mg Q6H PRN Administration NAUSEA AND VOMITING Prednisone 5 mg 03/06/23 23:15 03/07/23 00:03 Prednisone 5 Mg Tablet PO 5 mg Q48H ALEX Administration Propranolol HCl 10 mg 03/06/23 21:00 03/07/23 09:29 Propranolol 20 Mg Tablet PO 10 mg TID ALEX Administration Senna/Docusate Sodium 1 tab 03/07/23 09:00 03/07/23 09:37 Sennosides-Docusate Tablet PO 1 tab DAILY ALEX Administration Trazodone HCl 100 mg 03/06/23 23:00 03/07/23 00:03 Trazodone 100 Mg Tablet PO 100 mg BEDTIME PRN Administration INSOMNIA PFSH Acute 2 PFSH: Medical History Seropositive rheumatoid arthritis of multiple joints Autoimmune hemolytic anemia COPD, moderate Controlled diabetes mellitus Hypomagnesemia Diarrhea Acute kidney injury Hyponatremia Accelerated hypertension Hyperthyroidism GERD (gastroesophageal reflux disease) Degenerative joint disease of spine Peripheral arterial disease Personal history of nicotine dependence Insomnia High risk medication use Osteoarthritis Vitamin D deficiency Neuropathy, diabetic Latent tuberculosis by blood test Immunosuppression Essential (primary) hypertension Dyslipidemia Diverticulosis CKD (chronic kidney disease) stage 2, GFR 60-89 ml/min Surgical History History of tubal ligation History of colonoscopy 2018 [facility] History of left radical nephrectomy stage I renal cell carcinoma 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, 2018 at [place], [place] H/O total hysterectomy without BSO Family History Father Cancer Diabetes Hyperlipidemia Hypertension Grandmother Diabetes Hyperlipidemia Brother Thyroid disease Denies family history of Rheumatoid arthritis Lupus Social History Smoking and tobacco/nicotine status: current every day tobacco/nicotine user cigarettes Packs smoked per day: 1.5 Years cigarettes smoked: 50 [ Other cigarette details: between 1 to 2 packs daily] Quit status (tobacco/nicotine): has quit using Year quit tobacco: 2022 Former quit date comment: tobacco use 50 years Alcohol intake: never Substance/Drug Use: never Adopted: No Caregiver/support person: No Lives independently: Yes Household members: other Housing: House Marital status: Single Number of children: 4 service: No Current occupational status: unemployed Do you think of yourself as: Straight/Heterosexual Current gender identity: Female Vitals/I&O/Wt Last Vital Signs Temp 97.9 F 03/07/23 07:45 Pulse 72 03/07/23 11:15 Resp 17 03/07/23 11:15 BP 171/70 03/07/23 11:15 Pulse Ox 95 03/07/23 11:15 O2 Del Method Nasal Cannula 03/07/23 11:15 O2 Flow Rate 2 03/07/23 11:15 03/06/23 03/07/23 03/07/23 22:59 06:59 14:59 Intake Total 326.250 / 326.250 360.083 / 553.332 8599.833 / 1733.833 Output Total 900 / 900 Balance 326.250 / 326.250 360.083 / 686.333 833.833 / 833.833 Weight last 48 hrs Weight 86.455 kg Weight 84.958 kg Weight 83.461 kg Physical Exam 2 Narrative: awake , alert , no distress Data 03/07/23 02:46 03/07/23 02:46 A&P Assessment and plan (1) Acute renal failure: Qualifiers: Acute renal failure type: unspecified Qualified Code(s): N17.9 - Acute kidney failure, unspecified (2) Hypertensive emergency: (3) Solitary kidney, acquired: Plan 1. Acute kidney injury: Baseline creatinine 1.7-1.1, now has an HEATHER with a creatinine of 1.9 today-likely from hypertensive emergency in the setting of underlying ? Renal artery stenosis. check cortisol, renin , angiotensin levels -Restarted oral antihypertensives, wean Cardene off-goal blood pressures today 140s to 160s range -Switched amlodipine to nifedipine extended release 60 mg daily, Restarted clonidine patch, hydralazine, Imdur . -Hold off on valsartan due to HEATHER -Will recheck Doppler renal ultrasound, (prior Doppler showed proximal stenosis with-peak systolic velocity 60 is more than 200.) -Given patient on multiple antihypertensives and poorly controlled hypertension would benefit from vascular surgery evaluation and possible intervention for her renal artery stenosis 2. Malignant hypertension: On multiple antihypertensive agents currently-6 agents at home Blood pressures systolics above 200s on presentation, restarted home meds, as above 3. History of diabetes 4 . History of hemolytic anemia Patient evaluated using audiovisual cart. Time spent 40 minutes Consult Attestations 2 Medical Necessity Statement: per jake Coding Level of Care Code Acute Code for [facility] Fwd Diagnoses Acute renal failure N17.9 Acute renal failure type: unspecified Hypertensive emergency I16.1 Solitary kidney, acquired Z90.5
--- NOTE | 2023-03-07 12:40 | PC.PHAR ---
UNABLE TO SPEAK TO PT THIS MORNING. VERIFIED ALL PRESCRIPTION MEDICATIONS WITH ZAIN VALDEZ AT [facility]. ALL OTC MEDS VERIFIED FROM PT LIST. 03/07/23
[2023-03-07 13:24] LABS: Glucose Point of Care 92 mg/dL (70-110)
[2023-03-07 14:18] LABS: Cortisol Random 10.95 ug/dL (2.47-19.5)
[2023-03-07] MEDS: hyDRALAzine 25 mg Tablet 100 MG PO ×2 (14:30→20:08)
[2023-03-07 14:41] LABS: Adenovirus Not Detected (NOT DETECT); Chlamydia Pneumoniae Not Detected (NOT DETECT); Coronavirus 229E,HKU1,NL63,OC4 Not Detected (NOT DETECT); Human Metapneumovirus Not Detected (NOT DETECT); Human Rhinovirus/Enterovirus Not Detected (NOT DETECT); Influenza A Not Detected (NOT DETECT); Influenza A H1 Not Detected (NOT DETECT); Influenza A H1-2009 Not Detected (NOT DETECT); Influenza A H3 Not Detected (NOT DETECT); Influenza B Not Detected (NOT DETECT); Mycoplasma Pneumoniae Not Detected (NOT DETECT); Parainfluenza Virus Type 1 Not Detected (NOT DETECT); Parainfluenza Virus Type 2 Not Detected (NOT DETECT); Parainfluenza Virus Type 3 Not Detected (NOT DETECT); Parainfluenza Virus Type 4 Not Detected (NOT DETECT); Respiratory Syncytial Virus A Not Detected (NOT DETECT); Respiratory Syncytial Virus B Not Detected (NOT DETECT); SARS-COV-2 Not Detected (NOT DETECT)
[2023-03-07 17:32] LABS: Glucose Point of Care 109 mg/dL (70-110)
[2023-03-07] MEDS: FUROsemide 10 mg/mL SDV 10mL 60 MG IVP (17:53)
--- NOTE | 2023-03-07 19:34 | PC.NURSE ---
Shift summary: Pt has rested in bed for most of the shift. She did sit in chiar briefly but stated it was too cold to do for very long. She has been on Cardene gtt this am. Dr Joshua adjusted her BP meds due to her kidney situation. Amlodipine was stopped becasue it can cause swelling. Hydralazine started. Clonidine patch replaced. Was able to decrease then stop the Cadened gtt, per Dr De Oliveira do not restart gtt if at all possible. Pt has had a few Bps 170-180's this afternoon. She had good urine output of 2155ml this shift. No Bm noted. Pt stated her head has not really hurt today.
[2023-03-07 20:28] LABS: Glucose Point of Care 212 mg/dL (70-110)
[2023-03-07] MEDS: predniSONE 10 mg Tablet PO (23:28)
[2023-03-08] VITALS (73 sets, daily range): BP systolic 106–198; BP diastolic 41–152; PULSE 56–91; RESP 12–24; TEMP 36.6; O2SAT 89–97; BMI 29.2
--- NOTE | 2023-03-08 00:02 | PC.NURSE ---
Blood Pressure Patient's blood pressure remaining elevated, ranging from 161-192 systolic and 65-[address] Fletcher contacted; orders received to start 25 mg metoprolol tartrate BID PO starting now and to discontinue propranolol 10 mg TID. See MAR for details.
[2023-03-08] MEDS: metoprolol tartrate 25 mg Tablet PO ×3 (00:10→10:19)
[2023-03-08 03:46] LABS: Basophils % 0.3 %; Eosinophils # 0.1 10^3/uL (0.0-0.8); Eosinophils % 0.7 %; Hematocrit 35.4 % (36-47); Lymphocytes # 2.3 10^3/uL (0.8-4.8); Lymphocytes % 17.4 %; Mean Corpuscular HGB Conc 34.2 g/dL (30-55); Mean Corpuscular Hemoglobin 31.9 pg (27-33); Mean Corpuscular Volume 93.4 fl (85-98); Mean Platelet Volume 10.7 fL (7.4-10.4); Monocytes # 0.6 10^3/uL (0.2-0.9); Monocytes % 4.5 %; Neutrophils # 10.15 10^3/uL (1.8-7.7); Neutrophils % 76.7 %; Nucleated Red Blood Cells % 0 %; Platelet Count 296 10^3/cmm (157-399); Red Blood Count 3.79 10^6/uL (3.85-5.65); Red Cell Distribution Width 12.9 % (12.1-15.1); White Blood Count 13.22 10^3/uL (3.29-11.43)
[2023-03-08 04:04] LABS: Anion Gap 16.5 (5-19); Blood Urea Nitrogen 33 mg/dL (8-23); Calcium 8.9 mg/dL (8.5-10.5); Carbon Dioxide 23 mmol/L (22-29); Chloride 101 mmol/L (98-107); Glomerular Filtration Rate 32.2 mL/min (90-130); Glucose 187 mg/dL (65-115); Osmolality Calculated 294 mOsm/kg (285-295); Potassium 4.5 mmol/L (3.5-5.1); Sodium 136 mmol/L (136-145)
[2023-03-08 07:30] LABS: Glucose Point of Care 145 mg/dL (70-110)
[2023-03-08] MEDS: hyDRALAzine 25 mg Tablet 100 MG PO ×3 (07:42→20:48)
[2023-03-08] MEDS: NIFEdipine ER (24 hr) 30 mg Tablet 60 MG PO (07:43)
[2023-03-08] MEDS: isosorbide dinitrate 20 mg Tablet 40 MG PO ×2 (07:43→17:21)
[2023-03-08] MEDS: methIMAzole 5 MG Tablet PO (07:44)
[2023-03-08] MEDS: sennosides-docusate Tablet 1 TAB PO (07:44)
[2023-03-08] MEDS: insulin lispro 100 unit/1 mL SUBCUT ×2 (07:44→12:42)
--- NOTE | 2023-03-08 08:12 | PM.PN ---
Subjective Subjective: BP elevated to 190's back on cardene gtt Medications: Reviewed: Yes Vitals/I&O/Wt Last Vital Signs Temp 97.9 F 03/08/23 05:00 Pulse 65 03/08/23 06:15 Resp 13 03/08/23 06:15 BP 159/67 03/08/23 06:15 Pulse Ox 90 03/08/23 05:45 O2 Del Method Room Air 03/08/23 05:00 O2 Flow Rate 2 03/07/23 11:15 03/07/23 03/08/23 03/08/23 22:59 06:59 14:59 Intake Total 991 / 3124.833 240 / 3364.833 Output Total 1999 / 3599 1175 / 4775 Balance -1009 / -475.167 -935 / -1410.167 Weight last 48 hrs Weight 84.731 kg Weight 86.455 kg Weight 84.958 kg Weight 83.461 kg Physical Exam Narrative: awake , alert , no distress Data 03/08/23 02:57 03/08/23 02:57 A&P Assessment and plan (1) Acute renal failure: Qualifiers: Acute renal failure type: unspecified Qualified Code(s): N17.9 - Acute kidney failure, unspecified (2) Hypertensive emergency: (3) Solitary kidney, acquired: Plan 1. Acute kidney injury: Baseline creatinine 1.0-1.1, now has an HEATHER with a creatinine of 1.9 -likely from hypertensive emergency in the setting of underlying ? Renal artery stenosis. check cortisol, renin , angiotensin levels -Restarted oral antihypertensives, on cardene gtt -Switched amlodipine to nifedipine extended release 60 mg daily, Restarted clonidine patch, hydralazine, Imdur . -Hold off on valsartan due to HEATHER - added metoprolol - increase dose to 50 mg bid , -rechecked Doppler renal ultrasound,- > 60% right [place] - Cr improved to 1.6 2. Malignant hypertension: On multiple antihypertensive agents currently-on 6 agents at home Blood pressures systolics above 200s on presentation, restarted home meds, BP improved -Given patient on multiple antihypertensives and poorly controlled hypertension would benefit from vascular surgery evaluation and possible intervention for her renal artery stenosis 3. History of diabetes 4 . History of hemolytic anemia Patient evaluated using audiovisual cart. Time spent 20 minutes Attestations Medical Necessity Statement*: per [facility] Coding Level of Care Code Acute Code for [facility] Fwd Diagnoses Acute renal failure N17.9 Acute renal failure type: unspecified Hypertensive emergency I16.1 Solitary kidney, acquired Z90.5
[2023-03-08] MEDS: NIFEdipine 10 mg Capsule 20 MG PO (10:19)
--- NOTE | 2023-03-08 11:02 | NM_ITS ---
WS: [id number] NUCLEAR MEDICINE LUNG VENTILATION AND PERFUSION CLINICAL INFORMATION: Rule out PE, shortness of breath, high D-dimer TECHNIQUE: Ventilation/perfusion lung scan with 32.1 mCi technetium 99m DTPA. 5.1 mCi MAA COMPARISON: Radiograph 03/06/2023 FINDINGS: Hyperinflation. Chronic emphysematous changes. Relatively symmetric radiotracer uptake on the perfusi on images. Patchy radiotracer deposition on the ventilatory images and along the central bronchi due to emphysema. Radiotracer deposition along the trachea. A few matched ventilation/perfusion defects. No mismatched V/Q defects to indicate pulmonary embolus. No lobar defects. IMPRESSION: 1. Low probability for pulmonary embolus.
[2023-03-08 11:20] LABS: Glucose Point of Care 188 mg/dL (70-110)
--- NOTE | 2023-03-08 11:27 | P.PN_ITS ---
Subjective 2 Subjective: Renal artery stenosis positive we will touch base with [facility] vascular surgeon for intervention Patient is greater than 60 minutes stenosis she is on 4-5 different antihypertensive regimen This morning she is hypertensive again requiring Cardene drip Not complaining of active chest pain Eating breakfast Vitals/I&O/Wt Last Vital Signs Temp 97.8 F 03/08/23 07:15 Pulse 74 03/08/23 11:00 Resp 18 03/08/23 11:00 BP 170/73 03/08/23 11:00 Pulse Ox 94 03/08/23 11:00 O2 Del Method Room Air 03/08/23 11:00 O2 Flow Rate 2 03/07/23 11:15 03/07/23 03/08/23 03/08/23 22:59 06:59 14:59 Intake Total 991 / 3124.833 240 / 3364.833 43.333 / 43.333 Output Total 1999 / 3599 1175 / 4775 Balance -1009 / -475.167 -935 / -1410.167 43.333 / 43.333 Weight last 48 hrs Weight 84.731 kg Weight 86.455 kg Weight 84.958 kg Weight 83.461 kg Physical Exam 2 Narrative: Awake and alert Euvolemic GCS 15 Eating request Currently on room air Cardene drip on board S1, S2 No audible stridor or wheezing Data 03/08/23 02:57 03/08/23 02:57 A&P Assessment and plan (1) Renal artery stenosis: (2) High risk medication use: (3) Essential (primary) hypertension: (4) Controlled diabetes mellitus: Qualifiers: Diabetes mellitus type: type 2 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 Diabetes mellitus complication status: with kidney complications Diabetes mellitus complication detail: with chronic kidney disease Chronic kidney disease stage: stage 3 (moderate) Qualified Code(s): E 11.22 - Type 2 diabetes mellitus with diabetic chronic kidney disease; N18.30 - Chronic kidney disease, stage 3 unspecified (5) half-way systemic steroid user: (6) Chronic diarrhea: (7) Solitary kidney, acquired: (8) Acute renal failure: Qualifiers: Acute renal failure type: unspecified Qualified Code(s): N17.9 - Acute kidney failure, unspecified (9) Autoimmune hemolytic anemia: Plan Acute on chronic kidney disease creatinine improved today currently at 1.6 Patient is requiring 4-5 different antihypertensive regimen currently on Cardene drip She will need intervention for renal artery stenosis Will touch this with [facility] vascular surgeon Continue cardiac diet Patient can start taking her zonisamide for sciatica Appreciate nephro recommendations Respiratory panel negative VQ scan low probability for PE Continue ICU management Interpretation of pulmonary perfusion imaging: Low probability for PE Started Cardene drip back on this morning Attestations 2 Medical Necessity Statement*: Continue ICU management Coding Level of Care Code 09161 High Time (Saw patient today, discussed case with nephrology, making phone calls calling [facility] vascular surgery adjusting Cardene drip) for a total of 90 minutes, includes reviewing past or interval history, examining/interviewing patient, placing orders, counseling patient/family/other support, updating patient/family/other support, discussing plan of care with staff, communicating with other healthcare providers, documenting encounter and coordinating care Diagnoses Renal artery stenosis I70.1 High risk medication use Z79.899 Essential (primary) hypertension I10 Controlled type 2 diabetes mellitus with stage 3 chronic kidney disease, without long-term current use of insulin E11.22; N18.30 Diabetes mellitus type: type 2 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
--- NOTE | 2023-03-08 11:32 | PM.TDS ---
Transfer Summary Providers Date of Admission: 03/06/23 17:33 Date of Discharge/Transfer: 03/08/23 Attending Provider at Admission: Jasson Carlton MD Attending Provider at Transfer: Jasson Carlton MD Primary Care Provider: BELINDA Castro Transfer Plans: Anticipated date of transfer: 03/08/23. Diagnoses at Discharge Discharge Diagnosis (1) Renal artery stenosis: Status: Acute (2) High risk medication use: Status: Acute (3) Essential (primary) hypertension: Status: Chronic (4) Controlled diabetes mellitus: Status: Chronic Qualifiers: Diabetes mellitus type: type 2 Diabetes mellitus fdc insulin use: without fdc use Diabetes mellitus complication status: with kidney complications Diabetes mellitus complication detail: with chronic kidney disease Chronic kidney disease stage: stage 3 (moderate) Qualified Code(s): E11.22 - Type 2 diabetes mellitus with diabetic chronic kidney disease; N18.30 - Chronic kidney disease, stage 3 unspecified (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 (6) Chronic diarrhea: Status: Acute (7) Solitary kidney, acquired: Status: Chronic (8) Acute renal failure: Status: Acute Qualifiers: Acute renal failure type: unspecified Qualified Code(s): N17.9 - Acute kidney failure, unspecified (9) Autoimmune hemolytic anemia: Status: Acute Reason for Visit Reason for Visit BP TS Data Studies Completed and Pending Pending at discharge Category Date Time Status Aldosterone Routine Lab 03/07/23 13:41 Received Basic Metabolic Panel AM LABS Lab 03/09/23 04:00 Ordered Plasma Renin Activity LC/MS/MS Routine Lab 03/07/23 13:41 Received Completed Studies During Hospitalization Category Date Time Status CT head wo con* [id number] Stat Cat Scan 03/06/23 15:57 Completed XR chest 1V portable [id number] Stat Exams 03/06/23 16:35 Completed NM pul vent and perfus* [id number] Routine Nuc Med 03/08/23 11:02 Completed US renal doppler [CV renal doppler 11882] Routine Ultrasound 03/07/23 10:50 Completed Laboratory Last Values WBC 13.22 10^3/uL (3.29-11.43) H 03/08/23 02:57 RBC 3.79 10^6/uL (3.85-5.65) L 03/08/23 02:57 Hgb 12.10 g/dL (11.27-16.99) 03/08/23 02:57 Hct 35.4 % (36-47) L 03/08/23 02:57 MCV 93.4 fl (85-98) 03/08/23 02:57 MCH 31.9 pg (27-33) 03/08/23 02:57 MCHC 34.2 g/dL (30-55) 03/08/23 02:57 RDW 12.9 % (12.1-15.1) 03/08/23 02:57 Plt Count 296 10^3/cmm (157-399) 03/08/23 02:57 MPV 10.7 fL (7.4-10.4) H 03/08/23 02:57 Neut % (Auto) 76.7 % 03/08/23 02:57 Lymph % (Auto) 17.4 % 03/08/23 02:57 [place] % (Auto) 4.5 % 03/08/23 02:57 Eos % (Auto) 0.7 % 03/08/23 02:57 Baso % (Auto) 0.3 % 03/08/23 02:57 Neut # (Auto) 10.15 10^3/uL (1.8-7.7) H 03/08/23 02:57 Lymph # (Auto) 2.3 10^3/uL (0.8-4.8) 03/08/23 02:57 [place] # (Auto) 0.6 10^3/uL (0.2-0.9) 03/08/23 02:57 Eos # (Auto) 0.1 10^3/uL (0.0-0.8) 03/08/23 02:57 Baso # (Auto) 0.0 10^3/uL (0.0-0.1) 03/08/23 02:57 Nucleated RBC % (auto) 0 % 03/08/23 02:57 Nucleated RBCs # 0.0 /100WBC 03/08/23 02:57 D-Dimer 1.10 ug/mLFEU (0-0.59) H 03/06/23 13:11 Sodium 136 mmol/L (136-145) 03/08/23 02:57 Potassium 4.5 mmol/L (3.5-5.1) 03/08/23 02:57 Chloride 101 mmol/L (98-107) 03/08/23 02:57 Carbon Dioxide 23 mmol/L (22-29) 03/08/23 02:57 Anion Gap 16.5 (5-19) 03/08/23 02:57 BUN 33 mg/dL (8-23) H 03/08/23 02:57 Creatinine 1.6 mg/dL (0.5-0.9) H 03/08/23 02:57 GFR Calculation 32.2 mL/min (90-130) L 03/08/23 02:57 Glucose 187 mg/dL (65-115) H 03/08/23 02:57 POC Glucose 188 mg/dL (70-110) H 03/08/23 11:13 Calculated Osmolality 294 mOsm/kg (285-295) 03/08/23 02:57 Calcium 8.9 mg/dL (8.5-10.5) 03/08/23 02:57 Magnesium 1.5 mg/dL (1.7-2.3) L 03/07/23 02:46 Total Bilirubin 0.5 mg/dL (0.15-1.2) 03/06/23 13:11 AST 15 U/L (0-32) 03/06/23 13:11 ALT < 5 U/L (0-33) 03/06/23 13:11 Alkaline Phosphatase 113 U/L (35-105) H 03/06/23 13:11 Troponin T Baseline 16 ng/L (0-10) H 03/06/23 16:57 Troponin T 120 Minute 19.86 ng/L (0-10) H 03/06/23 18:59 Delta Troponin T 3.86 ABS# (0-10) 03/06/23 18:59 Troponin T Hi Sens 6Hr 31.99 ng/L (0-10) H 03/06/23 22:25 Troponin T Hi Sens 6Hr Delta 15.99 ng/L (0-12) H* 03/06/23 22:25 NT-Pro-B Natriuret Pep 581 pg/mL (0-125) H 03/06/23 13:11 Total Protein 7.3 g/dL (6.6-8.7) 03/06/23 13:11 Albumin 4.1 g/dL (3.5-5.2) 03/06/23 13:11 Globulin 3.2 g/dL (1.3-4.6) 03/06/23 13:11 Free T4 1.40 ng/dL (0.82-1.77) 03/07/23 02:46 Random Cortisol 10.95 ug/dL (2.47-19.5) 03/07/23 02:46 Urine Color Colorless (Yellow) 03/06/23 13:24 Urine Appearance Clear (CLEAR) 03/06/23 13:24 Urine pH 7 (5-7) 03/06/23 13:24 Ur Specific [place] 1.000 (1.005-1.030) L 03/06/23 13:24 Urine Protein Neg (Negative) 03/06/23 13:24 Urine Glucose (UA) 1+ (Normal) H 03/06/23 13:24 Urine Ketones Negative (Negative) 03/06/23 13:24 Urine Blood Neg (Negative) 03/06/23 13:24 Urine Nitrate Negative (Negative) 03/06/23 13:24 Urine Bilirubin Neg (Negative) 03/06/23 13:24 Urine Urobilinogen Norm mg/dL (Negative) 03/06/23 13:24 Ur Leukocyte Esterase Negative (Negative) 03/06/23 13:24 Adenovirus (PCR) Not detected (NOT DETECT) 03/07/23 12:38 C. pneumoniae DNA (PCR) Not detected (NOT DETECT) 03/07/23 12:38 Coronavirus 229E (PCR) Not detected (NOT DETECT) 03/07/23 12:38 Human Metapneumovir PCR Not detected (NOT DETECT) 03/07/23 12:38 Influenza A (H1) PCR Not detected (NOT DETECT) 03/07/23 12:38 Influ A (H1/09) PCR Not detected (NOT DETECT) 03/07/23 12:38 Influenza A (H3) PCR Not detected (NOT DETECT) 03/07/23 12:38 Influenza Type A (PCR) Not detected (NOT DETECT) 03/07/23 12:38 Influenza Type B (PCR) Not detected (NOT DETECT) 03/07/23 12:38 M. pneumoniae (PCR) Not detected (NOT DETECT) 03/07/23 12:38 Parainfluenza 1 (PCR) Not detected (NOT DETECT) 03/07/23 12:38 Parainfluenza 2 (PCR) Not detected (NOT DETECT) 03/07/23 12:38 Parainfluenza 3 (PCR) Not detected (NOT DETECT) 03/07/23 12:38 Parainfluenza 4 (PCR) Not detected (NOT DETECT) 03/07/23 12:38 RSV Type A (PCR) Not detected (NOT DETECT) 03/07/23 12:38 RSV Type B (PCR) Not detected (NOT DETECT) 03/07/23 12:38 Entero/Rhino (PCR) Not detected (NOT DETECT) 03/07/23 12:38 SARS-CoV-2 (PCR) Not detected (NOT DETECT) 03/07/23 12:[address] 03/06/23 15:57 IMPRESSION: No acute intracranial findings. Chest X-Ray 03/06/23 16:35 IMPRESSION: Lung findings may represent pulmonary edema, pneumonitis or atypical/viral infection. Recent Clincial Data Last Vital Signs Temp 97.8 F 03/08/23 07:15 Pulse 74 03/08/23 11:00 Resp 18 03/08/23 11:00 BP 170/73 03/08/23 11:00 Pulse Ox 94 03/08/23 11:00 O2 Del Method Room Air 03/08/23 11:00 O2 Flow Rate 2 03/07/23 11:15 Vital Signs Temp Pulse Resp BP Pulse Ox O2 Del Method 03/08/23 11:00 74 18 170/73 94 Room Air 03/08/23 10:30 76 18 149/61 93 Room Air 03/08/23 10:15 63 14 159/67 92 Room Air 03/08/23 09:45 72 19 H 191/81 95 Room Air 03/08/23 09:30 75 22 H 166/78 94 Room Air 03/08/23 09:15 62 15 180/85 94 Room Air 03/08/23 09:00 69 20 H 198/152 95 Room Air 03/08/23 08:57 70 16 93 Room Air 03/08/23 08:00 196/85 03/08/23 07:15 97.8 F 83 21 H 174/141 94 Room Air 03/08/23 07:00 67 15 193/82 91 Room Air 03/08/23 06:45 65 15 155/71 91 Room Air 03/08/23 06:30 65 13 149/70 03/08/23 06:15 65 13 159/67 03/08/23 06:00 61 22 H 163/70 03/08/23 06:00 65 03/08/23 05:45 62 17 135/65 90 03/08/23 05:30 63 13 168/66 03/08/23 05:15 63 12 153/69 03/08/23 05:00 97.9 F 71 14 151/67 90 Room Air 03/08/23 04:45 63 13 156/67 03/08/23 04:30 63 13 147/70 03/08/23 04:15 65 19 H 165/73 03/08/23 04:00 65 14 161/74 03/08/23 03:45 68 15 153/63 89 L Room Air 03/08/23 03:30 62 14 162/65 03/08/23 03:15 61 14 178/77 03/08/23 03:00 66 15 151/68 91 03/08/23 02:45 63 23 H 154/71 03/08/23 02:30 66 19 H 163/92 89 L Room Air 03/08/23 02:15 69 14 154/68 03/08/23 02:00 68 14 154/68 03/08/23 01:45 65 13 166/72 03/08/23 01:30 65 12 176/80 90 03/08/23 01:15 67 13 178/74 03/08/23 01:00 66 18 178/90 03/08/23 00:45 87 14 181/82 93 Room Air 03/08/23 00:30 69 15 184/85 03/08/23 00:15 70 17 172/80 03/08/23 00:00 67 19 H 192/101 92 Room Air 03/07/23 23:45 78 21 H 186/81 91 Intake & Output/Weight 03/06/23 03/07/23 03/08/23 03/09/23 06:59 06:59 06:59 06:59 Intake Total 686.333 / 855.669 5388.833 / 3364.833 43.333 / 43.333 Output Total 4775 / 4775 Balance 686.333 / 686.333 -1410.167 / -1410.167 43.333 / 43.333 Weight 86.455 kg 84.731 kg Vitals Last Vital Signs Temp 97.8 F 03/08/23 07:15 Pulse 74 03/08/23 11:00 Resp 18 03/08/23 11:00 BP 170/73 03/08/23 11:00 Pulse Ox 94 03/08/23 11:00 O2 Del Method Room Air 03/08/23 11:00 O2 Flow Rate 2 03/07/23 11:15 TS Medications Medications Acetaminophen (Acetaminophen 500 Mg Tablet) 500 mg PO Q4H PRN PRN Reason: fever Albuterol/Ipratropium (Ipratropium-Albuterol 3 Ml Neb) 3 ml INHALATION Q6H PRN PRN Reason: SHORTNESS OF BREATH Clonidine HCl (Clonidine 0.2 Mg/24 Hr Patch) 1 patch TOPICAL Q7D [facility] Last Admin: 03/07/23 09:28 Dose: 1 patch Dextrose (Dextrose 50% Syringe 50 Ml) 25 ml IVP ONCE PRN; Protocol PRN Reason: hypoglycemia protocol Dextrose (Dextrose 50% Syringe 50 Ml) 50 ml IVP PRN PRN; Protocol PRN Reason: hypoglycemia protocol Furosemide (Furosemide 10 Mg/Ml Sdv 10ml) 60 mg IVP Q24H [facility] Last Admin: 03/07/23 17:53 Dose: 60 mg Hydralazine HCl (Hydralazine 25 Mg Tablet) 100 mg PO TID [facility] Last Admin: 03/08/23 07:42 Dose: 100 mg Nicardipine/Sodium Chloride (Cardene) 20 mg in 200 mls @ 0 mls/hr IV .Q0M [facility]; Protocol Last Titration: 03/08/23 10:31 Dose: 0 mg/hr, 0 mls/hr Dextrose (D5w) 500 mls @ 0 mls/hr IV ONCE PRN; Protocol PRN Reason: Adult Acute Hypoglycemia Prot Insulin Human Lispro (Insulin Lispro 100 Unit/1 Ml) 0 unit SUBCUT TIDWM [facility]; Protocol Last Admin: 03/08/23 07:44 Dose: 4 unit Isosorbide Dinitrate (Isosorbide Dinitrate 20 Mg Tablet) 40 mg PO BID [facility] Last Admin: 03/08/23 07:43 Dose: 40 mg Methimazole (Methimazole 5 Mg Tablet) 5 mg PO DAILY [facility] Last Admin: 03/08/23 07:44 Dose: 5 mg Metoprolol Tartrate (Metoprolol Tartrate 25 Mg Tablet) 50 mg PO BID@0900,2100 [facility] Nifedipine (Nifedipine Er (24 Hr) 30 Mg Tablet) 90 mg PO DAILY [facility] Ondansetron HCl (Ondansetron 2 Mg/Ml Sdv 2 Ml) 4 mg IVP Q6H PRN PRN Reason: NAUSEA AND VOMITING Last Admin: 03/07/23 02:47 Dose: 4 mg Prednisone (Prednisone 5 Mg Tablet) 5 mg PO Q48H [facility] Last Admin: 03/07/23 00:03 Dose: 5 mg Prednisone (Prednisone 10 Mg Tablet) 10 mg PO Q48H [facility] Last Admin: 03/07/23 23:28 Dose: 10 mg Senna/Docusate Sodium (Sennosides-Docusate Tablet) 1 tab PO DAILY [facility] Last Admin: 03/08/23 07:44 Dose: 1 tab Trazodone HCl (Trazodone 100 Mg Tablet) 100 mg PO BEDTIME PRN PRN Reason: INSOMNIA Last Admin: 03/07/23 00:03 Dose: 100 mg Discontinued Medications Acetaminophen (Acetaminophen 500 Mg Tablet) 1,000 mg PO ONCE ONE Stop: 03/06/23 14:49 Last Admin: 03/06/23 14:53 Dose: 1,000 mg Amlodipine Besylate (Amlodipine 5 Mg Tablet) 5 mg PO BEDTIME [facility] Last Admin: 03/06/23 20:56 Dose: 5 mg Clonidine HCl (Clonidine 0.2 Mg/24 Hr Patch) 1 patch TOPICAL .weekly [facility] Hydralazine HCl (Hydralazine 20 Mg/Ml Inj 1 Ml) 10 mg IVP ONCE ONE Stop: 03/06/23 13:55 Last Admin: 03/06/23 14:14 Dose: 10 mg Hydralazine HCl (Hydralazine 20 Mg/Ml Inj 1 Ml) 10 mg IVP ONCE ONE Stop: 03/06/23 14:42 Last Admin: 03/06/23 14:54 Dose: 10 mg Hydralazine HCl (Hydralazine 25 Mg Tablet) 50 mg PO TID [facility] Last Admin: 03/07/23 09:29 Dose: 50 mg Sodium Chloride (Sodium Chloride 0.9%) 1,000 mls @ 999 mls/hr IV .Q1H1M ONE Stop: 03/06/23 15:24 Last Admin: 03/06/23 14:53 Dose: 999 mls/hr Sodium Chloride (Sodium Chloride 0.9%) 1,000 mls @ 75 mls/hr IV .[id number] [facility] Last Infusion: 03/07/23 11:10 Dose: Infused Levetiracetam (Levetiracetam 500 Mg Tablet) 500 mg PO BID [facility] Last Admin: 03/07/23 19:35 Dose: Not Given Metoprolol Succinate (Metoprolol Succinate Er (24 Hr) 100 Mg Tablet) 100 mg PO DAILY [facility] Last Admin: 03/07/23 09:29 Dose: 100 mg Metoprolol Tartrate (Metoprolol Tartrate 1 Mg/1 Ml Sdv 5 Ml) 2.5 mg IVP ONCE ONE Stop: 03/06/23 13:55 Last Admin: 03/06/23 14:45 Dose: Not Given Metoprolol Tartrate (Metoprolol Tartrate 25 Mg Tablet) 25 mg PO BID@0900,2100 [facility] Last Admin: 03/08/23 07:43 Dose: 25 mg Metoprolol Tartrate (Metoprolol Tartrate 25 Mg Tablet) 25 mg PO ONCE ONE Stop: 03/08/23 09:47 Last Admin: 03/08/23 10:19 Dose: 25 mg Nifedipine (Nifedipine Er (24 Hr) 30 Mg Tablet) 60 mg PO DAILY [facility] Last Admin: 03/08/23 07:43 Dose: 60 mg Nifedipine (Nifedipine 10 Mg Capsule) 20 mg PO ONCE ONE Stop: 03/08/23 10:01 Last Admin: 03/08/23 10:19 Dose: 20 mg Non-Formulary Medication (Isosorbide Dinitrate) 40 mg PO BID [facility] Non-Formulary Medication (Zonisamide) 50 mg PO BID [facility] Last Admin: 03/07/23 09:46 Dose: Not Given Ondansetron HCl (Ondansetron 2 Mg/Ml Sdv 2 Ml) 4 mg IVP Q6H PRN PRN Reason: NAUSEA AND VOMITING Propranolol HCl (Propranolol 20 Mg Tablet) 10 mg PO TID [facility] Last Admin: 03/07/23 20:09 Dose: 10 mg Allergies celecoxib [From Celebrex] Allergy (Verified 03/03/23 10:37) Unknown insulin detemir [From Levemir U-100 Insulin] Allergy (Verified 03/03/23 10:37) RASH Home Medications folic acid 1 mg tablet 1 mg PO DAILY 09/10/19 [History Confirmed 03/07/23] blood sugar diagnostic #100 ea 12/26/20 [Rx Confirmed 03/07/23] insulin syringe-needle U-100 0.3 mL 31 gauge x 07/06 #100 ea 07/06/21 [Rx Confirmed 03/07/23] garlic 500 mg capsule 500 mg PO DAILY 03/12/22 [History Confirmed 03/07/23] gujmxebk-lull-qdtg 8 mg-folic 400 mcg-K 50 mcg-lutein 300 mcg tablet ([facility]) 1 tab PO DAILY 03/12/22 [History Confirmed 03/07/23] omega 8-esl-dyy-fish oil 1,000 mg (120 mg-180 mg) capsule (Fish Oil) 1 cap PO DAILY 03/12/22 [History Confirmed 03/07/23] albuterol sulfate 90 mcg/actuation aerosol inhaler (ProAir HFA) 2 inh inhalation Q6H PRN shortness of breath or wheezing #18 grams 11/10/22 [Rx Confirmed 03/07/23] metformin 500 mg tablet,extended release 24 hr 500 mg PO BID #60 tabs 11/10/22 [Rx Confirmed 03/07/23] prednisone 5 mg tablet See Rx Instructions .Route .COMPLEX #45 tabs 01/17/23 [Rx Confirmed 03/07/23] amlodipine 5 mg tablet 5 mg PO BEDTIME #30 tabs 02/02/23 [Rx Confirmed 03/07/23] clonidine 0.2 mg/24 hr weekly transdermal patch 1 patch topical .weekly #4 ea 02/02/23 [Rx Confirmed 03/07/23] methimazole 5 mg tablet 5 mg PO DAILY #30 tabs 02/02/23 [Rx Confirmed 03/07/23] metoprolol succinate 100 mg tablet,extended release 24 hr 100 mg PO DAILY #30 tabs 02/02/23 [Rx Confirmed 03/07/23] pantoprazole 40 mg tablet,delayed release (Protonix) 40 mg PO DAILY #30 tabs 02/02/23 [Rx Confirmed 03/07/23] rosuvastatin 10 mg tablet (Crestor) 10 mg PO QPM #30 tabs 02/02/23 [Rx Confirmed 03/07/23] trazodone 100 mg tablet 100 mg PO BEDTIME #30 tabs 02/02/23 [Rx Confirmed 03/07/23] zonisamide 50 mg capsule 50 mg PO BID #60 caps 02/02/23 [Rx Confirmed 03/07/23] hydralazine 25 mg tablet 25 mg PO TID #90 tabs 03/03/23 [Rx Confirmed 03/07/23] valsartan 160 mg tablet 160 mg PO DAILY #30 tabs 03/03/23 [Rx Confirmed 03/07/23] isosorbide dinitrate 20 mg tablet 40 mg PO BID 03/07/23 [History Confirmed 03/07/23] valsartan 80 mg tablet 80 mg PO DAILY 03/07/23 [History Confirmed 03/07/23] Discharge Plan Discharge Patient Disposition: Home Condition: Stable Prescriptions: No Action (DME) blood sugar diagnostic Strip See Rx Instructions .ROUTE .MEDSUPPLY Qty: 100 5RF Rx Instructions: check 2 times day (DME) insulin syringe-needle U-100 0.3 mL 31 gauge x 5/16 syringe See Rx Instructions .ROUTE .MEDSUPPLY Qty: 100 5RF Rx Instructions: As directed folic acid 1 mg tablet 1 mg PO DAILY valsartan 160 mg tablet 160 mg PO DAILY Qty: 30 1RF hydralazine 25 mg tablet 25 mg PO TID Qty: 90 0RF albuterol sulfate [ProAir HFA] 90 mcg/actuation HFA aerosol inhaler 2 inh INHALATION Q6H PRN (Reason: shortness of breath or wheezing) Qty: 18 2RF metformin 500 mg tablet extended release 24 hr 500 mg PO BID Qty: 60 2RF Hold Instructions: Resume on 12/15/22. clonidine 0.2 mg/24 hr patch weekly 1 patch topical .weekly Qty: 4 2RF amlodipine 5 mg tablet 5 mg PO BEDTIME Qty: 30 2RF methimazole 5 mg tablet 5 mg PO DAILY Qty: 30 2RF metoprolol succinate 100 mg tablet extended release 24 hr 100 mg PO DAILY Qty: 30 2RF pantoprazole [Protonix] 40 mg tablet,delayed release (DR/EC) 40 mg PO DAILY Qty: 30 2RF Crestor 10 mg tablet 10 mg PO QPM Qty: 30 2RF trazodone 100 mg tablet 100 mg PO BEDTIME Qty: 30 2RF zonisamide 50 mg capsule 50 mg PO BID Qty: 60 2RF prednisone 5 mg tablet See Rx Instructions .ROUTE .COMPLEX Qty: 45 2RF Dose Instruction: TAKE ONE TABLET BY MOUTH EVERY OTHER DAY, THEN TAKE TWO TABLETS ON OPPOSITE DAYS Rx Instructions: TAKE ONE TABLET BY MOUTH EVERY OTHER DAY, THEN TAKE TWO TABLETS ON OPPOSITE DAYS omega 5-has-yee-fish oil [Fish Oil] 1,000 mg (120 mg-180 mg) Capsule 1 cap PO DAILY garlic 500 mg Capsule 500 mg PO DAILY [facility] 8 mg iron-400 mcg-300 mcg Tablet 1 tab PO DAILY valsartan 80 mg tablet 80 mg PO DAILY isosorbide dinitrate 20 mg tablet 40 mg PO BID Referrals: Juan Marino FNP-C [Primary Care Provider] - Patient Instructions: Opioid Safety Coding Level of Care Code Acute Code for Chg Fwd Diagnoses Renal artery stenosis I70.1 High risk medication use Z79.899 Essential (primary) hypertension I10 Controlled type 2 diabetes mellitus with stage 3 chronic kidney disease, without long-term current use of insulin E11.22; N18.30 Diabetes mellitus type: type 2 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
--- NOTE | 2023-03-08 12:19 | PM.TDS ---
Transfer Summary Providers Date of Admission: 03/06/23 17:33 Date of Discharge/Transfer: 03/08/23 Attending Provider at Admission: Jasson Carlton MD Attending Provider at Transfer: Jasson Carlton MD Primary Care Provider: BELINDA Castro Transfer Plans: Anticipated date of transfer: 03/08/23. Diagnoses at Discharge Discharge Diagnosis (1) Renal artery stenosis: Status: Acute (2) High risk medication use: Status: Acute (3) Essential (primary) hypertension: Status: Chronic (4) Controlled diabetes mellitus: Status: Chronic Qualifiers: Diabetes mellitus type: type 2 Diabetes mellitus residential insulin use: without residential use Diabetes mellitus complication status: with kidney complications Diabetes mellitus complication detail: with chronic kidney disease Chronic kidney disease stage: stage 3 (moderate) Qualified Code(s): E11.22 - Type 2 diabetes mellitus with diabetic chronic kidney disease; N18.30 - Chronic kidney disease, stage 3 unspecified (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: Status: Acute (6) Chronic diarrhea: Status: Acute (7) Solitary kidney, acquired: Status: Chronic (8) Acute renal failure: Status: Acute Qualifiers: Acute renal failure type: unspecified Qualified Code(s): N17.9 - Acute kidney failure, unspecified (9) Autoimmune hemolytic anemia: Status: Acute Reason for Visit Reason for Visit BP Hospital Course Hospital Course 67-year-old female with history of hemolytic anemia, takes rituximab, 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, on chronic steroids, left nephrectomy, right renal artery stenosis, she was admitted for hypertensive crisis she was kept on Cardene drip for about 48 hours, she is on 4-5 antihypertensive regimen, ultrasound of renal vessel showed 60% stenosis, nephrology was consulted who has adjusted her antihypertensive regimen, patient will need intervention for her renal artery stenosis, tertiary center at [facility] was approached, patient will be needing intervention by vascular surgeon for her resistant hypertension and renal artery stenosis her creatinine is around 1.6, she has a solitary kidney Indication: uncontrolled Htn hx of renal stenosis lt kidney removed Aortic Velocity @ SMA (cm/s) 96.7 RIGHT KIDNEY LEFT KIDNEY Velocity (cm/s) Velocity (cm/s) Sys/Lockett Sys/Lockett Resistive Index Resistive Index 214.8 / 45.7 0.79 Proximal Renal Artery / 169.1 / 37.4 0.78 Mid Renal Artery / 170.5 / 40.2 0.76 Distal Renal Artery / 134.5 / 33.3 0.75 Hilar / 77.6 / 18.0 0.77 Upper Pole / 98.4 / 19.4 0.80 Mid Pole / 91.5 / 16.6 0.82 Lower Pole / 2.20 Renal Aortic Ratio Accleration Index (cm/sec2) 866.00 Hilar 518.00 Upper Pole 649.00 Mid Pole 488.00 Lower Pole 120.1 Kidney Length (mm) FINDINGS rt side renal stenosis abnormal acceleration times on rt kidney lt kidney removed CONCLUSIONS Increased systolic flow velocities (>180cm/s) noted in the proximal right renal artery, suggesting hemodynamically significant (>60% ) renal artery stenosis. Turbulent flow and spectral broadening distal to stenosis. Consider CTA in further evaluation. Prior LEFT nephrectomy RIGHT kidney measures 12.1cm Patient was complaining of shortness of breath, D-dimer was high perfusion scan had shown low probability for PE. Physical Exam Narrative: Awake and alert GCS 15 Euvolemic Pleasant Eating breakfast TS Data Studies Completed and Pending Pending at discharge Category Date Time Status Aldosterone Routine Lab 03/07/23 13:41 Received Basic Metabolic Panel AM LABS Lab 03/09/23 04:00 Ordered Plasma Renin Activity LC/MS/MS Routine Lab 03/07/23 13:41 Received Completed Studies During Hospitalization Category Date Time Status CT head wo con* [id number] Stat Cat Scan 03/06/23 15:57 Completed XR chest 1V portable [id number] Stat Exams 03/06/23 16:35 Completed NM pul vent and perfus* [id number] Routine Nuc Med 03/08/23 11:02 Completed US renal doppler [CV renal doppler [id number]] Routine Ultrasound 03/07/23 10:50 Completed Laboratory Last Values WBC 13.22 10^3/uL (3.29-11.43) H 03/08/23 02:57 RBC 3.79 10^6/uL (3.85-5.65) L 03/08/23 02:57 Hgb 12.10 g/dL (11.27-16.99) 03/08/23 02:57 Hct 35.4 % (36-47) L 03/08/23 02:57 MCV 93.4 fl (85-98) 03/08/23 02:57 MCH 31.9 pg (27-33) 03/08/23 02:57 MCHC 34.2 g/dL (30-55) 03/08/23 02:57 RDW 12.9 % (12.1-15.1) 03/08/23 02:57 Plt Count 296 10^3/cmm (157-399) 03/08/23 02:57 MPV 10.7 fL (7.4-10.4) H 03/08/23 02:57 Neut % (Auto) 76.7 % 03/08/23 02:57 Lymph % (Auto) 17.4 % 03/08/23 02:57 [place] % (Auto) 4.5 % 03/08/23 02:57 Eos % (Auto) 0.7 % 03/08/23 02:57 Baso % (Auto) 0.3 % 03/08/23 02:57 Neut # (Auto) 10.15 10^3/uL (1.8-7.7) H 03/08/23 02:57 Lymph # (Auto) 2.3 10^3/uL (0.8-4.8) 03/08/23 02:57 [place] # (Auto) 0.6 10^3/uL (0.2-0.9) 03/08/23 02:57 Eos # (Auto) 0.1 10^3/uL (0.0-0.8) 03/08/23 02:57 Baso # (Auto) 0.0 10^3/uL (0.0-0.1) 03/08/23 02:57 Nucleated RBC % (auto) 0 % 03/08/23 02:57 Nucleated RBCs # 0.0 /100WBC 03/08/23 02:57 D-Dimer 1.10 ug/mLFEU (0-0.59) H 03/06/23 13:11 Sodium 136 mmol/L (136-145) 03/08/23 02:57 Potassium 4.5 mmol/L (3.5-5.1) 03/08/23 02:57 Chloride 101 mmol/L (98-107) 03/08/23 02:57 Carbon Dioxide 23 mmol/L (22-29) 03/08/23 02:57 Anion Gap 16.5 (5-19) 03/08/23 02:57 BUN 33 mg/dL (8-23) H 03/08/23 02:57 Creatinine 1.6 mg/dL (0.5-0.9) H 03/08/23 02:57 GFR Calculation 32.2 mL/min (90-130) L 03/08/23 02:57 Glucose 187 mg/dL (65-115) H 03/08/23 02:57 POC Glucose 188 mg/dL (70-110) H 03/08/23 11:13 Calculated Osmolality 294 mOsm/kg (285-295) 03/08/23 02:57 Calcium 8.9 mg/dL (8.5-10.5) 03/08/23 02:57 Magnesium 1.5 mg/dL (1.7-2.3) L 03/07/23 02:46 Total Bilirubin 0.5 mg/dL (0.15-1.2) 03/06/23 13:11 AST 15 U/L (0-32) 03/06/23 13:11 ALT < 5 U/L (0-33) 03/06/23 13:11 Alkaline Phosphatase 113 U/L (35-105) H 03/06/23 13:11 Troponin T Baseline 16 ng/L (0-10) H 03/06/23 16:57 Troponin T 120 Minute 19.86 ng/L (0-10) H 03/06/23 18:59 Delta Troponin T 3.86 ABS# (0-10) 03/06/23 18:59 Troponin T Hi Sens 6Hr 31.99 ng/L (0-10) H 03/06/23 22:25 Troponin T Hi Sens 6Hr Delta 15.99 ng/L (0-12) H* 03/06/23 22:25 NT-Pro-B Natriuret Pep 581 pg/mL (0-125) H 03/06/23 13:11 Total Protein 7.3 g/dL (6.6-8.7) 03/06/23 13:11 Albumin 4.1 g/dL (3.5-5.2) 03/06/23 13:11 Globulin 3.2 g/dL (1.3-4.6) 03/06/23 13:11 Free T4 1.40 ng/dL (0.82-1.77) 03/07/23 02:46 Random Cortisol 10.95 ug/dL (2.47-19.5) 03/07/23 02:46 Urine Color Colorless (Yellow) 03/06/23 13:24 Urine Appearance Clear (CLEAR) 03/06/23 13:24 Urine pH 7 (5-7) 03/06/23 13:24 Ur Specific [place] 1.000 (1.005-1.030) L 03/06/23 13:24 Urine Protein Neg (Negative) 03/06/23 13:24 Urine Glucose (UA) 1+ (Normal) H 03/06/23 13:24 Urine Ketones Negative (Negative) 03/06/23 13:24 Urine Blood Neg (Negative) 03/06/23 13:24 Urine Nitrate Negative (Negative) 03/06/23 13:24 Urine Bilirubin Neg (Negative) 03/06/23 13:24 Urine Urobilinogen Norm mg/dL (Negative) 03/06/23 13:24 Ur Leukocyte Esterase Negative (Negative) 03/06/23 13:24 Adenovirus (PCR) Not detected (NOT DETECT) 03/07/23 12:38 C. pneumoniae DNA (PCR) Not detected (NOT DETECT) 03/07/23 12:38 Coronavirus 229E (PCR) Not detected (NOT DETECT) 03/07/23 12:38 Human Metapneumovir PCR Not detected (NOT DETECT) 03/07/23 12:38 Influenza A (H1) PCR Not detected (NOT DETECT) 03/07/23 12:38 Influ A (H1/09) PCR Not detected (NOT DETECT) 03/07/23 12:38 Influenza A (H3) PCR Not detected (NOT DETECT) 03/07/23 12:38 Influenza Type A (PCR) Not detected (NOT DETECT) 03/07/23 12:38 Influenza Type B (PCR) Not detected (NOT DETECT) 03/07/23 12:38 M. pneumoniae (PCR) Not detected (NOT DETECT) 03/07/23 12:38 Parainfluenza 1 (PCR) Not detected (NOT DETECT) 03/07/23 12:38 Parainfluenza 2 (PCR) Not detected (NOT DETECT) 03/07/23 12:38 Parainfluenza 3 (PCR) Not detected (NOT DETECT) 03/07/23 12:38 Parainfluenza 4 (PCR) Not detected (NOT DETECT) 03/07/23 12:38 RSV Type A (PCR) Not detected (NOT DETECT) 03/07/23 12:38 RSV Type B (PCR) Not detected (NOT DETECT) 03/07/23 12:38 Entero/Rhino (PCR) Not detected (NOT DETECT) 03/07/23 12:38 SARS-CoV-2 (PCR) Not detected (NOT DETECT) 03/07/23 12:[address] 03/06/23 15:57 IMPRESSION: No acute intracranial findings. Chest X-Ray 03/06/23 16:35 IMPRESSION: Lung findings may represent pulmonary edema, pneumonitis or atypical/viral infection. Recent Clincial Data Last Vital Signs Temp 97.8 F 03/08/23 07:15 Pulse 74 03/08/23 11:00 Resp 18 03/08/23 11:00 BP 170/73 03/08/23 11:00 Pulse Ox 94 03/08/23 11:00 O2 Del Method Room Air 03/08/23 11:00 O2 Flow Rate 2 03/07/23 11:15 Vital Signs Temp Pulse Resp BP Pulse Ox O2 Del Method 03/08/23 11:00 74 18 170/73 94 Room Air 03/08/23 10:30 76 18 149/61 93 Room Air 03/08/23 10:15 63 14 159/67 92 Room Air 03/08/23 09:45 72 19 H 191/81 95 Room Air 03/08/23 09:30 75 22 H 166/78 94 Room Air 03/08/23 09:15 62 15 180/85 94 Room Air 03/08/23 09:00 69 20 H 198/152 95 Room Air 03/08/23 08:57 70 16 93 Room Air 03/08/23 08:00 196/85 03/08/23 07:15 97.8 F 83 21 H 174/141 94 Room Air 03/08/23 07:00 67 15 193/82 91 Room Air 03/08/23 06:45 65 15 155/71 91 Room Air 03/08/23 06:30 65 13 149/70 03/08/23 06:15 65 13 159/67 03/08/23 06:00 61 22 H 163/70 03/08/23 06:00 65 03/08/23 05:45 62 17 135/65 90 03/08/23 05:30 63 13 168/66 03/08/23 05:15 63 12 153/69 03/08/23 05:00 97.9 F 71 14 151/67 90 Room Air 03/08/23 04:45 63 13 156/67 03/08/23 04:30 63 13 147/70 03/08/23 04:15 65 19 H 165/73 03/08/23 04:00 65 14 161/74 03/08/23 03:45 68 15 153/63 89 L Room Air 03/08/23 03:30 62 14 162/65 03/08/23 03:15 61 14 178/77 03/08/23 03:00 66 15 151/68 91 03/08/23 02:45 63 23 H 154/71 03/08/23 02:30 66 19 H 163/92 89 L Room Air 03/08/23 02:15 69 14 154/68 03/08/23 02:00 68 14 154/68 03/08/23 01:45 65 13 166/72 03/08/23 01:30 65 12 176/80 90 03/08/23 01:15 67 13 178/74 03/08/23 01:00 66 18 178/90 03/08/23 00:45 87 14 181/82 93 Room Air 03/08/23 00:30 69 15 184/85 Intake & Output/Weight 03/06/23 03/07/23 03/08/23 03/09/23 06:59 06:59 06:59 06:59 Intake Total 686.333 / 520.883 4889.833 / 3364.833 493.333 / 493.333 Output Total 4775 / 4775 450 / 450 Balance 686.333 / 686.333 -1410.167 / -1410.167 43.333 / 43.333 Weight 86.455 kg 84.731 kg Vitals Last Vital Signs Temp 97.8 F 03/08/23 07:15 Pulse 74 03/08/23 11:00 Resp 18 03/08/23 11:00 BP 170/73 03/08/23 11:00 Pulse Ox 94 03/08/23 11:00 O2 Del Method Room Air 03/08/23 11:00 O2 Flow Rate 2 03/07/23 11:15 TS Medications Medications Acetaminophen (Acetaminophen 500 Mg Tablet) 500 mg PO Q4H PRN PRN Reason: fever Albuterol/Ipratropium (Ipratropium-Albuterol 3 Ml Neb) 3 ml INHALATION Q6H PRN PRN Reason: SHORTNESS OF BREATH Clonidine HCl (Clonidine 0.2 Mg/24 Hr Patch) 1 patch TOPICAL Q7D [facility] Last Admin: 03/07/23 09:28 Dose: 1 patch Dextrose (Dextrose 50% Syringe 50 Ml) 25 ml IVP ONCE PRN; Protocol PRN Reason: hypoglycemia protocol Dextrose (Dextrose 50% Syringe 50 Ml) 50 ml IVP PRN PRN; Protocol PRN Reason: hypoglycemia protocol Furosemide (Furosemide 10 Mg/Ml Sdv 10ml) 60 mg IVP Q24H [facility] Last Admin: 03/07/23 17:53 Dose: 60 mg Hydralazine HCl (Hydralazine 25 Mg Tablet) 100 mg PO TID [facility] Last Admin: 03/08/23 07:42 Dose: 100 mg Nicardipine/Sodium Chloride (Cardene) 20 mg in 200 mls @ 0 mls/hr IV .Q0M [facility]; Protocol Last Titration: 03/08/23 10:31 Dose: 0 mg/hr, 0 mls/hr Dextrose (D5w) 500 mls @ 0 mls/hr IV ONCE PRN; Protocol PRN Reason: Adult Acute Hypoglycemia Prot Insulin Human Lispro (Insulin Lispro 100 Unit/1 Ml) 0 unit SUBCUT TIDWM [facility]; Protocol Last Admin: 03/08/23 07:44 Dose: 4 unit Isosorbide Dinitrate (Isosorbide Dinitrate 20 Mg Tablet) 40 mg PO BID [facility] Last Admin: 03/08/23 07:43 Dose: 40 mg Methimazole (Methimazole 5 Mg Tablet) 5 mg PO DAILY [facility] Last Admin: 03/08/23 07:44 Dose: 5 mg Metoprolol Tartrate (Metoprolol Tartrate 25 Mg Tablet) 50 mg PO BID@0900,2100 [facility] Nifedipine (Nifedipine Er (24 Hr) 30 Mg Tablet) 90 mg PO DAILY [facility] Ondansetron HCl (Ondansetron 2 Mg/Ml Sdv 2 Ml) 4 mg IVP Q6H PRN PRN Reason: NAUSEA AND VOMITING Last Admin: 03/07/23 02:47 Dose: 4 mg Prednisone (Prednisone 5 Mg Tablet) 5 mg PO Q48H [facility] Last Admin: 03/07/23 00:03 Dose: 5 mg Prednisone (Prednisone 10 Mg Tablet) 10 mg PO Q48H [facility] Last Admin: 03/07/23 23:28 Dose: 10 mg Senna/Docusate Sodium (Sennosides-Docusate Tablet) 1 tab PO DAILY [facility] Last Admin: 03/08/23 07:44 Dose: 1 tab Trazodone HCl (Trazodone 100 Mg Tablet) 100 mg PO BEDTIME PRN PRN Reason: INSOMNIA Last Admin: 03/07/23 00:03 Dose: 100 mg Discontinued Medications Acetaminophen (Acetaminophen 500 Mg Tablet) 1,000 mg PO ONCE ONE Stop: 03/06/23 14:49 Last Admin: 03/06/23 14:53 Dose: 1,000 mg Amlodipine Besylate (Amlodipine 5 Mg Tablet) 5 mg PO BEDTIME [facility] Last Admin: 03/06/23 20:56 Dose: 5 mg Clonidine HCl (Clonidine 0.2 Mg/24 Hr Patch) 1 patch TOPICAL .weekly [facility] Hydralazine HCl (Hydralazine 20 Mg/Ml Inj 1 Ml) 10 mg IVP ONCE ONE Stop: 03/06/23 13:55 Last Admin: 03/06/23 14:14 Dose: 10 mg Hydralazine HCl (Hydralazine 20 Mg/Ml Inj 1 Ml) 10 mg IVP ONCE ONE Stop: 03/06/23 14:42 Last Admin: 03/06/23 14:54 Dose: 10 mg Hydralazine HCl (Hydralazine 25 Mg Tablet) 50 mg PO TID [facility] Last Admin: 03/07/23 09:29 Dose: 50 mg Sodium Chloride (Sodium Chloride 0.9%) 1,000 mls @ 999 mls/hr IV .Q1H1M ONE Stop: 03/06/23 15:24 Last Admin: 03/06/23 14:53 Dose: 999 mls/hr Sodium Chloride (Sodium Chloride 0.9%) 1,000 mls @ 75 mls/hr IV .[id number] [facility] Last Infusion: 03/07/23 11:10 Dose: Infused Levetiracetam (Levetiracetam 500 Mg Tablet) 500 mg PO BID [facility] Last Admin: 03/07/23 19:35 Dose: Not Given Metoprolol Succinate (Metoprolol Succinate Er (24 Hr) 100 Mg Tablet) 100 mg PO DAILY [facility] Last Admin: 03/07/23 09:29 Dose: 100 mg Metoprolol Tartrate (Metoprolol Tartrate 1 Mg/1 Ml Sdv 5 Ml) 2.5 mg IVP ONCE ONE Stop: 03/06/23 13:55 Last Admin: 03/06/23 14:45 Dose: Not Given Metoprolol Tartrate (Metoprolol Tartrate 25 Mg Tablet) 25 mg PO BID@0900,2100 [facility] Last Admin: 03/08/23 07:43 Dose: 25 mg Metoprolol Tartrate (Metoprolol Tartrate 25 Mg Tablet) 25 mg PO ONCE ONE Stop: 03/08/23 09:47 Last Admin: 03/08/23 10:19 Dose: 25 mg Nifedipine (Nifedipine Er (24 Hr) 30 Mg Tablet) 60 mg PO DAILY [facility] Last Admin: 03/08/23 07:43 Dose: 60 mg Nifedipine (Nifedipine 10 Mg Capsule) 20 mg PO ONCE ONE Stop: 03/08/23 10:01 Last Admin: 03/08/23 10:19 Dose: 20 mg Non-Formulary Medication (Isosorbide Dinitrate) 40 mg PO BID [facility] Non-Formulary Medication (Zonisamide) 50 mg PO BID [facility] Last Admin: 03/07/23 09:46 Dose: Not Given Ondansetron HCl (Ondansetron 2 Mg/Ml Sdv 2 Ml) 4 mg IVP Q6H PRN PRN Reason: NAUSEA AND VOMITING Propranolol HCl (Propranolol 20 Mg Tablet) 10 mg PO TID [facility] Last Admin: 03/07/23 20:09 Dose: 10 mg Allergies celecoxib [From Celebrex] Allergy (Verified 03/03/23 10:37) Unknown insulin detemir [From Levemir U-100 Insulin] Allergy (Verified 03/03/23 10:37) RASH Home Medications folic acid 1 mg tablet 1 mg PO DAILY 09/10/19 [History Confirmed 03/07/23] blood sugar diagnostic #100 ea 12/26/20 [Rx Confirmed 03/07/23] insulin syringe-needle U-100 0.3 mL 31 gauge x 07/06 #100 ea 07/06/21 [Rx Confirmed 03/07/23] garlic 500 mg capsule 500 mg PO DAILY 03/12/22 [History Confirmed 03/07/23] kyxfnhmz-gzgw-fszb 8 mg-folic 400 mcg-K 50 mcg-lutein 300 mcg tablet ([facility]) 1 tab PO DAILY 03/12/22 [History Confirmed 03/07/23] omega 0-xfb-zxj-fish oil 1,000 mg (120 mg-180 mg) capsule (Fish Oil) 1 cap PO DAILY 03/12/22 [History Confirmed 03/07/23] albuterol sulfate 90 mcg/actuation aerosol inhaler (ProAir HFA) 2 inh inhalation Q6H PRN shortness of breath or wheezing #18 grams 11/10/22 [Rx Confirmed 03/07/23] metformin 500 mg tablet,extended release 24 hr 500 mg PO BID #60 tabs 11/10/22 [Rx Confirmed 03/07/23] prednisone 5 mg tablet See Rx Instructions .Route .COMPLEX #45 tabs 01/17/23 [Rx Confirmed 03/07/23] amlodipine 5 mg tablet 5 mg PO BEDTIME #30 tabs 02/02/23 [Rx Confirmed 03/07/23] clonidine 0.2 mg/24 hr weekly transdermal patch 1 patch topical .weekly #4 ea 02/02/23 [Rx Confirmed 03/07/23] methimazole 5 mg tablet 5 mg PO DAILY #30 tabs 02/02/23 [Rx Confirmed 03/07/23] metoprolol succinate 100 mg tablet,extended release 24 hr 100 mg PO DAILY #30 tabs 02/02/23 [Rx Confirmed 03/07/23] pantoprazole 40 mg tablet,delayed release (Protonix) 40 mg PO DAILY #30 tabs 02/02/23 [Rx Confirmed 03/07/23] rosuvastatin 10 mg tablet (Crestor) 10 mg PO QPM #30 tabs 02/02/23 [Rx Confirmed 03/07/23] trazodone 100 mg tablet 100 mg PO BEDTIME #30 tabs 02/02/23 [Rx Confirmed 03/07/23] zonisamide 50 mg capsule 50 mg PO BID #60 caps 02/02/23 [Rx Confirmed 03/07/23] hydralazine 25 mg tablet 25 mg PO TID #90 tabs 03/03/23 [Rx Confirmed 03/07/23] valsartan 160 mg tablet 160 mg PO DAILY #30 tabs 03/03/23 [Rx Confirmed 03/07/23] isosorbide dinitrate 20 mg tablet 40 mg PO BID 03/07/23 [History Confirmed 03/07/23] valsartan 80 mg tablet 80 mg PO DAILY 03/07/23 [History Confirmed 03/07/23] Discharge Plan Discharge Patient Disposition: Xfer Other Condition: Stable Prescriptions: No Action (DME) blood sugar diagnostic Strip See Rx Instructions .ROUTE .MEDSUPPLY Qty: 100 5RF Rx Instructions: check 2 times day (DME) insulin syringe-needle U-100 0.3 mL 31 gauge x 5/16 syringe See Rx Instructions .ROUTE .MEDSUPPLY Qty: 100 5RF Rx Instructions: As directed folic acid 1 mg tablet 1 mg PO DAILY valsartan 160 mg tablet 160 mg PO DAILY Qty: 30 1RF hydralazine 25 mg tablet 25 mg PO TID Qty: 90 0RF albuterol sulfate [ProAir HFA] 90 mcg/actuation HFA aerosol inhaler 2 inh INHALATION Q6H PRN (Reason: shortness of breath or wheezing) Qty: 18 2RF metformin 500 mg tablet extended release 24 hr 500 mg PO BID Qty: 60 2RF Hold Instructions: Resume on 12/15/22. clonidine 0.2 mg/24 hr patch weekly 1 patch topical .weekly Qty: 4 2RF amlodipine 5 mg tablet 5 mg PO BEDTIME Qty: 30 2RF methimazole 5 mg tablet 5 mg PO DAILY Qty: 30 2RF metoprolol succinate 100 mg tablet extended release 24 hr 100 mg PO DAILY Qty: 30 2RF pantoprazole [Protonix] 40 mg tablet,delayed release (DR/EC) 40 mg PO DAILY Qty: 30 2RF Crestor 10 mg tablet 10 mg PO QPM Qty: 30 2RF trazodone 100 mg tablet 100 mg PO BEDTIME Qty: 30 2RF zonisamide 50 mg capsule 50 mg PO BID Qty: 60 2RF prednisone 5 mg tablet See Rx Instructions .ROUTE .COMPLEX Qty: 45 2RF Dose Instruction: TAKE ONE TABLET BY MOUTH EVERY OTHER DAY, THEN TAKE TWO TABLETS ON OPPOSITE DAYS Rx Instructions: TAKE ONE TABLET BY MOUTH EVERY OTHER DAY, THEN TAKE TWO TABLETS ON OPPOSITE DAYS omega 3-dku-gho-fish oil [Fish Oil] 1,000 mg (120 mg-180 mg) Capsule 1 cap PO DAILY garlic 500 mg Capsule 500 mg PO DAILY [facility] 8 mg iron-400 mcg-300 mcg Tablet 1 tab PO DAILY valsartan 80 mg tablet 80 mg PO DAILY isosorbide dinitrate 20 mg tablet 40 mg PO BID Referrals: Juan Marino, AISLINN-C [Primary Care Provider] - Transfer Attestations Time Spent in Transfer Care: greater than 30 min Quality Metrics Clinical Quality Measures [ No reported AMI, CVA or VTE this stay] Coding Level of Care Code Acute Code for Chg Fwd Diagnoses Renal artery stenosis I70.1 High risk medication use Z79.899 Essential (primary) hypertension I10 Controlled type 2 diabetes mellitus with stage 3 chronic kidney disease, without long-term current use of insulin E11.22; N18.30 Diabetes mellitus type: type 2 Diabetes mellitus residential insulin use: without residential use Diabetes mellitus complication status: with kidney complications Diabetes mellitus complication detail: with chronic kidney disease Chronic kidney disease stage: stage 3 (moderate) 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
[2023-03-08 17:19] LABS: Glucose Point of Care 81 mg/dL (70-110)
[2023-03-08] MEDS: FUROsemide 10 mg/mL SDV 10mL 60 MG IVP (17:30)
--- NOTE | 2023-03-08 19:16 | PC.NURSE ---
Shift summary: Pt remains alert and oriented. Her Bp was still elevated (SBP 190's) after Am meds, when Dr Brandt leary restarted Cardene at 2.5mg/hr. Dr Joshua then rounded and increased her Metorolol and nifedipine. Extra doses admin to reflex total dosage needed this am. Cardene then stopped, it has ran for about 1.5 hours. She went to [facility] [place] [facility] for pulm perf scan. It came back low likelihood of PE. She had denied Headache all shift. Pt states she does feel better this shift . She has had at least 1500ml of urine output, not all urine was measured as she was using the bathroom by herself most of the day. Per pt she did have a lrge BM this am. She has ate majority of her meals. Plan was to consult vascular surgerydue the her kidney artery stenosis per Dr Joshua. At this time, [facility] has her on list but no bed available at this time.
[2023-03-08] MEDS: metoprolol tartrate 25 mg Tablet 50 MG PO (20:48)
[2023-03-08] MEDS: trazodone 100 mg Tablet PO (20:49)
[2023-03-08 21:43] LABS: Glucose Point of Care 105 mg/dL (70-110)
[2023-03-08] MEDS: predniSONE 5 mg Tablet PO (23:37)
[2023-03-09] VITALS (37 sets, daily range): BP systolic 120–197; BP diastolic 55–104; PULSE 58–88; RESP 12–23; TEMP 36.9; O2SAT 90–94
[2023-03-09 03:39] LABS: Anion Gap 19.1 (5-19); Blood Urea Nitrogen 46 mg/dL (8-23); Calcium 9.7 mg/dL (8.5-10.5); Carbon Dioxide 23 mmol/L (22-29); Chloride 99 mmol/L (98-107); Glomerular Filtration Rate 28.2 mL/min (90-130); Glucose 160 mg/dL (65-115); Osmolality Calculated 299 mOsm/kg (285-295); Potassium 4.1 mmol/L (3.5-5.1); Sodium 137 mmol/L (136-145)
[2023-03-09 08:20] LABS: Glucose Point of Care 143 mg/dL (70-110)
[2023-03-09] MEDS: isosorbide dinitrate 20 mg Tablet 40 MG PO (08:35)
[2023-03-09] MEDS: metoprolol tartrate 25 mg Tablet 50 MG PO (08:36)
[2023-03-09] MEDS: methIMAzole 5 MG Tablet PO (08:36)
[2023-03-09] MEDS: hyDRALAzine 25 mg Tablet 100 MG PO ×2 (08:36→14:44)
[2023-03-09] MEDS: NIFEdipine ER (24 hr) 30 mg Tablet 90 MG PO (08:36)
[2023-03-09] MEDS: insulin lispro 100 unit/1 mL SUBCUT (08:37)
[2023-03-09] MEDS: sennosides-docusate Tablet 1 TAB PO (08:37)
--- NOTE | 2023-03-09 10:12 | P.PN_ITS ---
Subjective 2 Subjective: bp better controlled Medications: Reviewed: Yes Vitals/I&O/Wt Last Vital Signs Temp 97.8 F 03/08/23 13:15 Pulse 76 03/09/23 09:04 Resp 16 03/09/23 09:04 BP 194/104 03/09/23 08:30 Pulse Ox 93 03/09/23 09:04 O2 Del Method Room Air 03/09/23 09:04 O2 Flow Rate 2 03/07/23 11:15 03/08/23 03/09/23 03/09/23 22:59 06:59 14:59 Intake Total 300 / 1193.333 240 / 240 Output Total 500 / 1900 500 / 2400 Balance -200 / -706.667 -500 / -1206.667 240 / 240 Weight last 48 hrs Weight 83.915 kg Weight 84.731 kg Physical Exam 2 Narrative: awake , alert , no distress Data 03/08/23 02:57 03/09/23 02:45 A&P Assessment and plan (1) Acute renal failure: Qualifiers: Acute renal failure type: unspecified Qualified Code(s): N17.9 - Acute kidney failure, unspecified (2) Hypertensive emergency: (3) Solitary kidney, acquired: Plan 1. Acute kidney injury: Baseline creatinine 1.0-1.1, now has an HEATHER with a creatinine of 1.9 -likely from hypertensive emergency in the setting of underlying ? Renal artery stenosis. check cortisol, renin , angiotensin levels -Restarted oral antihypertensives, off cardene gtt -Switched amlodipine to nifedipine extended release 60 mg daily, Restarted clonidine patch, hydralazine, Imdur, metoprolol . -Hold off on valsartan due to HEATHER -rechecked Doppler renal ultrasound,- > 60% right [place] - Cr @ 1.8 - slightly elevated likely hemodynamic changes from fluctuting BPs - Per vascualr sx - FL[place]ENCE can be addressed as out pt - arrange out pt Nephrology and Vascualer SX follow up 2. Malignant hypertension: On multiple antihypertensive agents currently-on 6 agents at home Blood pressures systolics above 200s on presentation, restarted home meds, BP improved 3. History of diabetes 4 . History of hemolytic anemia Patient evaluated using audiovisual cart. Time spent 20 minutes Attestations 2 Medical Necessity Statement*: per [facility] Coding Level of Care Code Acute Code for Chg Fwd Diagnoses Acute renal failure N17.9 Acute renal failure type: unspecified Hypertensive emergency I16.1 Solitary kidney, acquired Z90.5
--- NOTE | 2023-03-09 11:52 | PM.PN ---
Subjective Subjective: Blood pressure is better she is off Cardene drip I have spoken with [facility] they do not have any beds available, I will transfer patient out of ICU as she is not requiring Cardene drip Jacinto vascular surgeon did not accept her Vitals/I&O/Wt Last Vital Signs Temp 97.8 F 03/08/23 13:15 Pulse 75 03/09/23 10:30 Resp 18 03/09/23 10:30 BP 148/68 03/09/23 10:30 Pulse Ox 90 03/09/23 10:30 O2 Del Method Room Air 03/09/23 09:04 O2 Flow Rate 2 03/07/23 11:15 03/08/23 03/09/23 03/09/23 22:59 06:59 14:59 Intake Total 300 / 1193.333 240 / 240 Output Total 500 / 1900 500 / 2400 Balance -200 / -706.667 -500 / -1206.667 240 / 240 Weight last 48 hrs Weight 83.915 kg Weight 84.731 kg Physical Exam Narrative: Awake and alert GCS 15 Patient is emotionally labile S1, S2 Normotensive Abdomen soft Data 03/08/23 02:57 03/09/23 02:45 A&P Assessment and plan (1) Essential (primary) hypertension: (2) Hypertensive emergency: (3) Renal artery stenosis: (4) Controlled diabetes mellitus: Qualifiers: Diabetes mellitus type: type 2 Diabetes mellitus intermediate card tender insulin use: without intermediate card tender use Diabetes mellitus complication status: with kidney complications Diabetes mellitus complication detail: with chronic kidney disease Chronic kidney disease stage: stage 3 (moderate) Qualified Code(s): E11.22 - Type 2 diabetes mellitus with diabetic chronic kidney disease; N18.30 - Chronic kidney disease, stage 3 unspecified (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: (6) Solitary kidney, acquired: (7) Acute renal failure: Qualifiers: Acute renal failure type: unspecified Qualified Code(s): N17.9 - Acute kidney failure, unspecified (8) Autoimmune hemolytic anemia: Plan Patient will be transferred out of ICU to [facility] Continue current antihypertensive regimen Creatinine 1.8 She has been accepted at [facility] I am awaiting phone call from hospitalist service Interventional radiology might be able to do intervention vascular surgeon stating that did not not have appropriate bed she has already canceled surgery today however intervention radiology might be able to help Vascular surgeon at [facility] did not accept her, call multiple other places, she has been accepted at [facility] Multiple phone calls spent roughly 30 to 40 minutes talking with different physicians Attestations Medical Necessity Statement*: Continue medical management Coding Level of Care Code 34951 High Time for a total of 50 minutes, includes reviewing past or interval history, examining/interviewing patient, placing orders, counseling patient/family/other support, updating patient/family/other support, discussing plan of care with staff, communicating with other healthcare providers, documenting encounter and coordinating care Diagnoses Essential (primary) hypertension I10 Hypertensive emergency I16.1 Renal artery stenosis I70.1 Controlled type 2 diabetes mellitus with stage 3 chronic kidney disease, without long-term current use of insulin E11.22; N18.30 Diabetes mellitus type: type 2 Diabetes mellitus intermediate card tender insulin use: without intermediate card tender use Diabetes mellitus complication status: with kidney complications Diabetes mellitus complication detail: with chronic kidney disease Chronic kidney disease stage: stage 3 (moderate) 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
[2023-03-09 12:27] LABS: Glucose Point of Care 109 mg/dL (70-110)
[2023-03-09] MEDS: hyDRALAzine 20 mg/mL INJ 1 mL 10 MG IVP (13:02)
--- NOTE | 2023-03-09 15:08 | PC.NURSE ---
Called report to [facility] in [place], [place] and gave to Babs Lu RN.
--- NOTE | 2023-03-09 16:17 | PC.NURSE ---
Discharge Note Patient discharged to [[facility]] via stretcher accompanied by [[facility] personnel]. Belongings/home medications returned.
[2023-03-12 10:00] LABS: Plasma Renin Activity LC/MS/MS 0.59 ng/mL/h (0.25-5.82)
== END 2023-03-09 16:17 | disposition short-term general hospital (02) | DRG 305 ==
LOC: ER 17:47 → ICU 17:48
PROVIDERS: Hospitalist; Physician Assistant; Admitting Provider Internal Medicine; Emergency Provider Family Medicine; PCP Nurse Practitioner; Visit Provider Internal Medicine
DX: I16.1 Hypertensive emergency (principal); N17.9 Acute kidney failure, unspecified; D59.10 Autoimmune hemolytic anemia, unspecified; D84.9 Immunodeficiency, unspecified; I12.9 Hypertensive chronic kidney disease with stage 1 through stage 4 chronic kidney disease, or unspecified chronic kidney disease; N18.30 Chronic kidney disease, stage 3 unspecified; I1A.0 Resistant hypertension; Z87.891 Personal history of nicotine dependence; Z90.5 Acquired absence of kidney; E03.9 Hypothyroidism, unspecified; J44.9 Chronic obstructive pulmonary disease, unspecified; E11.22 Type 2 diabetes mellitus with diabetic chronic kidney disease; M05.79 Rheumatoid arthritis with rheumatoid factor of multiple sites without organ or systems involvement; K21.9 Gastro-esophageal reflux disease without esophagitis; G47.00 Insomnia, unspecified; M19.90 Unspecified osteoarthritis, unspecified site; E11.40 Type 2 diabetes mellitus with diabetic neuropathy, unspecified; E78.5 Hyperlipidemia, unspecified; Z79.52 Long term (current) use of systemic steroids; K52.9 Noninfective gastroenteritis and colitis, unspecified; I70.1 Atherosclerosis of renal artery
CPT/HCPCS: 36415; 36416; 70450; 71045; 78014; 80048; 80053; 81003; 82088; 82533; 82962; 83735; 83880; 84244; 84439; 84484; 85025; 85378; 87486; 87581; 87633; 93005; 93975; 96372; 96374; 96375; 96376; 99285; A9540; A9567; J0360; J1815; J1940; J2405; J7030; J7512; Q3014

== ENCOUNTER → 2023-03-21 11:58 | Outpatient (BNVA) | payer MEDICARE, MEDICAID, SELFPAY | PROVIDERS: PCP Nurse Practitioner; Visit Provider Nurse Practitioner | DX: I10 Essential (primary) hypertension (principal); I73.9 Peripheral vascular disease, unspecified; N17.9 Acute kidney failure, unspecified | CPT/HCPCS: 80048 ==

== ENCOUNTER → 2023-04-12 08:54 | Outpatient (BNVA) | payer MEDICARE, MEDICAID, SELFPAY | PROVIDERS: PCP Nurse Practitioner; Visit Provider Nurse Practitioner | DX: E11.9 Type 2 diabetes mellitus without complications | CPT/HCPCS: 80053; 81000; 83036 ==

== ENCOUNTER 2023-04-19 07:54 | Outpatient (CLI) | payer MEDICARE, MEDICAID, SELFPAY ==
--- NOTE | 2023-04-19 08:00 | US_ITS ---
WS: [id number] THYROID ULTRASOUND HISTORY: E05.90 - Thyrotoxicosis, unspecified without thyrotoxic c... COMPARISON: 06/26/2013 Right lobe: 3.0 cm x 2.7 cm x 6.8 cm (w x ap x l). Volume: 25.9 cm3. Enlarged heterogeneous nodular gland. The gland has slightly increased in size since the prior study from 2013. There are a few scattered cystic areas within the gland. There are scattered nodules which are ill-defined throughout. No discrete nodule. No increased vascularity. Left lobe: 2.9 cm x 2.7 cm x 7.1 cm (w x ap x l). Volume: 26.4 cm3. Enlarged heterogeneous thyroid gland. The gland has slightly increased in size since the prior study. There are cystic areas and ill-defined nodules. No increased vascularity. Isthmus: 1.4 cm. IMPRESSION: Marked enlargement of the thyroid. Most consistent with a goiter. The gland has increased in size sli ghtly since 06/26/2013 and there is more heterogeneity. No discrete mass.
== END 2023-04-19 07:55 | disposition home or self-care (01) ==
LOC: RAD 07:54
PROVIDERS: PCP Nurse Practitioner; Visit Provider Nurse Practitioner
DX: E05.90 Thyrotoxicosis, unspecified without thyrotoxic crisis or storm (principal); E04.9 Nontoxic goiter, unspecified
CPT/HCPCS: 76536

== ENCOUNTER → 2023-05-20 08:18 | Outpatient (BNVA) | payer MEDICARE, MEDICAID, SELFPAY | PROVIDERS: PCP Nurse Practitioner; Visit Provider Internal Medicine Medical Oncology | DX: E04.9 Nontoxic goiter, unspecified (principal); D64.9 Anemia, unspecified; E11.22 Type 2 diabetes mellitus with diabetic chronic kidney disease; N18.30 Chronic kidney disease, stage 3 unspecified | CPT/HCPCS: 80053; 83010; 83615; 84443; 85025 ==

== ENCOUNTER 2023-06-07 07:43 | Oncology outpatient (recurring) (ONCR) | payer MEDICARE, MEDICAID, SELFPAY ==
[2023-06-07] VITALS (9 sets, daily range): BP systolic 131–185; BP diastolic 55–79; PULSE 62–77; RESP 16–18; TEMP 36.2–36.8; O2SAT 91–95
[2023-06-07] MEDS: methylPREDNISolone sod succ 40 mg/mL INJ IVP (08:41)
[2023-06-07] MEDS: sodium chloride 0.9% 250 ML 75 ML IV (08:41)
[2023-06-07] MEDS: acetaminophen 325 mg Tablet 650 MG PO (08:41)
[2023-06-07] MEDS: diphenhydrAMINE 50 mg/mL SDV 1mL 25 MG IVP (08:45)
[2023-06-07] MEDS: rituximab-abbs 1,000 MG in sodium chloride 0.9% 500 ML 30 MG IV (09:30)
== END 2023-06-07 23:59 | disposition home or self-care (01) ==
PROVIDERS: PCP Nurse Practitioner; Visit Provider Internal Medicine Medical Oncology
DX: M05.79 Rheumatoid arthritis with rheumatoid factor of multiple sites without organ or systems involvement (principal); Z53.9 Procedure and treatment not carried out, unspecified reason; Z79.899 Other long term (current) drug therapy
CPT/HCPCS: 96375; 96413; 96415; 99214; J1200; J2919; J7040; J7050; Q5115

== ENCOUNTER 2023-06-20 07:39 | Oncology outpatient (recurring) (ONCR) | payer MEDICARE, MEDICAID, SELFPAY ==
[2023-06-20] MEDS: sodium chloride 0.9% 250 ML 75 ML IV (08:22)
[2023-06-20] MEDS: acetaminophen 325 mg Tablet 650 MG PO (08:30)
[2023-06-20] MEDS: diphenhydrAMINE 50 mg/mL SDV 1mL 25 MG IVP (08:31)
[2023-06-20] MEDS: methylPREDNISolone sod succ 40 mg/mL INJ IVP (08:36)
[2023-06-20 09:30] VITALS: BP 146/64; PULSE 63; RESP 16; TEMP 36.6; O2SAT 94
[2023-06-20] MEDS: rituximab-abbs 1,000 MG in sodium chloride 0.9% 500 ML 70 MG IV (09:30)
[2023-06-20 10:00] VITALS: BP 136/68; PULSE 62; RESP 16; TEMP 36.9; O2SAT 93
[2023-06-20 10:30] VITALS: BP 151/86; PULSE 73; RESP 16; TEMP 36.9; O2SAT 92
[2023-06-20 11:00] VITALS: BP 170/75; PULSE 61; RESP 16; TEMP 36.1; O2SAT 94
[2023-06-20 13:00] VITALS: BP 175/72; PULSE 62; RESP 16; TEMP 35.7; O2SAT 97
== END 2023-06-21 23:59 | disposition home or self-care (01) ==
PROVIDERS: PCP Nurse Practitioner; Visit Provider Internal Medicine Medical Oncology
DX: M05.79 Rheumatoid arthritis with rheumatoid factor of multiple sites without organ or systems involvement
CPT/HCPCS: 96367; 96413; 96415; J1200; J2919; J7040; J7050; Q5115

== ENCOUNTER → 2023-07-19 13:49 | Outpatient (BNVA) | payer MEDICARE, MEDICAID, SELFPAY | PROVIDERS: PCP Nurse Practitioner; Visit Provider Nurse Practitioner | DX: E11.9 Type 2 diabetes mellitus without complications; Z79.899 Other long term (current) drug therapy | CPT/HCPCS: 80053; 80061; 83036 ==

== ENCOUNTER → 2023-08-08 13:26 | Outpatient (BNVA) | payer MEDICARE, MEDICAID, SELFPAY | PROVIDERS: PCP Nurse Practitioner; Visit Provider Nurse Practitioner | DX: M51.34 Other intervertebral disc degeneration, thoracic region (principal); F41.8 Other specified anxiety disorders; Z79.899 Other long term (current) drug therapy | CPT/HCPCS: 80048; 84443 ==

== ENCOUNTER → 2023-11-10 11:09 | Outpatient (BNVA) | payer MEDICARE, MEDICAID, SELFPAY | PROVIDERS: PCP Nurse Practitioner; Visit Provider Nurse Practitioner | DX: E11.9 Type 2 diabetes mellitus without complications (principal); E05.90 Thyrotoxicosis, unspecified without thyrotoxic crisis or storm | CPT/HCPCS: 80053; 83036; 84443 ==

== ENCOUNTER → 2023-11-17 08:11 | Outpatient (BNVA) | payer MEDICARE, MEDICAID, SELFPAY | PROVIDERS: PCP Nurse Practitioner; Visit Provider Internal Medicine Medical Oncology | DX: M05.79 Rheumatoid arthritis with rheumatoid factor of multiple sites without organ or systems involvement (principal); D58.9 Hereditary hemolytic anemia, unspecified | CPT/HCPCS: 80053; 83010; 83615; 85025 ==

== ENCOUNTER 2023-11-24 09:53 | Oncology outpatient (recurring) (ONCR) | payer MEDICARE, MEDICAID, SELFPAY | END 2023-12-22 23:59 | disposition home or self-care (01) | PROVIDERS: PCP Nurse Practitioner; Visit Provider Internal Medicine Medical Oncology | DX: D59.10 Autoimmune hemolytic anemia, unspecified (principal); M05.79 Rheumatoid arthritis with rheumatoid factor of multiple sites without organ or systems involvement; R19.7 Diarrhea, unspecified; Z79.899 Other long term (current) drug therapy; Z12.31 Encounter for screening mammogram for malignant neoplasm of breast | CPT/HCPCS: 99214 ==

== ENCOUNTER → 2024-01-26 08:46 | Outpatient (BNVA) | payer MEDICARE, MEDICAID, SELFPAY | PROVIDERS: PCP Nurse Practitioner; Visit Provider Nurse Practitioner | DX: E55.9 Vitamin D deficiency, unspecified (principal); E11.65 Type 2 diabetes mellitus with hyperglycemia; Z79.4 Long term (current) use of insulin; E05.90 Thyrotoxicosis, unspecified without thyrotoxic crisis or storm | CPT/HCPCS: 80053; 80061; 81000; 82306; 82607; 83036; 85025 ==

== ENCOUNTER 2024-02-25 15:45 | Emergency (ER) | payer MEDICARE, MEDICAID, SELFPAY ==
[2024-02-25 15:55] VITALS: BP 173/73; PULSE 74; RESP 18; TEMP 36.8; O2SAT 95; BMI 28.1
--- NOTE | 2024-02-25 16:16 | XRR_ITS ---
PROCEDURE INFORMATION: Exam: XR Chest Exam date and time: 02/25/2024 4:38 PM Age: 68 years old Clinical indication: Cough and dyspnea; Additional info: Dyspnea/cough TECHNIQUE: Imaging protocol: Radiologic exam of the chest. Views: 1 view. COMPARISON: CR XR chest 1V portable [id number] 03/06/2023 4:44 PM FINDINGS: Lungs: Bibasilar atelectasis versus infiltrate. Pleural spaces: Unremarkable. No pleural effusion. No pneumothorax. Heart/Mediastinum: Cardiomegaly and mild interstitial edema. Bones/joints: Unremarkable. XR/XR chest 1V portable [id number] IMPRESSION: 1. Cardiomegaly and mild interstitial edema. 2. Bibasilar atelectasis versus infiltrate.
[2024-02-25 17:00] LABS: Influenza A NEGATIVE (Negative); Influenza B NEGATIVE (Negative); Respiratory Syncytial Virus Ce NEGATIVE (Negative)
[2024-02-25 17:18] LABS: Covid PCR Positive (Negative)
--- NOTE | 2024-02-25 17:22 | ED_ITS ---
HPI - URI/Sore Throat 2 General: Chief Complaint: Upper Respiratory Infection Stated Complaint: congestion, n/v Time Seen by Provider: 02/25/24 16:16 History of Present Illness: 68-year-old female presents emergency ro om with complaints of fatigue cough diminished appetite's been going on for abo nonproductive cough congestion sore throat ut 9 days. She believes she may have been exposed to COVID. She has had some nausea and vomiting as well. Mild headache myalgias. Associated symptoms: Reports chills, fever(s), nausea and vomiting; Deny abdominal pain or chest pain Related Data Home Medications Medication Instructions Recorded Confirmed folic acid 1 mg tablet 1 mg PO DAILY 09/10/19 01/26/24 garlic 500 mg capsule 500 mg PO DAILY 03/12/22 01/26/24 [id number] 8 mg-folic 400 1 tab PO DAILY 03/12/22 01/26/24 mcg-K 50 mcg-lutein 300 mcg tablet ([employer] Women's Mature) omega 3-qia-gzw-fish oil 1,000 mg 1 cap PO DAILY 03/12/22 01/26/24 (120 mg-180 mg) capsule (Fish Oil) aspirin 81 mg tablet,delayed 81 mg PO DAILY 03/21/23 01/26/24 release (Adult Aspirin Regimen) Previous Rx's Medication Instructions Recorded pen needle, diabetic 33 gauge x #100 ea 05/25/23 insulin syringe-needle U-100 0.3 #100 ea 09/02/23 mL 31 gauge x 16 insulin regular human 100 unit/mL See Rx Instructions SUBCUT TID PRN 09/08/23 injection solution (Humulin R BLOOD SUGAR #10 mL Regular U-100 Insulin) prednisone 5 mg tablet 5 mg .Route DAILY #60 tabs 01/09/24 albuterol sulfate 90 mcg/actuation 2 inh inhalation Q6H PRN shortness 01/26/24 aerosol inhaler of breath or wheezing #18 grams amlodipine 5 mg tablet 5 mg PO BEDTIME #30 tabs 01/26/24 blood sugar diagnostic (OneTouch #100 ea 01/26/24 Ultra Test strips) bupropion HCl 150 mg tablet,12 hr 150 mg PO Q12H #60 tabs 01/26/24 sustained-release (Wellbutrin SR) clopidogrel 75 mg tablet 75 mg PO DAILY #30 tabs 01/26/24 dapagliflozin propanediol 10 mg 10 mg PO QAM #30 tabs 01/26/24 tablet (Farxiga) hydralazine 25 mg tablet 25 mg PO TID #90 tabs 01/26/24 insulin degludec 200 unit/mL (3 20 unit (0.1 mL) SUBCUT DAILY #9 mL 01/26/24 mL) subcutaneous pen (Tresiba FlexTouch U-200 insulin) isosorbide dinitrate 40 mg tablet 40 mg PO BID #60 tabs 01/26/24 methimazole 5 mg tablet 5 mg PO DAILY #30 tabs 01/26/24 metoprolol succinate 100 mg 100 mg PO DAILY #30 tabs 01/26/24 tablet,extended release 24 hr pantoprazole 40 mg tablet,delayed 40 mg PO DAILY #30 tabs 01/26/24 release (Protonix) rosuvastatin 10 mg tablet 10 mg PO QPM #30 tabs 01/26/24 trazodone 100 mg tablet 100 mg PO BEDTIME #30 tabs 01/26/24 zonisamide 50 mg capsule 50 mg PO BID #60 caps 01/26/24 Allergies Allergy/AdvReac Type Severity Reaction Status Date / Time celecoxib [From Celebrex] Allergy Unknown Verified 02/25/24 15:58 insulin detemir Allergy RASH Verified 02/25/24 15:58 [From Levemir U-100 Insulin] metformin AdvReac Severe Renal Verified 02/25/24 15:58 insult valsartan [From Diovan] AdvReac Severe Renal Verified 02/25/24 15:58 insult Review of Systems 2 Const: Reports: fever(s), chills, body aches, change in appetite and fatigue Card: Denies: chest pain Resp: Reports: dyspnea, non-productive cough and chest congestion GI: Reports: nausea and vomiting; Denies: abdominal pain : Denies: dysuria, urinary frequency or urinary urgency Musc: Denies: neck pain or back pain Skin/Breast: Denies: rash PFSH ED 2 PFSH: Medical History Diabetes mellitus with hyperglycemia, with long-term current use of insulin Autoimmune hemolytic anemia Thyroid goiter Hyperthyroidism Situational anxiety Essential (primary) hypertension snf systemic steroid user Seropositive rheumatoid arthritis of multiple joints COPD, moderate Hypomagnesemia Acute kidney injury Hyponatremia Accelerated hypertension GERD (gastroesophageal reflux disease) Degenerative joint disease of spine Peripheral arterial disease Personal history of nicotine dependence Insomnia High risk medication use Osteoarthritis Vitamin D deficiency Neuropathy, diabetic Latent tuberculosis by blood test Immunosuppression Dyslipidemia Diverticulosis CKD (chronic kidney disease) stage 2, GFR 60-89 ml/min Surgical History History of stent insertion of renal artery February 2023 [place], [place]. 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, 2018 at [place], [place] H/O total hysterectomy without BSO Family History Father Cancer Diabetes Hyperlipidemia Hypertension Grandmother Diabetes Hyperlipidemia Brother Thyroid disease Denies family history of Rheumatoid arthritis Lupus Social History Smoking and tobacco/nicotine status: former use of tobacco/nicotine Quit status (tobacco/nicotine): has quit using Year quit tobacco: 2022 Former quit date comment: tobacco use 50 years Alcohol intake: never Substance/Drug Use: never Adopted: No Caregiver/support person: No Lives independently: Yes Household members: other Housing: House Marital status: Single Number of children: 4 service: No Current occupational status: unemployed Do you think of yourself as: Straight/Heterosexual Current gender identity: Female Physical Exam 2 Const: COMMON NORMALS: no acute distress GENERAL APPEARANCE: cooperative and comfortable ORIENTATION/CONSCIOUSNESS: Yes awake, Yes oriented to person, Yes oriented to place and Yes oriented to time HENMT: COMMON NORMALS: normocephalic, atraumatic and hearing grossly normal bilaterally HEAD & SCALP: normocephalic and atraumatic Resp: COMMON NORMALS: normal respiratory effort, No retractions, No use of accessory muscles and clear to auscultation bilaterally AUSCULTATION: clear to auscultation bilaterally Cardio: COMMON NORMALS: regular rate, regular rhythm and No murmurs present (Cardio) RATE: regular rate RHYTHM: regular rhythm GI: COMMON NORMALS: Soft to palpation and No hepatosplenomegaly present A USCULTATION: Yes normoactive bowel sounds PALPATION: Yes Soft to palpation, No Tenderness to palpation present (GI), No Guarding due to palpation present (GI) and Yes No hepatosplenomegaly present Extremity: COMMON NORMALS: normal to inspection, capillary refill normal, no clubbing, cyanosis or edema, no calf tenderness and no pedal edema Neuro: SENSORIUM/ORIENTATION: Yes oriented to person, Yes oriented to place and Yes oriented to time Skin: COMMON NORMALS: no rashes or lesions noted GENERAL SKIN EXAM: no rashes or lesions noted Course 2 Vital Signs: Vital signs: Vital Signs Temperature 98.2 F 02/25/24 15:55 Pulse Rate 67 02/25/24 18:43 Respiratory Rate 22 H 02/25/24 17:51 Blood Pressure 168/67 02/25/24 18:43 Pulse Oximetry 94 02/25/24 18:43 Oxygen Delivery Me thod Room Air 02/25/24 17:51 MDM - URI/Sore Throat Medical Decision Making Positive for COVID. Chest x-ray read as atelectasis versus infiltrates and no mellitus when she has a secondary pneumonia. Supportive cares recheck if not improving. She is outside the window for treatment with Paxlovid Medical Records I reviewed the patient's medical records. Lab Data I reviewed the patient's lab results. 02/25/24 17:38 Radiology Impressions Chest X-Ray 02/25/24 16:16 IMPRESSION: 1. Cardiomegaly and mild interstitial edema. 2. Bibasilar atelectasis versus infiltrate. Laboratory Results Sodium 130 mmol/L (136-145) L 02/25/24 17:38 Potassium 3.7 mmol/L (3.5-5.1) 02/25/24 17:38 Chloride 98 mmol/L (98-107) 02/25/24 17:38 Carbon Dioxide 21 mmol/L (22-29) L 02/25/24 17:38 Anion Gap 14.7 (5-19) 02/25/24 17:38 BUN 9 mg/dL (8-23) 02/25/24 17:38 Creatinine 0.9 mg/dL (0.5-0.9) 02/25/24 17:38 GFR Calculation 62.5 mL/min (90-130) L 02/25/24 17:38 Glucose 83 mg/dL (65-115) 02/25/24 17:38 Calculated Osmolality 268 mOsm/kg (285-295) L 02/25/24 17:38 Calcium 9.0 mg/dL (8.5-10.5) 02/25/24 17:38 Coronavirus (PCR) Positive (Negative) A 02/25/24 16:02 Influenza A (PCR) Negative (Negative) 02/25/24 16:02 Influenza Type B (PCR) Negative (Negative) 02/25/24 16:02 RSV (PCR) Negative (Negative) 02/25/24 16:02 All radiology interpretation(s) finalized by discharge Discharge Plan Discharge Patient Disposition: Home Clinical Impression: COVID-19 Condition: Stable Prescriptions: No Action folic acid 1 mg tablet 1 mg PO DAILY aspirin [Adult Aspirin Regimen] 81 mg tablet,delayed release (DR/EC) 81 mg PO DAILY (DME) pen needle, diabetic 33 gauge x 5/32 needle See Rx Instructions .ROUTE .MEDSUPPLY Qty: 100 5RF Rx Instructions: 1 time day amlodipine 5 mg tablet 5 mg PO BEDTIME Qty: 30 2RF albuterol sulfate 90 mcg/actuation HFA aerosol inhaler 2 inh INHALATION Q6H PRN (Reason: shortness of breath or wheezing) Qty: 18 2RF (DME) OneTouch Ultra Test Strip See Rx Instructions .Route Qty: 100 5RF Rx Instructions: check 3 times day clopidogrel 75 mg tablet 75 mg PO DAILY Qty: 30 2RF dapagliflozin propanediol [Farxiga] 10 mg tablet 10 mg PO QAM Qty: 30 2RF hydralazine 25 mg tablet 25 mg PO TID Qty: 90 2RF insulin degludec [Tresiba FlexTouch U-200] 200 unit/mL (3 mL) insulin pen 20 unit SUBCUT DAILY Qty: 9 2RF isosorbide dinitrate 40 mg tablet 40 mg PO BID Qty: 60 2RF methimazole 5 mg tablet 5 mg PO DAILY Qty: 30 2RF Hold Instructions: Monitior TSH metoprolol succinate 100 mg tablet extended release 24 hr 100 mg PO DAILY Qty: 30 2RF pantoprazole [Protonix] 40 mg tablet,delayed release (DR/EC) 40 mg PO DAILY Qty: 30 2RF rosuvastatin 10 mg tablet 10 mg PO QPM Qty: 30 2RF trazodone 100 mg tablet 100 mg PO BEDTIME Qty: 30 2RF zonisamide 50 mg capsule 50 mg PO BID Qty: 60 2RF bupropion HCl [Wellbutrin SR] 150 mg tablet sustained-release 12 hr 150 mg PO Q12H Qty: 60 2RF Hold Instructions: Monitor anxiety (DME) insulin syringe-needle U-100 0.3 mL 31 gauge x 5/16 syringe See Rx Instructions .ROUTE .MEDSUPPLY Qty: 100 5RF Rx Instructions: As directed Humulin R Regular U-100 Insuln 100 unit/mL solution See Rx Instructions SUBCUT TID PRN (Reason: BLOOD SUGAR) Qty: 10 0RF Rx Instructions: 5-20 units SUBCUT three times daily; prednisone 5 mg tablet 5 mg .ROUTE DAILY Qty: 60 3RF Rx Instructions: 5 mg daily; omega 3-flf-wkk-fish oil [Fish Oil] 1,000 mg (120 mg-180 mg) Capsule 1 cap PO DAILY garlic 500 mg Capsule 500 mg PO DAILY [employer] Women's Mature 8 mg iron-400 mcg-300 mcg Tablet 1 tab PO DAILY Discharge Orders: Discharge ED (Routine); Ordered 02/25/24 Ordered By: S[place]ail [place] Referrals: Juan Marino, TOP SPOTTERJose EnriqueC [Primary Care Provider] - Patient Instructions: COVID-19 (Coronavirus Disease 2019) (ED), Opioid Safety, Pain Management Activity Restrictions/Additional Instructions: Thank you for choosing [facility] for your healthcare needs today. It is very important that you follow up as instructed or that you return to the Emergency Department should you have concerns or if your condition changes or worsens in any way. Coding Level of Care Code ED Ophthalmology Assistant for Giulia Read
[2024-02-25 17:51] VITALS: BP 178/68; PULSE 66; RESP 22; O2SAT 93
[2024-02-25 18:02] LABS: Anion Gap 14.7 (5-19); Blood Urea Nitrogen 9 mg/dL (8-23); Carbon Dioxide 21 mmol/L (22-29); Chloride 98 mmol/L (98-107); Creatinine Clr Calc Pharmacy 66.6643; Glomerular Filtration Rate 62.5 mL/min (90-130); Glucose 83 mg/dL (65-115); Osmolality Calculated 268 mOsm/kg (285-295); Potassium 3.7 mmol/L (3.5-5.1); Sodium 130 mmol/L (136-145)
[2024-02-25 18:43] VITALS: BP 168/67; PULSE 67; O2SAT 94
== END 2024-02-25 18:26 | disposition home or self-care (01) ==
PROVIDERS: Nurse Practitioner; Emergency Provider Family Medicine; PCP Nurse Practitioner
DX: U07.1 COVID-19 (principal); Z11.52 Encounter for screening for COVID-19; Z79.82 Long term (current) use of aspirin; Z79.02 Long term (current) use of antithrombotics/antiplatelets; Z87.891 Personal history of nicotine dependence; E11.22 Type 2 diabetes mellitus with diabetic chronic kidney disease; I12.9 Hypertensive chronic kidney disease with stage 1 through stage 4 chronic kidney disease, or unspecified chronic kidney disease; N18.2 Chronic kidney disease, stage 2 (mild); J44.9 Chronic obstructive pulmonary disease, unspecified; E78.5 Hyperlipidemia, unspecified
CPT/HCPCS: 36415; 71045; 80048; 87637; 99285

== ENCOUNTER → 2024-03-12 10:52 | Outpatient (BNVA) | payer MEDICARE, MEDICAID, SELFPAY | PROVIDERS: PCP Nurse Practitioner; Visit Provider Nurse Practitioner | DX: N18.2 Chronic kidney disease, stage 2 (mild) (principal); E11.65 Type 2 diabetes mellitus with hyperglycemia; Z79.4 Long term (current) use of insulin; R09.82 Postnasal drip; Z86.16 Personal history of COVID-19 | CPT/HCPCS: 80048; 81000 ==

== ENCOUNTER → 2024-05-17 09:18 | Outpatient (BNVA) | payer MEDICARE, MEDICAID, SELFPAY | PROVIDERS: PCP Nurse Practitioner; Visit Provider Nurse Practitioner | DX: E55.9 Vitamin D deficiency, unspecified (principal); E05.90 Thyrotoxicosis, unspecified without thyrotoxic crisis or storm; M05.79 Rheumatoid arthritis with rheumatoid factor of multiple sites without organ or systems involvement | CPT/HCPCS: 80053; 82306; 83010; 83615; 84443; 85025; 85651 ==

== ENCOUNTER 2024-05-29 11:11 | Oncology outpatient (recurring) (ONCR) | payer MEDICARE, MEDICAID, SELFPAY | END 2024-06-20 23:59 | disposition home or self-care (01) | LOC: ONCMED 11:11 | PROVIDERS: PCP Nurse Practitioner; Visit Provider Internal Medicine Medical Oncology | DX: D59.10 Autoimmune hemolytic anemia, unspecified (principal); Z87.891 Personal history of nicotine dependence; Z90.81 Acquired absence of spleen; Z79.52 Long term (current) use of systemic steroids | CPT/HCPCS: 99214 ==

== ENCOUNTER → 2024-08-08 08:32 | Outpatient (BNVA) | payer MEDICARE, MEDICAID, SELFPAY | PROVIDERS: PCP Nurse Practitioner; Visit Provider Nurse Practitioner | DX: N18.2 Chronic kidney disease, stage 2 (mild) (principal); E55.9 Vitamin D deficiency, unspecified; D59.10 Autoimmune hemolytic anemia, unspecified | CPT/HCPCS: 81003; 82043; 85025; 87077; 87086; 87184 ==

== ENCOUNTER → 2024-08-21 08:03 | Outpatient (BNVA) | payer MEDICARE, MEDICAID, SELFPAY | PROVIDERS: PCP Nurse Practitioner; Visit Provider Nurse Practitioner | DX: N18.2 Chronic kidney disease, stage 2 (mild) (principal); N18.9 Chronic kidney disease, unspecified; E55.9 Vitamin D deficiency, unspecified; M17.11 Unilateral primary osteoarthritis, right knee; D59.10 Autoimmune hemolytic anemia, unspecified | CPT/HCPCS: 73562; 80053; 80069; 81003; 82043; 82306; 82310; 83615; 83970; 85025 ==

== ENCOUNTER 2024-08-28 12:45 | Oncology outpatient (recurring) (ONCR) | payer MEDICARE, MEDICAID, SELFPAY | END 2024-09-20 23:59 | disposition home or self-care (01) | LOC: ONCMED 12:45 | PROVIDERS: PCP Nurse Practitioner; Visit Provider Internal Medicine Medical Oncology | DX: D59.10 Autoimmune hemolytic anemia, unspecified (principal); R03.0 Elevated blood-pressure reading, without diagnosis of hypertension; M17.11 Unilateral primary osteoarthritis, right knee; Z87.891 Personal history of nicotine dependence; Z92.25 Personal history of immunosuppression therapy; Z90.81 Acquired absence of spleen; K21.9 Gastro-esophageal reflux disease without esophagitis; Z79.52 Long term (current) use of systemic steroids | CPT/HCPCS: 99214 ==

== ENCOUNTER 2024-10-04 10:40 | Outpatient (CLI) | payer MEDICARE, MEDICAID, SELFPAY ==
--- NOTE | 2024-10-04 10:40 | MM_ITS ---
WS: [id number] BILATERAL SCREENING DIGITAL TOMOSYNTHESIS MAMMOGRAM WITH CAD HISTORY: Z12.31 - Encounter for screening mammogram for malignant ... COMPARISON: 07/22/2022, 09/24/2014 Bilateral CC and MLO views with tomosynthesis and synthetic mammography submitted. Computer aided detection analyzed. Breast composition: There are scattered areas of fibroglandular density. No suspicious masses, microcalcifications or architectural distortion. Benign scattered calcifications in each breast. MM/MM scr tomosynthesis [id number] IMPRESSION: BI-RADS: 2 - Benign. FOLLOW UP: 1 Year Follow-up
== END 2024-10-04 10:41 | disposition home or self-care (01) ==
LOC: MOBLMAM 10:41
PROVIDERS: PCP Nurse Practitioner; Visit Provider Nurse Practitioner
DX: Z12.31 Encounter for screening mammogram for malignant neoplasm of breast (principal); R92.323 Mammographic fibroglandular density, bilateral breasts; R92.1 Mammographic calcification found on diagnostic imaging of breast
CPT/HCPCS: 77063; 77067

== ENCOUNTER → 2025-01-09 09:30 | Outpatient (BNVA) | payer MEDICARE, MEDICAID, SELFPAY | PROVIDERS: PCP Nurse Practitioner; Visit Provider Nurse Practitioner | DX: D59.19 Other autoimmune hemolytic anemia (principal); E11.65 Type 2 diabetes mellitus with hyperglycemia; Z79.4 Long term (current) use of insulin; I10 Essential (primary) hypertension; E05.90 Thyrotoxicosis, unspecified without thyrotoxic crisis or storm; Z90.5 Acquired absence of kidney; N17.9 Acute kidney failure, unspecified; R05.9 Cough, unspecified; Z85.528 Personal history of other malignant neoplasm of kidney; R91.8 Other nonspecific abnormal finding of lung field | CPT/HCPCS: 71046; 80053; 80061; 81000; 82043; 83036; 84443; 85025 ==

== ENCOUNTER 2025-01-30 12:17 | Oncology outpatient (recurring) (ONCR) | payer MEDICARE, MEDICAID, SELFPAY ==
--- NOTE | 2025-01-30 12:30 | CT_ITS ---
WS: [id number] CT chest wo con [id number] HISTORY: R91.8 - Other nonspecific abnormal finding of lung field TECHNIQUE: Axial imaging performed through the thorax. Coronal and sagittal reformats are submitted. All CT scans at [facility] use at least one of these dose optimization techniques: automated exposure control; mA and/or kV adjustment per patient size (includes targeted exams where dose is matched to clinical indication); or iterative reconstruction. CONTRAST: None DLP: 577.83 mGy.cm COMPARISON: Chest radiograph 01/09/2025, prior CT 05/17/2017 Lungs and central airway: Spiculated mass with partial cavitation centered in the LEFT upper lobe abutting the pleura. Mass measures 4.0 x 2.3 x 2.4 cm. This corresponds to the abnormality noted on the recent chest radiograph. There are a few additional calcified nodules and a few micronodules bilaterally. Lungs are hyperinflated with bilateral interstitial fibrosis. Pleura: Normal. No pleural effusion. Heart and pericardium: Normal size heart with no pericardial effusion. Mediastinum and namita: No mediastinum or hilar adenopathy. Vessels: Moderate atherosclerotic plaque thoracic aorta. Pulmonary artery is normal size. Chest wall and lower neck: Enlarged multinodular thyroid extends substernal. Upper abdomen: No adrenal mass. Prior LEFT nephrectomy. Moderate atherosclerosis within the suprarenal aorta. Dense calcifications in the proximal renal arteries. Calcifications project into the lumen of the abdominal aorta. Osseous structures: Mild osteopenia. Mild increase in thoracic kyphosis. No destructive bone lesions. CT/CT chest wo con [id number] IMPRESSION: 1. Spiculated, solid mass with partial cavitation centered in the LEFT upper l obe abutting the pleura. Mass measures 4.0 x 2.3 x 2.4 cm and is suspicious for pulmonary neoplasm until proven otherwise. 2. No mediastinal or hilar adenopathy identified. 3. Emphysema and and superimposed pulmonary fibrosis. 4. There are a few additional small scattered pulmonary nodules which are too small to characterize. 5. Moderate atherosclerosis aorta and suprarenal aorta. Dense calcifications p roject into the aorta from the renal arteries. 6. Multinodular goiter, enlarged thyroid extends substernal.
== END 2025-02-20 23:59 | disposition home or self-care (01) ==
PROVIDERS: PCP Nurse Practitioner; Visit Provider Internal Medicine Medical Oncology
DX: R91.8 Other nonspecific abnormal finding of lung field (principal); J43.9 Emphysema, unspecified; J84.10 Pulmonary fibrosis, unspecified; I70.0 Atherosclerosis of aorta; I70.8 Atherosclerosis of other arteries; E04.2 Nontoxic multinodular goiter; Z90.5 Acquired absence of kidney; M85.80 Other specified disorders of bone density and structure, unspecified site; M40.294 Other kyphosis, thoracic region
CPT/HCPCS: 71250

== ENCOUNTER → 2025-02-07 09:32 | Outpatient (BNVA) | payer MEDICARE, MEDICAID, SELFPAY | PROVIDERS: PCP Nurse Practitioner; Referring Provider Nurse Practitioner; Visit Provider Internal Medicine | DX: J44.9 Chronic obstructive pulmonary disease, unspecified (principal); R91.8 Other nonspecific abnormal finding of lung field; Z79.01 Long term (current) use of anticoagulants; Z87.891 Personal history of nicotine dependence; R55 Syncope and collapse | CPT/HCPCS: 36415; 80053; 85025; 85610; 99204; Q3014 ==

== ENCOUNTER 2025-02-08 12:19 | Outpatient (CLI) | payer MEDICARE, MEDICAID, SELFPAY ==
--- NOTE | 2025-02-08 12:30 | XR_ITS ---
WS: [id number] PA and lateral chest, 02/08/2025 Clinical Data: elevated WBC Comparison: Two-view chest, 01/09/2025 Findings: The left upper lobe mass which abuts the pleura measures 4.5 cm in greatest AP dimension. No other masses are seen. There are no nodules or effusion, pneumonia or pneumothorax is seen. The diaphragms are flattened. The aortic arch shows calcification. The heart is normal. XR/XR chest 2V* [id number] Impression: 1. Left upper lobe mass suspicious for cancer of the lung. 2. Hyperinflation and atherosclerosis.
== END 2025-02-08 12:20 | disposition home or self-care (01) ==
LOC: RAD 12:24
PROVIDERS: PCP Nurse Practitioner; Visit Provider Internal Medicine
DX: R91.8 Other nonspecific abnormal finding of lung field (principal); J98.6 Disorders of diaphragm; I70.8 Atherosclerosis of other arteries; R93.5 Abnormal findings on diagnostic imaging of other abdominal regions, including retroperitoneum
CPT/HCPCS: 71046